=== PATIENT | male | born 1935 | race Caucasian/White ===

== ENCOUNTER 2016-06-01 09:31 | Outpatient (CLI) | payer MEDICARE, OTHER | END 2016-06-01 09:32 | disposition home or self-care (01) | DX: C61 Malignant neoplasm of prostate (principal); Z92.3 Personal history of irradiation; R35.1 Nocturia; R39.11 Hesitancy of micturition; N52.9 Male erectile dysfunction, unspecified ==

== ENCOUNTER 2016-06-01 09:31 | Outpatient (CLI) | payer MEDICARE, OTHER | END 2016-06-01 09:32 | disposition home or self-care (01) | DX: E11.51 Type 2 diabetes mellitus with diabetic peripheral angiopathy without gangrene (principal) ==

== ENCOUNTER 2016-12-11 08:00 | Outpatient (CLI) | payer MEDICARE, OTHER ==
[2016-12-11 13:52] LABS: BASOPHILS % (AUTO) 0.3 %; EOSINOPHILS # (AUTO) 0.1 10^3/uL (0.0-0.7); EOSINOPHILS % (AUTO) 1.5 %; HCT - HEMATOCRIT 39.2 % (42.0-52.0); HGB - HEMOGLOBIN 13.4 g/dL (14.0-18.0); LYMPHOCYTES # (AUTO) 1.5 10^3/uL (1.5-3.5); LYMPHOCYTES % (AUTO) 21.6 %; MEAN CORPUSCULAR HGB CONC 34.3 g/dL (32.0-36.0); MEAN CORPUSCULAR VOLUME 87.5 fL (80.0-94.0); MEAN PLATELET VOLUME 8.7 fL (7.4-11.4); MONOCYTES # (AUTO) 0.6 10^3/uL (0.0-1.0); MONOCYTES % (AUTO) 8.5 %; NEUTROPHILS # (AUTO) 4.6 10^3/uL (1.5-6.6); NEUTROPHILS % (AUTO) 68.1 %; NUCLEATED RED BLOOD CELLS AUTO 0.1 /100WBC; RED BLOOD COUNT 4.48 10^6/uL (4.70-6.10); RED CELL DISTRIBUTION WIDTH 13.2 % (12.0-15.0); UNCORRECTED WHITE BLOOD COUNT 6.8 x10^3/uL; WHITE BLOOD COUNT 6.8 x10^3/uL (4.8-10.8)
[2016-12-11 14:11] LABS: ALBUMIN/GLOBULIN RATIO 1.3 (1.0-2.2); BUN - BLOOD UREA NITROGEN 24 mg/dL (6-20); CALCIUM 9.4 mg/dL (8.5-10.3); CARBON DIOXIDE - CO2 28 mmol/L (21-32); CHLORIDE 103 mmol/L (101-111); CHOL/HDL RATIO 2.8 (<5.0); CHOLESTEROL 86 mg/dL; CREATININE 1.6 mg/dL (0.6-1.2); GFR - MDRD 42 (>89); GLUCOSE 94 mg/dL (70-100); HDL CHOLESTEROL 31 mg/dL; LDL/HDL RATIO 1.1 (<3.6); POTASSIUM 3.7 mmol/L (3.5-5.0); SODIUM 138 mmol/L (135-145); TOTAL PROTEIN 7.4 g/dL (6.7-8.2); TRIGLYCERIDES 98 mg/dL; VLDL CHOLESTEROL 20 mg/dL
[2016-12-11 14:29] LABS: HEMOGLOBIN A1C 0.56 g/dL
== END 2016-12-11 08:01 | disposition home or self-care (01) ==
LOC: LAB.WCP 08:00
PROVIDERS: ATTEND Urology
DX: I25.10 Atherosclerotic heart disease of native coronary artery without angina pectoris (principal); C61 Malignant neoplasm of prostate; E11.29 Type 2 diabetes mellitus with other diabetic kidney complication; N18.3 Chronic kidney disease, stage 3 (moderate); E03.9 Hypothyroidism, unspecified; R35.1 Nocturia; N52.8 Other male erectile dysfunction; R39.11 Hesitancy of micturition; Z92.3 Personal history of irradiation; I12.9 Hypertensive chronic kidney disease with stage 1 through stage 4 chronic kidney disease, or unspecified chronic kidney disease
CPT/HCPCS: 36415; 80053; 80061; 83036; 84153; 84443; 85025

== ENCOUNTER 2017-03-16 10:05 | Outpatient (CLI) | payer MEDICARE, OTHER ==
[2017-03-16 14:17] LABS: HEMOGLOBIN A1C 0.57 g/dL
[2017-03-16 14:22] LABS: ALBUMIN/GLOBULIN RATIO 1.3 (1.0-2.2); BILIRUBIN,TOTAL 0.8 mg/dL (0.2-1.0); CALCIUM 9.7 mg/dL (8.5-10.3); CREATININE 1.6 mg/dL (0.6-1.2); POTASSIUM 4.1 mmol/L (3.5-5.0); TOTAL PROTEIN 7.4 g/dL (6.7-8.2)
== END 2017-03-16 10:06 | disposition home or self-care (01) ==
LOC: LAB.WCP 10:05
PROVIDERS: ATTEND Family Medicine
DX: G47.62 Sleep related leg cramps (principal); E11.51 Type 2 diabetes mellitus with diabetic peripheral angiopathy without gangrene; I48.0 Paroxysmal atrial fibrillation; I10 Essential (primary) hypertension; E78.9 Disorder of lipoprotein metabolism, unspecified
CPT/HCPCS: 36415; 80053; 83036

== ENCOUNTER 2017-06-01 08:00 | Outpatient (CLI) | payer MEDICARE, OTHER ==
[2017-06-01 13:51] LABS: ALBUMIN 4.2 g/dL (3.2-5.5); ALBUMIN/GLOBULIN RATIO 1.3 (1.0-2.2); BILIRUBIN,TOTAL 0.7 mg/dL (0.2-1.0); CALCIUM 9.7 mg/dL (8.5-10.3); CREATININE 1.6 mg/dL (0.6-1.2); TOTAL PROTEIN 7.5 g/dL (6.7-8.2)
[2017-06-01 14:46] LABS: HB2 TOTAL 13.6 g/dL; HEMOGLOBIN A1C 0.59 g/dL; HEMOGLOBIN A1C % 6.1 % (4.6-6.2)
== END 2017-06-01 08:01 | disposition home or self-care (01) ==
LOC: LAB.WCP 08:00
PROVIDERS: ATTEND Family Medicine
DX: C61 Malignant neoplasm of prostate (principal); E11.51 Type 2 diabetes mellitus with diabetic peripheral angiopathy without gangrene; R15.0 Incomplete defecation
CPT/HCPCS: 36415; 80053; 83036

== ENCOUNTER 2017-12-16 18:19 | Outpatient (CLI) | payer MEDICARE, OTHER ==
--- NOTE | 2017-12-17 01:41 | Ultrasound Report ---
Reason: LEG PAIN, RIGHT Procedure Date: 12/16/2017 Accession Number: [id number] / [id number] Procedure: US - Duplex Ext Veins Right CPT Code: FULL RESULT: EXAM: RIGHT LOWER EXTREMITY VENOUS ULTRASOUND EXAM DATE: 12/16/2017 06:47 PM. CLINICAL HISTORY: Leg pain, right. COMPARISON: None. TECHNIQUE: Real-time sonographic vascular imaging was performed by the sweeper brush maker machine through the lower extremity utilizing both color-flow and Doppler spectral analysis. Multiple promotions representative static images were saved for review. FINDINGS: Common Femoral Vein (CFV): Normal. CFV-GSV Junction: Normal. Profunda Femoral Vein (PFV): Normal. Femoral Vein (FV) Prox: Normal. Femoral Vein (FV) Mid: Normal. Femoral Vein (FV) Dist: Normal. Popliteal Vein: Normal. Posterior Tibial Veins: Normal. Peroneal Veins: Normal. Contralateral Side CFV: Normal. Other: None. IMPRESSION: No evidence for deep venous thrombosis. RADIA
== END 2017-12-16 18:20 | disposition home or self-care (01) ==
LOC: DI 18:19
PROVIDERS: ATTEND Family Medicine
DX: M79.604 Pain in right leg (principal)

== ENCOUNTER 2017-12-23 10:49 | Outpatient (CLI) | payer MEDICARE, OTHER ==
[2017-12-23 18:57] LABS: HB2 TOTAL 13.4 g/dL; HEMOGLOBIN A1C 0.61 g/dL; HEMOGLOBIN A1C % 6.3 % (4.6-6.2)
[2017-12-23 19:03] LABS: ALBUMIN 4.2 g/dL (3.2-5.5); ALBUMIN/GLOBULIN RATIO 1.4 (1.0-2.2); ALKALINE PHOSPHATASE 58 IU/L (42-121); ALT ALANINE AMINOTRANSFERASE 20 IU/L (10-60); AST ASPARTATE AMINOTRANSFERASE 29 IU/L (10-42); BILIRUBIN,TOTAL 0.9 mg/dL (0.2-1.0); BUN - BLOOD UREA NITROGEN 28 mg/dL (6-20); CALCIUM 9.5 mg/dL (8.5-10.3); CARBON DIOXIDE - CO2 28 mmol/L (21-32); CHLORIDE 105 mmol/L (101-111); CHOLESTEROL 100 mg/dL; CREATININE 1.5 mg/dL (0.6-1.2); GFR - MDRD 45 (>89); GLUCOSE 96 mg/dL (70-100); HDL CHOLESTEROL 33 mg/dL; LDL CHOLESTEROL,CALCULATED 49 mg/dL; LDL/HDL RATIO 1.5 (<3.6); SODIUM 140 mmol/L (135-145); TOTAL PROTEIN 7.2 g/dL (6.7-8.2); VLDL CHOLESTEROL 18 mg/dL
== END 2017-12-23 10:50 | disposition home or self-care (01) ==
LOC: LAB.WCP 10:49
PROVIDERS: ATTEND Family Medicine
DX: E11.40 Type 2 diabetes mellitus with diabetic neuropathy, unspecified (principal); E03.9 Hypothyroidism, unspecified; E78.5 Hyperlipidemia, unspecified
CPT/HCPCS: 36415; 80053; 80061; 83036; 83721; 84443

== ENCOUNTER 2018-07-06 08:00 | Outpatient (CLI) | payer MEDICARE, OTHER ==
[2018-07-06 13:10] LABS: BASOPHILS % (AUTO) 0.8 %; EOSINOPHILS # (AUTO) 0.1 10^3/uL (0.0-0.7); EOSINOPHILS % (AUTO) 1.9 %; HGB - HEMOGLOBIN 13.1 g/dL (14.0-18.0); LYMPHOCYTES # (AUTO) 1.3 10^3/uL (1.5-3.5); LYMPHOCYTES % (AUTO) 21.3 %; MEAN CORPUSCULAR HEMOGLOBIN 30.4 pg (27.0-31.0); MEAN CORPUSCULAR HGB CONC 34.4 g/dL (32.0-36.0); MEAN CORPUSCULAR VOLUME 88.5 fL (80.0-94.0); MEAN PLATELET VOLUME 8.8 fL (7.4-11.4); MONOCYTES # (AUTO) 0.5 10^3/uL (0.0-1.0); MONOCYTES % (AUTO) 8.2 %; NEUTROPHILS # (AUTO) 4.2 10^3/uL (1.5-6.6); NEUTROPHILS % (AUTO) 67.8 %; PLT - PLATELET COUNT 171 10^3/uL (130-450); RED BLOOD COUNT 4.29 10^6/uL (4.70-6.10); RED CELL DISTRIBUTION WIDTH 13.2 % (12.0-15.0); WHITE BLOOD COUNT 6.2 x10^3/uL (4.8-10.8)
[2018-07-06 13:29] LABS: ALBUMIN 4.1 g/dL (3.2-5.5); ALBUMIN/GLOBULIN RATIO 1.2 (1.0-2.2); CALCIUM 9.2 mg/dL (8.5-10.3); CREATININE 1.7 mg/dL (0.6-1.2); TOTAL PROTEIN 7.5 g/dL (6.7-8.2)
[2018-07-06 13:56] LABS: HB2 TOTAL 14.1 g/dL; HEMOGLOBIN A1C 0.6 g/dL
== END 2018-07-06 23:59 | disposition home or self-care (01) ==
LOC: LAB.WCP 08:00
PROVIDERS: ATTEND Family Medicine
DX: C61 Malignant neoplasm of prostate (principal); E11.51 Type 2 diabetes mellitus with diabetic peripheral angiopathy without gangrene; I48.0 Paroxysmal atrial fibrillation; N18.3 Chronic kidney disease, stage 3 (moderate); I12.9 Hypertensive chronic kidney disease with stage 1 through stage 4 chronic kidney disease, or unspecified chronic kidney disease; I25.10 Atherosclerotic heart disease of native coronary artery without angina pectoris
CPT/HCPCS: 36415; 80053; 82043; 83036; 84443; 85025

== ENCOUNTER 2018-07-11 14:50 | Observation (INO) | payer MEDICARE, OTHER ==
[2018-07-11] MEDS ORDERED: NITROGLYCERIN SL 0.4 MG TABLET SL STA (15:16)
[2018-07-11] MEDS ORDERED: ASPIRIN CHEW 81 MG TABLET PO STA (15:16)
--- NOTE | 2018-07-11 15:18 | ED Physician Documentation ---
PD HPI CHEST PAIN - Stated complaint Stated Complaint: CHEST PX/ABD PX - Chief complaint Chief Complaint: Cardiac - History obtained from History obtained from: Patient, Family - History of Present Illness Timing - onset: Today (This is an 82-year-old gentleman with history of AR and 1998 with single stent in place, no heart problems since. He developed sharp left anterior chest pain while eating about an hour ago and feels nauseous with it. He denies shortness of breath or sweats. There is no radiation to the back.) Review of Systems Constitutional: denies: Fever, Chills, Sweats Cardiac: denies: Palpitations, Pedal edema, Calf pain Respiratory: denies: Dyspnea, Cough, Hemoptysis, Wheezing PD PAST MEDICAL HISTORY - Past Medical History Cardiovascular: AR, Atrial fibrillation Respiratory: None Endocrine/Autoimmune: Type 2 diabetes GI: None : None HEENT: Chronic hearing loss Psych: Depression Musculoskeletal: None Derm: None - Past Surgical History Past Surgical History: No General: Hiatal hernia repair Ortho: Knee replacement Cardiovascular: Coronary stent HEENT: Cataracts, Tonsil/Adenoidectomy - Present Medications Home Medications: Ambulatory Orders Medication Instructions Recorded Confirmed Cetirizine [ZyrTEC] 10 mg PO QPM 04/22/15 05/24/15 Fluticasone [Flonase] 1 sprays [place] BID 04/22/15 05/24/15 Ca/D3/Mag#11/Zinc/Cerner Analyst/Adrian/Bor 1 tab PO QPM /06/1805/24/15 [Caltrate 600+D Plus Tablet] Furosemide 40 mg PO DAILY 05/08/15 05/24/15 Levothyroxine [Synthroid] 50 mcg PO QDAC 05/08/15 05/24/15 Multivit-Min/Iron Fum/Folic AC 1 each PO DAILY 05/08/15 05/24/15 [Loyel-Clvcdll-Enczqosi Tablet] Polyethylene Glycol 3350 [Miralax] 17 gm PO DAILY PRN 05/08/15 05/24/15 Valsartan [Diovan] 320 mg PO DAILY 05/08/15 05/24/15 amLODIPine [Norvasc] 5 mg PO DAILY 05/08/15 05/24/15 glipiZIDE [Glucotrol] 5 mg PO QPM 05/08/15 05/24/15 metFORMIN [Glucophage] 500 mg PO BID 05/08/15 05/24/15 Rivaroxaban [Xarelto] 15 mg PO DAILY 05/09/15 05/24/15 - Allergies Allergies/Adverse Reactions: Allergies Allergy/AdvReac Type Severity Reaction Status Date / Time No Known Drug Allergies Allergy Verified 04/22/15 06:24 - Social History Does the pt smoke?: No Smoking Status: Former smoker Does the pt drink ETOH?: No Does the pt have substance abuse?: No - Family History Family history: reports: Non contributory - Immunizations Immunizations are current?: Yes PD ED PE NORMAL - Vitals Vital signs reviewed: Yes - General General: Alert and oriented X 3, No acute distress - HEENT HEENT: PERRL, EOMI - Neck Neck: Supple, no meningeal sign, No bony TTP - Cardiac Cardiac: Other (Irregularly irregular without murmur) - Respiratory Respiratory: No respiratory distress, Clear bilaterally - Abdomen Abdomen: Soft, Non tender - Back Back: No CVA TTP, No spinal TTP - Derm Derm: Normal color, Warm and dry - Extremities Extremities: No edema, No calf tenderness / cord - Neuro Neuro: Alert and oriented X 3, Normal speech Results - Vitals Vitals: Vital Signs - 24 hr 07/11/18 07/11/18 07/11/18 14:59 15:23 15:33 Temperature 36.3 C L Heart Rate 69 97 88 Respiratory 20 16 18 Rate Blood Pressure 137/61 H 124/83 H 103/57 L O2 Saturation 97 96 95 Oxygen O2 Source Room air - EKG (time done) 1505 Rate: Rate (enter#) (109) Rhythm: Atrial fibrillation (With frequent PVCs, 3 beat run of V. tach on the EKG.) [place]: Normal QRS: Low voltage Ischemia: Normal ST segments. No: ST elevation c/w ischemia Computer interpretation: Agree with computer - Labs Labs: Laboratory Tests 07/11/18 07/11/18 07/11/18 15:10 15:10 15:10 WBC 6.7 RBC 4.57 L Hgb 13.6 L Hct 40.7 L MCV 89.0 MCH 29.7 MCHC 33.4 RDW 13.0 Plt Count 182 MPV 8.0 Neut # (Auto) 5.0 Lymph # (Auto) 1.1 L Summers # (Auto) 0.4 Eos # (Auto) 0.1 Baso # (Auto) 0.0 Absolute Nucleated RBC 0.00 Nucleated RBC % 0.0 Sodium 136 Potassium 4.1 Chloride 98 L Carbon Dioxide 29 Anion Gap 9.0 BUN 26 H Creatinine 1.7 H Estimated GFR (MDRD) 39 L Glucose 178 H Calcium 9.7 Total Bilirubin 1.0 AST 30 ALT 21 Alkaline Phosphatase 62 Total Creatine Kinase 132 CK-MB (CK-2) 5.6 Troponin I < 0.04 Total Protein 7.9 Albumin 4.4 Globulin 3.5 Albumin/Globulin Ratio 1.3 Lipase 36 - Rads (name of study) 1v chest Radiology: EMP read contemporaneously (stable cardiomegaly, lg hiatal hernia) PD MEDICAL DECISION MAKING - ED course ED course: This is an 82-year-old gentleman with history of AR and A. fib who presents with acute chest pain. His EKG is not particularly ischemic but he does have frequent PVCs. He was administered nitroglycerin which did help with the pain but he had a presyncopal episode with this. He became briefly hypotensive to 70/40 and further nitroglycerin was held. He was also administered aspirin. His initial biomarkers are negative. - Consults Consults: Consulted (name) (Gena Bird, hospitalist, we spoke as pt needs formal R/O AR at 1545) Departure - Departure Disposition: ED Place in Observation Clinical Impression: Chest pain Qualifiers: Chest pain type: unspecified Qualified Code(s): R07.9 - Chest pain, unspecified Condition: Stable Record reviewed to determine appropriate education?: Yes
[2018-07-11 15:25] LABS: BASOPHILS % (AUTO) 0.3 %; EOSINOPHILS # (AUTO) 0.1 10^3/uL (0.0-0.7); EOSINOPHILS % (AUTO) 1.4 %; HGB - HEMOGLOBIN 13.6 g/dL (14.0-18.0); LYMPHOCYTES # (AUTO) 1.1 10^3/uL (1.5-3.5); LYMPHOCYTES % (AUTO) 15.9 %; MEAN CORPUSCULAR HEMOGLOBIN 29.7 pg (27.0-31.0); MEAN CORPUSCULAR HGB CONC 33.4 g/dL (32.0-36.0); MONOCYTES # (AUTO) 0.4 10^3/uL (0.0-1.0); MONOCYTES % (AUTO) 6.7 %; NEUTROPHILS % (AUTO) 75.7 %; PLT - PLATELET COUNT 182 10^3/uL (130-450); RED BLOOD COUNT 4.57 10^6/uL (4.70-6.10); WHITE BLOOD COUNT 6.7 x10^3/uL (4.8-10.8)
[2018-07-11 15:33] LABS: ALBUMIN 4.4 g/dL (3.2-5.5); ALBUMIN/GLOBULIN RATIO 1.3 (1.0-2.2); CALCIUM 9.7 mg/dL (8.5-10.3); CREATININE 1.7 mg/dL (0.6-1.2); TOTAL PROTEIN 7.9 g/dL (6.7-8.2)
[2018-07-11 15:37] LABS: TROPONIN I < 0.04 ng/mL (<0.49)
[2018-07-11 15:39] LABS: CREATINE KINASE MB 5.6 ng/mL (0.6-6.3)
[2018-07-11] MEDS ORDERED: POLYETHYLENE GLYCOL 3350 17 GM PACKET PO PRN (15:44)
[2018-07-11] MEDS ORDERED: SODIUM CHLORIDE 0.9% 500 ML IV ONE (15:45)
[2018-07-11] MEDS ORDERED: MORPHINE 2 MG/ML SYRINGE IVP STA (15:45)
[2018-07-11] MEDS ORDERED: NITROGLYCERIN 2% PASTE TOP STA (15:45)
[2018-07-11] MEDS ORDERED: TEMAZEPAM 15 MG CAPSULE PO PRN (15:49)
[2018-07-11] MEDS ORDERED: MORPHINE 2 MG/ML SYRINGE IVP PRN (15:49)
[2018-07-11] MEDS ORDERED: ACETAMINOPHEN 325 MG TABLET PO PRN (15:49)
[2018-07-11] MEDS ORDERED: SODIUM CHLORIDE FLUSH 0.9% 10 ML SYRINGE IVP PRN (15:49)
[2018-07-11] MEDS ORDERED: ONDANSETRON ODT 4 MG TABLET TL PRN (15:49)
[2018-07-11] MEDS ORDERED: MIDODRINE 2.5 MG TABLET PO PRN (15:57)
--- NOTE | 2018-07-11 16:16 | HISTORY & PHYSICAL EXAMINATION ---
Chief Complaint - Chief Complaint Chief Complaint: chest pain History of Present Illness - History of Present Illness HPI Comment/Other: Mr. Holt is an 82-year-old gentleman with a PMH significant of NC with single stent in place in 1997, HTN, several chest pain reported in the past, Atrial fibrillation with Xarelto, DM2, chronic hearing loss, who report he developed sharp left anterior chest pain. Pt report when he was eating lunch, he feels nauseous, and feel left chest and left upper abdominal pain. He report pain is sharp and consistent. The pain did not radiate to other location. In ER, pt was given Nitroglycerin, and he feel his chest pain is released. He denies shortness of breath or sweats. His initial troponin is negative. His EKG is not particularly ischemic but he does have frequent PVCs. pt was admitted for evaluation and treatment of chest pain. History - Past Medical History Cardiovascular: reports: NC, Atrial fibrillation Respiratory: reports: None Endocrine/Autoimmune: reports: Type 2 diabetes GI: reports: None : reports: None HEENT: reports: Chronic hearing loss Psych: reports: Depression Musculoskeletal: reports: None Derm: reports: None MRSA Hx?: No - Past Surgical History General: reports: Hiatal hernia repair Ortho: reports: Knee replacement Cardiovascular: reports: Coronary stent HEENT: reports: Cataracts, Tonsil/Adenoidectomy - Family & Social History Family History: Mother: , CVA/TIA, Father: , COPD/Emphysema Family History Comment/Other: pt report his father at 70 yrs from lung disease. his mother from cancer. he is with living at [facility] and had three children. Social History Notes: pt report he had remote cigarette smoker, he denies alcohol and drug problem Meds/Allgy - Home Medications Home Medications: Ambulatory Orders Medication Instructions Recorded Confirmed Cetirizine [ZyrTEC] 10 mg PO QPM 04/22/15 05/24/15 Fluticasone [Flonase] 1 sprays [place] BID 04/22/15 05/24/15 Ca/D3/Mag#11/Zinc/Washer Hand/Adrian/Bor 1 tab PO QPM 05/08/15 05/24/15 [Caltrate 600+D Plus Tablet] Furosemide 20 mg PO DAILY 05/08/15 05/24/15 Levothyroxine [Synthroid] 50 mcg PO QDAC 05/08/15 05/24/15 Multivit-Min/Iron Fum/Folic AC 1 each PO DAILY 05/08/15 05/24/15 [Hjnnh-Gdhuhek-Dsiwgeet Tablet] Polyethylene Glycol 3350 [Miralax] 8.5 - 17 gm PO DAILY PRN 05/08/15 05/24/15 Valsartan [Diovan] 320 mg PO DAILY 05/08/15 05/24/15 amLODIPine [Norvasc] 2.5 mg PO DAILY 05/08/15 05/24/15 glipiZIDE [Glucotrol] 5 mg PO QPM 05/08/15 05/24/15 metFORMIN [Glucophage] 500 mg PO BID 05/08/15 05/24/15 Rivaroxaban [Xarelto] 15 mg PO DAILY 05/09/15 05/24/15 Diclofenac Sodium [Voltaren] 2 - 4 gm TOP QID PRN 07/11/18 Ferrous Sulfate 325 mg PO DAILY 07/11/18 Mirtazapine [Remeron] 7.5 mg PO HS 07/11/18 Simvastatin 80 mg PO DAILY 07/11/18 Tamsulosin HCl [Flomax] 0.4 mg PO DAILY 07/11/18 Zolpidem [Ambien] 5 mg PO HS PRN 07/11/18 raNITIdine [Zantac] 150 mg PO DAILY 07/11/18 - Allergies Allergies/Adverse Reactions: Allergies Allergy/AdvReac Type Severity Reaction Status Date / Time No Known Drug Allergies Allergy Verified 04/22/15 06:24 Review of Systems - Constitutional Constitutional: denies: Fatigue, Fever, Chills, Malaise, Weakness, Poor appetite, Diaphoresis, Night sweats - Eyes Eyes: denies: Pain, Irritation, Amaurosis, Blurred vision, Spots in vision, Field loss, Vision loss, Dipolpia - Ears, Nose & Throat Ears, Nose & Throat: denies: Ear pain, Hearing aids, Tinnitus, Vertigo, Nasal pain, Nasal discharge, Nosebleeds, Nasal obstruction, Nasal congestion, Postnasal drainage, Dentures, Sore throat, Hoarseness, Mouth lesions, Bleeding gums, Dental decay, Dental pain - Cardiovascular Cariovascular: reports: Chest pain. denies: Irregular heart rate, Palpitations, Edema, Lightheadedness, Syncope, Exertional dyspnea, Decr. exercise tolerance - Respiratory Respiratory: denies: Cough, Sputum production, Wheezing, Snoring, Hemoptysis, Orthopnea, SOB at rest, SOB with exertion - Gastrointestinal Gastrointestinal: denies: Abdominal pain, Abdominal distention, Constipation, Diarrhea, Change in bowel habits, Rectal bleeding, Black stools, Bloody stools, Nausea, Vomiting, Bile emesis, David blood emesis, Coffee grounds emesis, Reflux/heartburn - Genitourinary Genitourinary: denies: Dysuria, Frequency, Urgency, Hematuria, Incontinence, Flank pain, Nocturia, Urethral discharge - Musculoskeletal Musculoskeletal: denies: Muscle pain, Back pain, Muscle aches, Stiffness, Banuelos ited range of motion, Muscle weakness, Gout - Integumentary Integumentary: denies: Rash, Pruritis, Lesions, Dryness, Lumps, Acne, Pigment changes, Nail changes - Neurological Neurological: denies: General weakness, Focal weakness, Headache, Dizziness, Numbness, Memory problems, Pre-existing deficit, Abnormal gait, Seizures, Incoordination, Slurred speech - Psychiatric Psychiatric: denies: Depression, Anxiety, Suicidal, Delusions, Hallucinations, Homicidal - Endocrine Endocrine: denies: Polyuria, Polydypsia, Polyphagia, Intolerance to cold - Hematologic/Lymphatic Hematologic/Lymphatic: denies: Anemia, Bruising, Petechiae, Blood clots, Lymphadenopathy, Bleeding tendencies Prior Level of Functionality: independent with Exam - Vital Signs Reviewed Vital Signs: Yes Vital Signs: Vital Signs x48h Temp Pulse Resp BP Pulse Ox 07/11/18 15:57 89 16 105/61 95 07/11/18 15:33 88 18 103/57 L 95 07/11/18 15:23 97 16 124/83 H 96 07/11/18 14:59 36.3 C L 69 20 137/61 H 97 - Physical Exam General Appearance: positive: No acute distress, Alert. negative: Lethargic Eyes Bilateral: positive: Normal inspection, PERRL, No lid inflammation, Conjunctivae nml ENT: positive: ENT inspection nml, Pharynx nml, No signs of dehydration. negative: Purulent nasal drainage, Pharyngeal erythema, Oral lesions Neck: positive: Nml inspection, Thyroid nml, No JVD, Trachea midline. negative: Thyromegaly, Lymphadenopathy (R), Lymphadenopathy (L), Stiff neck, Swelling/bruising, Tracheal deviation Respiratory: positive: Chest non-tender, No respiratory distress, Breath sounds nml. negative: Wheezes, Rales, Rhonchi Cardiovascular: positive: Regular rate & rhythm, No murmur, No gallop. negative: Irregularly irregular, Extrasystoles, Tachycardia, Bradycardia, JVD present, Systolic murmur, Diastolic murmur Peripheral Pulses: positive: 2+ Abdomen: positive: Non-tender, No organomegaly, Nml bowel sounds, No distention. negative: Tenderness, Guarding, Rebound Back: positive: Nml inspection. negative: CVA tenderness (R), CVA tenderness (L) Skin: positive: Color nml, No rash, Warm, Dry. negative: Cyanosis, Diaphoresis, Pallor Extremities: positive: Non-tender, Full ROM, Nml appearance. negative: Calf tenderness, Joint swelling, Kyung's sign/cords Neurologic/Psychiatric: positive: Oriented x3, Motor nml, Sensation nml. negative: Mood/affect nml, Weakness, Sensory loss, Facial droop, Slurred/abnml speech, Depressed mood/affect Sepsis Event Note (H) - Evaluation Current Stage of Sepsis: Ruled out Conclusion/Plan - Problem List (1) Chest pain Conclusion/Plan: pt report he had left sharp chest pain, didnot radiate to other location. but nitro release his pain per pt report. initial troponin is negative. EKG does not indicate acute ST variety serial troponin Aspirin daily EKG PRN on tele and vital monitor ECHO stress test, since pt has hx of CAD, nitro released his chest pain nitro and Morphine PRN reconcile home Xarelto, check lipid panel Qualifiers: Chest pain type: unspecified Qualified Code(s): R07.9 - Chest pain, unspecified (2) Afib Conclusion/Plan: HR is stable, reconcile home meds, Xarelto continue tele and vital monitor (3) Hx of coronary artery disease Conclusion/Plan: Initial Troponin is negative. EKG does not indicate ST variety. pt has home meds Xarelto tele and vital monitor continue chest pain workup as above (4) HTN (hypertension) Conclusion/Plan: stable, will reconcile home meds after pharmacy proved vital monitor (5) DM2 (diabetes mellitus, type 2) Conclusion/Plan: pt did not take insulin at home. hold Metformin start slide scale, ACHS hypoglycemia protocol check A1C (6) Full code status Conclusion/Plan: pt request full code - Lab Results Fish Bones: 07/11/18 15:10 07/11/18 15:10 Core Measures - Anticipated LOS I expect patient to be DC'd or transferred within 96 hours.: Yes - DVT/VTE - Prophylaxis VTE/DVT Device ordered at admit?: Yes VTE/DVT Prophylaxis med ordered at admit?: Yes
--- NOTE | 2018-07-11 16:24 | XRAY Report ---
Reason: chest pain Procedure Date: 07/11/2018 Accession Number: [id number] / [id number] Procedure: XR - Chest 1 View X-Ray CPT Code: 15427 FULL RESULT: EXAM: CHEST RADIOGRAPHY EXAM DATE: 07/11/2018 04:05 PM. CLINICAL HISTORY: Chest pain. COMPARISON: CHEST 2 VIEW PA/LAT 05/08/2015 4:03 PM. TECHNIQUE: 1 view. FINDINGS: Lungs/Pleura: Left basilar atelectasis or scarring No focal opacities evident. No pleural effusion. No pneumothorax. Mediastinum: Stable cardiomegaly. Large hiatal hernia. 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 Stable cardiomegaly. 2. Large hiatal hernia. RADIA
[2018-07-11 16:31] LABS: HB2 TOTAL 15.3 g/dL; HEMOGLOBIN A1C 0.68 g/dL; HEMOGLOBIN A1C % 6.2 % (4.6-6.2)
[2018-07-11] MEDS: INSULIN ASPART 300 UNIT/3 ML PEN SUBQ SCH ×2 (17:23→21:03)
[2018-07-11] MEDS: SODIUM CHLORIDE FLUSH 0.9% 10 ML SYRINGE IVP SCH (17:27)
[2018-07-11] MEDS: SODIUM CHLORIDE 0.9% 1,000 ML IV SCH (18:38)
[2018-07-11] MEDS ORDERED: glipiZIDE 5 MG TABLET PO SCH (21:00)
[2018-07-11] MEDS ORDERED: FAMOTIDINE 20 MG TABLET PO SCH (21:00)
[2018-07-11] MEDS: FLUTICASONE NASAL SPRAY NAS SCH (21:07)
[2018-07-12] MEDS: SODIUM CHLORIDE FLUSH 0.9% 10 ML SYRINGE IVP SCH ×2 (03:08→13:51)
[2018-07-12 05:46] LABS: BASOPHILS % (AUTO) 0.2 %; EOSINOPHILS # (AUTO) 0.1 10^3/uL (0.0-0.7); EOSINOPHILS % (AUTO) 1.4 %; LYMPHOCYTES # (AUTO) 1.1 10^3/uL (1.5-3.5); LYMPHOCYTES % (AUTO) 16.8 %; MEAN CORPUSCULAR HEMOGLOBIN 30.3 pg (27.0-31.0); MEAN CORPUSCULAR HGB CONC 34.1 g/dL (32.0-36.0); MEAN PLATELET VOLUME 8.2 fL (7.4-11.4); MONOCYTES # (AUTO) 0.6 10^3/uL (0.0-1.0); MONOCYTES % (AUTO) 9.2 %; NEUTROPHILS # (AUTO) 4.8 10^3/uL (1.5-6.6); NEUTROPHILS % (AUTO) 72.4 %; PLT - PLATELET COUNT 164 10^3/uL (130-450); RED BLOOD COUNT 3.94 10^6/uL (4.70-6.10); WHITE BLOOD COUNT 6.7 x10^3/uL (4.8-10.8)
[2018-07-12 05:59] LABS: ALBUMIN 3.6 g/dL (3.2-5.5); CALCIUM 8.9 mg/dL (8.5-10.3); CREATININE 1.3 mg/dL (0.6-1.2); PHOSPHORUS 3.7 mg/dL (2.5-4.6)
[2018-07-12 06:02] LABS: CHOL/HDL RATIO 2.5 (<5.0); CHOLESTEROL 94 mg/dL; HDL CHOLESTEROL 38 mg/dL; LDL CHOLESTEROL,CALCULATED 46 mg/dL; LDL/HDL RATIO 1.2 (<3.6); VLDL CHOLESTEROL 10 mg/dL
[2018-07-12] MEDS: SODIUM CHLORIDE 0.9% 1,000 ML IV SCH (06:31)
[2018-07-12] MEDS ORDERED: LEVOTHYROXINE 25 MCG TABLET PO SCH (07:00)
[2018-07-12] MEDS ORDERED: ASPIRIN 325 MG TABLET PO SCH (08:00)
[2018-07-12] MEDS ORDERED: PANTOPRAZOLE 40 MG TABLET PO SCH (09:00)
[2018-07-12] MEDS ORDERED: POLYETHYLENE GLYCOL 3350 17 GM PACKET PO SCH (09:00)
[2018-07-12] MEDS ORDERED: MULTIVITAMIN W/MINERALS TABLET PO SCH (09:00)
[2018-07-12] MEDS ORDERED: RIVAROXABAN 15 MG TABLET PO SCH (09:00)
[2018-07-12] MEDS ORDERED: NITROGLYCERIN 0.2 MG/HR PATCH TOP SCH (09:00)
[2018-07-12] MEDS: FLUTICASONE NASAL SPRAY NAS SCH (09:31)
[2018-07-12] MEDS: INSULIN ASPART 300 UNIT/3 ML PEN SUBQ SCH ×2 (09:31→13:43)
[2018-07-12] MEDS ORDERED: REGADENOSON 0.4 MG/5 ML SYRINGE IVP ONE ×2 (09:47→11:24)
[2018-07-12] MEDS ORDERED: AMINOPHYLLINE 250 MG/10 ML VIAL ONE (10:54)
--- NOTE | 2018-07-12 11:29 | CARDIAC PROCEDURE NOTE ---
DATE OF SERVICE: 07/12/2018 Physician: Latisha Barth MD INDICATION: Chest pain. CARDIAC RISK FACTORS: Male gender, advanced age, diabetes, hypertension, history of CAD with prior stenting 20 years ago. PROCEDURE: After signing informed consent, the patient underwent a pharmaceutical stress test using Lexiscan with nuclear myocardial perfusion imaging. RESTING HEART RATE: 85. PEAK HEART RATE: 103. RESTING BLOOD PRESSURE: 122/64. PEAK BLOOD PRESSURE: 118/55. Lexiscan was infused per protocol. The patient developed 1/10 chest discomfort, which he called "heaviness." This subsided on its own slowly, after 7 minutes. There was no shortness of breath or other side effects. EKG AT REST: Atrial fibrillation, frequent PVCs, low voltage in the limb leads. EKG AT PEAK: No new ischemic ST segment changes. SUMMARY 1. Abnormal resting EKG with underlying atrial fibrillation and frequent PVCs. 2. The patient did develop 1/10 chest pressure, this subsided on its own. 3. No ischemic ST segment changes by EKG criteria during this pharmaceutical stress test. 4. Nuclear images reported separately. TD: 07/12/2018 11:19 CECE
[2018-07-12 11:39] VITALS: BP 143/73
--- NOTE | 2018-07-12 13:10 | Nuclear Medicine Report ---
Reason: UA Procedure Date: 07/12/2018 Accession Number: [id number] / [id number] Procedure: NM - Myocardial Perfusion STR/RST CPT Code: FULL RESULT: EXAM: SINGLE-ISOTOPE PHARMACOLOGICAL STRESS TEST WITH REGADENOSON. SINGLE-ISOTOPE AND ONE-DAY REST/STRESS MYOCARDIAL PERFUSION SCANS WITH TOMOGRAPHIC IMAGING, QUANTITATIVE ANALYSIS, WALL MOTION ANALYSIS AND CALCULATION OF EJECTION FRACTION. EXAM DATE: 07/12/2018 12:27 PM. CLINICAL HISTORY: UA. History of myocardial infarction with coronary stenting in 1997. Chest pain. Atrial fibrillation. Nausea. Negative troponin. COMPARISON: None available. TECHNIQUE: After the intravenous administration of 10.5 mCi of Tc-99m sestamibi, a rest myocardial perfusion scan was done with tomography. Motion correction was applied when appropriate. After an appropriate delay, pharmacological stress was performed with the infusion of 0.4 mg regadenoson per protocol. According to protocol, 41.8 mCi of Tc-99m sestamibi was injected for stress myocardial perfusion scan. Motion correction was applied when appropriate. Gated tomographic images were obtained for wall motion analysis and computation of left ventricular ejection fraction. FINDINGS: On visual analysis, there is a fixed apical perfusion defect. No convincing significant reversible perfusion defects. On review of the unprocessed images, there is motion artifact on the stress images. Computer analysis. Summed stress score 8 Summed rest score 6 Summed difference score 2 Wall motion analysis demonstrates no focal wall motion abnormality. The left ventricular end-diastolic volume is 98 cc. The left ventricular end-systolic volume is 35 cc. The left ventricular ejection fraction is calculated to be 64%. IMPRESSION: 1. Fixed apical perfusion defect. No convincing significant reversible perfusion defects. 2. Left ventricular ejection fraction of 64%. 3. Normal segmental and global wall motion. 4. Normal left ventricular cavity size, no change with stress. 5. Based on computer analysis, mildly abnormal study with mild ischemia. The difference between rest and stress stress score calculations appears to be attributable to slight difference in orientation of the processed images. Please correlate findings with stress ECG tracings and procedure notes. RADIA
--- NOTE | 2018-07-12 14:03 | Discharge Plan ---
Discharge Plan Disposition: Home, Self Care Condition: Good Prescriptions: Nitroglycerin [Nitrostat] 0.3 mg SL Q5M PRN #1 tab.subl PRN Reason: Chest Pain Omeprazole 20 mg PO BID #60 tablet. Diet: Cardiac Activity Restrictions: Activity as Tolerated Shower Restrictions: No Driving Restrictions: No Additional Instructions or Follow Up instructions: You came to the hospital with chest pain worrisome for heart involvement. All cardiac testing was negative including; troponin blood tests, an echocardiogram with no regional wall motion abnormalities, telemetry monitoring, and a myocardial perfusion, Willow-scan nuclear scan. The follow up for this is to re-visit your regular shaker tender with a sooner appointment and to report back to the ED with chest pain. I have prescribed sub-lingual nitroglycerin tabs for times when you have chest pain as recommended by the stress testing provider, Dr. Frankel. On imaging, you were found to have a hiatal hernia, which makes you more susceptible to heart burn type symptoms. The treatment for this would be up to the discretion of your primary care provider and may entail further work up with a GI provider, or it may be best to just medically manage this with proton pump inhibitors to lessen the chance of symptoms. I requested a nutritional consult to prompt a visit from our diabetic educators. In reviewing your labs, your hemoglobin A1C was in a good range at 6%. Please continue your previous routine at home with taking the metformin and Glipizide. Please see your primary as planned, tomorrow as a follow up to this stay. Report back to the ED with any more chest pain. Follow-Up Care: [facility] [place] [facility] - Diabetes Ed No Smoking: If you smoke, Please STOP! Call for help. Follow-up with: Keshav Dias ARNP [Primary Care Provider] -
--- NOTE | 2018-07-12 14:07 | DISCHARGE SUMMARY ---
"Discharge Summary Admit Date: 07/11/18 Discharge Date: 07/12/18 Discharging Provider: MARYELLEN Anderson Primary Care Provider: Mamadou Fox Code Status: Attempt Resuscitation Condition at Discharge: Good Discharge Disposition: 01 Home, Self Care - DIAGNOSES Admission Diagnoses: Chest pain, unspecified (R07.9) Chronic atrial fibrillation (I48.2) Essential (primary) hypertension (I10) retirement (current) use of anticoagulants (Z79.01) Acute kidney failure, unspecified (N17.9) Type 2 diabetes mellitus without complications (E11.9) Hypothyroidism, unspecified (E03.9) Discharge Diagnoses with Status of Each Condition: Chest pain (R07.9) resolved, nitroglycerin tabs prescribed Large hiatal hernia (K44.9) worsening since imaging in 2015, PPI recommended x30 days, GI follow up Myocardial infarct, 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, stable 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 Recommend holding the H2 Cruz[place] if this is accurate while on PPI. - HPI History of Present Illness: Sy Holt is an 82-year-old gentleman with a past medical history of myocardial infarction, status post single stent placement in 1997, hypertension, diabetes mellitus type 2, chronic angina, BPH, chronic atrial fibrillation on Xarelto, and chronic hearing loss. He presented to the ED via private car and complained of sharp, consistent, left sided chest pain, which was aching and throbbing with radiation into his left arm. Associated symptoms were nausea after eating lunch and abdominal pain. Upon arrival to the ED the patient was given Nitroglycerin, which relieved this pain. Upon initial exam by the provider, he denied shortness of breath, sweats, chills, dizziness, loss of consciousness, recent illness, feelings of hypoglycemia, or headaches. His serial troponins were negative. His EKG was abnormal, but did not indicate acute ischemic changes, also noted were frequent PVCs. The patient was admitted in observation for a full chest pain work up including, telemetry monitoring, echocardiogram, further labs, and if appropriate will undergo a myocardial perfusion stress test in the AM. - CONSULTS | PROCEDURES Procedures: Procedure: Nuclear Medicine - Myocardial Perfusion Stress test with Willow-scan IMPRESSION: 1. Fixed apical perfusion defect. No convincing significant reversible perfusion defects. 2. Left ventricular ejection fraction of 64%. 3. Normal segmental and global wall motion. 4. Normal left ventricular cavity size, no change with stress. 5. Based on computer analysis, mildly abnormal study with mild ischemia. The difference between rest and stress stress score calculations appears to be attributable to slight difference in orientation of the processed images. - HOSPITAL COURSE Hospital Course: The patient was put through a chest pain work up with his history of a coronary stent and post PR in 1997. All testing was normal except he did complain of a 1 out of 10 pain similar to presentation during the Willow-scan. All symptoms were resolved upon discharge, nitroglycerin was sent to the pharmacy to be used for any more chest pain episodes. He was excited to see Dr. Fox tomorrow as scheduled to discuss further these results and for a possible GI work up with is now Large hiatal hernia. - ALLERGIES Allergies/Adverse Reactions: Allergies Allergy/AdvReac Type Severity Reaction Status Date / Time No Known Drug Allergies Allergy Verified 04/22/15 06:24 - MEDICATIONS Home Medications: Ambulatory Orders Medication Instructions Recorded Confirmed Cetirizine [ZyrTEC] 10 mg PO QPM 04/22/15 05/24/15 Fluticasone [Flonase] 1 sprays [place] BID 04/22/15 05/24/15 Ca/D3/Mag#11/Zinc/Senior Linux Unix Engineer/Adrian/Bor 1 tab PO QPM 05/08/15 05/24/15 [Caltrate 600+D Plus Tablet] Furosemide 20 mg PO DAILY 05/08/15 05/24/15 Levothyroxine [Synthroid] 50 mcg PO QDAC 05/08/15 05/24/15 Multivit-Min/Iron Fum/Folic AC 1 each PO DAILY 05/08/15 05/24/15 [Vpgta-Axxymjj-Mkxvkxpd Tablet] Polyethylene Glycol 3350 [Miralax] 8.5 - 17 gm PO DAILY PRN 05/08/15 05/24/15 Valsartan [Diovan] 320 mg PO DAILY 05/08/15 05/24/15 amLODIPine [Norvasc] 2.5 mg PO DAILY 05/08/15 05/24/15 glipiZIDE [Glucotrol] 5 mg PO QPM 05/08/15 05/24/15 metFORMIN [Glucophage] 500 mg PO BID 05/08/15 05/24/15 Rivaroxaban [Xarelto] 15 mg PO DAILY 05/09/15 05/24/15 Diclofenac Sodium [Voltaren] 2 - 4 gm TOP QID PRN 07/11/18 Ferrous Sulfate 325 mg PO DAILY 07/11/18 Mirtazapine [Remeron] 7.5 mg PO HS 07/11/18 Simvastatin 80 mg PO DAILY 07/11/18 Tamsulosin HCl [Flomax] 0.4 mg PO DAILY 07/11/18 Zolpidem [Ambien] 5 mg PO HS PRN 07/11/18 raNITIdine [Zantac] 150 mg PO DAILY 07/11/18 Nitroglycerin [Nitrostat] 0.3 mg SL Q5M PRN #1 tab.subl 07/12/18 Omeprazole 20 mg PO BID #60 tablet. 07/12/18 - PHYSICAL EXAM AT DISCHARGE General Appearance: positive: No acute distress, Alert Eyes Bilateral: positive: PERRL ENT: positive: ENT inspection nml, Pharynx nml, No signs of dehydration, Other ([place]) Neck: positive: Nml inspection, Thyroid nml, No JVD, Trachea midline Respiratory: positive: Chest non-tender, No respiratory distress, Breath sounds nml Cardiovascular: positive: Regular rate & rhythm, No gallop, Systolic murmur, Decreased pulse(s) Peripheral Pulses: positive: 2+ Abdomen: positive: Non-tender, Nml bowel sounds Back: positive: Nml inspection Skin: positive: Color nml, No rash, Warm, Dry Extremities: positive: Non-tender, Full ROM, Nml appearance Neurologic/Psychiatric: positive: Oriented x3, CN's nml (2-12), Motor nml, Sensation nml, Mood/affect nml Reflexes: Bicep (R): 3+, Bicep (L): 3+ - LABS Result Diagrams: 07/12/18 05:29 07/12/18 05:29 - DIAGNOSTIC IMAGING Diagnostic Imaging Results: Final report reviewed Diagnostic Imaging Results Comments: EXAM: CHEST RADIOGRAPHY EXAM DATE: 07/11/2018 04:05 PM. IMPRESSION: 1. Stable cardiomegaly. 2. Large hiatal hernia. - SEPSIS Current Stage of Sepsis: Ruled out - FOLLOW UP Follow Up: Disposition: Home, Self Care Condition: Good Prescriptions: Nitroglycerin [Nitrostat] 0.3 mg SL Q5M PRN #1 tab.subl PRN Reason: Chest Pain Omeprazole 20 mg PO BID #60 tablet.dr Additional Instructions or Follow Up instructions: You came to the hospital with chest pain worrisome for heart involvement. All cardiac testing was negative including; troponin blood tests, an echocardiogram with no regional wall motion abnormalities, telemetry monitoring, and a myocardial perfusion, Willow-scan nuclear scan. 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 I have prescribed sub-lingual nitroglycerin tabs for times when you have chest pain as recommended by the stress testing provider, Dr. Frankel. On imaging, you were found to have a hiatal hernia, which makes you more susceptible to heart burn type symptoms. The treatment for this would be up to the discretion of your primary care provider and may entail further work up with a GI provider, or it may be best to just medically manage this with proton pump inhibitors to lessen the chance of symptoms. I requested a nutritional consult to prompt a visit from our diabetic educators. In reviewing your labs, your hemoglobin A1C was in a good range at 6%. Please continue your previous routine at home with taking the metformin and Glipizide. Please see your primary as planned, tomorrow as a follow up to this stay. Report back to the ED with any more chest pain. - TIME SPENT Time Spent in Discharge (Minutes): 45"
== END 2018-07-12 14:57 | disposition home or self-care (01) ==
LOC: ED 14:50 → MS2 15:49
PROVIDERS: ADMIT Family Medicine; ATTEND Nurse Practitioner
DX: R07.89 Other chest pain (principal); K44.9 Diaphragmatic hernia without obstruction or gangrene; I25.2 Old myocardial infarction; Z95.5 Presence of coronary angioplasty implant and graft; I48.2 Chronic atrial fibrillation; Z79.01 Long term (current) use of anticoagulants; I10 Essential (primary) hypertension; N17.9 Acute kidney failure, unspecified; E11.9 Type 2 diabetes mellitus without complications; Z79.84 Long term (current) use of oral hypoglycemic drugs; I25.9 Chronic ischemic heart disease, unspecified; E03.9 Hypothyroidism, unspecified; E87.5 Hyperkalemia; G47.00 Insomnia, unspecified; H91.90 Unspecified hearing loss, unspecified ear; N40.0 Benign prostatic hyperplasia without lower urinary tract symptoms; I25.10 Atherosclerotic heart disease of native coronary artery without angina pectoris
CPT/HCPCS: 36415; 71045; 78452; 80053; 80061; 80069; 82550; 82553; 83036; 83690; 84443; 84484; 85025; 93005; 93017; 96360; 96361; 99284; A9270; A9500; G0378; J2785; 83721

== ENCOUNTER 2018-08-16 13:41 | Outpatient (CLI) | payer MEDICARE, OTHER | END 2018-08-16 13:42 | disposition home or self-care (01) | LOC: LAB.WCP 13:41 | PROVIDERS: ATTEND Urology | DX: C61 Malignant neoplasm of prostate (principal) | CPT/HCPCS: 36415; 84153 ==

== ENCOUNTER 2018-09-30 11:06 | Outpatient (CLI) | payer MEDICARE, OTHER ==
[2018-09-30 19:22] LABS: CALCIUM 9.7 mg/dL (8.5-10.3); CREATININE 1.4 mg/dL (0.6-1.2)
[2018-09-30 20:05] LABS: HB2 TOTAL 13.9 g/dL; HEMOGLOBIN A1C 0.56 g/dL; HEMOGLOBIN A1C % 5.8 % (4.6-6.2)
== END 2018-09-30 11:07 | disposition home or self-care (01) ==
LOC: LAB.WCP 11:06
PROVIDERS: ATTEND Family Medicine
DX: E11.51 Type 2 diabetes mellitus with diabetic peripheral angiopathy without gangrene (principal)
CPT/HCPCS: 36415; 80048; 83036

== ENCOUNTER 2018-12-28 08:00 | Outpatient (CLI) | payer MEDICARE, OTHER ==
[2018-12-28 12:19] LABS: CREATININE,URINE 87.9 mg/dL; MICROALBUM/CREATININE RATIO,UR 2.3 ug/mg (<30.0); MICROALBUMIN,URINE 0.2 mg/dL (0-300.0)
[2018-12-28 12:43] LABS: CALCIUM 9.8 mg/dL (8.5-10.3); CREATININE 1.7 mg/dL (0.6-1.2); HEMOGLOBIN A1C 0.53 g/dL; HEMOGLOBIN A1C % 5.9 % (4.6-6.2)
== END 2018-12-28 23:59 | disposition home or self-care (01) ==
LOC: LAB.WCP 08:00
PROVIDERS: ATTEND Family Medicine
DX: M19.071 Primary osteoarthritis, right ankle and foot (principal); E11.59 Type 2 diabetes mellitus with other circulatory complications; E11.22 Type 2 diabetes mellitus with diabetic chronic kidney disease; N18.3 Chronic kidney disease, stage 3 (moderate); C61 Malignant neoplasm of prostate
CPT/HCPCS: 36415; 80048; 82043; 82570; 83036

== ENCOUNTER 2019-01-22 21:05 | Outpatient (CLI) | payer MEDICARE, OTHER | END 2019-01-22 21:06 | disposition critical access hospital (66) | LOC: EMS 21:05 | PROVIDERS: ATTEND Surgery | DX: R07.9 Chest pain, unspecified (principal); R61 Generalized hyperhidrosis | CPT/HCPCS: A0425; A0427 ==

== ENCOUNTER 2019-01-22 21:18 | Emergency (ER) | payer MEDICARE, OTHER ==
--- NOTE | 2019-01-22 21:16 | ED Physician Documentation ---
History of Present Illness - Stated complaint Stated Complaint: CP - Additonal information Additional information: This is an 83-year-old male with a history of atrial fibrillation on Xarelto, past HI with a stent in 1997, hypertension, hyperlipidemia, who presents with chest pain and abdominal pain. Around 40 minutes prior to arrival patient began having some chest and abdominal pain which he states is over the left lower chest and feels like a constant ache that extends to and is continuous with upper left-sided abdominal pain. No radiation to his arms or jaw. No shortness of breath. No cough or hemoptysis. His pain started after he ate some food. He took nitroglycerin, a total of 4 tablets did not relieve his pain but it did cause him to feel lightheaded. When EMS arrived shortly after he had taken the nitroglycerin they found him to be hypotensive, this spontaneously has improved to the normal blood pressure in route. Patient presented with similar symptoms In July and he had a cardiac work-up including a nuclear stress test which was unremarkable, he was found to have a hiatal hernia, and he was discharged with PCP follow-up recommended follow up on his hiatal hernia. He has not yet followed up on the hernia with a physician. Review of Systems Constitutional: denies: Fever Throat: denies: Sore throat Cardiac: reports: Chest pain / pressure Respiratory: denies: Dyspnea GI: reports: Abdominal Pain, Nausea : denies: Dysuria Skin: denies: Rash Neurologic: denies: Generalized weakness PD PAST MEDICAL HISTORY - Present Medications Home Medications: Ambulatory Orders Medication Instructions Recorded Confirmed Cetirizine [ZyrTEC] 10 mg PO QPM 04/22/15 01/22/19 Fluticasone [Flonase] 1 sprays [place] BID 04/22/15 01/22/19 Ca/D3/Mag#11/Zinc/Engineer/Conductor/Adrian/Bor 1 tab PO QPM 05/08/15 01/22/19 [Caltrate 600+D Plus Tablet] Multivit-Min/Iron Fum/Folic AC 1 each PO DAILY 05/08/15 01/22/19 [Qjedl-Rsclzqb-Rmqmflgk Tablet] Polyethylene Glycol 3350 [Miralax] 8.5 - 17 gm PO DAILY PRN 05/08/15 01/22/19 Valsartan [Diovan] 320 mg PO BID 05/08/15 01/22/19 amLODIPine [Norvasc] 2.5 mg PO DAILY 05/08/15 01/22/19 glipiZIDE [Glucotrol] 5 mg PO QPM 05/08/15 01/22/19 metFORMIN [Glucophage] 500 mg PO BID 05/08/15 01/22/19 Rivaroxaban [Xarelto] 15 mg PO DAILY 05/09/15 01/22/19 Diclofenac Sodium [Voltaren] 2 - 4 gm TOP QID PRN 07/11/18 01/22/19 Ferrous Sulfate 325 mg PO DAILY 07/11/18 01/22/19 Mirtazapine [Remeron] 7.5 mg PO HS 07/11/18 01/22/19 Simvastatin 80 mg PO DAILY 07/11/18 01/22/19 Tamsulosin HCl [Flomax] 0.4 mg PO DAILY 07/11/18 01/22/19 Zolpidem [Ambien] 5 mg PO HS PRN 07/11/18 01/22/19 raNITIdine [Zantac] 150 mg PO DAILY 07/11/18 01/22/19 Nitroglycerin [Nitrostat] 0.3 mg SL Q5M PRN #1 tab.subl 07/12/18 01/22/19 Furosemide 20 mg PO DAILY 01/22/19 01/22/19 Levothyroxine Sodium [Synthroid] 50 mcg PO DAILY 01/22/19 01/22/19 Mirtazapine 7.5 mg PO QPM 01/22/19 01/22/19 Rivaroxaban [Xarelto] 15 mg PO DAILY 01/22/19 01/22/19 Acetaminophen 650 mg PO Q6HR #30 tablet 01/23/19 Omeprazole 20 mg PO DAILY #14 capsule. 01/23/19 - Allergies Allergies/Adverse Reactions: Allergies Allergy/AdvReac Type Severity Reaction Status Date / Time No Known Drug Allergies Allergy Verified 04/22/15 06:24 PD ED PE NORMAL - Vitals Vital signs reviewed: Yes - General General: Alert and oriented X 3, No acute distress - HEENT HEENT: PERRL - Neck Neck: Supple, no meningeal sign - Cardiac Cardiac: Other (irregularly irregular rhythm, normal rate) - Respiratory Respiratory: No respiratory distress, Clear bilaterally - Abdomen Abdomen: Normal bowel sounds, Other (Mild epigastric and LUQ abdominal discomfort, no guarding.) - Derm Derm: Warm and dry - Extremities Extremities: No deformity - Neuro Neuro: Alert and oriented X 3, Normal speech - Psych Psych: Normal mood, Normal affect Results - Vitals Vitals: Vital Signs - 24 hr 01/22/19 01/22/19 01/22/19 21:20 21:27 22:06 Temperature Heart Rate 68 67 68 Respiratory 17 12 17 Rate Blood Pressure 117/71 119/63 154/67 H O2 Saturation 98 94 98 01/22/19 01/22/19 01/23/19 22:42 23:31 00:40 Temperature 36.6 C Heart Rate 79 75 86 Respiratory 14 15 16 Rate Blood Pressure 148/70 H 149/77 H 149/87 H O2 Saturation 98 96 97 01/23/19 01/23/19 01/23/19 01:42 02:03 04:00 Temperature Heart Rate 80 81 71 Respiratory 17 17 17 Rate Blood Pressure 131/90 H 135/78 H 148/86 H O2 Saturation 98 92 98 01/23/19 01/23/19 01/23/19 04:47 05:04 06:03 Temperature Heart Rate 92 89 93 Respiratory 17 15 15 Rate Blood Pressure 143/84 H 144/87 H 147/85 H O2 Saturation 95 94 93 01/23/19 06:38 Temperature Heart Rate 87 Respiratory 17 Rate Blood Pressure 134/72 H O2 Saturation 93 Oxygen O2 Source Room air - EKG (time done) 00:37 Other comments: Other comments (Rate 86, rhythm atrial fibrillation, there is no ST segment elevation, there is slight ST segment depression in the anterior leads. Qtc 449. No significant change from prior EKGs from 05/08/2015) 6:51 Other comments: Other comments (Rate 93, rhythm atrial fibrillation, there is slight ST depression in the lateral precordial leads, no ST elevation seen EKG on 01/22.) - Labs Labs: Laboratory Tests 01/22/19 01/22/19 01/22/19 20:40 20:40 20:40 WBC 7.7 RBC 3.73 L Hgb 11.4 L Hct 34.6 L MCV 92.8 MCH 30.6 MCHC 32.9 RDW 12.3 Plt Count 163 MPV 10.3 Neut # (Auto) 4.0 Lymph # (Auto) 2.7 [place] # (Auto) 0.8 Eos # (Auto) 0.2 Baso # (Auto) 0.0 Absolute Nucleated RBC 0.00 Nucleated RBC % 0.0 PT 16.8 H INR 1.5 H Sodium 138 Potassium 3.3 L Chloride 102 Carbon Dioxide 26 Anion Gap 10.0 BUN 36 H Creatinine 1.6 H Estimated GFR (MDRD) 41 L Glucose 190 H Lactic Acid Calcium 9.3 Total Bilirubin 0.7 AST 27 ALT 18 Alkaline Phosphatase 48 Troponin I High Sens B-Natriuretic Peptide Total Protein 6.7 Albumin 4.1 Globulin 2.6 Albumin/Globulin Ratio 1.6 Lipase 38 Urine Color Urine Clarity Urine pH Ur Specific [place] Urine Protein Urine Glucose (UA) Urine Ketones Urine Occult Blood Urine Nitrite Urine Bilirubin Urine Urobilinogen Ur Leukocyte Esterase Ur Microscopic Review 01/22/19 01/22/19 01/23/19 20:40 20:40 00:45 WBC RBC Hgb Hct MCV MCH MCHC RDW Plt Count MPV Neut # (Auto) Lymph # (Auto) [place] # (Auto) Eos # (Auto) Baso # (Auto) Absolute Nucleated RBC Nucleated RBC % PT INR Sodium Potassium Chloride Carbon Dioxide Anion Gap BUN Creatinine Estimated GFR (MDRD) Glucose Lactic Acid Calcium Total Bilirubin AST ALT Alkaline Phosphatase Troponin I High Sens 4.9 4.3 B-Natriuretic Peptide 103 H Total Protein Albumin Globulin Albumin/Globulin Ratio Lipase Urine Color Urine Clarity Urine pH Ur Specific [place] Urine Protein Urine Glucose (UA) Urine Ketones Urine Occult Blood Urine Nitrite Urine Bilirubin Urine Urobilinogen Ur Leukocyte Esterase Ur Microscopic Review 01/23/19 01/23/19 00:45 04:48 WBC RBC Hgb Hct MCV MCH MCHC RDW Plt Count MPV Neut # (Auto) Lymph # (Auto) [place] # (Auto) Eos # (Auto) Baso # (Auto) Absolute Nucleated RBC Nucleated RBC % PT INR Sodium Potassium Chloride Carbon Dioxide Anion Gap BUN Creatinine Estimated GFR (MDRD) Glucose Lactic Acid 2.2 Calcium Total Bilirubin AST ALT Alkaline Phosphatase Troponin I High Sens B-Natriuretic Peptide Total Protein Albumin Globulin Albumin/Globulin Ratio Lipase Urine Color YELLOW Urine Clarity CLEAR Urine pH 5.5 Ur Specific [place] 1.015 Urine Protein NEGATIVE Urine Glucose (UA) NEGATIVE Urine Ketones TRACE Urine Occult Blood NEGATIVE Urine Nitrite NEGATIVE Urine Bilirubin NEGATIVE Urine Urobilinogen 0.2 (NORMAL) Ur Leukocyte Esterase NEGATIVE Ur Microscopic Review NOT INDICATED - Rads (name of study) CXR Radiology: Other (Stable cardiomegaly, mild pulmonary edema lucency under the right hemidiaphragm which may be colonic interposition versus pneumoperitoneum) Ct abd/pelvis W Radiology: Other (Large hiatal hernia with gastroesophageal reflux, mild bibasilar atelectasis versus infiltrate, stones in gallbladder without obvious cholecystitis, borderline cardiomegaly, and colonic diverticulosis.) PD MEDICAL DECISION MAKING - ED course Complexity details: considered differential (ACS, PTX, PNA, gastritis, PUD, pancreatitis, biliary colic, bowel obstruction, dysrhytmia, PE) ED course: On arrival patient has unremarkable vital signs and is well-appearing. His temporary drop in BP appears to have been directly after taking 4 tablets of nitroglycerin, and since these have worn off he feels much better. Patient was placed on the monitor, IV access secured, and he was given zofran and morphine for symptoms. 2 EKGs show mild lateral ST depressions, but no change from prior or convincing signs of acute ischemia or new dysrhythmia. 2 troponins are both normal. CXR shows mild cardiomegaly and possible slight pulmonary congestion, patient is saturating normally on room air and has no dyspnea or overt signs of volume overload. Labs are otherwise unrevealing. INR elevated consistent with his anticoagulant use. PE considered but unlikely given his anticoagulant, and his description of the pain extending to his abdomen and no pleuritic pain, no signs of DVT. ACS also unlikely given his negative serial EKGs and troponins, as well as his fairly recent stress test which showed no convincing signs of ischemia. Creatine is 1.6 but this appears to be baseline. CT abd/pelvis was obtained showing a large hiatal hernia with reflux. This fits the distribution of his pain as well as the post-prandial nature of his symptoms. He was given an additional dose of morphine, as well as reglan. Subsequently he received a GI cocktail, famotidine, and pantoprazole. On re-e valuation his pain is improved and he is resting in bed with unremarkable vital signs. He was observed in the ED for several hours and had no new symptoms. His abdomen remained benign. I discussed the results of our studies and the likely diagnosis of hiatal hernia. There are no signs of ischemia or abdominal emergency at this time, no RUQ tenderness to suggest biliary pathology, and lactic acid level is normal. I prescribed a course of omeprazole and recommended follow up with his PCP and a surgeon to discuss treatment options. I also discussed strict return precautions including worsening or non-improving pain, vomiting, shortness of breath. I also discussed all of this information with patients and daughter. His family will be able to pick him up in the insights strateg[facility], we will observe in the ED until then. Departure - Departure Disposition: 01 Home, Self Care Clinical Impression: Hiatal hernia Condition: Good Prescriptions: Acetaminophen 650 mg PO Q6HR #30 tablet Omeprazole 20 mg PO DAILY #14 capsule. Comments: You were seen today for left lower chest pain and abdominal pain. Our tests did not show signs of strain on your heart or obvious problems with your lungs at this time, But we did see a large hiatal hernia, where your stomach is partially up in your chest and causing some reflux. I think this is the cause of your discomfort. 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 Please discuss the omeprazole with your primary doctor, as it can have side effects, particularly if used for extended periods of time. If you are having persistent vomiting, inability to eat, recurring/worsening chest pain, shortness of breath, or other concerning symptoms, please return to the emergency department. Avoid eating big meals, acidic meals, or spicy foods, as this may make your symptoms worse. If you are having continued problems from this hernia, you may want to see a general surgeon, and they can discuss the risks and benefits of an operation to fix it. Discharge Date/Time: 01/23/19 09:05
[2019-01-22] MEDS ORDERED: MORPHINE 2 MG/ML CARPUJECT IVP STA ×2 (21:26→22:47)
[2019-01-22] MEDS ORDERED: ONDANSETRON 4 MG/2 ML VIAL IVP STA (21:27)
[2019-01-22 21:48] LABS: BASOPHILS % (AUTO) 0.4 %; EOSINOPHILS # (AUTO) 0.2 10^3/uL (0.0-0.7); EOSINOPHILS % (AUTO) 1.9 %; HGB - HEMOGLOBIN 11.4 g/dL (14.0-18.0); LYMPHOCYTES # (AUTO) 2.7 10^3/uL (1.5-3.5); LYMPHOCYTES % (AUTO) 35.2 %; MEAN CORPUSCULAR HEMOGLOBIN 30.6 pg (27.0-31.0); MEAN CORPUSCULAR HGB CONC 32.9 g/dL (32.0-36.0); MEAN CORPUSCULAR VOLUME 92.8 fL (80.0-94.0); MEAN PLATELET VOLUME 10.3 fL (7.4-11.4); MONOCYTES # (AUTO) 0.8 10^3/uL (0.0-1.0); MONOCYTES % (AUTO) 9.8 %; NEUTROPHILS % (AUTO) 52.4 %; PLT - PLATELET COUNT 163 10^3/uL (130-450); RED BLOOD COUNT 3.73 10^6/uL (4.70-6.10); RED CELL DISTRIBUTION WIDTH 12.3 % (12.0-15.0); WHITE BLOOD COUNT 7.7 x10^3/uL (4.8-10.8)
[2019-01-22 21:53] LABS: INR 1.5 (0.8-1.2); PT - PROTHROMBIN TIME 16.8 secs (9.9-12.6)
[2019-01-22] MEDS ORDERED: IOVERSOL 320 100 ML VIAL IVP ONE ×2 (21:53→23:18)
--- NOTE | 2019-01-22 21:58 | XRAY Report ---
Reason: Chest Pain Procedure Date: 01/22/2019 Accession Number: [id number] / [id number] Procedure: XR - Chest 1 View X-Ray CPT Code: 38230 FULL RESULT: EXAM: CHEST RADIOGRAPHY EXAM DATE: 01/22/2019 09:43 PM. CLINICAL HISTORY: Chest Pain. COMPARISON: CHEST 1 VIEW 07/11/2018 3:23 PM. TECHNIQUE: 1 view. FINDINGS: Lungs/Pleura: Mild pulmonary edema. No focal opacities evident. No pleural effusion. No pneumothorax. Mediastinum: Moderate stable cardiomegaly. A large air-fluid level/hiatal hernia seen in posterior mediastinum. Other: Curvilinear lucency seen under right hemidiaphragm, colonic interposition versus pneumoperitoneum. To be correlated clinically. IMPRESSION: Mild pulmonary edema with moderate stable cardiomegaly. Curvilinear lucency under right hemidiaphragm, colonic interposition versus pneumoperitoneum. To be correlated clinically. GEE The call report notification system was initiated by Dr. Kelley Garcia at 09:55 PM on 01/22/2019. The above call report findings were discussed with Niko Caldwell by Dr. Kelley Garcia at 09:57 PM on 01/22/2019.
[2019-01-22 22:01] LABS: ALBUMIN 4.1 g/dL (3.2-5.5); ALBUMIN/GLOBULIN RATIO 1.6 (1.0-2.2); BILIRUBIN,TOTAL 0.7 mg/dL (0.2-1.0); CALCIUM 9.3 mg/dL (8.5-10.3); CREATININE 1.6 mg/dL (0.6-1.2); TOTAL PROTEIN 6.7 g/dL (6.7-8.2)
[2019-01-22] MEDS ORDERED: SODIUM CHLORIDE 0.9% 1,000 ML IV ONE (22:48)
--- NOTE | 2019-01-22 23:36 | CT Report ---
Reason: Abd pain (RUQ and LUQ), diaphoresis, nausea Procedure Date: 01/22/2019 Accession Number: [id number] / [id number] Procedure: CT - Abdomen/Pelvis W CPT Code: FULL RESULT: EXAM: CT ABDOMEN AND PELVIS EXAM DATE: 01/22/2019 11:16 PM. CLINICAL HISTORY: Abdominal pain. Nausea and vomiting. Diaphoresis. COMPARISONS: None. TECHNIQUE: Routine helical CT imaging was performed through the abdomen and pelvis. IV contrast: OPTI 320 80ML. Enteric contrast: No. Reconstructions: Coronal and sagittal. In accordance with CT protocol optimization, one or more of the following dose reduction techniques were utilized for this exam: automated exposure control, adjustment of mA and/or KV based on patient size, or use of iterative reconstructive technique. FINDINGS: Lung Bases: Mild bibasilar atelectasis or infiltrate. Large hiatal hernia. Gastroesophageal reflux. Borderline heart size with coronary artery calcifications. Liver: No focal abnormality seen. Mild periportal edema. Gallbladder/Bile Ducts: Calcified stones in the gallbladder. No obvious cholecystitis but recommend clinical correlation. Spleen: Calcified granulomas. Pancreas: Normal. Adrenal Glands: Normal. Kidneys: Normal. No masses or hydronephrosis. Peritoneal Cavity/Bowel: No bowel obstruction seen. No free air or free fluid. Colonic diverticulosis. No diverticulitis identified. No abnormally enlarged lymph nodes are seen. Appendix is not well seen. No evidence of appendicitis. Pelvic Organs: Radiation seeds in the prostate. The visualized pelvic organs are otherwise unremarkable. Vasculature: Moderate atherosclerosis. No aortic aneurysm. Bones: Degenerative changes in the spine. Grade 1 degenerative spondylolisthesis at L4-L5 and L5-S1. Mild scoliosis. Spinal stenosis. Other: None. IMPRESSION: 1. Large hiatal hernia with gastroesophageal reflux. 2. Mild bibasilar atelectasis or infiltrate. 3. Calcified stones in the gallbladder without obvious cholecystitis. However, recommend clinical correlation. 4. Borderline cardiomegaly with coronary artery calcifications. 5. Colonic diverticulosis with no definite diverticulitis. RADIA
[2019-01-23] MEDS ORDERED: MAG HYDROX/AL HYDROX/SIMETH 30 ML UDC PO STA (00:20)
[2019-01-23] MEDS ORDERED: LIDOCAINE VISCOUS 2% 15 ML UDC MM STA (00:20)
[2019-01-23] MEDS ORDERED: FAMOTIDINE 20 MG/2 ML VIAL IVP STA (02:08)
[2019-01-23] MEDS ORDERED: METOCLOPRAMIDE 10 MG/2 ML VIAL IVP STA (02:08)
[2019-01-23] MEDS ORDERED: MORPHINE 2 MG/ML CARPUJECT IVP STA (02:10)
[2019-01-23 04:55] LABS: BILIRUBIN,URINE NEGATIVE (NEGATIVE); GLUCOSE, URINE (UA) NEGATIVE (NEGATIVE); KETONES,URINE (UA) TRACE mg/dL (NEGATIVE); LEUKOCYTE ESTERASE, URINE NEGATIVE (NEGATIVE); NITRITE,URINE NEGATIVE (NEGATIVE); OCCULT BLOOD,URINE NEGATIVE (NEGATIVE); PH,URINE 5.5 PH (5.0-7.5); PROTEIN,URINE NEGATIVE (NEGATIVE); UROBILINOGEN,URINE 0.2 (NORMAL) E.U./dL (NORMAL)
[2019-01-23] MEDS ORDERED: PANTOPRAZOLE 40 MG VIAL IVP STA (04:55)
[2019-01-23 04:56] LABS: CLARITY,URINE CLEAR (CLEAR)
[2019-01-23] MEDS ORDERED: ACETAMINOPHEN 325 MG TABLET PO STA (06:38)
[2019-01-23 06:39] VITALS: BP 134/72
[2019-01-23] MEDS ORDERED: DOCUSATE SODIUM 100 MG CAPSULE PO STA (07:33)
== END 2019-01-23 09:05 | disposition home or self-care (01) ==
LOC: EDUNIT# → ED 21:18
DX: K44.9 Diaphragmatic hernia without obstruction or gangrene (principal)
CPT/HCPCS: 36415; 71045; 74177; 80053; 81003; 83605; 83690; 83880; 84484; 85025; 85610; 93005; 96361; 96374; 96375; 96376; 99283; 99285; A9270; J2765; Q9967; 81001

== ENCOUNTER 2019-02-21 07:00 | Outpatient (CLI) | payer MEDICARE, OTHER | END 2019-02-21 23:59 | disposition home or self-care (01) | LOC: LAB.WCP 07:00 | PROVIDERS: ATTEND Urology | DX: C61 Malignant neoplasm of prostate (principal) | CPT/HCPCS: 36415; 84153 ==

== ENCOUNTER 2019-09-05 08:00 | Outpatient (CLI) | payer MEDICARE, OTHER ==
[2019-09-05 12:10] LABS: BASOPHILS % (AUTO) 0.5 %; EOSINOPHILS # (AUTO) 0.1 10^3/uL (0.0-0.7); EOSINOPHILS % (AUTO) 1.7 %; HGB - HEMOGLOBIN 12.3 g/dL (14.0-18.0); LYMPHOCYTES # (AUTO) 1.3 10^3/uL (1.5-3.5); LYMPHOCYTES % (AUTO) 22.1 %; MEAN CORPUSCULAR HEMOGLOBIN 30.7 pg (27.0-31.0); MEAN CORPUSCULAR HGB CONC 33.5 g/dL (32.0-36.0); MEAN CORPUSCULAR VOLUME 91.5 fL (80.0-94.0); MEAN PLATELET VOLUME 10.5 fL (7.4-11.4); MONOCYTES # (AUTO) 0.5 10^3/uL (0.0-1.0); MONOCYTES % (AUTO) 9.3 %; NEUTROPHILS # (AUTO) 3.8 10^3/uL (1.5-6.6); NEUTROPHILS % (AUTO) 66.1 %; PLT - PLATELET COUNT 194 10^3/uL (130-450); RED BLOOD COUNT 4.01 10^6/uL (4.70-6.10); RED CELL DISTRIBUTION WIDTH 12.4 % (12.0-15.0); WHITE BLOOD COUNT 5.8 x10^3/uL (4.8-10.8)
[2019-09-05 12:29] LABS: HB2 TOTAL 13.1 g/dL; HEMOGLOBIN A1C 0.51 g/dL; HEMOGLOBIN A1C % 5.7 % (4.6-6.2)
[2019-09-05 12:37] LABS: ALBUMIN 4.1 g/dL (3.2-5.5); ALBUMIN/GLOBULIN RATIO 1.2 (1.0-2.2); ALKALINE PHOSPHATASE 70 IU/L (42-121); ALT ALANINE AMINOTRANSFERASE 18 IU/L (10-60); AST ASPARTATE AMINOTRANSFERASE 28 IU/L (10-42); BUN - BLOOD UREA NITROGEN 23 mg/dL (6-20); CALCIUM 9.5 mg/dL (8.5-10.3); CARBON DIOXIDE - CO2 28 mmol/L (21-32); CHLORIDE 105 mmol/L (101-111); CHOL/HDL RATIO 2.4 (<5.0); CHOLESTEROL 98 mg/dL; CREATININE 1.6 mg/dL (0.6-1.2); GLUCOSE 98 mg/dL (70-100); HDL CHOLESTEROL 41 mg/dL; LDL CHOLESTEROL,CALCULATED 42 mg/dL; SODIUM 139 mmol/L (135-145); TOTAL PROTEIN 7.4 g/dL (6.7-8.2); VLDL CHOLESTEROL 15 mg/dL
[2019-09-05 12:45] LABS: CREATININE,URINE 161.1 mg/dL; MICROALBUM/CREATININE RATIO,UR 2.5 ug/mg (<30.0); MICROALBUMIN,URINE 0.4 mg/dL (0-300.0)
== END 2019-09-05 23:59 | disposition home or self-care (01) ==
LOC: LAB.WCP 08:00
PROVIDERS: ATTEND Family Medicine
DX: I25.10 Atherosclerotic heart disease of native coronary artery without angina pectoris (principal); I48.0 Paroxysmal atrial fibrillation; E11.29 Type 2 diabetes mellitus with other diabetic kidney complication; C61 Malignant neoplasm of prostate; E11.22 Type 2 diabetes mellitus with diabetic chronic kidney disease; I12.9 Hypertensive chronic kidney disease with stage 1 through stage 4 chronic kidney disease, or unspecified chronic kidney disease; N18.3 Chronic kidney disease, stage 3 (moderate)
CPT/HCPCS: 36415; 80053; 80061; 82043; 82570; 83036; 83721; 84153; 84443; 85025

== ENCOUNTER 2020-01-25 13:35 | Outpatient (CLI) | payer MEDICARE, OTHER ==
[2020-01-25] MEDS ORDERED: IOVERSOL 320 50 ML VIAL ONE (13:50)
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
== END 2020-01-25 13:36 | disposition home or self-care (01) ==
LOC: DI 13:35
PROVIDERS: ATTEND Family Medicine
DX: K44.9 Diaphragmatic hernia without obstruction or gangrene (principal); K21.9 Gastro-esophageal reflux disease without esophagitis; C61 Malignant neoplasm of prostate; R63.4 Abnormal weight loss; K80.20 Calculus of gallbladder without cholecystitis without obstruction; K57.30 Diverticulosis of large intestine without perforation or abscess without bleeding
CPT/HCPCS: 74176

== ENCOUNTER 2020-03-04 16:06 | Emergency (ER) | payer MEDICARE, OTHER ==
[2020-03-04 16:31] VITALS: BP 129/85
--- NOTE | 2020-03-04 16:44 | ED Physician Documentation ---
PD HPI BACK PAIN - Stated complaint Stated Complaint: PAIN IN BACK SIDE & CROTCH - Chief complaint Chief Complaint: Abd Pain - History obtained from History obtained from: Patient - History of Present Illness Timing - onset: Today Timing - duration: Hours (The patient states he had left flank playing that started a few hours ago and radiates towards the left inguinal area. No noted injury. The pain worsens a little bit with movement but mostly is just consistent.) Timing - details: Abrupt onset, Still present Location: Mid (left flank area), Lower, Left Quality: Pain, Aching. No: Tearing Associated symptoms: No: Fever, Weakness, Numbness Worsened by: Twisting. No: Movement, Palpation Contributing factors: Anticoagulated. No: Lifting, Twisting, Trauma Similar symptoms before: Diagnosis (similar to kidney stones remote past.) Recently seen: Not recently seen Review of Systems Constitutional: denies: Fever, Chills Nose: denies: Rhinorrhea / runny nose, Congestion Throat: denies: Sore throat Respiratory: denies: Cough GI: reports: Abdominal Pain, Diarrhea (chronic loose stools, no recent change.). denies: Nausea, Vomiting Skin: denies: Rash Musculoskeletal: reports: Back pain. denies: Neck pain Neurologic: denies: Generalized weakness, Focal weakness, Numbness, Near syncope PD PAST MEDICAL HISTORY - Past Medical History Past Medical History: Yes Cardiovascular: [place], Atrial fibrillation Respiratory: None Endocrine/Autoimmune: Type 2 diabetes GI: None : None, Kidney stones HEENT: Chronic hearing loss Psych: Depression Musculoskeletal: None Derm: None - Past Surgical History Past Surgical History: No General: Hiatal hernia repair Ortho: Knee replacement Cardiovascular: Coronary stent HEENT: Cataracts, Tonsil/Adenoidectomy - Present Medications Home Medications: Ambulatory Orders Medication Instructions Recorded Confirmed Cetirizine [ZyrTEC] 10 mg PO QPM 04/22/15 01/22/19 Fluticasone [Flonase] 1 sprays [place] BID 04/22/15 01/22/19 Doron/D3/Mag11/Zinc/Routing Equipment Tender/Adrian/Bor 1 tab PO QPM 05/08/15 01/22/19 [Caltrate 600+D Plus Tablet] Multivit-Min/Iron Fum/Folic AC 1 each PO DAILY 05/08/15 01/22/19 [Mmuzh-Holwhvd-Vtubmcjs Tablet] Valsartan [Diovan] 320 mg PO BID 05/08/15 01/22/19 amLODIPine [Norvasc] 2.5 mg PO DAILY 05/08/15 01/22/19 glipiZIDE [Glucotrol] 5 mg PO QPM 05/08/15 01/22/19 metFORMIN [Glucophage] 500 mg PO BID 05/08/15 01/22/19 polyethylene glycoL 3350 [Miralax] 8.5 - 17 gm PO DAILY PRN 05/08/15 01/22/19 Rivaroxaban [Xarelto] 15 mg PO DAILY 05/09/15 01/22/19 Diclofenac Sodium [Voltaren] 2 - 4 gm TOP QID PRN 07/11/18 01/22/19 Ferrous Sulfate 325 mg PO DAILY 07/11/18 01/22/19 Mirtazapine [Remeron] 7.5 mg PO HS 07/11/18 01/22/19 Simvastatin 80 mg PO DAILY 07/11/18 01/22/19 Tamsulosin HCl [Flomax] 0.4 mg PO DAILY 07/11/18 01/22/19 Zolpidem [Ambien] 5 mg PO HS PRN 07/11/18 01/22/19 raNITIdine [Zantac] 150 mg PO DAILY 07/11/18 01/22/19 Nitroglycerin [Nitrostat] 0.3 mg SL Q5M PRN #1 tab.subl 07/12/18 01/22/19 Furosemide 20 mg PO DAILY 01/22/19 01/22/19 Levothyroxine Sodium [Synthroid] 50 mcg PO DAILY 01/22/19 01/22/19 Mirtazapine 7.5 mg PO QPM 01/22/19 01/22/19 Rivaroxaban [Xarelto] 15 mg PO DAILY 01/22/19 01/22/19 Acetaminophen 650 mg PO Q6HR #30 tablet 01/23/19 Omeprazole 20 mg PO DAILY #14 capsule. 01/23/19 Hydrocodone/Acetaminophen [Purdin 1 each PO Q6H PRN #20 tablet 03/04/20 5-325 Tablet] Ondansetron Odt [Zofran] 4 mg TL Q6H PRN #10 tablet 03/04/20 - Allergies Allergies/Adverse Reactions: Allergies Allergy/AdvReac Type Severity Reaction Status Date / Time No Known Drug Allergies Allergy Verified 04/22/15 06:24 - Social History Does the pt smoke?: No Smoking Status: Never smoker Does the pt drink ETOH?: No Does the pt have substance abuse?: No - Immunizations Immunizations are current?: Yes PD ED PE NORMAL - Vitals Vital signs reviewed: Yes - General General: Alert and oriented X 3, No acute distress, Well developed/nourished - Respiratory Respiratory: Clear bilaterally - Abdomen Abdomen: Normal bowel sounds, Soft, Non distended, No organomegaly, Other (mildly tender LLQ/mid left without guarding nor percussion tender. Some left CVA tender. No spinal tenderness to percussion nor palpation. ) - Derm Derm: Normal color, Warm and dry, No rash - Extremities Extremities: No tenderness to palpate, Normal ROM s pain, No edema - Neuro Neuro: Alert and oriented X 3, No motor deficit, Normal speech Results - Vitals Vitals: Vital Signs - 24 hr 03/04/20 16:21 Temperature 36.5 C Heart Rate 99 Respiratory 16 Rate Blood Pressure 129/85 H O2 Saturation 97 Oxygen O2 Source Room air - Labs Labs: Laboratory Tests 03/04/20 16:59 Urine Color YELLOW Urine Clarity CLEAR Urine pH 6.0 Ur Specific [place] 1.020 Urine Protein NEGATIVE Urine Glucose (UA) NEGATIVE Urine Ketones NEGATIVE Urine Occult Blood NEGATIVE Urine Nitrite NEGATIVE Urine Bilirubin NEGATIVE Urine Urobilinogen 0.2 (NORMAL) Ur Leukocyte Esterase NEGATIVE Ur Microscopic Review NOT INDICATED Urine Culture Comments NOT INDICATED - Rads (name of study) KUB CT Radiology: Prelim report reviewed, See rad report PD MEDICAL DECISION MAKING - ED course Complexity details: reviewed results (CT appears normal. No signs stones, acute lumbar fxs, diverticulitis. Presume musculoskeletal or arthritic nerve root. ), considered differential (Symptoms sound likely consistent with kidney stone. He does have some abdominal tenderness mildly so consider diverticular as well. No history of aortic problems. CT scan performed without contrast to mainly evaluate diverticular or renal. The patient will be given pain medicine to help pain), d/w patient Departure - Departure Disposition: 01 Home, Self Care Clinical Impression: Acute flank pain Condition: Stable Record reviewed to determine appropriate education?: Yes Instructions: ED Flank Pain Uncertain Cause Follow-Up: Kizzy Lisa ARNP, [employer] [Primary Care Provider] - Prescriptions: Hydrocodone/Acetaminophen [Purdin 5-325 Tablet] 1 each PO Q6H PRN #20 tablet PRN Reason: Pain Ondansetron Odt [Zofran] 4 mg TL Q6H PRN #10 tablet PRN Reason: Nausea / Vomiting Comments: Continue usual medications. Remain adequately hydrated. Tylenol every 4-6 hours if needed for pain or hydrocodone if needed for worse pain. Follow-up with your primary care if not improved over the next few days, call for an appointment. Discharge Date/Time: 03/04/20 19:15
[2020-03-04] MEDS ORDERED: KETOROLAC 30 MG/ML VIAL IM STA (17:00)
[2020-03-04] MEDS ORDERED: oxyCODONE 5 MG TABLET PO STA (17:00)
[2020-03-04 17:16] LABS: BILIRUBIN,URINE NEGATIVE (NEGATIVE); GLUCOSE, URINE (UA) NEGATIVE (NEGATIVE); KETONES,URINE (UA) NEGATIVE (NEGATIVE); LEUKOCYTE ESTERASE, URINE NEGATIVE (NEGATIVE); NITRITE,URINE NEGATIVE (NEGATIVE); OCCULT BLOOD,URINE NEGATIVE (NEGATIVE); PROTEIN,URINE NEGATIVE (NEGATIVE); UROBILINOGEN,URINE 0.2 (NORMAL) E.U./dL (NORMAL)
[2020-03-04 17:18] LABS: CLARITY,URINE CLEAR (CLEAR)
--- NOTE | 2020-03-04 18:40 | CT Report ---
PROCEDURE: Abdomen/Pelvis WO INDICATIONS: left flank to LLQ pain onset today TECHNIQUE: Noncontrast 5 mm thick sections acquired from the diaphragms to the symphysis. 5 mm coronal and sagi ttal reformats were then performed. For radiation dose reduction, the following was used: automated exposure control, adjustment of mA and/or kV according to patient size. COMPARISON: None. FINDINGS: Image quality: Excellent. ABDOMEN: Lung bases: Lung bases are clear. Heart size is normal. Large hiatal hernia Coronary artery disease. Solid organs: Liver and spleen are normal in size. Gallbladder contains multiple subcentimeter gall stones Pancreas is normal in contours. No adrenal nodules. Kidneys are normal in size, without hyd ronephrosis or nephrolithiasis. Peritoneum and bowel: Unenhanced bowel loops demonstrate normal wall thickness and caliber. No free fluid or air. Normal appendix. Colonic diverticulosis incidentally noted without evidence of acute inflammation. Nodes and vessels: No retroperitoneal or mesenteric adenopathy by size criteria. Aorta and inferior vena cava are normal in caliber. Miscellaneous: No ventral hernias. PELVIS: Genitourinary: Bladder wall thickness is normal. Bilateral small fat-containing inguinal hernias. Bones: Spondylosis and facet arthropathy. No juan anthony fracture. IMPRESSION: Large hiatal hernia Incidental cholelithiasis. Coronary artery disease. Normal appendix Incidental colonic diverticulosis. Elsewhere, no acute abnormality Additional chronic and incidental findings as above. Reviewed by: Yasmani Prather MD on 03/04/2020 6:39 PM PST Approved by: Yasmani Prather MD on 03/04/2020 6:39 PM PST Station ID: [id number]
== END 2020-03-04 19:15 | disposition home or self-care (01) ==
LOC: ED 16:06
DX: R10.9 Unspecified abdominal pain (principal); K44.9 Diaphragmatic hernia without obstruction or gangrene; K80.20 Calculus of gallbladder without cholecystitis without obstruction; I48.91 Unspecified atrial fibrillation; Z79.01 Long term (current) use of anticoagulants; I25.10 Atherosclerotic heart disease of native coronary artery without angina pectoris; Z95.5 Presence of coronary angioplasty implant and graft; E11.9 Type 2 diabetes mellitus without complications; Z79.84 Long term (current) use of oral hypoglycemic drugs
CPT/HCPCS: 74176; 81003; 96372; 99284; A9270; 81001; 87086

== ENCOUNTER 2020-06-03 08:00 | Outpatient (CLI) | payer MEDICARE, OTHER ==
[2020-06-03 18:10] LABS: BASOPHILS % (AUTO) 0.3 %; EOSINOPHILS # (AUTO) 0.2 10^3/uL (0.0-0.7); EOSINOPHILS % (AUTO) 2.4 %; HCT - HEMATOCRIT 34.7 % (42.0-52.0); HGB - HEMOGLOBIN 11.4 g/dL (14.0-18.0); LYMPHOCYTES # (AUTO) 1.6 10^3/uL (1.5-3.5); LYMPHOCYTES % (AUTO) 23.7 %; MEAN CORPUSCULAR HEMOGLOBIN 30.9 pg (27.0-31.0); MEAN CORPUSCULAR HGB CONC 32.9 g/dL (32.0-36.0); MEAN PLATELET VOLUME 10.7 fL (7.4-11.4); MONOCYTES # (AUTO) 0.7 10^3/uL (0.0-1.0); MONOCYTES % (AUTO) 10.4 %; NEUTROPHILS # (AUTO) 4.1 10^3/uL (1.5-6.6); PLT - PLATELET COUNT 201 10^3/uL (130-450); RED BLOOD COUNT 3.69 10^6/uL (4.70-6.10); RED CELL DISTRIBUTION WIDTH 12.1 % (12.0-15.0); WHITE BLOOD COUNT 6.5 x10^3/uL (4.8-10.8)
[2020-06-03 18:23] LABS: ALBUMIN 3.8 g/dL (3.2-5.5); ALBUMIN/GLOBULIN RATIO 1.4 (1.0-2.2); BILIRUBIN,TOTAL 0.6 mg/dL (0.2-1.0); CALCIUM 9.5 mg/dL (8.5-10.3); POTASSIUM 4.6 mmol/L (3.5-5.0); TOTAL PROTEIN 6.6 g/dL (6.7-8.2)
[2020-06-03 21:05] LABS: ESTIMATED AVERAGE GLUCOSE 123 mg/dL (70-100); HEMOGLOBIN A1c% 5.9 % (4.27-6.07)
== END 2020-06-03 23:59 | disposition home or self-care (01) ==
LOC: LAB.WCP 08:00
PROVIDERS: ATTEND Nurse Practitioner
DX: E03.9 Hypothyroidism, unspecified (principal); R97.21 Rising PSA following treatment for malignant neoplasm of prostate; E11.59 Type 2 diabetes mellitus with other circulatory complications; E78.5 Hyperlipidemia, unspecified; I25.10 Atherosclerotic heart disease of native coronary artery without angina pectoris
CPT/HCPCS: 36415; 80053; 83036; 84153; 85025

== ENCOUNTER 2021-03-10 14:17 | Outpatient (CLI) | payer OTHER, MEDICARE | END 2021-03-10 14:18 | disposition critical access hospital (66) | LOC: EMS 14:17 | DX: S01.91XA Laceration without foreign body of unspecified part of head, initial encounter (principal); V53.0XXA Driver of pick-up truck or van injured in collision with car, pick-up truck or van in nontraffic accident, initial encounter; Y93.89 Activity, other specified | CPT/HCPCS: A0425; A0429 ==

== ENCOUNTER 2021-03-10 14:39 | Emergency (ER) | payer OTHER, MEDICARE ==
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
[2021-03-10 15:05] LABS: BASOPHILS % (AUTO) 0.3 %; EOSINOPHILS # (AUTO) 0.1 10^3/uL (0.0-0.7); EOSINOPHILS % (AUTO) 1.9 %; HCT - HEMATOCRIT 34.4 % (42.0-52.0); HGB - HEMOGLOBIN 11.4 g/dL (14.0-18.0); LYMPHOCYTES # (AUTO) 1.1 10^3/uL (1.5-3.5); LYMPHOCYTES % (AUTO) 16.4 %; MEAN CORPUSCULAR HEMOGLOBIN 30.3 pg (27.0-31.0); MEAN CORPUSCULAR HGB CONC 33.1 g/dL (32.0-36.0); MEAN CORPUSCULAR VOLUME 91.5 fL (80.0-94.0); MEAN PLATELET VOLUME 10.3 fL (7.4-11.4); MONOCYTES # (AUTO) 0.6 10^3/uL (0.0-1.0); MONOCYTES % (AUTO) 8.4 %; NEUTROPHILS % (AUTO) 72.4 %; PLT - PLATELET COUNT 181 10^3/uL (130-450); RED BLOOD COUNT 3.76 10^6/uL (4.70-6.10); RED CELL DISTRIBUTION WIDTH 12.1 % (12.0-15.0); WHITE BLOOD COUNT 6.9 x10^3/uL (4.8-10.8)
[2021-03-10 15:13] LABS: ALBUMIN 4.5 g/dL (3.2-5.5); ALBUMIN/GLOBULIN RATIO 1.4 (1.0-2.2); BILIRUBIN,TOTAL 0.8 mg/dL (0.2-1.0); CALCIUM 9.7 mg/dL (8.5-10.3); CREATININE 1.7 mg/dL (0.6-1.2); POTASSIUM 4.1 mmol/L (3.5-5.0); TOTAL PROTEIN 7.7 g/dL (6.7-8.2)
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
[2021-03-10 15:27] LABS: PT - PROTHROMBIN TIME 22.7 secs (9.9-12.6)
--- NOTE | 2021-03-10 15:28 | XRAY Report ---
PROCEDURE: Chest 1 View X-Ray INDICATIONS: chest pain TECHNIQUE: One view of the chest was acquired. COMPARISON: Chest x-ray 01/22/2019 FINDINGS: Surgical changes and devices: None. Lungs and pleura: No pleural effusions or pneumothorax. Lungs are clear. Mediastinum: Mediastinal contours appear normal. Heart size is markedly enlarged. Bones and chest wall: No suspicious bony lesions. Overlying soft tissues appear unremarkable. IMPRESSION: Cardiomegaly. No acute pulmonary process. Reviewed by: Mara Borges MD on 03/10/2021 3:26 PM PST Approved by: Mara Borges MD on 03/10/2021 3:26 PM PST Station ID: [id number]
[2021-03-10 16:07] VITALS: BP 149/72
== END 2021-03-10 16:31 | disposition home or self-care (01) ==
LOC: EDUNIT# → ED 14:39
DX: S09.90XA Unspecified injury of head, initial encounter (principal); S20.219A Contusion of unspecified front wall of thorax, initial encounter; S00.01XA Abrasion of scalp, initial encounter; V47.5XXA Car driver injured in collision with fixed or stationary object in traffic accident, initial encounter; I48.91 Unspecified atrial fibrillation; I25.2 Old myocardial infarction; E11.9 Type 2 diabetes mellitus without complications; H91.90 Unspecified hearing loss, unspecified ear; Z79.84 Long term (current) use of oral hypoglycemic drugs; Z79.01 Long term (current) use of anticoagulants; Z79.899 Other long term (current) drug therapy
CPT/HCPCS: 36415; 80053; 83690; 85025; 85610; 99282; 99284

== ENCOUNTER 2021-03-21 11:52 | Outpatient (CLI) | payer OTHER, MEDICARE ==
[2021-03-21 17:45] LABS: BASOPHILS % (AUTO) 0.5 %; EOSINOPHILS # (AUTO) 0.1 10^3/uL (0.0-0.7); EOSINOPHILS % (AUTO) 2.1 %; HCT - HEMATOCRIT 34.5 % (42.0-52.0); HGB - HEMOGLOBIN 11.4 g/dL (14.0-18.0); LYMPHOCYTES # (AUTO) 1.1 10^3/uL (1.5-3.5); LYMPHOCYTES % (AUTO) 18.3 %; MEAN CORPUSCULAR HEMOGLOBIN 30.2 pg (27.0-31.0); MEAN CORPUSCULAR VOLUME 91.5 fL (80.0-94.0); MONOCYTES # (AUTO) 0.6 10^3/uL (0.0-1.0); MONOCYTES % (AUTO) 10.6 %; NEUTROPHILS % (AUTO) 68.3 %; PLT - PLATELET COUNT 242 10^3/uL (130-450); RED BLOOD COUNT 3.77 10^6/uL (4.70-6.10); RED CELL DISTRIBUTION WIDTH 11.9 % (12.0-15.0); WHITE BLOOD COUNT 5.9 x10^3/uL (4.8-10.8)
[2021-03-21 18:07] LABS: ALBUMIN 4.1 g/dL (3.2-5.5); ALBUMIN/GLOBULIN RATIO 1.2 (1.0-2.2); ALKALINE PHOSPHATASE 76 IU/L (42-121); ALT ALANINE AMINOTRANSFERASE 19 IU/L (10-60); AST ASPARTATE AMINOTRANSFERASE 28 IU/L (10-42); BILIRUBIN,TOTAL 0.7 mg/dL (0.2-1.0); BUN - BLOOD UREA NITROGEN 22 mg/dL (6-20); CALCIUM 9.6 mg/dL (8.5-10.3); CARBON DIOXIDE - CO2 27 mmol/L (21-32); CHLORIDE 96 mmol/L (101-111); CHOL/HDL RATIO 2.7 (<5.0); CHOLESTEROL 117 mg/dL; CREATININE 1.4 mg/dL (0.6-1.2); GFR - MDRD 48 (>89); GLUCOSE 105 mg/dL (70-100); HDL CHOLESTEROL 43 mg/dL; LDL CHOLESTEROL,CALCULATED 57 mg/dL; LDL/HDL RATIO 1.3 (<3.6); SODIUM 133 mmol/L (135-145); TOTAL PROTEIN 7.4 g/dL (6.7-8.2); TRIGLYCERIDES 84 mg/dL; VLDL CHOLESTEROL 17 mg/dL
[2021-03-21 18:15] LABS: THYROID STIMULATING HORMONE 0.97 uIU/mL (0.34-5.60)
[2021-03-21 20:29] LABS: ESTIMATED AVERAGE GLUCOSE 114 mg/dL (70-100); HEMOGLOBIN A1c% 5.6 % (4.27-6.07)
== END 2021-03-21 23:59 | disposition home or self-care (01) ==
LOC: LAB.WCP 11:52
DX: I12.9 Hypertensive chronic kidney disease with stage 1 through stage 4 chronic kidney disease, or unspecified chronic kidney disease (principal); E11.22 Type 2 diabetes mellitus with diabetic chronic kidney disease; N18.32 Chronic kidney disease, stage 3b; C61 Malignant neoplasm of prostate; E03.9 Hypothyroidism, unspecified; I25.10 Atherosclerotic heart disease of native coronary artery without angina pectoris; E78.5 Hyperlipidemia, unspecified; N40.1 Benign prostatic hyperplasia with lower urinary tract symptoms; N13.8 Other obstructive and reflux uropathy
CPT/HCPCS: 36415; 80053; 80061; 83036; 83721; 84153; 84443; 85025

== ENCOUNTER 2022-06-07 12:25 | Emergency (ER) | payer MEDICARE, OTHER ==
[2022-06-07 13:42] LABS: BASOPHILS % (AUTO) 0.3 %; EOSINOPHILS # (AUTO) 0.1 10^3/uL (0.0-0.7); EOSINOPHILS % (AUTO) 1.1 %; HCT - HEMATOCRIT 33.3 % (42.0-52.0); HGB - HEMOGLOBIN 11.2 g/dL (14.0-18.0); LYMPHOCYTES # (AUTO) 1.2 10^3/uL (1.5-3.5); LYMPHOCYTES % (AUTO) 16.9 %; MEAN CORPUSCULAR HEMOGLOBIN 30.7 pg (27.0-31.0); MEAN CORPUSCULAR HGB CONC 33.6 g/dL (32.0-36.0); MEAN CORPUSCULAR VOLUME 91.2 fL (80.0-94.0); MEAN PLATELET VOLUME 9.3 fL (7.4-11.4); MONOCYTES # (AUTO) 0.6 10^3/uL (0.0-1.0); MONOCYTES % (AUTO) 8.7 %; NEUTROPHILS # (AUTO) 5.1 10^3/uL (1.5-6.6); NEUTROPHILS % (AUTO) 72.7 %; PLT - PLATELET COUNT 177 10^3/uL (130-450); RED BLOOD COUNT 3.65 10^6/uL (4.70-6.10); RED CELL DISTRIBUTION WIDTH 12.6 % (12.0-15.0)
[2022-06-07 13:54] LABS: ALBUMIN/GLOBULIN RATIO 1.3 (1.0-2.2); BILIRUBIN,TOTAL 0.8 mg/dL (0.2-1.0); CALCIUM 9.4 mg/dL (8.5-10.3); CREATININE 1.3 mg/dL (0.6-1.2)
[2022-06-07] MEDS ORDERED: HYDROmorphone 1 MG/ML CARPUJECT IVP STA (14:32)
--- NOTE | 2022-06-07 14:32 | ED Physician Documentation ---
PD HPI CHEST PAIN - Stated complaint Stated Complaint: DIARRHEA - Chief complaint Chief Complaint: Abd Pain - History obtained from History obtained from: Patient - Additional information Additional information: This is an 86-year-old gentleman with history of remote [place] in the 90s and A-fib on Xarelto. He has a hiatal hernia. And in contrast to the nurses notes on my initial evaluation his chief complaint is chest pain. The pain has been going on for 2 days. He states it feels like heartburn but also feels like a heart attack. Its gotten much worse since he checked in. It is a burning heartburn type left-sided chest pain and he is clutching the area of his left breast. Nurses notes that he checked in for diarrhea. He does admit to about 3 days of diarrhea, and his daughter also says he had 3 days of left-sided abdominal pain. PD PAST MEDICAL HISTORY - Past Medical History Cardiovascular: [place], Atrial fibrillation Respiratory: None Endocrine/Autoimmune: Type 2 diabetes GI: None : None, Kidney stones HEENT: Chronic hearing loss Psych: Depression Musculoskeletal: None Derm: None - Past Surgical History Past Surgical History: No General: Hiatal hernia repair Ortho: Knee replacement Cardiovascular: Coronary stent HEENT: Cataracts, Tonsil/Adenoidectomy - Present Medications Home Medications: Ambulatory Orders Medication Instructions Recorded Confirmed Cetirizine [ZyrTEC] 10 mg PO QPM 04/22/15 01/22/19 Fluticasone [Flonase] 1 sprays [place] BID 04/22/15 01/22/19 Doron/D3/Mag11/Zinc/Director Public Service/Adrian/Bor 1 tab PO QPM 05/08/15 01/22/19 [Caltrate 600+D Plus Tablet] Multivit-Min/Iron Fum/Folic AC 1 each PO DAILY 05/08/15 01/22/19 [Afqud-Inbudgz-Ixwqfeei Tablet] Valsartan [Diovan] 320 mg PO BID 05/08/15 01/22/19 amLODIPine [Norvasc] 2.5 mg PO DAILY 05/08/15 01/22/19 glipiZIDE [Glucotrol] 5 mg PO QPM 05/08/15 01/22/19 metFORMIN [Glucophage] 500 mg PO BID 05/08/15 01/22/19 polyethylene glycoL 3350 [Miralax] 8.5 - 17 gm PO DAILY PRN 05/08/15 01/22/19 Rivaroxaban [Xarelto] 15 mg PO DAILY 05/09/15 01/22/19 Diclofenac Sodium [Voltaren] 2 - 4 gm TOP QID PRN 07/11/18 01/22/19 Ferrous Sulfate 325 mg PO DAILY 07/11/18 01/22/19 Mirtazapine [Remeron] 7.5 mg PO HS 07/11/18 01/22/19 Simvastatin 80 mg PO DAILY 07/11/18 01/22/19 Tamsulosin HCl [Flomax] 0.4 mg PO DAILY 07/11/18 01/22/19 Zolpidem [Ambien] 5 mg PO HS PRN 07/11/18 01/22/19 raNITIdine [Zantac] 150 mg PO DAILY 07/11/18 01/22/19 Nitroglycerin [Nitrostat] 0.3 mg SL Q5M PRN #1 tab.subl 07/12/18 01/22/19 Furosemide 20 mg PO DAILY 01/22/19 01/22/19 Levothyroxine Sodium [Synthroid] 50 mcg PO DAILY 01/22/19 01/22/19 Mirtazapine 7.5 mg PO QPM 01/22/19 01/22/19 Rivaroxaban [Xarelto] 15 mg PO DAILY 01/22/19 01/22/19 Acetaminophen 650 mg PO Q6HR #30 tablet 01/23/19 Omeprazole 20 mg PO DAILY #14 capsule. 01/23/19 Hydrocodone/Acetaminophen [[place] 1 each PO Q6H PRN #20 tablet 03/04/20 5-325 Tablet] Ondansetron Odt [Zofran] 4 mg TL Q6H PRN #10 tablet 03/04/20 Clotrimazole 1% Cream [Lotrimin 1% 15 gm TOP BID 14 Days #15 ml 11/27/21 Cream] Docusate Sodium 100Mg Capsule 100 mg PO DAILY #30 cap 11/27/21 [Colace 100Mg Capsule] polyethylene glycoL 3350(BULK) 17 gm PO DAILY #238 gm 11/27/21 [Miralax] - Allergies Allergies/Adverse Reactions: Allergies Allergy/AdvReac Type Severity Reaction Status Date / Time No Known Drug Allergies Allergy Verified 11/27/21 05:18 - Social History Does the pt smoke?: No Smoking Status: Never smoker Does the pt drink ETOH?: No Does the pt have substance abuse?: No - Immunizations Immunizations are current?: Yes - POLST Patient has POLST: No PD ED PE NORMAL - Vitals Vital signs reviewed: Yes - General General: Alert and oriented X 3, Other (He appears uncomfortable) - HEENT HEENT: PERRL, EOMI - Neck Neck: Supple, no meningeal sign, No bony TTP - Cardiac Cardiac: Other (Irregularly irregular without murmur) - Respiratory Respiratory: No respiratory distress, Clear bilaterally - Abdomen Abdomen: Normal bowel sounds, Soft, Other (Mild left-sided abdominal tenderness without surgical signs) - Back Back: No CVA TTP, No spinal TTP - Derm Derm: Normal color, Warm and dry - Extremities Extremities: No edema, No calf tenderness / cord - Neuro Neuro: Alert and oriented X 3, Normal speech Results - Vitals Vitals: Vital Signs - 24 hr 06/07/22 06/07/22 13:09 15:47 Temperature 36.6 C Heart Rate 96 84 Respiratory 16 25 H Rate Blood Pressure 124/69 125/69 O2 Saturation 97 97 Oxygen O2 Source Room air - EKG (time done) 1432 Rate: Rate (enter#) (78) Rhythm: Atrial fibrillation [place]: Normal Intervals: Other (ivcd) QRS: Low voltage Ischemia: No: ST elevation c/w ischemia, ST depression - Labs Labs: Laboratory Tests 06/07/22 06/07/22 06/07/22 13:36 13:36 14:50 WBC 7.0 RBC 3.65 L Hgb 11.2 L Hct 33.3 L MCV 91.2 MCH 30.7 MCHC 33.6 RDW 12.6 Plt Count 177 MPV 9.3 Neut # (Auto) 5.1 Lymph # (Auto) 1.2 L [place] # (Auto) 0.6 Eos # (Auto) 0.1 Baso # (Auto) 0.0 Absolute Nucleated RBC 0.00 Nucleated RBC % 0.0 Sodium 131 L Potassium 4.0 Chloride 94 L Carbon Dioxide 29 Anion Gap 8.0 BUN 34 H Creatinine 1.3 H Estimated GFR (MDRD) 52 L Glucose 125 H Calcium 9.4 Total Bilirubin 0.8 AST 25 ALT 14 Alkaline Phosphatase 55 Troponin I High Sens 9.1 Total Protein 7.0 Albumin 4.0 Globulin 3.0 Albumin/Globulin Ratio 1.3 Lipase 40 - Rads (name of study) 1v CXR - NAD Radiology: Final report received, EMP read indepedently PD Medical Decision Making - ED course ED course: 86-year-old gentleman who initially presents with complaint of diarrhea and abdominal pain but that sort of converted to chest pain while here. As such the work-up was pivoted and EKG and troponin were without ischemic findings. He does have chronic A-fib. He has had some dark diarrhea. But his hemoglobin is at his baseline and his CBC is otherwise normal with no leukocytosis. He has depressed renal function but again not much different than prior. And a CT showed a large hiatal hernia which I presume is the source of his chest pain and diverticulosis and cholelithiasis but no other cause of current symptoms. He was feeling better after a milligram of Dilaudid and this relief was persistent throughout his ED stay. He has appointment with his primary care physician in 2 days for follow-up. Departure - Departure Disposition: Home, Self Care Clinical Impression: Large hiatal hernia, Anticoagulant long-term use, Chest pain Condition: Good Record reviewed to determine appropriate education?: Yes Instructions: ED Chest Pain NonCardiac, Hiatal Hernia Comments: Follow-up with Dr. Fox on Wednesday as scheduled. Return for new or worsening symptoms. Continue current medications but double your omeprazole as discussed. Consider surgical referral to a surgeon capable of transesophageal fundoplication.
--- NOTE | 2022-06-07 14:49 | XRAY Report ---
PROCEDURE: Chest 1 View X-Ray INDICATIONS: L chest pain TECHNIQUE: One view of the chest was acquired. COMPARISON: None. FINDINGS: Surgical changes and devices: None. Lungs and pleura: No pleural effusions or pneumothorax. Lungs are clear. Mediastinum: Mediastinal contours appear normal. Heart size is enlarged. The aorta has atheroscle rotic calcifications. Bones and chest wall: No suspicious bony lesions. Overlying soft tissues appear unremarkable. IMPRESSION: No acute abnormality of the chest. Reviewed by: Ryan Shepard on 06/07/2022 1:47 PM [facility] Approved by: Ryan Shepard on 06/07/2022 1:47 PM [facility] Station ID: [id number]
[2022-06-07] MEDS ORDERED: iohexoL-300 100 ML VIAL ONE (15:12)
[2022-06-07] MEDS ORDERED: MAG HYDROX/AL HYDROX/SIMETH 30 ML UDC PO STA (15:43)
[2022-06-07] MEDS ORDERED: LIDOCAINE VISCOUS 2% 15 ML UDC MM STA (15:43)
[2022-06-07] MEDS ORDERED: SODIUM CHLORIDE 0.9% 1,000 ML IV STA (15:51)
--- NOTE | 2022-06-07 16:43 | CT Report ---
PROCEDURE: ABDOMEN/PELVIS W INDICATIONS: IV only, L abd pain CONTRAST: 100ml omni 300 TECHNIQUE: After the administration of contrast, 5 mm thick sections acquired from the diaphragms to the symphys is. 5 mm thick coronal and sagittal reformats were acquired. For radiation dose reduction, the foll owing was used: automated exposure control, adjustment of mA and/or kV according to patient size. COMPARISON: None. FINDINGS: Image quality: Excellent. ABDOMEN: Lung bases: Lung bases are clear. Heart size is normal. The coronary arteries have atherosclerotic calcifications. Solid organs: Liver and spleen are normal in size and enhancement. Gallbladder has multiple layerin g gallstones. No wall thickening or pericholecystic fluid. Biliary system is non dilated. Pancreas enhances normally. No adrenal nodules. Kidneys demonstrate normal size and enhancement, without hyd ronephrosis. Peritoneum and bowel: Large hiatal hernia. The large bowel has diverticulosis without evidence of di verticulitis. Bowel loops demonstrate normal wall thickness and caliber. No free fluid or air. Nodes and vessels: No retroperitoneal or mesenteric adenopathy by size criteria. Aorta and inferior vena cava are normal in size. Miscellaneous: No ventral hernias. PELVIS: Genitourinary: Bladder wall thickness is normal. Prostate radioactive beads are seen. Miscellaneous: Bilateral fat-containing inguinal hernias. Bones: No suspicious bony lesions. Multilevel degenerative changes and disc disease. No vertebral b ines compression fractures. IMPRESSION: 1. No acute abdominal or pelvic abnormality. 2. Large hiatal hernia. 3. Cholelithiasis without evidence of cholecystitis. 4. Diverticulosis without evidence of diverticulitis. Reviewed by: Ryan Shepard on 06/07/2022 3:42 PM [place] Approved by: Ryan Shepard on 06/07/2022 3:[address] [facility] Station ID: [id number]
[2022-06-07] MEDS ORDERED: iohexoL-300 100 ML VIAL IVP ONE (17:20)
[2022-06-07 17:32] VITALS: BP 137/78
== END 2022-06-07 17:48 | disposition home or self-care (01) ==
LOC: ED 12:25
DX: K44.9 Diaphragmatic hernia without obstruction or gangrene (principal); R07.9 Chest pain, unspecified; I48.20 Chronic atrial fibrillation, unspecified; K57.90 Diverticulosis of intestine, part unspecified, without perforation or abscess without bleeding; K80.20 Calculus of gallbladder without cholecystitis without obstruction; Z79.01 Long term (current) use of anticoagulants
CPT/HCPCS: 36415; 71045; 74177; 80053; 83690; 84484; 85025; 93005; 96374; 99284; J1170; Q9967

== ENCOUNTER 2022-11-16 20:20 | Emergency (ER) | payer MEDICARE, OTHER ==
[2022-11-16] MEDS ORDERED: HYDROmorphone 1 MG/ML CARPUJECT IVP STA (21:03)
[2022-11-16 21:14] LABS: BASOPHILS % (AUTO) 0.3 %; EOSINOPHILS % (AUTO) 0.4 %; HCT - HEMATOCRIT 33.1 % (42.0-52.0); HGB - HEMOGLOBIN 10.9 g/dL (14.0-18.0); LYMPHOCYTES # (AUTO) 1.3 10^3/uL (1.5-3.5); LYMPHOCYTES % (AUTO) 19.3 %; MEAN CORPUSCULAR HEMOGLOBIN 31.1 pg (27.0-31.0); MEAN CORPUSCULAR HGB CONC 32.9 g/dL (32.0-36.0); MEAN CORPUSCULAR VOLUME 94.3 fL (80.0-94.0); MONOCYTES # (AUTO) 0.6 10^3/uL (0.0-1.0); MONOCYTES % (AUTO) 8.8 %; NEUTROPHILS # (AUTO) 4.9 10^3/uL (1.5-6.6); NEUTROPHILS % (AUTO) 71.1 %; PLT - PLATELET COUNT 186 10^3/uL (130-450); RED BLOOD COUNT 3.51 10^6/uL (4.70-6.10); RED CELL DISTRIBUTION WIDTH 12.9 % (12.0-15.0); WHITE BLOOD COUNT 6.9 x10^3/uL (4.8-10.8)
[2022-11-16 21:20] LABS: INR 1.1 (0.8-1.2)
[2022-11-16 21:32] LABS: ALBUMIN 3.7 g/dL (3.2-5.5); ALBUMIN/GLOBULIN RATIO 1.3 (1.0-2.2); BILIRUBIN,TOTAL 0.5 mg/dL (0.2-1.0); CALCIUM 9.3 mg/dL (8.5-10.3); CREATININE 1.4 mg/dL (0.6-1.3); POTASSIUM 3.8 mmol/L (3.5-4.5); TOTAL PROTEIN 6.5 g/dL (6.4-8.9)
--- NOTE | 2022-11-16 21:51 | ED Physician Documentation ---
History of Present Illness - Stated complaint Stated Complaint: FALL/MALE - Chief complaint Chief Complaint: General - History obtained from History obtained from: Patient, Family - History of Present Illness Timing: Today Pain level max: 5 Pain level now: 5 - Additonal information Additional information: 87-year-old male presents to the emergency department stating he fell in the bathtub today and now has pain in the right groin, radiating down to his testicles. No neck or back pain. No head injury. No loss of consciousness. No headache. This occurred about 4 hours prior to arrival. No vomiting. No abdominal pain. Review of Systems Constitutional: denies: Fever Respiratory: denies: Cough GI: denies: Nausea, Vomiting, Diarrhea Skin: denies: Rash Musculoskeletal: denies: Neck pain, Back pain Neurologic: denies: Confused, Headache, Head injury, LOC PD PAST MEDICAL HISTORY - Past Medical History Cardiovascular: [place], Atrial fibrillation Respiratory: None Endocrine/Autoimmune: Type 2 diabetes GI: None : None, Kidney stones HEENT: Chronic hearing loss Psych: Depression Musculoskeletal: None Derm: None - Past Surgical History Past Surgical History: No General: Hiatal hernia repair Ortho: Knee replacement Cardiovascular: Coronary stent HEENT: Cataracts, Tonsil/Adenoidectomy - Present Medications Home Medications: Ambulatory Orders Medication Instructions Recorded Confirmed Cetirizine [ZyrTEC] 10 mg PO QPM 04/22/15 01/22/19 Fluticasone [Flonase] 1 sprays [place] BID 04/22/15 01/22/19 Doron/D3/Mag11/Zinc/Hop Strainer/Adrian/Bor 1 tab PO QPM 05/08/15 01/22/19 [Caltrate 600+D Plus Tablet] Multivit-Min/Iron Fum/Folic AC 1 each PO DAILY 05/08/15 01/22/19 [Otrdi-Ijqhjzj-Veywmmob Tablet] Valsartan [Diovan] 320 mg PO BID 05/08/15 01/22/19 amLODIPine [Norvasc] 2.5 mg PO DAILY 05/08/15 01/22/19 glipiZIDE [Glucotrol] 5 mg PO QPM 05/08/15 01/22/19 metFORMIN [Glucophage] 500 mg PO BID 05/08/15 01/22/19 polyethylene glycoL 3350 [Miralax] 8.5 - 17 gm PO DAILY PRN 05/08/15 01/22/19 Rivaroxaban [Xarelto] 15 mg PO DAILY 05/09/15 01/22/19 Diclofenac Sodium [Voltaren] 2 - 4 gm TOP QID PRN 07/11/18 01/22/19 Ferrous Sulfate 325 mg PO DAILY 07/11/18 01/22/19 Mirtazapine [Remeron] 7.5 mg PO HS 07/11/18 01/22/19 Simvastatin 80 mg PO DAILY 07/11/18 01/22/19 Tamsulosin HCl [Flomax] 0.4 mg PO DAILY 07/11/18 01/22/19 Zolpidem [Ambien] 5 mg PO HS PRN 07/11/18 01/22/19 raNITIdine [Zantac] 150 mg PO DAILY 07/11/18 01/22/19 Nitroglycerin [Nitrostat] 0.3 mg SL Q5M PRN #1 tab.subl 07/12/18 01/22/19 Furosemide 20 mg PO DAILY 01/22/19 01/22/19 Levothyroxine Sodium [Synthroid] 50 mcg PO DAILY 01/22/19 01/22/19 Mirtazapine 7.5 mg PO QPM 01/22/19 01/22/19 Rivaroxaban [Xarelto] 15 mg PO DAILY 01/22/19 01/22/19 Acetaminophen 650 mg PO Q6HR #30 tablet 01/23/19 Omeprazole 20 mg PO DAILY #14 capsule. 01/23/19 Hydrocodone/Acetaminophen [[place] 1 each PO Q6H PRN #20 tablet 03/04/20 5-325 Tablet] Ondansetron Odt [Zofran] 4 mg TL Q6H PRN #10 tablet 03/04/20 Clotrimazole 1% Cream [Lotrimin 1% 15 gm TOP BID 14 Days #15 ml 11/27/21 Cream] Docusate Sodium 100Mg Capsule 100 mg PO DAILY #30 cap 11/27/21 [Colace 100Mg Capsule] polyethylene glycoL 3350(BULK) 17 gm PO DAILY #238 gm 11/27/21 [Miralax] - Allergies Allergies/Adverse Reactions: Allergies Allergy/AdvReac Type Severity Reaction Status Date / Time No Known Drug Allergies Allergy Verified 11/27/21 05:18 - Social History Does the pt smoke?: No Smoking Status: Never smoker Does the pt drink ETOH?: No Does the pt have substance abuse?: No - Immunizations Immunizations are current?: Yes - POLST Patient has POLST: No PD ED PE NORMAL - Vitals Vital signs reviewed: Yes - General General: Alert and oriented X 3, No acute distress - HEENT HEENT: Atraumatic, PERRL, EOMI, Moist mucous membranes, Other (No scalp hematomas. No palpable skull fractures.) - Neck Neck: Supple, no meningeal sign, No bony TTP - Cardiac Cardiac: RRR, Strong equal pulses - Respiratory Respiratory: No respiratory distress, Clear bilaterally - Abdomen Abdomen: Soft, Non tender, Non distended, Other (Right-sided firm inguinal hernia, 4 x 4 cm, tender) - Male Male : Other ( No skin changes. Normal scrotal and testicular exam. No pain, swelling, bruising.) - Back Back: No CVA TTP, No spinal TTP - Derm Derm: Warm and dry - Extremities Extremities: Normal ROM s pain - Neuro Neuro: Alert and oriented X 3, rug repairer 2-12 intact, No motor deficit, No sensory deficit, Normal speech Eye Opening: Spontaneous Motor: Obeys Commands Verbal: Oriented GCS Score: 15 - Psych Psych: Normal mood, Normal affect Results - Vitals Vitals: Vital Signs - 24 hr 11/16/22 11/16/22 11/16/22 20:32 21:30 22:00 Temperature 35.8 C L Heart Rate 84 84 59 L Respiratory 16 18 16 Rate Blood Pressure 142/47 H 127/84 H 123/67 O2 Saturation 97 98 100 Oxygen O2 Source Room air - Labs Labs: Laboratory Tests 11/16/22 11/16/22 11/16/22 21:06 21:06 21:06 WBC 6.9 RBC 3.51 L Hgb 10.9 L Hct 33.1 L MCV 94.3 H MCH 31.1 H MCHC 32.9 RDW 12.9 Plt Count 186 MPV 9.0 Neut # (Auto) 4.9 Lymph # (Auto) 1.3 L [place] # (Auto) 0.6 Eos # (Auto) 0.0 Baso # (Auto) 0.0 Absolute Nucleated RBC 0.00 Nucleated RBC % 0.0 PT 12.0 INR 1.1 APTT 31.0 Sodium 133 L Potassium 3.8 Chloride 98 L Carbon Dioxide 31 Anion Gap 4.0 L BUN 25 H Creatinine 1.4 H Estimated GFR (MDRD) 48 L Glucose 155 H Lactic Acid Calcium 9.3 Total Bilirubin 0.5 AST 30 ALT 14 Alkaline Phosphatase 64 Total Protein 6.5 Albumin 3.7 Globulin 2.8 Albumin/Globulin Ratio 1.3 Lipase 24 11/16/22 21:06 WBC RBC Hgb Hct MCV MCH MCHC RDW Plt Count MPV Neut # (Auto) Lymph # (Auto) [place] # (Auto) Eos # (Auto) Baso # (Auto) Absolute Nucleated RBC Nucleated RBC % PT INR APTT Sodium Potassium Chloride Carbon Dioxide Anion Gap BUN Creatinine Estimated GFR (MDRD) Glucose Lactic Acid 0.5 Calcium Total Bilirubin AST ALT Alkaline Phosphatase Total Protein Albumin Globulin Albumin/Globulin Ratio Lipase PD Medical Decision Making - ED course Complexity details: reviewed results, re-evaluated patient, considered differential, d/w patient ED course: Bedside ultrasound reveals a normal testicular exam. He has no testicular pain or tenderness on exam. There is good flow to both testicles. He does have an incarcerated right inguinal hernia, was given a milligram of Dilaudid and the hernia was able to be reduced. His symptoms all resolved at that point. No significant laboratory abnormalities. Normal lactate. He is on a blood thinner, but did not strike his head. No headache. Refuses CT scan. We will have him follow-up with his doctor for referral to general surgery for his hernia. He has had a right-sided hernia repair in the past he believes. He does not know where this was done. Patient counseled regarding signs and symptoms for which I believe and urgent re-evaluation would be necessary. Patient with good understanding of and agreement to plan and is comfortable going home at this time This document was made in part using voice recognition software. While efforts are made to proofread this document, sound alike and grammatical errors may occur. Departure - Departure Disposition: 01 Home, Self Care Clinical Impression: Inguinal hernia Qualifiers: Obstruction and gangrene presence: without obstruction or gangrene Laterality: unilateral Recurrence: recurrent Qualified Code(s): K40.91 - Unilateral inguinal hernia, without obstruction or gangrene, recurrent Condition: Good Instructions: ED Hernia Inguinal Follow-Up: Clint Johansen MD [Primary Care Provider] - Within 1 week Comments: Please follow-up with your doctor for further care. Your hernia was reduced tonight. If it becomes stuck again, you will need to come back for evaluation. Your doctor can refer you to a surgeon to discuss repair of the hernia. Please return for increasing pain, swelling or other new or worrisome symptoms. Forms: PCP List Discharge Date/Time: 11/16/22 22:15
[2022-11-16 22:15] VITALS: BP 123/67; O2SAT 100
== END 2022-11-16 22:15 | disposition home or self-care (01) ==
LOC: ED 20:20
DX: K40.91 Unilateral inguinal hernia, without obstruction or gangrene, recurrent (principal); I25.2 Old myocardial infarction; I48.91 Unspecified atrial fibrillation; E11.9 Type 2 diabetes mellitus without complications; Z79.899 Other long term (current) drug therapy; Z79.84 Long term (current) use of oral hypoglycemic drugs; Z79.01 Long term (current) use of anticoagulants
CPT/HCPCS: 36415; 80053; 83605; 83690; 85025; 85610; 85730; 96374; 99283; J1170

== ENCOUNTER 2022-11-29 17:03 | Emergency (ER) | payer MEDICARE, OTHER ==
[2022-11-29 17:27] VITALS: O2SAT 98
[2022-11-29] MEDS ORDERED: polyethylene glycoL 3350 17 GM PACKET PO STA (18:15)
[2022-11-29] MEDS ORDERED: HYDROcod/ACET 5/325 Prepack 4 PO STA (18:15)
--- NOTE | 2022-11-29 18:18 | ED Physician Documentation ---
PD HPI ABD PAIN - Stated complaint Stated Complaint: - Chief complaint Chief Complaint: Abd Pain - History obtained from History obtained from: Patient, Family - Additional information Additional information: 87-year-old gentleman presents accompanied by his son-in-law for evaluation of a left inguinal hernia. He was seen by my partner on the 14 of this month for a right inguinal hernia that was reduced in the department here and subsequently followed up with his primary care physician and has been referred to surgery, but the referral is in process. Starting at noon today he developed left inguinal pain. He also was constipated, last BM 2 days ago. No vomiting. PD PAST MEDICAL HISTORY - Past Medical History Past Medical History: Yes Cardiovascular: OR, Atrial fibrillation Respiratory: None Endocrine/Autoimmune: Type 2 diabetes GI: None : None, Kidney stones HEENT: Chronic hearing loss Psych: Depression Musculoskeletal: None Derm: None - Past Surgical History Past Surgical History: No General: Hiatal hernia repair Ortho: Knee replacement Cardiovascular: Coronary stent HEENT: Cataracts, Tonsil/Adenoidectomy - Present Medications Home Medications: Ambulatory Orders Medication Instructions Recorded Confirmed Cetirizine [ZyrTEC] 10 mg PO QPM 04/22/15 01/22/19 Fluticasone [Flonase] 1 sprays [place] BID 04/22/15 01/22/19 Doron/D3/Mag11/Zinc/Distributor Sales Consultant/Adrian/Bor 1 tab PO QPM 05/08/15 01/22/19 [Caltrate 600+D Plus Tablet] Multivit-Min/Iron Fum/Folic AC 1 each PO DAILY 05/08/15 01/22/19 [Vrwdh-Fxlskpe-Nzgyudqk Tablet] Valsartan [Diovan] 320 mg PO BID 05/08/15 01/22/19 amLODIPine [Norvasc] 2.5 mg PO DAILY 05/08/15 01/22/19 glipiZIDE [Glucotrol] 5 mg PO QPM 05/08/15 01/22/19 metFORMIN [Glucophage] 500 mg PO BID 05/08/15 01/22/19 polyethylene glycoL 3350 [Miralax] 8.5 - 17 gm PO DAILY PRN 05/08/15 01/22/19 Rivaroxaban [Xarelto] 15 mg PO DAILY 05/09/15 01/22/19 Diclofenac Sodium [Voltaren] 2 - 4 gm TOP QID PRN 07/11/18 01/22/19 Ferrous Sulfate 325 mg PO DAILY 07/11/18 01/22/19 Mirtazapine [Remeron] 7.5 mg PO HS 07/11/18 01/22/19 Simvastatin 80 mg PO DAILY 07/11/18 01/22/19 Tamsulosin HCl [Flomax] 0.4 mg PO DAILY 07/11/18 01/22/19 Zolpidem [Ambien] 5 mg PO HS PRN 07/11/18 01/22/19 raNITIdine [Zantac] 150 mg PO DAILY 07/11/18 01/22/19 Nitroglycerin [Nitrostat] 0.3 mg SL Q5M PRN #1 tab.subl 07/12/18 01/22/19 Furosemide 20 mg PO DAILY 01/22/19 01/22/19 Levothyroxine Sodium [Synthroid] 50 mcg PO DAILY 01/22/19 01/22/19 Mirtazapine 7.5 mg PO QPM 01/22/19 01/22/19 Rivaroxaban [Xarelto] 15 mg PO DAILY 01/22/19 01/22/19 Acetaminophen 650 mg PO Q6HR #30 tablet 01/23/19 Omeprazole 20 mg PO DAILY #14 capsule. 01/23/19 Hydrocodone/Acetaminophen [[place] 1 each PO Q6H PRN #20 tablet 03/04/20 5-325 Tablet] Ondansetron Odt [Zofran] 4 mg TL Q6H PRN #10 tablet 03/04/20 Clotrimazole 1% Cream [Lotrimin 1% 15 gm TOP BID 14 Days #15 ml 11/27/21 Cream] Docusate Sodium 100Mg Capsule 100 mg PO DAILY #30 cap 11/27/21 [Colace 100Mg Capsule] polyethylene glycoL 3350(BULK) 17 gm PO DAILY #238 gm 11/27/21 [Miralax] HYDROcod/ACETAM 5/325 [[place] 5/325] 1 - 2 tab PO Q6H PRN #15 tablet 11/29/22 polyethylene glycoL 3350(BULK) 17 gm PO DAILY PRN #1 each 11/29/22 [Miralax] - Allergies Allergies/Adverse Reactions: Allergies Allergy/AdvReac Type Severity Reaction Status Date / Time No Known Drug Allergies Allergy Verified 11/29/22 17:21 - Social History Does the pt smoke?: No Smoking Status: Never smoker Does the pt drink ETOH?: No Does the pt have substance abuse?: No - Immunizations Immunizations are current?: Yes - POLST Patient has POLST: No PD ED PE NORMAL - Vitals Vital signs reviewed: Yes - General General: Alert and oriented X 3, No acute distress - Abdomen Abdomen: Normal bowel sounds, Soft, Non tender - Male Male : Other (He seems to have bilateral inguinal hernias both of which are easily reducible and sliding, no incarceration at this time.) - Neuro Neuro: Alert and oriented X 3, Normal speech Results - Vitals Vitals: Vital Signs - 24 hr 11/29/22 11/29/22 11/29/22 17:21 17:27 18:50 Temperature 36.9 C 36.9 C 36.8 C Heart Rate 88 88 86 Respiratory 18 18 16 Rate Blood Pressure 122/76 122/76 120/74 O2 Saturation 98 98 98 Oxygen O2 Source Room air PD Medical Decision Making - ED course ED course: At this point he seems to have bilateral inguinal hernias both of which are sliding and easily reducible. No evidence of incarceration at this time. He has a pending surgical referral. But set expectations with him that given his comorbidities and anticoagulated status surgery would likely be staged and he would need to hold his blood thinners for a few days prior to surgery. Departure - Departure Disposition: 01 Home, Self Care Clinical Impression: Bilat ing hernia Qualifiers: Obstruction and gangrene presence: without obstruction or gangrene Recurrence: not specified as recurrent Qualified Code(s): K40.20 - Bilateral inguinal hernia, without obstruction or gangrene, not specified as recurrent Condition: Good Record reviewed to determine appropriate education?: Yes Instructions: ED Hernia Inguinal Prescriptions: polyethylene glycoL 3350(BULK) [Miralax] 17 gm PO DAILY PRN #1 each PRN Reason: Constipation HYDROcod/ACETAM 5/325 [[place] 5/325] 1 - 2 tab PO Q6H PRN #15 tablet PRN Reason: Pain Comments: As discussed, it seems like Sy has bilateral inguinal hernias, and both are easily reducible at this time. Call tomorrow to try to expedite the surgical referral but at this point since there is no incarceration there is no indication for urgent repair. Return if he worsens or if there is a mass that does not reduce easily. I sent a prescription electronically to the [facility] pharmacy on the [place] [place]. I am prescribing a short course of narcotic pain medication for you. These are potentially dangerous and addictive medications that should be used carefully. These medications may constipate you. Take an ffbx-oqv-civrrue stool softener (docusate) twice daily with plenty of water while taking these medications. If you go 24 hours without a bowel movement, take khbq-ekj-iqcefpj miralax, per package instructions. Do not drink or drive while taking these medications. If you received narcotic or sedating medications while in the emergency department, do not drive for 24 hours. Store this medication in a safe, secure place and out of reach of children. It is a violation of federal law to give or sell this medication to another person or to use in a manner other than prescribed. The ED will not refill narcotic prescriptions, including prescriptions lost or stolen. To dispose of unwanted medications: 1. [facility] provides a drop box for medication in pill form only (no liquids) 8:00 am to 4:30 p.m. Wednesday-Wednesday in the lobby of the [facility], [address] [place] [address]. Empty pills into ziplock bag before disposal. Call [phone] for information. 2.[employer] is a free service available to all [facility] residents. Go to [email or web address] Note that many narcotic pain relievers also contain Tylenol/acetaminophen. Please ensure that your total dose of acetaminophen from all sources does not exceed 3 g (3000 mg) per day. Discharge Date/Time: 11/29/22 18:25
[2022-11-29 18:59] VITALS: BP 120/74
== END 2022-11-29 18:25 | disposition home or self-care (01) ==
LOC: ED 17:03
DX: K40.20 Bilateral inguinal hernia, without obstruction or gangrene, not specified as recurrent (principal); I48.91 Unspecified atrial fibrillation; E11.9 Type 2 diabetes mellitus without complications; Z79.84 Long term (current) use of oral hypoglycemic drugs; Z79.01 Long term (current) use of anticoagulants
CPT/HCPCS: 99282; 99283; A9270

== ENCOUNTER 2022-12-07 19:51 | Inpatient (IN) | payer MEDICARE, OTHER ==
[2022-12-07] MEDS ORDERED: SODIUM CHLORIDE 0.9% 1,000 ML IV STA (20:18)
[2022-12-07] MEDS ORDERED: ONDANSETRON 4 MG/2 ML VIAL IVP STA (20:19)
--- NOTE | 2022-12-07 20:23 | ED Physician Documentation ---
History of Present Illness - Stated complaint Stated Complaint: ABD PX - Chief complaint Chief Complaint: Abd Pain - Additonal information Additional information: Patient is 87-year-old male presenting to the emergency department with abdomi nal pain. Has been seen here twice over the month of November for bilateral inguinal hernias. Has follow-up appoint with surgery tomorrow. This afternoon pain became increasingly worse. Denies fever, nausea vomiting, diarrhea, constipation. Review of Systems Constitutional: denies: Fever Eyes: denies: Loss of vision Ears: denies: Loss of hearing Nose: denies: Rhinorrhea / runny nose Throat: denies: Dental pain / toothache Cardiac: denies: Chest pain / pressure GI: reports: Abdominal Pain. denies: Nausea, Vomiting, Constipation PD PAST MEDICAL HISTORY - Past Medical History Cardiovascular: RI, Atrial fibrillation Respiratory: None Endocrine/Autoimmune: Type 2 diabetes GI: None : None, Kidney stones HEENT: Chronic hearing loss Psych: Depression Musculoskeletal: None Derm: None - Past Surgical History Past Surgical History: No General: Hiatal hernia repair Ortho: Knee replacement Cardiovascular: Coronary stent HEENT: Cataracts, Tonsil/Adenoidectomy - Present Medications Home Medications: Ambulatory Orders Medication Instructions Recorded Confirmed Cetirizine [ZyrTEC] 10 mg PO QPM 04/22/15 01/22/19 Fluticasone [Flonase] 1 sprays [place] BID 04/22/15 01/22/19 Doron/D3/Mag11/Zinc/Doll Maker/Adrian/Bor 1 tab PO QPM 05/08/15 01/22/19 [Caltrate 600+D Plus Tablet] Multivit-Min/Iron Fum/Folic AC 1 each PO DAILY 05/08/15 01/22/19 [Oxuvy-Hyqhhej-Imkqfqye Tablet] Valsartan [Diovan] 320 mg PO BID 05/08/15 01/22/19 amLODIPine [Norvasc] 2.5 mg PO DAILY 05/08/15 01/22/19 glipiZIDE [Glucotrol] 5 mg PO QPM 05/08/15 01/22/19 metFORMIN [Glucophage] 500 mg PO BID 05/08/15 01/22/19 polyethylene glycoL 3350 [Miralax] 8.5 - 17 gm PO DAILY PRN 05/08/15 01/22/19 Rivaroxaban [Xarelto] 15 mg PO DAILY 05/09/15 01/22/19 Diclofenac Sodium [Voltaren] 2 - 4 gm TOP QID PRN 07/11/18 01/22/19 Ferrous Sulfate 325 mg PO DAILY 07/11/18 01/22/19 Mirtazapine [Remeron] 7.5 mg PO HS 07/11/18 01/22/19 Simvastatin 80 mg PO DAILY 07/11/18 01/22/19 Tamsulosin HCl [Flomax] 0.4 mg PO DAILY 07/11/18 01/22/19 Zolpidem [Ambien] 5 mg PO HS PRN 07/11/18 01/22/19 raNITIdine [Zantac] 150 mg PO DAILY 07/11/18 01/22/19 Nitroglycerin [Nitrostat] 0.3 mg SL Q5M PRN #1 tab.subl 07/12/18 01/22/19 Furosemide 20 mg PO DAILY 01/22/19 01/22/19 Levothyroxine Sodium [Synthroid] 50 mcg PO DAILY 01/22/19 01/22/19 Mirtazapine 7.5 mg PO QPM 01/22/19 01/22/19 Rivaroxaban [Xarelto] 15 mg PO DAILY 01/22/19 01/22/19 Acetaminophen 650 mg PO Q6HR #30 tablet 01/23/19 Omeprazole 20 mg PO DAILY #14 capsule. 01/23/19 Hydrocodone/Acetaminophen [[place] 1 each PO Q6H PRN #20 tablet 03/04/20 5-325 Tablet] Ondansetron Odt [Zofran] 4 mg TL Q6H PRN #10 tablet 03/04/20 Clotrimazole 1% Cream [Lotrimin 1% 15 gm TOP BID 14 Days #15 ml 11/27/21 Cream] Docusate Sodium 100Mg Capsule 100 mg PO DAILY #30 cap 11/27/21 [Colace 100Mg Capsule] polyethylene glycoL 3350(BULK) 17 gm PO DAILY #238 gm 11/27/21 [Miralax] HYDROcod/ACETAM 5/325 [[place] 5/325] 1 - 2 tab PO Q6H PRN #15 tablet 11/29/22 polyethylene glycoL 3350(BULK) 17 gm PO DAILY PRN #1 each 11/29/22 [Miralax] - Allergies Allergies/Adverse Reactions: Allergies Allergy/AdvReac Type Severity Reaction Status Date / Time No Known Drug Allergies Allergy Verified 12/07/22 20:00 - Social History Does the pt smoke?: No Smoking Status: Never smoker Does the pt drink ETOH?: No Does the pt have substance abuse?: No - Immunizations Immunizations are current?: Yes - POLST Patient has POLST: No PD ED PE NORMAL - General General: Alert and oriented X 3, No acute distress - HEENT HEENT: Atraumatic - Neck Neck: Supple, no meningeal sign - Cardiac Cardiac: RRR - Respiratory Respiratory: No respiratory distress - Abdomen Abdomen: Other (Decreased bowel sounds, hard right-sided nonreducible inguinal mass.) - Male Male : Deferred Results - Vitals Vitals: Vital Signs - 24 hr 12/07/22 12/07/22 12/07/22 19:56 20:44 21:04 Temperature 37.1 C 37 C Heart Rate 106 H 86 84 Respiratory 15 20 17 Rate Blood Pressure 131/90 H 130/74 113/76 O2 Saturation 98 100 96 12/07/22 12/08/22 12/08/22 21:36 02:40 02:45 Temperature 36.5 C Heart Rate 75 79 75 Respiratory 20 14 10 L Rate Blood Pressure 131/74 H 123/67 122/70 O2 Saturation 100 100 100 12/08/22 12/08/22 12/08/22 02:51 03:00 03:05 Temperature 36.6 C Heart Rate 83 70 80 Respiratory 14 14 12 Rate Blood Pressure 118/73 125/77 122/63 O2 Saturation 98 100 98 12/08/22 12/08/22 12/08/22 03:11 03:15 03:25 Temperature 36.5 C Heart Rate 84 89 86 Respiratory 12 14 15 Rate Blood Pressure 129/77 129/75 123/79 O2 Saturation 95 96 96 12/08/22 03:31 Temperature Heart Rate 86 Respiratory 11 L Rate Blood Pressure 117/65 O2 Saturation 97 Oxygen O2 Source Room air - EKG (time done) 2042 EKG releavant findings:: EKG personally interpreted by author of this note. Relevant findings are: Atrial fibrillation with rate 88 bpm. Normal axis. Normal QRS, QTc interval. Infrequent premature ventricular complex. Nonspecific T wave abnormalities noted in the lateral and inferior lead III. - Labs Labs: Laboratory Tests 12/07/22 12/07/22 12/07/22 20:37 20:37 20:37 WBC 5.4 RBC 3.35 L Hgb 10.5 L Hct 32.5 L MCV 97.0 H MCH 31.3 H MCHC 32.3 RDW 12.9 Plt Count 178 MPV 9.0 Neut # (Auto) 3.9 Lymph # (Auto) 0.9 L [place] # (Auto) 0.5 Eos # (Auto) 0.0 Baso # (Auto) 0.0 Absolute Nucleated RBC 0.00 Nucleated RBC % 0.0 Sodium 134 L Potassium 3.8 Chloride 98 L Carbon Dioxide 29 Anion Gap 7.0 BUN 33 H Creatinine 1.3 H Estimated GFR (MDRD) 52 L Glucose 165 H POC Whole Bld Glucose Lactic Acid 1.2 Calcium 8.9 Total Bilirubin 0.3 AST 24 ALT 12 Alkaline Phosphatase 63 Total Protein 6.3 L Albumin 3.5 Globulin 2.8 Albumin/Globulin Ratio 1.3 Lipase 39 12/08/22 02:43 WBC RBC Hgb Hct MCV MCH MCHC RDW Plt Count MPV Neut # (Auto) Lymph # (Auto) [place] # (Auto) Eos # (Auto) Baso # (Auto) Absolute Nucleated RBC Nucleated RBC % Sodium Potassium Chloride Carbon Dioxide Anion Gap BUN Creatinine Estimated GFR (MDRD) Glucose POC Whole Bld Glucose 119 H Lactic Acid Calcium Total Bilirubin AST ALT Alkaline Phosphatase Total Protein Albumin Globulin Albumin/Globulin Ratio Lipase PD Medical Decision Making - ED course Complexity details: reviewed results, re-evaluated patient, d/w patient, d/w family, d/w car sales consultant ED course: Patient 87-year-old male presenting to the emergency department with inguinal pain. This is in the setting of known history of bilateral inguinal hernia. Physical exam demonstrates a reducible hard exquisitely tender right inguinal mass. Labs reassuring and that there is no significant leukocytosis or lactic acidosis. Consulted with surgery, Dr. Lanza, who evaluated the patient independently and made plans for OR and hospitalization. Departure - Departure Disposition: [facility] DC/Xfer Clinical Impression: Incarcerated hernia, Chronic anticoagulation Condition: Good Discharge Date/Time: 12/08/22 00:40
[2022-12-07 20:41] LABS: BASOPHILS % (AUTO) 0.4 %; EOSINOPHILS % (AUTO) 0.7 %; HCT - HEMATOCRIT 32.5 % (42.0-52.0); HGB - HEMOGLOBIN 10.5 g/dL (14.0-18.0); LYMPHOCYTES # (AUTO) 0.9 10^3/uL (1.5-3.5); LYMPHOCYTES % (AUTO) 17.1 %; MEAN CORPUSCULAR HEMOGLOBIN 31.3 pg (27.0-31.0); MEAN CORPUSCULAR HGB CONC 32.3 g/dL (32.0-36.0); MONOCYTES # (AUTO) 0.5 10^3/uL (0.0-1.0); MONOCYTES % (AUTO) 9.8 %; NEUTROPHILS # (AUTO) 3.9 10^3/uL (1.5-6.6); NEUTROPHILS % (AUTO) 71.8 %; PLT - PLATELET COUNT 178 10^3/uL (130-450); RED BLOOD COUNT 3.35 10^6/uL (4.70-6.10); RED CELL DISTRIBUTION WIDTH 12.9 % (12.0-15.0); WHITE BLOOD COUNT 5.4 x10^3/uL (4.8-10.8)
[2022-12-07] MEDS: fentaNYL 100 MCG/2 ML VIAL IVP PRN ×3 (20:41→22:32)
[2022-12-07 20:55] LABS: ALBUMIN 3.5 g/dL (3.2-5.5); ALBUMIN/GLOBULIN RATIO 1.3 (1.0-2.2); BILIRUBIN,TOTAL 0.3 mg/dL (0.2-1.0); CALCIUM 8.9 mg/dL (8.5-10.3); CREATININE 1.3 mg/dL (0.6-1.2); POTASSIUM 3.8 mmol/L (3.5-5.0); TOTAL PROTEIN 6.3 g/dL (6.7-8.2)
[2022-12-07] MEDS ORDERED: MORPHINE 2 MG/ML CARPUJECT IVP PRN ×2 (22:19→22:58)
--- NOTE | 2022-12-07 22:37 | CONSULTATION NOTE ---
Surgery Consult - Consult Date Consult Date: 12/07/22 Requesting Provider: Brandon Doran - Chief Complaint Chief Complaint: Right groin pain - Home Meds/Allergies Home Medications: Patient History Medication Instructions Recorded Confirmed Cetirizine [ZyrTEC] 10 mg PO QPM 04/22/15 01/22/19 Fluticasone [Flonase] 1 sprays [place] BID 04/22/15 01/22/19 Doron/D3/Mag11/Zinc/Pillowcase Cutter/Adrian/Bor 1 tab PO QPM 05/08/15 01/22/19 [Caltrate 600+D Plus Tablet] Multivit-Min/Iron Fum/Folic AC 1 each PO DAILY 05/08/15 01/22/19 [Ssoin-Udopoch-Hgyufmfl Tablet] Valsartan [Diovan] 320 mg PO BID 05/08/15 01/22/19 amLODIPine [Norvasc] 2.5 mg PO DAILY 05/08/15 01/22/19 glipiZIDE [Glucotrol] 5 mg PO QPM 05/08/15 01/22/19 metFORMIN [Glucophage] 500 mg PO BID 05/08/15 01/22/19 polyethylene glycoL 3350 [Miralax] 8.5 - 17 gm PO DAILY PRN 05/08/15 01/22/19 Rivaroxaban [Xarelto] 15 mg PO DAILY 05/09/15 01/22/19 Diclofenac Sodium [Voltaren] 2 - 4 gm TOP QID PRN 07/11/18 01/22/19 Ferrous Sulfate 325 mg PO DAILY 07/11/18 01/22/19 Mirtazapine [Remeron] 7.5 mg PO HS 07/11/18 01/22/19 Simvastatin 80 mg PO DAILY 07/11/18 01/22/19 Tamsulosin HCl [Flomax] 0.4 mg PO DAILY 07/11/18 01/22/19 Zolpidem [Ambien] 5 mg PO HS PRN 07/11/18 01/22/19 raNITIdine [Zantac] 150 mg PO DAILY 07/11/18 01/22/19 Furosemide 20 mg PO DAILY 01/22/19 01/22/19 Levothyroxine Sodium [Synthroid] 50 mcg PO DAILY 01/22/19 01/22/19 Mirtazapine 7.5 mg PO QPM 01/22/19 01/22/19 Rivaroxaban [Xarelto] 15 mg PO DAILY 01/22/19 01/22/19 Allergies/Adverse Reactions: Allergies Allergy/AdvReac Type Severity Reaction Status Date / Time No Known Drug Allergies Allergy Verified 12/07/22 20:00 - Vital Signs Vital Signs: Last Vital Signs Temp 97.7 F 12/07/22 21:36 Pulse 75 12/07/22 21:36 Resp 20 12/07/22 21:36 BP 131/74 H 12/07/22 21:36 Pulse Ox 100 12/07/22 21:36 O2 Flow Rate Intake & Output: Intake & Output 12/04/22 12/05/22 12/06/22 12/07/22 23:59 23:59 23:59 23:59 Intake Total 1000 Balance 1000 - Lab Results Result Diagrams: 12/07/22 20:37 12/07/22 20:37 - Consultation Note Consultation Note: General Surgery Consultation Note Assessment: 1) Incarcerated recurrent RIH. It appears to be adipose tissue within the inguinal canal. There is no evidence of a SBO or infection/ischemia associated with the incarceration 2) History of AR 3) Therapeutic anticoagulation 4) Atrial fibrillation 5) Pre-Diabetes Recommendation: 1) Admit to Medical Hospitalist Service 2) NPO 3) Withhold VTEP and Xeralto tonight 4) Schedule for repair of incarcerated recurrent RIH tomorrow morning 5) IV maintenance fluids 6) IV analgesics prn (Dilaudid or Morphine) Consent: Sy has been counseled for the procedure (open repair of incarcerated RIH, possible use of mesh), it's indications, risks, benefits and expected outcome as well as alternative therapies. We specifically discussed risks associated with anesthesia, bleeding, infection, and potential injury to surrounding structures which may require additional surgery. Sy understands, agrees, and consents to the proposed operative strategy and requests that we proceed with the procedure as outlined in our discussion. His son-in-law was present during this counselling session. <><><><><><><><><><> Reason for Consultation Incarcerated RIH Chief Complaint Right groin pain HPI Sy is an 87 year old male who has been troubled with pain in the right groin for weeks. he has noticed a lump in the area on occasion which usually reduces. He was scheduled to see a surgeon in the out-patient clinic tomorrow for this problem but developed another episode of discomfort in the right groin a couple days ago. The lump has been present for the last two days. he came to the ED tonvaibhav for evaluation and i was asked to assist in his evaluation and management. Sy denies nausea, vomiting of abdominal pain. He has no fever, chills, or sweats. He ate dinner a few hours ago. He has been passing his urine and stool without too much difficulty but admits to constipation. He will occasionally have discomfort in the left groin but doesn't remember if there has ever been a palpable lump present. Sy takes Xarelto presumably for his atrial fibrillation. Past Medical History Atrial fibrillation Pre-diabetes CAD, S/P stent placement Past Surgical History Right groin surgery - he thinks it was a hernia repair done 50 years ago Hiatal hernia repair Cataracts T&A Knee replacement Social History Non smoker; No alcohol; Lives with and daughter/son-in-law [place] Current Medications See "Medication" section Allergies See "Allergy" section ROS Pertinent positives Right groin pain - constant, dull, non-radiating, several days duration All other reviewed systems negative Physical Examination Vital Signs: See "Vital Signs" section BMI: 21 GENERAL APPEARANCE: Normal development, normal body habitus, normal grooming PSYCHIATRIC: AAO; Cooperative; Complains of right groin discomfort EYES: Pupils equal, round and reactive to light, sclera anicteric EARS, NOSE, MOUTH, THROAT: Hearing normal, Oral mucous membranes moist and without lesions; NECK: No crepitus, lymphadenopathy, or thyromegaly LUNGS: Clear to auscultation without wheezing; No use of accessory muscles to breathe CARDIOVASCULAR: Heart-irreg irreg; Palpable carotid arteries - no bruits; Femoral, Pedal pulses palpable; Peripheral edema present ABD: Soft, non-distended, active bowel sounds, non-tender GROIN: Left - normal - no clinical evidence of an inguinal hernia, left testicle normal; Right - firm, slightly tender subcutaneous mass overlying the inguinal ligament. Unable to reduce; No soft tissue erythema or edema. Right testicle normal LYMPHATIC: Neck, Axillae EXTREMITIES: No clubbing, cyanosis, infections SKIN: Anicteric; No rashes, lesions, Ulcerations Labs See "Labs" section Imaging CT Abd/Pelvis - Fat containing right inguinal hernia All images were personally reviewed by me for this encounter. Reji Wyatt MD, FACS General Surgery Service [phone]
[2022-12-07] MEDS ORDERED: SODIUM CHLORIDE FLUSH 0.9% 10 ML SYRINGE IVP PRN (22:58)
[2022-12-07] MEDS ORDERED: ONDANSETRON 4 MG/2 ML VIAL IVP PRN (22:58)
--- NOTE | 2022-12-07 23:06 | CT Report ---
PROCEDURE: ABDOMEN/PELVIS W INDICATIONS: inguinal hernia CONTRAST: 100 ML OMNI 300 TECHNIQUE: After the administration of intravenous contrast, 5 mm thick sections acquired from the diaphragms to the symphysis. 5 mm thick coronal and sagittal reformats were acquired. For radiation dose reducti on, the following was used: automated exposure control, adjustment of mA and/or kV according to mohan ent size. COMPARISON: CT abdomen pelvis 06/07/2022 FINDINGS: Image quality: Excellent. Lung bases: There is bibasilar atelectasis in the lower lobes, left greater than right. Heart:Heart size is enlarged. A large hiatal hernia is redemonstrated. ABDOMEN: Liver: No mass lesion. Gallbladder:There are a few dependent calcified gallstones in the gallbladder fundus. No gallbladder wall thickening or pericholecystic fluid. Biliary ducts: No biliary ductal dilatation. Pancreas: Unremarkable. Spleen: Normal in size. There are calcifications in the spleen consistent with sequelae of old granu lomatous disease. Adrenal Glands: No adrenal nodules. Kidneys and Ureters: No hydronephrosis. Stomach and Bowel:There are a few mildly dilated small bowel loops measuring up to 3.3 cm with assoc iated air-fluid levels with a transition point associated with a right inguinal hernia containing a s hort herniated segment of small bowel. Small bowel loops distal to the herniated segment are nondiste nded. No pericecal inflammatory changes to suggest appendicitis. There is colonic diverticulosis with out acute diverticulitis. Peritoneum: No abnormal intraperitoneal fluid. No free air. Ventral Wall: No hernia. Abdominal Nodes: No retroperitoneal or mesenteric adenopathy by size criteria. Vessels: Aorta and inferior vena cava are normal in size. PELVIS: Pelvic Organs: Unremarkable. Bladder: Unremarkable. Pelvic Nodes: No enlarged lymph nodes. Miscellaneous: There is a small right inguinal hernia containing a short herniated segment of small b owel. There is a small amount of fluid within the hernia sac as well as mild bowel wall thickening. Bones: Visualized osseous structures demonstrate no suspicious lesions. IMPRESSION: 1. Small right inguinal hernia containing a short herniated segment of small bowel. There is associat ed mild upstream small bowel dilatation compatible with obstruction. Wall thickening of the herniated bowel segment as well as small amount of fluid in the hernia suggest possible bowel strangulation. F indings discussed with Dr. Kumar on 12/07/2022 at 11:00 PM. 2. Large hiatal hernia redemonstrated. 3. Cholelithiasis without CT evidence of cholecystitis. Reviewed by: Masoud Michael MD on 12/07/2022 11:04 PM PDT Approved by: Masoud Michael MD on 12/07/2022 11:04 PM PDT Station ID: [id number]
--- NOTE | 2022-12-07 23:25 | HISTORY & PHYSICAL EXAMINATION ---
History and Physical - History and Physical Chief Complaint Pain in the right groin area. Presenting Concerns An 87-year-old male has presented to the emergency department thrice in the past three weeks due to pain in the lower right side of the abdomen, as reported by his family. He has previously been diagnosed with inguinal hernias on both sides. The severity of his pain has escalated in the past 12 hours. He hasn't experienced any fever, chills, nausea, vomiting, diarrhea, dysuria, and so on. After consulting with the general surgery team in the emergency room, it was decided that he will undergo surgery for his right-sided incarcerated inguinal hernia tomorrow. An internal medicine consultation was sought for admission. He uses a walker for mobility and doesn't require supplemental oxygen. He's cognizant, aware, and responsive, despite receiving pain management through morphine and fentanyl. He has not consumed his daily dose of Xarelto. Surgical Background - Hiatal hernia repair - Knee replacement surgery - Stent placement in coronary arteries - Procedures for cataracts and tonsils Medical History - Type 2 Diabetes Mellitus - Atrial fibrillation - Stage III Chronic kidney disease - Depression - Previously diagnosed prostate cancer Systemic Review A 12-point system check was completed, yielding no concerns apart from the current illness. Allergies: Checked and noted. Lifestyle Does not consume alcohol, use illicit drugs, or tobacco products. Family Medical History No known cancer diagnoses. Medications: Noted and reviewed. Physical Examination - Vital signs were taken and noted. - The head is unscarred and well-proportioned. - Pupils react to light. - Neck doesnt exhibit jugular venous distension. - Cardiovascular system shows a regular rate and rhythm. - Equal air entry observed in both lungs. - Swelling, pain, and a palpable mass observed in the right groin area. No similar findings in the scrotal area. - Mild, non-indented swelling seen in both lower limbs. - No significant tenderness in calf muscles. - Skin appears clear with no observed ulcers or rashes. - Patient displays full mobility in all limbs and is fully aware of his surroundings. Lab Tests: Reviewed. Diagnosis 1. Right-sided incarcerated inguinal hernia 2. Coronary artery disease status post left heart cath with PCI in the past 3. Paroxysmal atrial fibrillationpatient is on Xarelto at home 4. Diabetes mellitus type 2, [id number] 5. Hypertension 6. Previous history of prostate cancer 7. Hypothyroidism 8. Chronic kidney disease stage III 9. Dyslipidemia 10. Anemia, macrocytic Treatment Plan Admit patient on telemetry Keep him n.p.o. Gentle IV hydration Hold Xarelto Sliding-scale insulin with Accu-Cheks As needed IV morphine As needed IV Zofran General surgery is planning to proceed for right inguinal hernia surgery tomorrow As needed hydralazine for accelerated hypertension Check daily input and output SCDs for DVT prophylaxis Resuscitation Instructions Patient has chosen to be resuscitated in emergency situations. Consultation Duration: 70 minutes via telehealth services with audiovisual equipment. Consent was obtained verbally prior to the consultation. The patient was at [place], [place], while the doctor was in [place], [place]. Nurse Alvarenga assisted in the physical assessment.
[2022-12-07] MEDS ORDERED: hydrALAZINE INJ 20 MG/ML VIAL IVP PRN (23:27)
[2022-12-07] MEDS: LACTATED RINGERS 1,000 ML IV SCH (23:45)
--- NOTE | 2022-12-08 00:13 | ANESTHESIA ---
Pre-Anesthesia VS, & Labs - Diagnosis R inguinal hernia - Procedure R inguinal hernia repair Vital Signs: Temp Pulse Resp BP Pulse Ox O2 Flow Rate 36.5 C 75 20 131/74 H 100 12/07/22 21:36 12/07/22 21:36 12/07/22 21:36 12/07/22 21:36 12/07/22 21:36 Height: 6 ft 2 in Weight (kg): 77.111 kg Body Mass Index: 21.8 BMI Classification: Normal - NPO Other (pt reports eating dinner before coming in to the ER, does not remember exact time but approximates 5 hrs ago) - Lab Results Current Lab Results: Laboratory Tests 12/07/22 20:37: Lactic Acid 1.2 12/07/22 20:37: Sodium 134 L, Potassium 3.8, Chloride 98 L, Carbon Dioxide 29, Anion Gap 7.0, BUN 33 H, Creatinine 1.3 H, Estimated GFR (MDRD) 52 L, Glucose 165 H, Calcium 8.9, Total Bilirubin 0.3, AST 24, ALT 12, Alkaline Phosphatase 63, Total Protein 6.3 L, Albumin 3.5, Globulin 2.8, Albumin/Globulin Ratio 1.3, Lipase 39 12/07/22 20:37: WBC 5.4, RBC 3.35 L, Hgb 10.5 L, Hct 32.5 L, MCV 97.0 H, MCH 31.3 H, MCHC 32.3, RDW 12.9, Plt Count 178, MPV 9.0, Neut # (Auto) 3.9, Lymph # (Auto) 0.9 L, [place] # (Auto) 0.5, Eos # (Auto) 0.0, Baso # (Auto) 0.0, Absolute Nucleated RBC 0.00, Nucleated RBC % 0.0 Fish Bones: 12/07/22 20:37 12/07/22 20:37 Home Medications and Allergies Cetirizine [ZyrTEC] 10 mg PO QPM 04/22/15 Fluticasone [Flonase] 1 sprays [place] BID 04/22/15 Doron/D3/Mag11/Zinc/Cnc Milling Machinist/Adrian/Bor [Caltrate 600+D Plus Tablet] 1 tab PO QPM 05/08/15 Multivit-Min/Iron Fum/Folic AC [Udxym-Jylnoeq-Cdlinkvg Tablet] 1 each PO DAILY 05/08/15 Valsartan [Diovan] 320 mg PO BID 05/08/15 amLODIPine [Norvasc] 2.5 mg PO DAILY 05/08/15 glipiZIDE [Glucotrol] 5 mg PO QPM 05/08/15 metFORMIN [Glucophage] 500 mg PO BID 05/08/15 polyethylene glycoL 3350 [Miralax] 8.5 - 17 gm PO DAILY PRN 05/08/15 Rivaroxaban [Xarelto] 15 mg PO DAILY 05/09/15 Diclofenac Sodium [Voltaren] 2 - 4 gm TOP QID PRN 07/11/18 Ferrous Sulfate 325 mg PO DAILY 07/11/18 Mirtazapine [Remeron] 7.5 mg PO HS 07/11/18 Simvastatin 80 mg PO DAILY 07/11/18 Tamsulosin HCl [Flomax] 0.4 mg PO DAILY 07/11/18 Zolpidem [Ambien] 5 mg PO HS PRN 07/11/18 raNITIdine [Zantac] 150 mg PO DAILY 07/11/18 Furosemide 20 mg PO DAILY 01/22/19 Levothyroxine Sodium [Synthroid] 50 mcg PO DAILY 01/22/19 Mirtazapine 7.5 mg PO QPM 01/22/19 Rivaroxaban [Xarelto] 15 mg PO DAILY 01/22/19 Allergies/Adverse Reactions: Allergies Allergy/AdvReac Type Severity Reaction Status Date / Time No Known Drug Allergies Allergy Verified 12/07/22 20:00 Anes History & Medical History - Anesthetic History Anesthesia Complications: reports: No previous complications Family history of Anesthesia Complications: Denies Family history of Malignant Hyperthermia: Denies - Medical History Cardiovascular: reports: Coronary artery disease, [place], Atrial fibrillation, Other (PCI with stents placed) Pulmonary: reports: None Gastrointestinal: reports: None Urinary: reports: None, Kidney stones, Other (Hx of prostate CA) Neuro: reports: None Musculoskeletal: reports: Other (uses walker) Endocrine/Autoimmune: reports: Type 2 diabetes Blood Disorders: reports: None Skin: reports: None Smoking Status: Never smoker Psychosocial: reports: No issues indicated History of Cancer?: Yes (Prostate) - Surgical History General: reports: Hiatal hernia repair Eyes Ears Nose Throat (EENT): reports: Cataracts, Tonsil/Adenoidectomy Cardiothoracic: reports: Coronary stent Orthopedic: reports: Knee replacement Exam General: Alert, Oriented x3, Cooperative Dental: WNL Mouth Openin Fingerbreadth Neck Mobility: Normal Mallampati classification: I Thyromental Distance: 4-6 cm Respiratory: Lungs clear Cardiovascular: Other (A Fib, CVR) Plan Anesthesia Type: General Consent for Procedure(s) Verified and Reviewed: Yes Code Status: Attempt Resuscitation ASA classification: 3-Severe systemic disease Is this case an emergency?: Yes
[2022-12-08] MEDS ORDERED: METOCLOPRAMIDE 10 MG/2 ML VIAL IVP PRN (00:15)
[2022-12-08] MEDS ORDERED: ONDANSETRON 4 MG/2 ML VIAL IVP PRN (00:15)
[2022-12-08] MEDS ORDERED: ePHEDrine 50 MG/ML VIAL IVP PRN (00:15)
[2022-12-08] MEDS ORDERED: MORPHINE 2 MG/ML CARPUJECT IVP PRN (00:15)
[2022-12-08] MEDS ORDERED: fentaNYL 100 MCG/2 ML VIAL IVP PRN (00:15)
[2022-12-08] MEDS ORDERED: NALOXONE 0.4 MG/ML VIAL IVP PRN (00:15)
[2022-12-08] MEDS ORDERED: ATROPINE ABBOJECT 1 MG/10 ML SYRINGE IVP PRN (00:15)
[2022-12-08] MEDS ORDERED: PROPOFOL 200 MG/20 ML VIAL IVP ONE (00:25)
[2022-12-08] MEDS ORDERED: SUCCINYLCHOLINE 200 MG/10 ML VIAL ONE (00:26)
[2022-12-08] MEDS ORDERED: LIDOCAINE-PF 2% 10 ML AMP SUBQ ONE (00:26)
[2022-12-08] MEDS ORDERED: ROCURONIUM 50 MG/5 ML VIAL ONE (00:26)
[2022-12-08] MEDS ORDERED: BUPIVACAINE 0.5%-EPI 1:200000 PF 30 ML VIAL ONE (00:32)
[2022-12-08] MEDS ORDERED: LIDOCAINE 1%-EPI 1:100000 20 ML MDV ONE (00:32)
[2022-12-08] MEDS ORDERED: LIDOCAINE-MPF 1% 30 ML VIAL ONE (00:33)
[2022-12-08] MEDS ORDERED: ceFAZolin 1 GM VIAL ONE ×2 (00:47→02:08)
[2022-12-08] MEDS ORDERED: LACTATED RINGERS 1,000 ML IV SCH (01:00)
[2022-12-08] MEDS ORDERED: ePHEDrine 50 MG/ML VIAL IVP ONE (01:04)
[2022-12-08] MEDS ORDERED: LIDOCAINE 1% 50 ML MDV IM ONE (01:10)
[2022-12-08] MEDS ORDERED: BUPIVACAINE 0.5%-EPI 1:200000 PF 30 ML VIAL SUBQ ONE (01:12)
[2022-12-08] MEDS ORDERED: iohexoL-300 100 ML VIAL IVP ONE (01:58)
[2022-12-08] MEDS ORDERED: ceFAZolin 1 GM VIAL IR ONE (02:02)
[2022-12-08] MEDS ORDERED: SUGAMMADEX 200 MG/2 ML VIAL IVP ONE (02:28)
[2022-12-08] MEDS ORDERED: LACTATED RINGERS 1,000 ML IV ONE ×2 (02:35→03:13)
--- NOTE | 2022-12-08 02:46 | OPERATIVE REPORT ---
Operative Report - Other Other Information/Narrative: PROCEDURE DATE: 12/08/2022 PREOPERATIVE DIAGNOSIS: Incarcerated Recurrent Right Inguinal Hernia POSTOPERATIVE DIAGNOSIS: Strangulated Right Direct Inguinal hernia; Lipoma of the cord PROCEDURE: Right Inguinal Herniorrhaphy - Prolene Light Mesh, Small Bowel E nterectomy with Primary Anastomosis; Excision of lipoma of the cord SURGEON: Reji Wyatt MD, FACS [employer] SURGEON: None. ANESTHESIA: GETA; Local (Lidocaine/Bupivacaine) ESTIMATED BLOOD LOSS: 30 ml SPECIMEN: Strangulated small bowel segment; Direct inguinal hernia sac; Lipoma of the cord DRAINS: None FINDINGS: A 3 cm section of small bowel was gangrenous and located within the direct inguinal hernia sac that was protruding from a small defect in the floor of the groin adjacent to the pubic tubercle. There was significant scar tissue in the inguinal canal that made dissection of the cord structures tedious. A narrow lipoma of the cord was identified. There was no evidence of an indirect hernia sac DESCRIPTION OF PROCEDURE: After consent for the procedure was obtained, the patient was brought to the operating room where a surgical time-out was initiated indicating the patient and the procedure to be performed. In the supine position GETA was administered. The lower abdomen and groin were shaved, prepped with chloroprep, and draped in a sterile fashion. One percent Lidocaine with epinephrine in a 50:50 mix with 0.25% Marcaine was used for local anesthesia throughout the procedure. A right groin curvilinear incision was made over the internal abdominal ring and carried through the subcutaneous tissue until the aponeurosis of the external oblique was identified. The aponeurosis was opened in the line of it's fibers down to and through the external abdominal ring. The ilioinguinal nerve was identified and protected after careful dissection away from scar tissue.. The spermatic cord was mobilized from the pubic tubercle and placed on tension with a Cochran drain. Excess cremasteric muscle fibers were excised. The spermatic cord structures were protected throughout the procedure. A direct inguinal hernia defect was present adjacent to the pubic tubercle. Protruding through this was a direct hernia sac that was bluntly dissected from the upper thigh subcutaneous tissue and was then brought into the wound. The sac was opened and bloody fluid was encountered. A 3 cm segment of small bowel was gangrenous but not perforated. I opened the direct hernia defect to a degree to permit evisceration of the small bowel through the defect. A limited small bowel enterectomy was then performed. The healthy small bowel proximal and distal to the ischemic segment was isolated. A FIDELIA stapling device was used to transect the small bowel proximally and distally in areas of normal, pliable intestine. The mesentery to the diseased bowel segment was transected using a LigaSure device. The specimen was removed from the field. A cfxf-cs-nstr entero-enterostomy was then performed using a FIDELIA stapling device closing the conjoined ostomy with an additional fire of the FIDELIA device. At the end of the anastomosis, the anastomosis was under no tension, had an excellent blood supply and lumen and was without evidence of a leak. The bowel clamps were removed. The mesenteric rent was approximated with a running 3-0 Chromic suture. The bowel was returned into the abdominal cavity through the direct hernia defect. The excess hernia sac was amputated above a 3-0 Chromic purse string suture and the remainder inserted into the abdominal cavity. A sheet of Prolene Light mesh was then tailored to the proper size and secured inferiorly to the pubic tubercle, medially to the transversalis fascia and internal oblique muscle and fascia, and laterally to the shelving edge of Poupart's ligament and ileopubic tract using separate running 0 Prolene sutures for the medial and lateral edge of the mesh. The mesh was then split and secured around the spermatic cord in such a way as to allow egress of the cord structures without compression using interrupted 0 Prolene suture. The mesh was irrigated with warm sterile saline containing 1 gm of Ancef/500 cc. The irrigant was aspirated. On the anterolateral aspect of the cord was a lipoma which was cleanly dissected from the cord structures and amputated above a 3-0 Chromic purse string suture. The spermatic cord and ilioinguinal nerve were replaced into their normal anatomic positions. The aponeurosis of the external oblique was approximated with a running 2-0 Vicryl suture, the subcutaneous tissue with a running 4-0 Vicryl suture, and the skin with a running 4-0 Vicryl subcuticular suture with Dermabond to reinforce the epidermis. Dressings were placed. The patient tolerated the procedure well and was brought to recovery with stable vital signs.
[2022-12-08] MEDS ORDERED: SODIUM CHLORIDE FLUSH 0.9% 10 ML SYRINGE IVP PRN (02:47)
[2022-12-08] MEDS ORDERED: IBUPROFEN 600 MG TABLET PO PRN (02:47)
[2022-12-08] MEDS: HYDROmorphone 0.5 MG/0.5 ML SYRINGE IVP PRN ×2 (03:15→03:41)
--- NOTE | 2022-12-08 03:17 | ANESTHESIA POST OP EVALUATION ---
Anesthesia Post Eval - Post Anesthesia Eval Vitals: Last Vital Signs Temp 36.6 C 12/08/22 02:51 Pulse 84 12/08/22 03:11 Resp 12 12/08/22 03:11 BP 129/77 12/08/22 03:11 Pulse Ox 95 12/08/22 03:11 O2 Flow Rate CV Function Including HR & BP: Stable Pain Control: Satisfactory Nausea & Vomiting: Negative Mental Status: Baseline Respiratory Status: Airway Patent Hydration Status: Satisfactory Anesthesia Complications: None
[2022-12-08] MEDS ORDERED: ACETAMINOPHEN 1,000 MG/100 ML 1,000 MG/100 ML BAG IV ONE ×2 (03:20→03:27)
[2022-12-08] MEDS ORDERED: HYDROmorphone 0.5 MG/0.5 ML SYRINGE ONE ×2 (03:21→03:48)
[2022-12-08] MEDS: LACTATED RINGERS 1,000 ML IV SCH ×2 (04:24→21:02)
[2022-12-08 05:27] LABS: BASOPHILS % (AUTO) 0.1 %; EOSINOPHILS % (AUTO) 0.6 %; HGB - HEMOGLOBIN 10.9 g/dL (14.0-18.0); LYMPHOCYTES # (AUTO) 0.9 10^3/uL (1.5-3.5); MEAN CORPUSCULAR HEMOGLOBIN 31.1 pg (27.0-31.0); MEAN CORPUSCULAR HGB CONC 32.1 g/dL (32.0-36.0); MEAN CORPUSCULAR VOLUME 97.1 fL (80.0-94.0); MONOCYTES # (AUTO) 0.3 10^3/uL (0.0-1.0); NEUTROPHILS # (AUTO) 5.8 10^3/uL (1.5-6.6); PLT - PLATELET COUNT 177 10^3/uL (130-450); RED CELL DISTRIBUTION WIDTH 12.8 % (12.0-15.0); WHITE BLOOD COUNT 7.1 x10^3/uL (4.8-10.8)
[2022-12-08 05:42] LABS: CALCIUM 8.9 mg/dL (8.5-10.3); CREATININE 1.1 mg/dL (0.6-1.3); POTASSIUM 3.2 mmol/L (3.5-4.5)
[2022-12-08] MEDS: INSULIN REGULAR HUMAN 300 UNIT/3 ML VIAL SUBQ SCH ×2 (07:41→07:43)
[2022-12-08] MEDS: SODIUM CHLORIDE FLUSH 0.9% 10 ML SYRINGE IVP SCH ×5 (07:44→16:45)
--- NOTE | 2022-12-08 08:34 | PROVIDER PROGRESS NOTE ---
Subjective - General Admit Date: 12/08/22 - Other Other Information/Narrative: General Surgery Progress Note Hospital Day # 2 - Strangulated RIH DOS - RIHR - mesh; Small bowel excision ASSESSMENT: 1) Strangulated RIH - no immediate post-op problems 2) Atrial fibrillatioin - off Xarelto at this time. Would wait until tomorrow to start PLAN: 1) Clear liquids today 2) Increase activity - PT would be helpful 3) Once he demonstrates bowel activity we can advance diet 4) Start anticoagulation tomorrow <><><><><> PERTINENT INTERVAL ISSUES: None S: Easily awakens. No complaintg of abdominal or groin discomfort OBJECTIVE: VS: 97.3; 86; 116/69; 16;96%RA EXAMINATION: MENTAL STATUS: AAO; Comfortable EYES: Pupils equal, round and reactive to light, sclera anicteric, EARS, NOSE, MOUTH, THROAT: Normal hearing, Oral mucous membranes moist and without lesions; NECK: No crepitus, lymphadenopathy, or thyromegaly LUNGS: Clear to auscultation without wheezing; No use of accessory muscles to breathe CARDIOVASCULAR: Heart-NSR without murmurs; ABD: Soft, non-tender; + BS GROIN: Right incision dressing clean and dry; Minimal swelling SKIN: Anicteric; No rashes, lesions, ulcerations LABS: WBC 7.1; H&H 34/10.9; Plt 177k Na 134; K 3.2; BUN 22; Cr 1.1; Glu 119 ANTIMICROBIALS: Prophylactic completed PAIN CONTROL: Dilaudid IV prn, Oxycodone PO prn, Acetaminophen; Ibuprofen VTEP: Chemical: None Mechanical: SCD Fortino Wyatt MD General Surgery Service Objective - Patient Data Vital Signs: Vital Signs x48h Temp Pulse Pulse Resp BP BP Pulse Ox 12/08/22 07:27 97.3 F L 86 16 116/64 96 12/08/22 05:41 97.0 F L 91 16 100/52 L 95 12/08/22 05:00 97.2 F L 77 12 102/65 95 12/08/22 04:30 97.2 F L 90 105/65 96 12/08/22 04:15 97.2 F L 92 109/72 92 12/08/22 03:50 97.3 F L 90 12 120/73 94 12/08/22 03:46 84 12 118/71 96 12/08/22 03:40 88 12 125/74 94 12/08/22 03:31 86 11 L 117/65 97 12/08/22 03:25 86 15 123/79 96 12/08/22 03:15 97.7 F 89 14 129/75 96 12/08/22 03:11 84 12 129/77 95 12/08/22 03:05 80 12 122/63 98 12/08/22 03:00 70 14 125/77 100 12/08/22 02:51 97.9 F 83 14 118/73 98 12/08/22 02:45 75 10 L 122/70 100 12/08/22 02:40 79 14 123/67 100 12/08/22 02:35 98.4 F 100 Weight: Weight 12/06/22 12/07/22 12/08/22 23:59 23:59 23:59 Weight (kg) 77.111 kg 85.5 kg Intake & Output: Intake and Output Totals x24h 12/06/22 12/07/22 12/08/22 23:59 23:59 23:59 Intake Total 1000 465 Balance 1000 465 - Lab Results Lab Results: 12/08/22 05:20 12/08/22 05:20 Other Lab Results: Lab Results x24hrs 12/08/22 12/08/22 12/08/22 Range/Units 07:30 05:20 05:20 WBC 7.1 (4.8-10.8) x10^3/uL RBC 3.50 L (4.70-6.10) 10^6/uL Hgb 10.9 L (14.0-18.0) g/dL Hct 34.0 L (42.0-52.0) % MCV 97.1 H (80.0-94.0) fL MCH 31.1 H (27.0-31.0) pg MCHC 32.1 (32.0-36.0) g/dL RDW 12.8 (12.0-15.0) % Plt Count 177 (130-450) 10^3/uL MPV 9.0 (7.4-11.4) fL Neut # (Auto) 5.8 (1.5-6.6) 10^3/uL Lymph # (Auto) 0.9 L (1.5-3.5) 10^3/uL [place] # (Auto) 0.3 (0.0-1.0) 10^3/uL Eos # (Auto) 0.0 (0.0-0.7) 10^3/uL Baso # (Auto) 0.0 (0.0-0.1) 10^3/uL Absolute Nucleated RBC 0.00 x10^3/uL Nucleated RBC % 0.0 /100WBC Sodium 134 L (135-145) mmol/L Potassium 3.2 L (3.5-5.0) mmol/L Chloride 99 L (101-111) mmol/L Carbon Dioxide 31 (21-32) mmol/L Anion Gap 4.0 L (6-13) BUN 22 H (6-20) mg/dL Creatinine 1.1 (0.6-1.2) mg/dL Estimated GFR (MDRD) 63 L (>89) Glucose 119 H (70-100) mg/dL POC Whole Bld Glucose 154 H (70 - 100) mg/dL Lactic Acid (0.5-2.2) mmol/L Calcium 8.9 (8.5-10.3) mg/dL Total Bilirubin (0.2-1.0) mg/dL AST (10-42) IU/L ALT (10-60) IU/L Alkaline Phosphatase (42-121) IU/L Total Protein (6.7-8.2) g/dL Albumin (3.2-5.5) g/dL Globulin (2.1-4.2) g/dL Albumin/Globulin Ratio (1.0-2.2) Lipase (22-51) U/L 12/08/22 12/07/22 12/07/22 Range/Units 02:43 20:37 20:37 WBC (4.8-10.8) x10^3/uL RBC (4.70-6.10) 10^6/uL Hgb (14.0-18.0) g/dL Hct (42.0-52.0) % MCV (80.0-94.0) fL MCH (27.0-31.0) pg MCHC (32.0-36.0) g/dL RDW (12.0-15.0) % Plt Count (130-450) 10^3/uL MPV (7.4-11.4) fL Neut # (Auto) (1.5-6.6) 10^3/uL Lymph # (Auto) (1.5-3.5) 10^3/uL [place] # (Auto) (0.0-1.0) 10^3/uL Eos # (Auto) (0.0-0.7) 10^3/uL Baso # (Auto) (0.0-0.1) 10^3/uL Absolute Nucleated RBC x10^3/uL Nucleated RBC % /100WBC Sodium 134 L (135-145) mmol/L Potassium 3.8 (3.5-5.0) mmol/L Chloride 98 L (101-111) mmol/L Carbon Dioxide 29 (21-32) mmol/L Anion Gap 7.0 (6-13) BUN 33 H (6-20) mg/dL Creatinine 1.3 H (0.6-1.2) mg/dL Estimated GFR (MDRD) 52 L (>89) Glucose 165 H (70-100) mg/dL POC Whole Bld Glucose 119 H (70 - 100) mg/dL Lactic Acid 1.2 (0.5-2.2) mmol/L Calcium 8.9 (8.5-10.3) mg/dL Total Bilirubin 0.3 (0.2-1.0) mg/dL AST 24 (10-42) IU/L ALT 12 (10-60) IU/L Alkaline Phosphatase 63 (42-121) IU/L Total Protein 6.3 L (6.7-8.2) g/dL Albumin 3.5 (3.2-5.5) g/dL Globulin 2.8 (2.1-4.2) g/dL Albumin/Globulin Ratio 1.3 (1.0-2.2) Lipase 39 (22-51) U/L 12/07/22 Range/Units 20:37 WBC 5.4 (4.8-10.8) x10^3/uL RBC 3.35 L (4.70-6.10) 10^6/uL Hgb 10.5 L (14.0-18.0) g/dL Hct 32.5 L (42.0-52.0) % MCV 97.0 H (80.0-94.0) fL MCH 31.3 H (27.0-31.0) pg MCHC 32.3 (32.0-36.0) g/dL RDW 12.9 (12.0-15.0) % Plt Count 178 (130-450) 10^3/uL MPV 9.0 (7.4-11.4) fL Neut # (Auto) 3.9 (1.5-6.6) 10^3/uL Lymph # (Auto) 0.9 L (1.5-3.5) 10^3/uL [place] # (Auto) 0.5 (0.0-1.0) 10^3/uL Eos # (Auto) 0.0 (0.0-0.7) 10^3/uL Baso # (Auto) 0.0 (0.0-0.1) 10^3/uL Absolute Nucleated RBC 0.00 x10^3/uL Nucleated RBC % 0.0 /100WBC Sodium (135-145) mmol/L Potassium (3.5-5.0) mmol/L Chloride (101-111) mmol/L Carbon Dioxide (21-32) mmol/L Anion Gap (6-13) BUN (6-20) mg/dL Creatinine (0.6-1.2) mg/dL Estimated GFR (MDRD) (>89) Glucose (70-100) mg/dL POC Whole Bld Glucose (70 - 100) mg/dL Lactic Acid (0.5-2.2) mmol/L Calcium (8.5-10.3) mg/dL Total Bilirubin (0.2-1.0) mg/dL AST (10-42) IU/L ALT (10-60) IU/L Alkaline Phosphatase (42-121) IU/L Total Protein (6.7-8.2) g/dL Albumin (3.2-5.5) g/dL Globulin (2.1-4.2) g/dL Albumin/Globulin Ratio (1.0-2.2) Lipase (22-51) U/L - Current Medications Current Medications: Current Medications Generic Name Dose Route Start Last Admin Trade Name Freq PRN Reason Stop Dose Admin Lactated Ringer's 1,000 mls @ 100 mls/hr 12/07/22 23:00 12/08/22 04:24 Lr IV 100 mls/hr .Q10H MAURICIO Administration Insulin Human Regular 1 - 5 unit 12/08/22 00:00 12/08/22 07:43 Insulin Regular Human 300 Unit/3 Ml Vial SUBQ Not Given Q6HR REPLACED BY [facility] Protocol Sodium Chloride 10 ml 12/08/22 01:00 12/08/22 07:44 Sodium Chloride Flush 0.9% 10 Ml Syringe IVP Not Given 0100,0900,1700 REPLACED BY [facility]
[2022-12-08] MEDS: amLODIPine 5 MG TABLET PO SCH (08:46)
[2022-12-08] MEDS: LEVOTHYROXINE 25 MCG TABLET PO SCH (08:46)
[2022-12-08] MEDS: oxyCODONE 5 MG TABLET PO PRN (08:54)
--- NOTE | 2022-12-08 09:01 | PROVIDER PROGRESS NOTE ---
Assessment/Plan - Problem List (1) Incarcerated hernia Assessment/Plan: Patient presented last night and was taken directly to the OR yesterday. He had a partial colectomy. Dr. Wyatt the gen surgeon spoke to me about him today. Plan: The gen surgeon wants him on a clear liquid diet. The order will be changed from solid food. Continue with gentle IV hydration Continue with pain meds as needed 2. Diabetes mellitus type 2 Pt is [id number] His A1c result was checked and is pending Plan: As we advance his diet, I will put him on a carb controlled diet Continue with fingerstick chcks and sliding scale insulin for now 3. Paroxysmal atrial fibrillation His admission EKG showed NSR. He is in A-fib on telemetry Patient is on Xarelto at home. Plan: Xarelto is on hold perioperatively. Await the okay to resume it from general surgery. Await his medication list to be reconciled, will resume meds for rate control 4. Hypertension Plan: Await his medication list to be reconciled, will resume meds for BP control 5. Coronary artery disease He is status post left heart cath with PCI in the past Plan: Await his medication list to be reconciled, will resume cardiac meds 6. Anemia, macrocytic Plan: Follow Hgb daily We will check his B12, folate levels and replace if low 7. Hypothyroidism Plan: Will check his TSH to assure adequate thyroid replacement dose 8. Chronic kidney disease stage III Plan: Avoid nephrotoxins Follow BUN/creatinine daily 9. History of prostate cancer As per Hx Plan: We will resume any prostate meds, once his medication list is reconciled by giuliana prado 10. Dyslipidemia Plan: His statin could be resumed - Current Meds Current Meds: Current Medications Generic Name Dose Route Start Last Admin Trade Name Freq PRN Reason Stop Dose Admin Amlodipine Besylate 2.5 mg 12/08/22 09:00 12/08/22 08:46 Amlodipine 5 Mg Tablet PO 2.5 mg DAILY MAURICIO Administration Lactated Ringer's 1,000 mls @ 100 mls/hr 12/07/22 23:00 12/08/22 04:24 Lr IV 100 mls/hr .Q10H MAURICIO Administration Levothyroxine Sodium 50 mcg 12/08/22 07:00 12/08/22 08:46 Levothyroxine 25 Mcg Tablet PO 50 mcg QDAC MAURICIO Administration Sodium Chloride 10 ml 12/08/22 01:00 12/08/22 08:47 Sodium Chloride Flush 0.9% 10 Ml Syringe IVP Not Given 0100,0900,1700 MAURICIO Sodium Chloride 10 ml 12/08/22 09:00 12/08/22 08:47 Sodium Chloride Flush 0.9% 10 Ml Syringe IVP Not Given 0100,0900,1700 MAURICIO - Lab Result Fish Bone Diagrams: 12/09/22 05:08 12/09/22 05:08 - Additional Planning My Orders: My Active Orders 12/08/22 Breakfast Clear Liquid Diet [DIET] Subjective - Subjective Patient Reports: Resting Comfortably, No Complaints (He describes mild abn "pressure feeling, not pain") Objective Vital Signs: Vital Signs - 24 hr 12/07/22 12/07/22 12/07/22 19:56 20:44 21:04 Temperature 37.1 C 37 C Heart Rate 106 H 86 84 Heart Rate [ Brachial] Respiratory 15 20 17 Rate Blood Pressure 131/90 H 130/74 113/76 Blood Pressure [Right Brachial artery] O2 Saturation 98 100 96 12/07/22 12/08/22 12/08/22 21:36 02:35 02:40 Temperature 36.5 C 36.9 C Heart Rate 75 79 Heart Rate [ Brachial] Respiratory 20 14 Rate Blood Pressure 131/74 H 123/67 Blood Pressure [Right Brachial artery] O2 Saturation 100 100 100 12/08/22 12/08/22 12/08/22 02:45 02:51 03:00 Temperature 36.6 C Heart Rate 75 83 70 Heart Rate [ Brachial] Respiratory 10 L 14 14 Rate Blood Pressure 122/70 118/73 125/77 Blood Pressure [Right Brachial artery] O2 Saturation 100 98 100 12/08/22 12/08/22 12/08/22 03:05 03:11 03:15 Temperature 36.5 C Heart Rate 80 84 89 Heart Rate [ Brachial] Respiratory 12 12 14 Rate Blood Pressure 122/63 129/77 129/75 Blood Pressure [Right Brachial artery] O2 Saturation 98 95 96 12/08/22 12/08/22 12/08/22 03:25 03:31 03:40 Temperature Heart Rate 86 86 88 Heart Rate [ Brachial] Respiratory 15 11 L 12 Rate Blood Pressure 123/79 117/65 125/74 Blood Pressure [Right Brachial artery] O2 Saturation 96 97 94 12/08/22 12/08/22 12/08/22 03:46 03:50 04:15 Temperature 36.3 C L 36.2 C L Heart Rate 84 90 Heart Rate [ 92 Brachial] Respiratory 12 12 Rate Blood Pressure 118/71 120/73 Blood Pressure 109/72 [Right Brachial artery] O2 Saturation 96 94 92 12/08/22 12/08/22 12/08/22 04:30 05:00 05:41 Temperature 36.2 C L 36.2 C L 36.1 C L Heart Rate Heart Rate [ 90 77 91 Brachial] Respiratory 12 16 Rate Blood Pressure Blood Pressure 105/65 102/65 100/52 L [Right Brachial artery] O2 Saturation 96 95 95 12/08/22 07:27 Temperature 36.3 C L Heart Rate Heart Rate [ 86 Brachial] Respiratory 16 Rate Blood Pressure Blood Pressure 116/64 [Right Brachial artery] O2 Saturation 96 Oxygen O2 Source Room air I&O (Last 24 Hrs): Intake and Output Totals x24h 12/06/22 12/07/22 12/08/22 23:59 23:59 23:59 Intake Total 1000 465 Balance 1000 465 General: Alert, Other (Elderly male, ELIM IRA, slow to respond but appropriate) HEENT: Mucous membr. moist/pink Neck: Supple, No JVD Neuro: Alert, Non Focal Cardiovascular: No murmurs Respiratory: No respiratory distress Abdomen: No tenderness Extremities: No clubbing, No edema - Results Results: Laboratory Results WBC 7.1 x10^3/uL (4.8-10.8) 12/08/22 05:20 RBC 3.50 10^6/uL (4.70-6.10) L 12/08/22 05:20 Hgb 10.9 g/dL (14.0-18.0) L 12/08/22 05:20 Hct 34.0 % (42.0-52.0) L 12/08/22 05:20 MCV 97.1 fL (80.0-94.0) H 12/08/22 05:20 MCH 31.1 pg (27.0-31.0) H 12/08/22 05:20 MCHC 32.1 g/dL (32.0-36.0) 12/08/22 05:20 RDW 12.8 % (12.0-15.0) 12/08/22 05:20 Plt Count 177 10^3/uL (130-450) 12/08/22 05:20 MPV 9.0 fL (7.4-11.4) 12/08/22 05:20 Neut # (Auto) 5.8 10^3/uL (1.5-6.6) 12/08/22 05:20 Lymph # (Auto) 0.9 10^3/uL (1.5-3.5) L 12/08/22 05:20 [place] # (Auto) 0.3 10^3/uL (0.0-1.0) 12/08/22 05:20 Eos # (Auto) 0.0 10^3/uL (0.0-0.7) 12/08/22 05:20 Baso # (Auto) 0.0 10^3/uL (0.0-0.1) 12/08/22 05:20 Absolute Nucleated RBC 0.00 x10^3/uL 12/08/22 05:20 Nucleated RBC % 0.0 /100WBC 12/08/22 05:20 Sodium 134 mmol/L (135-145) L 12/08/22 05:20 Potassium 3.2 mmol/L (3.5-4.5) L 12/08/22 05:20 Chloride 99 mmol/L (101-111) L 12/08/22 05:20 Carbon Dioxide 31 mmol/L (21-32) 12/08/22 05:20 Anion Gap 4.0 (6-13) L 12/08/22 05:20 BUN 22 mg/dL (6-20) H 12/08/22 05:20 Creatinine 1.1 mg/dL (0.6-1.3) 12/08/22 05:20 Estimated GFR (MDRD) 63 (>89) L 12/08/22 05:20 Glucose 119 mg/dL (74-104) H 12/08/22 05:20 POC Whole Bld Glucose 154 mg/dL (70 - 100) H 12/08/22 07:30 Lactic Acid 1.2 mmol/L (0.5-2.2) 12/07/22 20:37 Calcium 8.9 mg/dL (8.5-10.3) 12/08/22 05:20 Total Bilirubin 0.3 mg/dL (0.2-1.0) 12/07/22 20:37 AST 24 IU/L (10-42) 12/07/22 20:37 ALT 12 IU/L (10-60) 12/07/22 20:37 Alkaline Phosphatase 63 IU/L (42-121) 12/07/22 20:37 Total Protein 6.3 g/dL (6.7-8.2) L 12/07/22 20:37 Albumin 3.5 g/dL (3.2-5.5) 12/07/22 20:37 Globulin 2.8 g/dL (2.1-4.2) 12/07/22 20:37 Albumin/Globulin Ratio 1.3 (1.0-2.2) 12/07/22 20:37 Lipase 39 U/L (22-51) 12/07/22 20:37 - Procedures Procedures: Procedures EXCISION OF DESCENDING COLON, ENDO, DIAGN (05/24/15) EXCISION OF DUODENUM, ENDO, DIAGN (05/24/15) EXCISION OF LOWER ESOPHAGUS, ENDO, DIAGN (05/24/15) EXCISION OF STOMACH, ENDO, DIAGN (05/24/15)
[2022-12-08 11:31] LABS: ESTIMATED AVERAGE GLUCOSE 123 mg/dL (70-100); HEMOGLOBIN A1c% 5.9 % (4.27-6.07)
[2022-12-08] MEDS: INSULIN LISPRO 300 UNIT/3 ML PEN SUBQ SCH ×3 (11:58→21:59)
[2022-12-09] MEDS: ACETAMINOPHEN 325 MG TABLET PO PRN ×3 (00:09→20:47)
[2022-12-09] MEDS: oxyCODONE 5 MG TABLET PO PRN (00:09)
[2022-12-09] MEDS: SODIUM CHLORIDE FLUSH 0.9% 10 ML SYRINGE IVP SCH ×5 (00:10→20:53)
[2022-12-09] MEDS: LACTATED RINGERS 1,000 ML IV SCH (05:11)
[2022-12-09 05:20] LABS: BASOPHILS % (AUTO) 0.1 %; EOSINOPHILS % (AUTO) 0.1 %; HCT - HEMATOCRIT 28.4 % (42.0-52.0); HGB - HEMOGLOBIN 9.2 g/dL (14.0-18.0); LYMPHOCYTES # (AUTO) 1.3 10^3/uL (1.5-3.5); LYMPHOCYTES % (AUTO) 13.5 %; MEAN CORPUSCULAR HEMOGLOBIN 30.9 pg (27.0-31.0); MEAN CORPUSCULAR HGB CONC 32.4 g/dL (32.0-36.0); MEAN CORPUSCULAR VOLUME 95.3 fL (80.0-94.0); MEAN PLATELET VOLUME 9.5 fL (7.4-11.4); MONOCYTES # (AUTO) 0.8 10^3/uL (0.0-1.0); MONOCYTES % (AUTO) 8.3 %; NEUTROPHILS # (AUTO) 7.3 10^3/uL (1.5-6.6); NEUTROPHILS % (AUTO) 77.8 %; PLT - PLATELET COUNT 147 10^3/uL (130-450); RED BLOOD COUNT 2.98 10^6/uL (4.70-6.10); RED CELL DISTRIBUTION WIDTH 12.8 % (12.0-15.0); WHITE BLOOD COUNT 9.4 x10^3/uL (4.8-10.8)
[2022-12-09] MEDS: LEVOTHYROXINE 25 MCG TABLET PO SCH (05:34)
[2022-12-09 05:38] LABS: CALCIUM 8.6 mg/dL (8.5-10.3); CREATININE 0.9 mg/dL (0.6-1.3); MAGNESIUM 1.5 mg/dL (1.7-2.3); POTASSIUM 3.6 mmol/L (3.5-4.5)
[2022-12-09] MEDS: INSULIN LISPRO 300 UNIT/3 ML PEN SUBQ SCH ×4 (07:27→20:52)
--- NOTE | 2022-12-09 07:48 | PROVIDER PROGRESS NOTE ---
Progress Note General Surgery Progress Note Hospital Day # 3 - Strangulated Rec RIH POD # 2, Rec RIHR - Mesh; Small bowel excision ASSESSMENT: 1) RIHR - no post-op wound issues 2) Small bowel excision - no evidence of intra-operative bleeding or anastomotic leak 3) Atrial fibrillation - stable 4) CAD - stable PLAN: 1) IV to SL 2) Advance diet as tolerated 3) Restart Xarelto 4) Ambulate TID <><><><><> PERTINENT INTERVAL ISSUES: None S: Comfortable; Tolerating liquids; No BM yet OBJECTIVE: I/O: - BM NET SINCE ADMISSION: + 3,000 VS: 98.2; 76; 111/64; 16; 93RA EXAMINATION: MENTAL STATUS: AAO; Comfortable EYES: Pupils equal, round and reactive to light, sclera anicteric, EARS, NOSE, MOUTH, THROAT: Normal hearing, Oral mucous membranes moist and without lesions; NECK: No crepitus, lymphadenopathy, or thyromegaly LUNGS: Clear to auscultation without wheezing; No use of accessory muscles to breathe CARDIOVASCULAR: Heart-Irreg Irreg without murmurs; ABD: Soft, non-tender, R groin dressing dry with slight ecchymosis about bandage; No scrotal swelling ; + BS EXTREMITIES: No clubbing, cyanosis, infections; Bilateral edema SKIN: Anicteric; No rashes, lesions, ulcerations LABS: Na 131; K 3.6; BUN 20; Cr 0.9; Glu 114 ANTIMICROBIALS: Prophylactic completed PAIN CONTROL: Dilaudid IV prn, Oxycodone PO prn, Ibuprofen, Acetaminophen VTEP: Chemical: None Mechanical: AUGIE Wyatt MD General Surgery Service
[2022-12-09] MEDS: amLODIPine 5 MG TABLET PO SCH (08:43)
[2022-12-09] MEDS: APIXABAN 5 MG TABLET PO SCH ×2 (08:44→20:47)
[2022-12-09] MEDS ORDERED: MAGNESIUM SULFATE 2 GRAM 2 GM/50 ML BAG IV ONE (11:01)
--- NOTE | 2022-12-09 11:07 | PROVIDER PROGRESS NOTE ---
Assessment/Plan - Problem List (1) Incarcerated hernia Assessment/Plan: Patient was taken directly to the OR. He had a partial small bowel resection to deal with the incarcerated hernia. Dr. Wyatt the gen surgeon spoke to me about him today. Plan: The gen surgeon has OKd advancing diet>> will order pured diet for lunch and a soft diet for dinner Taper to off his IV hydration Continue with pain meds as needed 2. Fall at home He reported to his nurse today that he is fallen 8 times recently. There is a brush burn on one of his knees. Plan: We will order orthostatic vital sign checks Will order PT and OT evaluation 3. Diabetes mellitus type 2 Pt is [id number]. He was on Metformin at home. His A1c result was checked and is 5.9, indicating excessively tight glucose control Plan: As we advance his diet we will put him on a carb controlled diet Continue with fingerstick chcks and sliding scale insulin for now, and hypoglycemia protocol 4. Paroxysmal atrial fibrillation Patient is on Xarelto at home. His admission EKG showed NSR. On telemetry he has been in A-fib here. Xarelto has been on hold perioperatively. I spoke to Dr Wyatt Gen Surgeon, and got the okay to resume DOAC today Plan: We do not have Xarelto on formulary, will start him on Eliquis 5 mg twice daily which we have on formulary Heart rate is controlled on current meds 5. Hypomagnesemia Plan: Will replace Mg. Follow Mg daily. 6. Hypertension He is only on amlodipine at home Plan: I will order orthostatic vital sign checks 7. Coronary artery disease He is status post left heart cath with PCI in the past Plan: Resuming usual cardiac meds, he is not on ASA 8. Anemia, macrocytic We will check his B12, folate levels and replace if low Plan: Follow Hgb daily 9. Hypothyroidism Plan: Will check his TSH to assure adequate thyroid replacement dose 10. Chronic kidney disease stage III Plan: Avoid nephrotoxins Follow BUN/creatinine daily 11. History of prostate cancer As per Hx Plan: We will resume any prostate meds, once his medication list is reconciled by pharmacy 12. Dyslipidemia Plan: His statin could be resumed since he is tolerating solid food - Current Meds Current Meds: Current Medications Generic Name Dose Route Start Last Admin Trade Name Freq PRN Reason Stop Dose Admin Acetaminophen 650 mg 12/08/22 02:47 12/09/22 05:34 Acetaminophen 325 Mg Tablet PO 650 mg Q4HR PRN Administration Moderate Pain (Level 4-6) Amlodipine Besylate 2.5 mg 12/08/22 09:00 12/09/22 08:43 Amlodipine 5 Mg Tablet PO 2.5 mg DAILY MAURICIO Administration Apixaban 5 mg 12/09/22 09:00 12/09/22 08:44 Apixaban 5 Mg Tablet PO 5 mg BID MAURICIO Administration Ibuprofen 600 mg 12/08/22 02:47 12/09/22 05:35 Ibuprofen 600 Mg Tablet PO 600 mg Q6HR PRN Administration Moderate Pain (Level 4-6) Insulin Human Lispro 1 - 5 unit 12/08/22 12:00 12/09/22 07:27 Insulin Lispro 300 Unit/3 Ml Pen SUBQ Not Given 0800,1200,1700,2100 [facility] Protocol Levothyroxine Sodium 50 mcg 12/08/22 07:00 12/09/22 05:34 Levothyroxine 25 Mcg Tablet PO 50 mcg QDAC MAURICIO Administration Oxycodone HCl 5 mg 12/08/22 02:47 12/09/22 00:09 Oxycodone 5 Mg Tablet PO 5 mg Q4HR PRN Administration Moderate Pain (Level 4-6) Sodium Chloride 10 ml 12/08/22 09:00 12/09/22 08:44 Sodium Chloride Flush 0.9% 10 Ml Syringe IVP 10 ml 0100,0900,1700 [facility] Administration - Lab Result Fish Bone Diagrams: 12/09/22 05:08 12/09/22 05:08 - Additional Planning My Orders: My Active Orders 12/08/22 10:42 Miscellaenous Nursing Order [RC] QSHIFT 12/09/22 09:00 Apixaban [Eliquis] 5 mg PO BID 12/09/22 11:01 MAGNESIUM SULFATE 2 GRAMS IV X1 Magnesium Sulfate 2 Gram [Magnesium Sulfate] 2 gm in 50 ml IV ONCE 12/09/22 Lunch DIET [Dysphagia - Puree] [DIET] 12/09/22 12:00 Magnesium Oxide [Mag Ox] 400 mg PO QDLUNCH 12/09/22 Dinner DIET [Soft (Low Fiber) Diet] [DIET] Subjective - Subjective Patient Reports: Feeling Better (No complaints, sitting up in a chair, eating his meal, wants to know when he will go home.) Objective Vital Signs: Vital Signs - 24 hr 12/08/22 12/08/22 12/08/22 11:25 16:00 18:00 Temperature 36.7 C 36.4 C L 37.1 C Heart Rate [ 90 91 91 Brachial] Respiratory 16 21 20 Rate Blood Pressure 123/66 117/64 106/54 L [Right Brachial artery] O2 Saturation 95 97 94 12/09/22 12/09/22 12/09/22 00:00 04:28 07:15 Temperature 36.6 C 36.8 C 36.9 C Heart Rate [ 91 76 85 Brachial] Respiratory 20 16 18 Rate Blood Pressure 114/62 111/64 110/65 [Right Brachial artery] O2 Saturation 94 93 93 Oxygen O2 Source Room air I&O (Last 24 Hrs): Intake and Output Totals x24h 12/07/22 12/08/22 12/09/22 23:59 23:59 23:59 Intake Total 1000 3005 390 Balance 1000 3005 390 General: Alert, Oriented x3 HEENT: Mucous membr. moist/pink Neck: Supple Neuro: Alert, Non Focal, Other (Slow speech but appropriate) Cardiovascular: No murmurs Respiratory: No respiratory distress Abdomen: Soft, No tenderness Extremities: No clubbing, No edema, No tenderness/swelling - Results Results: Laboratory Results WBC 9.4 x10^3/uL (4.8-10.8) 12/09/22 05:08 RBC 2.98 10^6/uL (4.70-6.10) L 12/09/22 05:08 Hgb 9.2 g/dL (14.0-18.0) L 12/09/22 05:08 Hct 28.4 % (42.0-52.0) L 12/09/22 05:08 MCV 95.3 fL (80.0-94.0) H 12/09/22 05:08 MCH 30.9 pg (27.0-31.0) 12/09/22 05:08 MCHC 32.4 g/dL (32.0-36.0) 12/09/22 05:08 RDW 12.8 % (12.0-15.0) 12/09/22 05:08 Plt Count 147 10^3/uL (130-450) 12/09/22 05:08 MPV 9.5 fL (7.4-11.4) 12/09/22 05:08 Neut # (Auto) 7.3 10^3/uL (1.5-6.6) H 12/09/22 05:08 Lymph # (Auto) 1.3 10^3/uL (1.5-3.5) L 12/09/22 05:08 [place] # (Auto) 0.8 10^3/uL (0.0-1.0) 12/09/22 05:08 Eos # (Auto) 0.0 10^3/uL (0.0-0.7) 12/09/22 05:08 Baso # (Auto) 0.0 10^3/uL (0.0-0.1) 12/09/22 05:08 Absolute Nucleated RBC 0.00 x10^3/uL 12/09/22 05:08 Nucleated RBC % 0.0 /100WBC 12/09/22 05:08 Sodium 131 mmol/L (135-145) L 12/09/22 05:08 Potassium 3.6 mmol/L (3.5-4.5) 12/09/22 05:08 Chloride 98 mmol/L (101-111) L 12/09/22 05:08 Carbon Dioxide 29 mmol/L (21-32) 12/09/22 05:08 Anion Gap 4.0 (6-13) L 12/09/22 05:08 BUN 20 mg/dL (6-20) 12/09/22 05:08 Creatinine 0.9 mg/dL (0.6-1.3) 12/09/22 05:08 Estimated GFR (MDRD) 80 (>89) L 12/09/22 05:08 Glucose 103 mg/dL (74-104) 12/09/22 05:08 POC Whole Bld Glucose 114 mg/dL (70 - 100) H 12/09/22 07:16 Estimat Average Glucose 123 mg/dL (70-100) H 12/07/22 23:50 Hemoglobin A1c % 5.9 % (4.27-6.07) 12/07/22 23:50 Lactic Acid 1.2 mmol/L (0.5-2.2) 12/07/22 20:37 Calcium 8.6 mg/dL (8.5-10.3) 12/09/22 05:08 Magnesium 1.5 mg/dL (1.7-2.3) L 12/09/22 05:08 Total Bilirubin 0.3 mg/dL (0.2-1.0) 12/07/22 20:37 AST 24 IU/L (10-42) 12/07/22 20:37 ALT 12 IU/L (10-60) 12/07/22 20:37 Alkaline Phosphatase 63 IU/L (42-121) 12/07/22 20:37 Total Protein 6.3 g/dL (6.7-8.2) L 12/07/22 20:37 Albumin 3.5 g/dL (3.2-5.5) 12/07/22 20:37 Globulin 2.8 g/dL (2.1-4.2) 12/07/22 20:37 Albumin/Globulin Ratio 1.3 (1.0-2.2) 12/07/22 20:37 Lipase 39 U/L (22-51) 12/07/22 20:37 - Procedures Procedures: Procedures EXCISION OF DESCENDING COLON, ENDO, DIAGN (05/24/15) EXCISION OF DUODENUM, ENDO, DIAGN (05/24/15) EXCISION OF LOWER ESOPHAGUS, ENDO, DIAGN (05/24/15) EXCISION OF STOMACH, ENDO, DIAGN (05/24/15)
[2022-12-09] MEDS: MAGNESIUM OXIDE 400 MG TABLET PO SCH (12:05)
--- NOTE | 2022-12-09 16:04 | PHARMACY PROGRESS NOTE ---
- Best Possible Medication History Admit Date and Time: 12/08/22 0336 Processed by: Pharmacy Medication History completed: Yes Patient Interview: Completed Secondary Source(s): Other family member (SPOKE WITH PACO, DAUGHTER. 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 REMEMBERS DAD'S MEDS VERY WELL.) As the person ultimately responsible for medication therapy, providers are able to order a medication from an existing home medication list in [facility] via the "Reconcile Routine" prior to Confirmation of that medication by legal support analyst. Such practice is discouraged except when the physician, in their clinical judgm ent, deems that a medical need exists for a medication without regard to previous use.
[2022-12-10] MEDS: ACETAMINOPHEN 325 MG TABLET PO PRN (00:58)
[2022-12-10] MEDS: SODIUM CHLORIDE FLUSH 0.9% 10 ML SYRINGE IVP SCH ×3 (00:58→20:41)
[2022-12-10] MEDS: oxyCODONE 5 MG TABLET PO PRN ×2 (04:02→11:51)
[2022-12-10] MEDS: LEVOTHYROXINE 25 MCG TABLET PO SCH (06:28)
--- NOTE | 2022-12-10 07:35 | PROVIDER PROGRESS NOTE ---
Progress Note General Surgery Progress Note S: Tolerating a diet; Ambulatory with assistance; Had a small BM recorded in the nursing note narrative. Minimal incisional discomfort. Worried about "swollen testicles" O: VSS, afeb; Abdomen is soft and non distended. No tenderness; R groin wound is clean and dry and without evidence of subcutaneous hematoma - dressing changed by me; There is minimal tenderness; Scrotal skin is ecchymotic. The testicles are normal and without swelling or tenderness. A: Progressing well on POD # 3 from his Strangulated recurrent right inguinal hernia repair. The scrotal ecchymosis is to be expected given his post-op ambulation and his anticoagulation. R: Sy may be discharged to home in the care of his family. Follow up in the surgery clinic is recommended in 7-10 days. Home health referral has been initiated. Fortino Wyatt MD [phone]
[2022-12-10] MEDS ORDERED: SODIUM CHLORIDE 0.9% 500 ML IV ONE (08:45)
[2022-12-10] MEDS: INSULIN LISPRO 300 UNIT/3 ML PEN SUBQ SCH ×4 (08:49→20:41)
[2022-12-10] MEDS ORDERED: ONDANSETRON 4 MG/2 ML VIAL IVP PRN ×2 (09:03→12:35)
--- NOTE | 2022-12-10 09:17 | PROVIDER PROGRESS NOTE ---
Assessment/Plan - Problem List (1) Incarcerated hernia Assessment/Plan: Patient was taken directly to the OR. He had a partial small bowel resection to deal with the incarcerated hernia. Yest his diet was advanced to soft and Eliquis was OKd to be started. This morning he has diarrhea, brown with maroon. His abdomen is more tense, per his RN. He is also having nausea and vomiting and we found him to be orthostatic with a systolic BP of [address] Wyatt the gen surgeon spoke to me about him today. Plan: He is not yet ready for discharge. We will stop the Eliquis, the patient may have oozing at the internal surgical site since there was bowel resected. I spoke to his RN ad no morning Eliquis was given. Check hemoglobin stat, transfuse if hemoglobin under 8, given the hypotension 2. N/V/D As above. I suspect he has a postop ileus. He may also have vasovagal sx. Plan: As in #1 Symptomatic treatment 3. Fall at home He reported to his nurse yesterday that he is fallen 8 times recently. There is a brush burn on one of his knees. Plan: We will give 500 cc saline bolus. The patient may also need a blood transfusion too. Cont orthostatic vital sign checks PT and OT evaluations were ordered, but postpone working with him today until he is not severely orthostatic 4. Orthostatic hypotension He was very orthostatic this morning with supine blood pressure 126 systolic, sitting 104, standing 85 syst. This morning the patient had brown diarrhea with maroon also. He may be oozing around the surgical site internally and losing blood. The HRs documented (86 supine, 94 sitting>> 48 standing) did not show a compensatory tachycardia, poss because in Afib and with a low BP, all the beats are not palpated by the automatic BP cuff. Plan: Give saline bolus 500 cc Resume telemetry Check Hgb and transfuse if necessary Bedside commode No walking with PT today 5. Diabetes mellitus type 2 Pt is [id number]. He was on Metformin at home. His A1c result was checked and is 5.9, indicating excessively tight glucose control Plan: As we advanced his diet I put him on a carb controlled diet Continue with fingerstick chcks and sliding scale insulin for now, and hypoglycemia protocol 6. Paroxysmal atrial fibrillation Patient is on Xarelto at home. His admission EKG showed NSR. On telemetry he has been in A-fib here. Xarelto has been on hold perioperatively. I spoke to Dr Yoselin Osborne Surgeon, and got the okay to resume DOAC today. We do not have Xarelto on formulary, he was started on Eliquis 5 mg twice daily which we have on formulary. Heart rate is controlled Plan: Today we will stop the Eliquis because of the maroon stools and tense abd, concern for internal bleeding Resume telemetry 7. Hypomagnesemia Plan: Will replace Mg. Follow Mg daily. 8. Hx Hypertension He is only on amlodipine at home Plan: I will order orthostatic vital sign checks 9. Coronary artery disease He is status post left heart cath with PCI in the past Plan: Resuming usual cardiac meds, he is not on ASA 10. Anemia, macrocytic We will check his B12, folate levels and replace if low Follow Hgb daily or BID Transfusion being considered 11. Hypothyroidism Plan: Will check his TSH to assure adequate thyroid replacement dose 12. Chronic kidney disease stage III Plan: Avoid nephrotoxins Follow BUN/creatinine daily 13. History of prostate cancer As per Hx Cont any prostate meds, once his medication list is reconciled by pharmacy 14. Dyslipidemia Plan: His statin could be held while he is vomiting - Current Meds Current Meds: Current Medications Generic Name Dose Route Start Last Admin Trade Name Freq PRN Reason Stop Dose Admin Acetaminophen 650 mg 12/08/22 02:47 12/10/22 00:58 Acetaminophen 325 Mg Tablet PO 650 mg Q4HR PRN Administration Moderate Pain (Level 4-6) Insulin Human Lispro 1 - 5 unit 12/08/22 12:00 12/10/22 08:49 Insulin Lispro 300 Unit/3 Ml Pen SUBQ Not Given 0800,1200,1700,2100 [facility] Protocol Levothyroxine Sodium 50 mcg 12/08/22 07:00 12/10/22 06:28 Levothyroxine 25 Mcg Tablet PO 50 mcg QDAC MAURICIO Administration Magnesium Oxide 400 mg 12/09/22 12:00 12/09/22 12:05 Magnesium Oxide 400 Mg Tablet PO 400 mg QDLUNCH MAURICIO Administration Oxycodone HCl 5 mg 12/08/22 02:47 12/10/22 04:02 Oxycodone 5 Mg Tablet PO 5 mg Q4HR PRN Administration Moderate Pain (Level 4-6) Sodium Chloride 10 ml 12/08/22 09:00 12/10/22 00:58 Sodium Chloride Flush 0.9% 10 Ml Syringe IVP 10 ml 0100,0900,1700 MAURICIO Administration - Lab Result Fish Bone Diagrams: 12/10/22 09:49 12/10/22 15:45 - Additional Planning My Orders: My Active Orders 12/09/22 10:30 Evaluate and Treat OT [OT] Routine Evaluate and Treat PT [PT] Routine 12/09/22 12:00 Magnesium Oxide [Mag Ox] 400 mg PO QDLUNCH 12/09/22 15:24 Orthostatic [Vital Signs - Orthostatic] [RC] QSHIFT 12/09/22 Dinner DIET [Soft (Low Fiber) Diet] [DIET] 12/10/22 08:40 HGB - HEMOGLOBIN [HEME] Urgent 12/10/22 08:44 Telemetry- [RC] Q4HR 12/10/22 08:45 Echo Transthoracic Complete [ECHO] Routine Sodium Chloride 0.9% [Normal Saline 0.9%] 500 ml IV ONCE Subjective - Subjective Nursing Reports: Diarrhea, Nausea, Vomitting Objective Vital Signs: Vital Signs - 24 hr 12/09/22 12/09/22 12/09/22 10:35 11:51 15:41 Temperature 36.6 C 36.7 C Heart Rate [ 84 Activity] Heart Rate [ 87 89 Brachial] Heart Rate [ 82 Sitting] Respiratory 18 20 Rate Blood Pressure 131/69 H [Activity] Blood Pressure 131/69 H 116/68 [Right Brachial artery] Blood Pressure 123/73 [Sitting] O2 Saturation 97 97 12/09/22 12/10/22 12/10/22 20:39 00:52 05:00 Temperature 36.6 C 36.4 C L 36.7 C Heart Rate [ Activity] Heart Rate [ 91 75 83 Brachial] Heart Rate [ Sitting] Respiratory 20 18 15 Rate Blood Pressure [Activity] Blood Pressure 133/82 H 122/79 137/74 H [Right Brachial artery] Blood Pressure [Sitting] O2 Saturation 98 94 94 12/10/22 07:22 Temperature 37.1 C Heart Rate [ Activity] Heart Rate [ 86 Brachial] Heart Rate [ Sitting] Respiratory 18 Rate Blood Pressure [Activity] Blood Pressure 126/74 [Right Brachial artery] Blood Pressure [Sitting] O2 Saturation 94 Oxygen O2 Source Room air I&O (Last 24 Hrs): Intake and Output Totals x24h 12/08/22 12/09/22 12/10/22 23:59 23:59 23:59 Intake Total 3005 1640 Balance 3005 1640 General: Mild distress (from nausea. Later in day he was asleep) HEENT: Mucous membr. moist/pink Neck: Supple Neuro: Alert, Non Focal Cardiovascular: No murmurs Respiratory: No respiratory distress Abdomen: Other (Tense, no gurading, diminished bowel sounds) Genitourinary: Other (Swollen scrotum w/ bruising noted) Extremities: No clubbing - Results Results: Laboratory Results WBC 9.4 x10^3/uL (4.8-10.8) 12/09/22 05:08 RBC 2.98 10^6/uL (4.70-6.10) L 12/09/22 05:08 Hgb 9.2 g/dL (14.0-18.0) L 12/09/22 05:08 Hct 28.4 % (42.0-52.0) L 12/09/22 05:08 MCV 95.3 fL (80.0-94.0) H 12/09/22 05:08 MCH 30.9 pg (27.0-31.0) 12/09/22 05:08 MCHC 32.4 g/dL (32.0-36.0) 12/09/22 05:08 RDW 12.8 % (12.0-15.0) 12/09/22 05:08 Plt Count 147 10^3/uL (130-450) 12/09/22 05:08 MPV 9.5 fL (7.4-11.4) 12/09/22 05:08 Neut # (Auto) 7.3 10^3/uL (1.5-6.6) H 12/09/22 05:08 Lymph # (Auto) 1.3 10^3/uL (1.5-3.5) L 12/09/22 05:08 [place] # (Auto) 0.8 10^3/uL (0.0-1.0) 12/09/22 05:08 Eos # (Auto) 0.0 10^3/uL (0.0-0.7) 12/09/22 05:08 Baso # (Auto) 0.0 10^3/uL (0.0-0.1) 12/09/22 05:08 Absolute Nucleated RBC 0.00 x10^3/uL 12/09/22 05:08 Nucleated RBC % 0.0 /100WBC 12/09/22 05:08 Sodium 131 mmol/L (135-145) L 12/09/22 05:08 Potassium 3.6 mmol/L (3.5-4.5) 12/09/22 05:08 Chloride 98 mmol/L (101-111) L 12/09/22 05:08 Carbon Dioxide 29 mmol/L (21-32) 12/09/22 05:08 Anion Gap 4.0 (6-13) L 12/09/22 05:08 BUN 20 mg/dL (6-20) 12/09/22 05:08 Creatinine 0.9 mg/dL (0.6-1.3) 12/09/22 05:08 Estimated GFR (MDRD) 80 (>89) L 12/09/22 05:08 Glucose 103 mg/dL (74-104) 12/09/22 05:08 POC Whole Bld Glucose 106 mg/dL (70 - 100) H 12/10/22 07:25 Estimat Average Glucose 123 mg/dL (70-100) H 12/07/22 23:50 Hemoglobin A1c % 5.9 % (4.27-6.07) 12/07/22 23:50 Lactic Acid 1.2 mmol/L (0.5-2.2) 12/07/22 20:37 Calcium 8.6 mg/dL (8.5-10.3) 12/09/22 05:08 Magnesium 1.5 mg/dL (1.7-2.3) L 12/09/22 05:08 Total Bilirubin 0.3 mg/dL (0.2-1.0) 12/07/22 20:37 AST 24 IU/L (10-42) 12/07/22 20:37 ALT 12 IU/L (10-60) 12/07/22 20:37 Alkaline Phosphatase 63 IU/L (42-121) 12/07/22 20:37 Total Protein 6.3 g/dL (6.7-8.2) L 12/07/22 20:37 Albumin 3.5 g/dL (3.2-5.5) 12/07/22 20:37 Globulin 2.8 g/dL (2.1-4.2) 12/07/22 20:37 Albumin/Globulin Ratio 1.3 (1.0-2.2) 12/07/22 20:37 Lipase 39 U/L (22-51) 12/07/22 20:37 - Procedures Procedures: Procedures EXCISION OF DESCENDING COLON, ENDO, DIAGN (05/24/15) EXCISION OF DUODENUM, ENDO, DIAGN (05/24/15) EXCISION OF LOWER ESOPHAGUS, ENDO, DIAGN (05/24/15) EXCISION OF STOMACH, ENDO, DIAGN (05/24/15)
--- NOTE | 2022-12-10 09:50 | PROVIDER PROGRESS NOTE ---
Progress Note General Surgery Progress Note Sy demonstrated evidence of orthostatic hypotension this morning after my customs and immigration officer rounds. The symptoms (lightheadedness, nausea, vomiting) were compounded by what was likely a vasovagal reaction during defecation where he evacuated a small amount of liquid black stool followed by brown fecal material. He is now resting comfortably in bed, is alert and normotensive when supine. Sy has been given a 500 ml bolus of saline while we await his H&H. He likely developed bleeding into the gut from the anastomosis related to his anticoagulation which was re-started yesterday. It is most likely transitory as the stool is now brown but he will be anemic and I expect him to require a unit or two of blood to restore homeostasis. I contacted his son-in-law, Johnny ([phone]) who appreciated the update and understands the need to delay discharge until Sy is more stable. The oral anticoagulant has been stopped (he did not receive this morning's dose) and should be on hold for several days. H&H results are pending at the time of this note. Fortino Wyatt MD General Surgery Service
[2022-12-10] MEDS ORDERED: PROCHLORPERAZINE 10 MG/2 ML VIAL IVP PRN (12:35)
[2022-12-10] MEDS: MAGNESIUM OXIDE 400 MG TABLET PO SCH (14:29)
[2022-12-10 16:08] LABS: CALCIUM 9.1 mg/dL (8.5-10.3); CREATININE 0.9 mg/dL (0.6-1.3); MAGNESIUM 1.8 mg/dL (1.7-2.3); POTASSIUM 3.7 mmol/L (3.5-4.5)
[2022-12-11] MEDS: ACETAMINOPHEN 325 MG TABLET PO PRN ×3 (00:41→22:25)
[2022-12-11] MEDS: oxyCODONE 5 MG TABLET PO PRN ×2 (02:40→20:40)
[2022-12-11] MEDS: SODIUM CHLORIDE FLUSH 0.9% 10 ML SYRINGE IVP SCH ×4 (02:40→23:42)
[2022-12-11 05:46] LABS: CALCIUM 8.6 mg/dL (8.5-10.3); CREATININE 0.9 mg/dL (0.6-1.3); MAGNESIUM 1.8 mg/dL (1.7-2.3); POTASSIUM 3.5 mmol/L (3.5-4.5)
[2022-12-11] MEDS: LEVOTHYROXINE 25 MCG TABLET PO SCH (06:34)
--- NOTE | 2022-12-11 08:14 | PROVIDER PROGRESS NOTE ---
Subjective - General Admit Date: 12/08/22 Procedure Date: 12/08/22 Post Op Days: 3 Procedure Performed: Recurrent, strangulated RIHR - Mesh with small bowel enterectomy - Review of Systems Wound/Incisions: positive: Other (No complaints of pain or drainage) General: positive: No symptoms HEENT: positive: No symptoms Pulmonary: positive: No symptoms Cardiovascular: positive: No symptoms Gastrointestinal: positive: No symptoms, Other (Passing brown, soft stool) Genitourinary: positive: Other (Discoloration and swelling of scrotum) Musculoskeletal: positive: No symptoms Skin: positive: No symptoms Objective - Patient Data Vital Signs: Vital Signs x48h Temp Pulse Resp BP BP Pulse Ox 12/11/22 05:00 97.3 F L 91 16 116/73 96 12/11/22 01:16 98.1 F 98 20 121/78 95 Intake & Output: Intake and Output Totals x24h 12/09/22 12/10/22 12/11/22 23:59 23:59 23:59 Intake Total 1640 1401 250 Output Total 300 Balance 1640 1101 250 - Lab Results Lab Results: 12/10/22 09:49 12/11/22 05:14 Other Lab Results: Lab Results x24hrs 12/11/22 12/11/22 12/10/22 Range/Units 08:06 05:14 20:37 Hgb (14.0-18.0) g/dL Sodium 131 L (135-145) mmol/L Potassium 3.5 (3.5-4.5) mmol/L Chloride 98 L (101-111) mmol/L Carbon Dioxide 28 (21-32) mmol/L Anion Gap 5.0 L (6-13) BUN 23 H (6-20) mg/dL Creatinine 0.9 (0.6-1.3) mg/dL Estimated GFR (MDRD) 80 L (>89) Glucose 101 (74-104) mg/dL POC Whole Bld Glucose 87 179 H (70 - 100) mg/dL Calcium 8.6 (8.5-10.3) mg/dL Magnesium 1.8 (1.7-2.3) mg/dL 12/10/22 12/10/22 12/10/22 Range/Units 16:45 15:45 11:01 Hgb (14.0-18.0) g/dL Sodium 130 L (135-145) mmol/L Potassium 3.7 (3.5-4.5) mmol/L Chloride 94 L (101-111) mmol/L Carbon Dioxide 29 (21-32) mmol/L Anion Gap 7.0 (6-13) BUN 26 H (6-20) mg/dL Creatinine 0.9 (0.6-1.3) mg/dL Estimated GFR (MDRD) 80 L (>89) Glucose 158 H (74-104) mg/dL POC Whole Bld Glucose 143 H 121 H (70 - 100) mg/dL Calcium 9.1 (8.5-10.3) mg/dL Magnesium 1.8 (1.7-2.3) mg/dL 12/10/22 Range/Units 09:49 Hgb 10.9 L (14.0-18.0) g/dL Sodium (135-145) mmol/L Potassium (3.5-4.5) mmol/L Chloride (101-111) mmol/L Carbon Dioxide (21-32) mmol/L Anion Gap (6-13) BUN (6-20) mg/dL Creatinine (0.6-1.3) mg/dL Estimated GFR (MDRD) (>89) Glucose (74-104) mg/dL POC Whole Bld Glucose (70 - 100) mg/dL Calcium (8.5-10.3) mg/dL Magnesium (1.7-2.3) mg/dL - Current Medications Current Medications: Current Medications Generic Name Dose Route Start Last Admin Trade Name Freq PRN Reason Stop Dose Admin Acetaminophen 650 mg 12/08/22 02:47 12/11/22 00:41 Acetaminophen 325 Mg Tablet PO 650 mg Q4HR PRN Administration Moderate Pain (Level 4-6) Insulin Human Lispro 1 - 5 unit 12/08/22 12:00 12/10/22 20:41 Insulin Lispro 300 Unit/3 Ml Pen SUBQ 1 unit 0800,1200,1700,2100 MAURICIO Administration Protocol Levothyroxine Sodium 50 mcg 12/08/22 07:00 12/11/22 06:34 Levothyroxine 25 Mcg Tablet PO 50 mcg QDAC MAURICIO Administration Oxycodone HCl 5 mg 12/08/22 02:47 12/11/22 02:40 Oxycodone 5 Mg Tablet PO 5 mg Q4HR PRN Administration Moderate Pain (Level 4-6) Prochlorperazine Edisylate 10 mg 12/10/22 12:35 12/10/22 12:50 Prochlorperazine 10 Mg/2 Ml Vial IVP 10 mg Q6HR PRN Administration Nausea / Vomiting Sodium Chloride 10 ml 12/08/22 09:00 12/11/22 02:40 Sodium Chloride Flush 0.9% 10 Ml Syringe IVP 10 ml 0100,0900,1700 MAURICIO Administration - Physical Exam Wound/Incisions: positive: Dressing dry and intact General Appearance: positive: No acute distress, Alert Eyes Bilateral: positive: Normal inspection ENT: positive: ENT inspection nml Neck: positive: Nml inspection Abdomen: positive: Non-tender, Nml bowel sounds, No distention ABX Reporting Has patient been on IV antibiotics over the past 48 hours?: No Impression/Plan - Problem List Problem List: Assessment: 1) S/P RIH for strangulated small bowel - progressing well. He has mild scrotal edema and ecchymosis but this is resolving daily. There are no right groin wound issues 2) Orthostatic hypotension - occurred yesterday after straining at stool. Hgb was 10 and he has no evidence of ongoing GI blood loss. It may have been a vaso-vagal reaction. He has been normotensive yesterday afternoon and last night. Orthostatic pressures have yet to be checked today 3) Anticoagulation for atrial fibrillation - probably safe to restart today as there is no clinical or lab evidence of GI blood loss or wound bleeding 4) Discharge planning - Home with HH referral planned Recommendation: 1) Advance diet as tolerated 2) Monitor sitting and standing blood pressure 3) Start anticoagulation 4) If he remains stable without orthostasis, consider discharge to home later today or tomorrow. 5) FU in General Surgery Clinic in 7-10 days. He may remove the right groin band aid and shower over the wound once he is at home (there are no sutures to remove). Tylenol should be all he requires for pain control. Fortino Wyatt MD [phone]
[2022-12-11 08:34] LABS: BASOPHILS % (AUTO) 0.1 %; EOSINOPHILS # (AUTO) 0.1 10^3/uL (0.0-0.7); EOSINOPHILS % (AUTO) 1.3 %; HCT - HEMATOCRIT 34.5 % (42.0-52.0); HGB - HEMOGLOBIN 11.3 g/dL (14.0-18.0); LYMPHOCYTES # (AUTO) 0.9 10^3/uL (1.5-3.5); MEAN CORPUSCULAR HEMOGLOBIN 31.4 pg (27.0-31.0); MEAN CORPUSCULAR HGB CONC 32.8 g/dL (32.0-36.0); MEAN CORPUSCULAR VOLUME 95.8 fL (80.0-94.0); MEAN PLATELET VOLUME 9.3 fL (7.4-11.4); MONOCYTES # (AUTO) 0.7 10^3/uL (0.0-1.0); MONOCYTES % (AUTO) 9.6 %; NEUTROPHILS # (AUTO) 5.4 10^3/uL (1.5-6.6); NEUTROPHILS % (AUTO) 76.9 %; PLT - PLATELET COUNT 199 10^3/uL (130-450); RED CELL DISTRIBUTION WIDTH 12.6 % (12.0-15.0); WHITE BLOOD COUNT 7.1 x10^3/uL (4.8-10.8)
[2022-12-11] MEDS: INSULIN LISPRO 300 UNIT/3 ML PEN SUBQ SCH ×4 (09:05→20:40)
[2022-12-11] MEDS: APIXABAN 5 MG TABLET PO SCH ×2 (10:49→20:40)
--- NOTE | 2022-12-11 14:59 | PROVIDER PROGRESS NOTE ---
Assessment/Plan - Problem List (1) Incarcerated hernia Assessment/Plan: Patient was taken directly to the OR. He had a partial small bowel resection to deal with the incarcerated hernia. The small bowel was sewn back together. His diet post-op was quickly advanced and Eliquis was OKd to be started on POD Day 1, then yesterday he had a set back. Yesterday morning he had diarrhea, brown with maroon. His abdomen was more tense. He also had nausea and vomiting til late afternoon and we found him to be orthostatic with a systolic BP of [address] Wyatt the gen surgeon spoke to me about him today. Plan: Since no N/V today, we will advance diet today. If tolerated, I anticipate he will be discharged tomorrow. I will order Home Health RN to check the wound We will resume the Eliquis, since Hgb stable 2. N/V/D RESOLVED I suspect he had a postop ileus. He may also have had vasovagal sx. Plan: As in #1 Will advance diet 3. Fall at home He reported to his nurse that he is fallen 8 times recently. There is a brush burn on one of his knees. Plan: Cont orthostatic vital sign checks PT and OT evaluations done, but was on hold yesterday when he had N/V all day and was orthostatic 4. Orthostatic hypotension He was very orthostatic yesterday morning with supine blood pressure 126 systolic, sitting 104, standing 85 syst. Yesterday the patient had brown diarrhea with maroon also. He could have been oozing around the surgical site internally and losing blood. The HRs documented (86 supine, 94 sitting>> 48 standing) did not show a compensatory tachycardia, poss because in Afib and with a low BP, all the beats were not palpated by the automatic BP cuff. He got a saline bolus 500 cc We resumed telemetry Plan: Resume PT If not orthostatic today, anticipate discharge tomorrow I will order Home Health PT and OT 5. Diabetes mellitus type 2 Pt is [id number]. He was NOT on Metformin at home. His A1c result was checked and is 5.9, indicating excessively tight glucose control Plan: As we advanced his diet I will NOT put him on a carb controlled diet Continue with fingerstick chcks and sliding scale insulin for now, and hypoglycemia protocol 6. Paroxysmal atrial fibrillation Patient is on Xarelto at home. His admission EKG showed NSR. On telemetry he has been in A-fib here. Xarelto was on hold then okay'd to resume DOAC on POD #1, then on hold yesterday which was POD #2. Heart rate is controlled Plan: Today we will resume the Eliquis Cont telemetry 7. Hypomagnesemia Plan: Will replace Mg. Follow Mg daily. 8. Hx Hypertension He was only on amlodipine and Lasix at home. Amlodipine on hold as of yesterday. Plan: I will order orthostatic vital sign checks 9. Coronary artery disease He is status post left heart cath with PCI in the past Plan: Resuming usual cardiac meds, he is not on ASA 10. Iron deficiency Anemia We checked his B12, folate levels and they were normal. His Iron panel was checked today and came back very low. Plan: Will order iv Iron Dextran x1 today, then start po Iron Follow Hgb daily 11. Hypothyroidism Plan: Will check his TSH to assure adequate thyroid replacement dose 12. Chronic kidney disease stage III Plan: Avoid nephrotoxins Follow BUN/creatinine daily 13. History of prostate cancer As per Hx Cont any prostate meds, once his medication list is reconciled by pharmacy 14. Dyslipidemia Plan: His statin could be held while he is vomiting - Current Meds Current Meds: Current Medications Generic Name Dose Route Start Last Admin Trade Name Freq PRN Reason Stop Dose Admin Acetaminophen 650 mg 12/08/22 02:47 12/11/22 11:30 Acetaminophen 325 Mg Tablet PO 650 mg Q4HR PRN Administration Moderate Pain (Level 4-6) Apixaban 5 mg 12/11/22 11:00 12/11/22 10:49 Apixaban 5 Mg Tablet PO 5 mg BID MAURICIO Administration Insulin Human Lispro 1 - 5 unit 12/08/22 12:00 12/11/22 12:49 Insulin Lispro 300 Unit/3 Ml Pen SUBQ Not Given 0800,1200,1700,2100 [facility] Protocol Levothyroxine Sodium 50 mcg 12/08/22 07:00 12/11/22 06:34 Levothyroxine 25 Mcg Tablet PO 50 mcg QDAC MAURICIO Administration Oxycodone HCl 5 mg 12/08/22 02:47 12/11/22 02:40 Oxycodone 5 Mg Tablet PO 5 mg Q4HR PRN Administration Moderate Pain (Level 4-6) Prochlorperazine Edisylate 10 mg 12/10/22 12:35 12/10/22 12:50 Prochlorperazine 10 Mg/2 Ml Vial IVP 10 mg Q6HR PRN Administration Nausea / Vomiting Sodium Chloride 10 ml 12/08/22 09:00 12/11/22 09:08 Sodium Chloride Flush 0.9% 10 Ml Syringe IVP 10 ml 0100,0900,1700 [facility] Administration - Lab Result Fish Bone Diagrams: 12/11/22 08:23 12/11/22 05:14 - Additional Planning My Orders: My Active Orders 12/11/22 Home Health Referral [CONS] Routine 12/11/22 11:00 Apixaban [Eliquis] 5 mg PO BID 12/11/22 Lunch DIET [Dysphagia - Puree] [DIET] 12/11/22 Dinner DIET [Soft Mechanical Diet] [DIET] Subjective - Subjective Patient Reports: Feeling Better (No more N/V, tolerated advancing diet from clears) Objective Vital Signs: Vital Signs - 24 hr 12/10/22 12/10/22 12/11/22 15:59 20:12 01:16 Temperature 36.6 C 36.5 C 36.7 C Heart Rate [ 102 H 106 H 98 Brachial] Respiratory 16 20 20 Rate Blood Pressure 134/79 H 121/78 [Left Brachial artery] Blood Pressure 140/82 H [Right Brachial artery] O2 Saturation 96 96 95 12/11/22 12/11/22 12/11/22 05:00 09:00 11:42 Temperature 36.3 C L 36.5 C 36.4 C L Heart Rate [ 91 93 97 Brachial] Respiratory 16 18 16 Rate Blood Pressure 116/64 130/66 [Left Brachial artery] Blood Pressure 116/73 [Right Brachial artery] O2 Saturation 96 95 98 Oxygen O2 Source Room air I&O (Last 24 Hrs): Intake and Output Totals x24h 12/09/22 12/10/22 12/11/22 23:59 23:59 23:59 Intake Total 1640 1401 1150 Output Total 300 Balance 1640 1101 1150 General: Alert, Oriented x3 HEENT: Mucous membr. moist/pink Neck: Supple, No JVD Neuro: Alert, Non Focal Abdomen: Normal bowel sounds, Soft, No tenderness Extremities: No clubbing, No edema, No tenderness/swelling - Results Results: Laboratory Results WBC 7.1 x10^3/uL (4.8-10.8) 12/11/22 08: RBC 3.60 10^6/uL (4.70-6.10) L 12/11/22 08:23 Hgb 11.3 g/dL (14.0-18.0) L 12/11/22 08: Hct 34.5 % (42.0-52.0) L 12/11/22 08: MCV 95.8 fL (80.0-94.0) H 12/11/22 08: MCH 31.4 pg (27.0-31.0) H 12/11/22 08: MCHC 32.8 g/dL (32.0-36.0) 12/11/22 08: RDW 12.6 % (12.0-15.0) 12/11/22 08: Plt Count 199 10^3/uL (130-450) 12/11/22 08: MPV 9.3 fL (7.4-11.4) 12/11/22 08: Neut # (Auto) 5.4 10^3/uL (1.5-6.6) 12/11/22 08: Lymph # (Auto) 0.9 10^3/uL (1.5-3.5) L 12/11/22 08:23 [place] # (Auto) 0.7 10^3/uL (0.0-1.0) 12/11/22 08: Eos # (Auto) 0.1 10^3/uL (0.0-0.7) 12/11/22 08: Baso # (Auto) 0.0 10^3/uL (0.0-0.1) 12/11/22 08: Absolute Nucleated RBC 0.00 x10^3/uL 12/11/22 08: Nucleated RBC % 0.0 /100WBC 12/11/22 08:23 Sodium 131 mmol/L (135-145) L 12/11/22 05:14 Potassium 3.5 mmol/L (3.5-4.5) 12/11/22 05:14 Chloride 98 mmol/L (101-111) L 12/11/22 05:14 Carbon Dioxide 28 mmol/L (21-32) 12/11/22 05:14 Anion Gap 5.0 (6-13) L 12/11/22 05:14 BUN 23 mg/dL (6-20) H 12/11/22 05:14 Creatinine 0.9 mg/dL (0.6-1.3) 12/11/22 05:14 Estimated GFR (MDRD) 80 (>89) L 12/11/22 05:14 Glucose 101 mg/dL (74-104) 12/11/22 05:14 POC Whole Bld Glucose 130 mg/dL (70 - 100) H 12/11/22 11:50 Estimat Average Glucose 123 mg/dL (70-100) H 12/07/22 23:50 Hemoglobin A1c % 5.9 % (4.27-6.07) 12/07/22 23:50 Lactic Acid 1.2 mmol/L (0.5-2.2) 12/07/22 20:37 Calcium 8.6 mg/dL (8.5-10.3) 12/11/22 05:14 Magnesium 1.8 mg/dL (1.7-2.3) 12/11/22 05:14 Iron 27 ug/dL (50-212) L 12/11/22 08:08 TIBC 216 ug/dL (250-450) L 12/11/22 08:08 % Saturation 13 % (20-50) L 12/11/22 08:08 Transferrin 154 mg/dL (203-362) L 12/11/22 08:08 Total Bilirubin 0.3 mg/dL (0.2-1.0) 12/07/22 20:37 AST 24 IU/L (10-42) 12/07/22 20:37 ALT 12 IU/L (10-60) 12/07/22 20:37 Alkaline Phosphatase 63 IU/L (42-121) 12/07/22 20:37 Total Protein 6.3 g/dL (6.7-8.2) L 12/07/22 20:37 Albumin 3.5 g/dL (3.2-5.5) 12/07/22 20:37 Globulin 2.8 g/dL (2.1-4.2) 12/07/22 20:37 Albumin/Globulin Ratio 1.3 (1.0-2.2) 12/07/22 20:37 Lipase 39 U/L (22-51) 12/07/22 20:37 Vitamin B12 421 pg/mL (180-914) 12/11/22 08:08 Folate 21.9 ng/mL (5.90 - >24.8) 12/11/22 08:08 - Procedures Procedures: Procedures EXCISION OF DESCENDING COLON, ENDO, DIAGN (05/24/15) EXCISION OF DUODENUM, ENDO, DIAGN (05/24/15) EXCISION OF LOWER ESOPHAGUS, ENDO, DIAGN (05/24/15) EXCISION OF STOMACH, ENDO, DIAGN (05/24/15)
[2022-12-11] MEDS ORDERED: IRON DEXTRAN 1,000 MG in SODIUM CHLORIDE 0.9% 250 ML IV ONE (15:00)
--- NOTE | 2022-12-11 18:47 | Discharge Plan ---
Discharge Plan Problem Reviewed?: Yes Disposition: 06 Home Health Service Condition: Stable Prescriptions: oxyCODONE [Roxicodone] 5 mg PO Q8HR PRN #5 tab PRN Reason: Moderate Pain (Level 4-6) Diet: Soft Activity Restrictions: Activity as Tolerated Shower Restrictions: No Driving Restrictions: Yes Assistance Devices: Walker Weight Bearing: Full Weight Instruction Topics: Limited Bowel Resection Surg Health Concerns: You were hospitalized because you had a hernia that had strangulated. You needed emergency surgery which was a success. After surgery you had nausea and vomiting, dehydration and low blood pressure. You now need help when standing and doing self-care. A Home Health agency referral has been ordered, for you to get in-home nurses to check the wound, in-home Physical Therapy and Occupational Therapy for strengthening, and a bath aide. It is advised that you eat an easily digestible diet and then advance your diet as tolerated. Also stay well-hydrated. You may resume all your usual pre-hospital medications, EXCEPT STOP TAKING THE FUROSEMIDE (LASIX), because it dehydrates you excessively. You have been prescribed several oxycodone tablets to take for severe pain. The new prescription was electronically sent to the [facility] pharmacy in [place], because the [facility] pharmacy is closed on weekends. Plan of Treatment: As above. Please see your primary care provider in the next 1 to 2 weeks for hospital fo llow-up visit. Also please make an appointment at the [facility] to be seen, in the next 5 to 10 days, call [phone] for an appointment there. Care Goals: Improvement in symptoms and stabilization are the goals. Assessment: The patient understands and is agreeable with the plan. Additional Instructions or Follow Up instructions: If you have new or worsening symptoms, call your primary care provider for advice or come to the ER. Follow-Up Care: Home Health - RN, Home Health - PT, Home Health - OT No Smoking: If you smoke, Please STOP! Call for help. Follow-up with: Clint Johansen MD [Primary Care Provider] -
[2022-12-12 05:09] LABS: BASOPHILS % (AUTO) 0.2 %; EOSINOPHILS # (AUTO) 0.1 10^3/uL (0.0-0.7); EOSINOPHILS % (AUTO) 2.2 %; HCT - HEMATOCRIT 28.4 % (42.0-52.0); HGB - HEMOGLOBIN 9.4 g/dL (14.0-18.0); LYMPHOCYTES # (AUTO) 1.1 10^3/uL (1.5-3.5); LYMPHOCYTES % (AUTO) 23.3 %; MEAN CORPUSCULAR HEMOGLOBIN 31.2 pg (27.0-31.0); MEAN CORPUSCULAR HGB CONC 33.1 g/dL (32.0-36.0); MEAN CORPUSCULAR VOLUME 94.4 fL (80.0-94.0); MEAN PLATELET VOLUME 9.1 fL (7.4-11.4); MONOCYTES # (AUTO) 0.5 10^3/uL (0.0-1.0); MONOCYTES % (AUTO) 11.3 %; NEUTROPHILS # (AUTO) 2.8 10^3/uL (1.5-6.6); NEUTROPHILS % (AUTO) 62.8 %; PLT - PLATELET COUNT 173 10^3/uL (130-450); RED BLOOD COUNT 3.01 10^6/uL (4.70-6.10); RED CELL DISTRIBUTION WIDTH 12.5 % (12.0-15.0); WHITE BLOOD COUNT 4.5 x10^3/uL (4.8-10.8)
[2022-12-12] MEDS: LEVOTHYROXINE 25 MCG TABLET PO SCH (05:09)
[2022-12-12 05:26] LABS: CALCIUM 8.7 mg/dL (8.5-10.3); CREATININE 0.9 mg/dL (0.6-1.3); POTASSIUM 3.8 mmol/L (3.5-4.5)
[2022-12-12 05:39] LABS: THYROID STIMULATING HORMONE 1.72 uIU/mL (0.34-5.60)
[2022-12-12] MEDS: oxyCODONE 5 MG TABLET PO PRN (05:48)
[2022-12-12 07:24] VITALS: BP 125/64; O2SAT 93
--- NOTE | 2022-12-12 07:42 | DISCHARGE SUMMARY ---
Discharge Summary Admit Date: 12/07/22 Discharge Date: 12/12/22 Discharging Provider: Dr Latisha Barth Primary Care Provider: Dr Clitn Johansen Condition at Discharge: Stable Discharge Disposition: [facility] History of Present Illness: An 87-year-old male has presented to the emergency department thrice in the past three weeks due to pain in the lower right side of the abdomen, as reported by his family. He has previously been diagnosed with inguinal hernias on both sides. The severity of his pain has escalated in the past 12 hours. He hasn't experienced any fever, chills, nausea, vomiting, diarrhea, dysuria. After consulting with the general surgery team in the emergency room, it was decided that he will undergo surgery for a right-sided incarcerated inguinal hernia. An internal medicine consultation was sought for admission. He uses a walker for mobility and doesn't require supplemental oxygen. He's cognizant, aware, and responsive, despite receiving pain management through morphine and fentanyl. He has not consumed his daily dose of Xarelto. - HOSPITAL COURSE Hospital Course: (1) Incarcerated hernia Patient was taken directly to the OR. He had a partial small bowel resection to deal with the incarcerated hernia. The small bowel was sewn back together. His diet post-op was quickly advanced and Eliquis was OKd to be started on POD Day 1. Then he had a set back, with diarrhea, BM was brown with maroon, his abdomen was more tense. He also had nausea and vomiting and we found him to be orthostatic with a systolic BP of 85 standing. After management (described below), he was able to be discharged home. He was advised to eat an easily digestable diet. He needs F/U at the General Surgery clinic. 2. N/V/D This developed on POD #2 and I suspect he had a postop ileus. His diet was de- escalated, discharge was postponed, he then improved, and diet was advanced and tolerated. 3. Fall at home He reported to his nurse that he is fallen 8 times recently. There was a brush burn on one of his knees. He was found to be very orthostatic . PT and OT evaluations advised more rehab and Home Health PT and OT, and a nurse to check the wound, were ordered for after discharge. 4. Orthostatic hypotension After surgery, he was very orthostatic with supine blood pressure 126 systolic, standing 85 syst. Discharge was postponed. He got a saline bolus and slowly improved, activity was resumed the following day. 5. Diabetes mellitus type 2 This was per Hx. Pt was not on Metformin at home. His A1c was checked and was 5.9, indicating excessively tight glucose control. As we advanced his diet, he was not put on a carb controlled diet 6. Paroxysmal atrial fibrillation Patient was on Xarelto at home. His admission EKG showed NSR. On telemetry he was in A-fib here. Xarelto was initially on hold then okay'd to resume on POD #1, then on hold on POD #2 (as above). It was resumed for discharge. 7. Hypomagnesemia Possibly from Lasix use at home. Mg was replaced and improved 8. Hx Hypertension He was on Amlodipine and Lasix at home. Lasix was on hold while he was dehydrated initially, amlodipine was put on hold when he was orthostatic. At discharge, Amlodipine cccccould be continued, but he was told to STOP taking the Lasix. 9. Coronary artery disease He was kept on his usual cardiac meds. He is not on ASA 10. Iron deficiency Anemia Hgb was 10.3. We checked his B12 & folate levels and they were normal. His Iron panel came back very low. He received iv Iron Dextran x1, then was started on oral Iron 11. Hypothyroidism TSH was 1.72; he was on adequate thyroid replacement dose which we continued here. 12. Chronic kidney disease stage III BUN/creatinine were 33/1.3 a6 admission, which improved with iv fluids and stopping his home Lasix dose. These were 19/0.9 at discharge 13. History of prostate cancer As per Hx 14. Dyslipidemia As per Hx - ALLERGIES Allergies/Adverse Reactions: Allergies Allergy/AdvReac Type Severity Reaction Status Date / Time No Known Drug Allergies Allergy Verified 12/07/22 20:00 - MEDICATIONS Home Medications: Ambulatory Orders Medication Instructions Recorded Confirmed Multivit-Min/Iron Fum/Folic AC 1 each PO DAILY 05/08/15 12/09/22 [Wbhwy-Fwleayp-Gcalfcxb Tablet] polyethylene glycoL 3350 [Miralax] 8.5 - 17 gm PO DAILY 05/08/15 12/09/22 Tamsulosin HCl [Flomax] 0.4 mg PO HS 07/11/18 12/09/22 Nitroglycerin [Nitrostat] 0.3 mg SL Q5M PRN #1 tab.subl 07/12/18 12/09/22 Levothyroxine Sodium [Synthroid] 50 mcg PO DAILY 01/22/19 12/09/22 Rivaroxaban [Xarelto] 15 mg PO DAILY 01/22/19 12/09/22 Hydrocodone/Acetaminophen [[place] 1 each PO Q6H PRN #20 tablet 03/04/20 12/09/22 5-325 Tablet] Cimetidine 400 mg PO HS 12/08/22 12/09/22 Eszopiclone [Lunesta] 2 mg PO HS 12/08/22 12/09/22 Finasteride [Proscar] 5 mg PO HS 12/08/22 12/09/22 Fluorouracil [Efudex] 1 applic TP DAILY 12/08/22 12/09/22 Mirtazapine 22.5 mg PO HS 12/08/22 12/09/22 Omeprazole Magnesium 40 mg PO BID 12/08/22 12/09/22 Valsartan 160 mg PO DAILY 12/08/22 12/09/22 Acetaminophen [Tylenol] 650 mg PO Q6H PRN 12/09/22 12/09/22 Bismuth Subsalicylate 262 mg PO DAILY PRN 12/09/22 12/09/22 [Pepto-Bismol] Calcium Carbonate [Calcium] 600 mg PO DAILY 12/09/22 12/09/22 Cholecalciferol (Vitamin D3) 2,000 unit PO DAILY 12/09/22 12/09/22 [Vitamin D3] Doxylam/PE/Dm/Acetaminophen/GG 1 each PO DAILY PRN 12/09/22 12/09/22 [Ela-[place]ate Plus Cold Day-Nt] Ferrous Sulfate [Feosol] 325 mg PO DAILY 12/09/22 12/09/22 Simvastatin [Zocor] 80 mg PO HS 12/09/22 12/09/22 Wheat Dextrin [Benefiber] 1 each PO DAILY 12/09/22 12/09/22 HYDROcod/ACETAM 5/325 [[place] 5/325] 1 tab PO Q6H PRN #5 tablet 12/12/22 - PHYSICAL EXAM AT DISCHARGE General Appearance: positive: No acute distress, Alert, Other (Tall ederly male, slow to move and to answer) Eyes Bilateral: positive: Normal inspection, EOMI ENT: positive: No signs of dehydration Neck: positive: Nml inspection, No JVD Respiratory: positive: No respiratory distress, Breath sounds nml Cardiovascular: positive: No murmur Abdomen: positive: Non-tender, Nml bowel sounds, No distention Skin: positive: Warm, Dry Extremities: positive: Non-tender, No pedal edema Neurologic/Psychiatric: positive: Oriented x3, Motor nml, Other (verbal responses are slow but intact) - LABS Result Diagrams: 12/12/22 05:04 12/12/22 05:04 - DIAGNOSTIC IMAGING Diagnostic Imaging Results: Final report reviewed - FOLLOW UP Follow Up: See PCP after discharge. Make appointment to be seen in the general surgery clinic after discharge. - TIME SPENT Time Spent in Discharge (Minutes): 45
[2022-12-12] MEDS: APIXABAN 5 MG TABLET PO SCH (08:09)
[2022-12-12] MEDS: SODIUM CHLORIDE FLUSH 0.9% 10 ML SYRINGE IVP SCH (08:10)
[2022-12-12] MEDS: INSULIN LISPRO 300 UNIT/3 ML PEN SUBQ SCH (08:10)
[2022-12-12] MEDS ORDERED: FERROUS SULFATE 325 MG TABLET PO SCH (12:00)
== END 2022-12-12 09:45 | disposition home health service (06) | DRG 394 ==
LOC: ED 19:51 → MS2 22:58 → UNDOADMIN 22:58 → SDS 23:30 → MS2 12-08 03:36
PROVIDERS: ADMIT Internal Medicine; ATTEND Internal Medicine
PROC: 0DB80ZZ Excision of Small Intestine, Open Approach (ICD-10-PCS; 2022-12-08)
PROC: 0VBF0ZZ Excision of Right Spermatic Cord, Open Approach (ICD-10-PCS; 2022-12-08)
PROC: 0YU50JZ Supplement Right Inguinal Region with Synthetic Substitute, Open Approach (ICD-10-PCS; principal; 2022-12-08 00:30)
DX: K40.30 Unilateral inguinal hernia, with obstruction, without gangrene, not specified as recurrent (principal); K56.7 Ileus, unspecified; K91.89 Other postprocedural complications and disorders of digestive system; I95.1 Orthostatic hypotension; E11.22 Type 2 diabetes mellitus with diabetic chronic kidney disease; I48.0 Paroxysmal atrial fibrillation; E83.42 Hypomagnesemia; T50.1X5A Adverse effect of loop [high-ceiling] diuretics, initial encounter; D53.9 Nutritional anemia, unspecified; K44.9 Diaphragmatic hernia without obstruction or gangrene; Y92.009 Unspecified place in unspecified non-institutional (private) residence as the place of occurrence of the external cause; Z79.84 Long term (current) use of oral hypoglycemic drugs; I25.10 Atherosclerotic heart disease of native coronary artery without angina pectoris; Z79.899 Other long term (current) drug therapy; D50.9 Iron deficiency anemia, unspecified; E03.9 Hypothyroidism, unspecified; N18.30 Chronic kidney disease, stage 3 unspecified; E78.5 Hyperlipidemia, unspecified; F32.A Depression, unspecified; I12.9 Hypertensive chronic kidney disease with stage 1 through stage 4 chronic kidney disease, or unspecified chronic kidney disease; Z79.01 Long term (current) use of anticoagulants; Z79.890 Hormone replacement therapy; Z85.46 Personal history of malignant neoplasm of prostate; Z91.81 History of falling; Z95.5 Presence of coronary angioplasty implant and graft
CPT/HCPCS: 36415; 44120; 49507; 55520; 74177; 80048; 80053; 82607; 82746; 83036; 83540; 83605; 83690; 83735; 84443; 84466; 85018; 85025; 93005; 93306; 96374; 96375; 96376; 97116; 97161; 97165; 99285; A9270; C1781; J0131; J0330; J1170; J1750; J7120; Q9967

== ENCOUNTER 2023-01-03 21:32 | Inpatient (IN) | payer MEDICARE, OTHER ==
[2023-01-03 22:10] LABS: GLUCOSE, URINE (UA) NEGATIVE (NEGATIVE); KETONES,URINE (UA) TRACE mg/dL (NEGATIVE); LEUKOCYTE ESTERASE, URINE NEGATIVE (NEGATIVE); NITRITE,URINE NEGATIVE (NEGATIVE); OCCULT BLOOD,URINE NEGATIVE (NEGATIVE); PROTEIN,URINE TRACE mg/dL (NEGATIVE); UROBILINOGEN,URINE 1 (NORMAL) E.U./dL (NORMAL)
[2023-01-03 22:12] LABS: CLARITY,URINE CLEAR (CLEAR)
[2023-01-03 22:13] LABS: BILIRUBIN,URINE NEGATIVE (NEGATIVE); ICTOTEST,URINE NEGATIVE
[2023-01-03 22:59] LABS: BASOPHILS % (AUTO) 0.3 %; EOSINOPHILS % (AUTO) 0.2 %; HGB - HEMOGLOBIN 10.2 g/dL (14.0-18.0); LYMPHOCYTES % (AUTO) 7.8 %; MEAN CORPUSCULAR HEMOGLOBIN 30.9 pg (27.0-31.0); MEAN CORPUSCULAR HGB CONC 31.9 g/dL (32.0-36.0); MEAN PLATELET VOLUME 8.7 fL (7.4-11.4); MONOCYTES # (AUTO) 0.9 10^3/uL (0.0-1.0); NEUTROPHILS # (AUTO) 11.2 10^3/uL (1.5-6.6); NEUTROPHILS % (AUTO) 84.4 %; PLT - PLATELET COUNT 230 10^3/uL (130-450); RED CELL DISTRIBUTION WIDTH 13.2 % (12.0-15.0); WHITE BLOOD COUNT 13.3 x10^3/uL (4.8-10.8)
--- NOTE | 2023-01-03 23:04 | ED Physician Documentation ---
History of Present Illness - Stated complaint Stated Complaint: PX - Chief complaint Chief Complaint: General - History obtained from History obtained from: Patient, Family - Additonal information Additional information: Patient is an 87-year-old male with a history of recent hernia repair, atrial fibrillation, anticoagulated Presenting for evaluation of abdominal pain for the past 2 days with nausea and vomiting developing today. He also reports having difficulties with urination today.Denies hematuria or dysuria. Has had a nonproductive cough. No fevers.Believes his last dose of the blood thinner was on Wednesday night. Review of Systems Constitutional: denies: Fever Cardiac: reports: Chest pain / pressure Respiratory: reports: Cough GI: reports: Abdominal Pain, Vomiting : reports: Unable to Void PD PAST MEDICAL HISTORY - Past Medical History Cardiovascular: [place], Atrial fibrillation Respiratory: None Neuro: None Endocrine/Autoimmune: Type 2 diabetes GI: None : None, Kidney stones HEENT: Chronic hearing loss Psych: Depression Musculoskeletal: Osteoarthritis Derm: None - Past Surgical History Past Surgical History: No General: Bowel surgery, Hiatal hernia repair Ortho: Knee replacement Cardiovascular: Coronary stent HEENT: Cataracts, Tonsil/Adenoidectomy - Present Medications Home Medications: Ambulatory Orders Medication Instructions Recorded Confirmed Multivit-Min/Iron Fum/Folic AC 1 each PO DAILY 05/08/15 12/09/22 [Ydtnk-Reizmty-Fxwinkue Tablet] polyethylene glycoL 3350 [Miralax] 8.5 - 17 gm PO DAILY 05/08/15 12/09/22 Tamsulosin HCl [Flomax] 0.4 mg PO HS 07/11/18 12/09/22 Nitroglycerin [Nitrostat] 0.3 mg SL Q5M PRN #1 tab.subl 07/12/18 12/09/22 Levothyroxine Sodium [Synthroid] 50 mcg PO DAILY 01/22/19 12/09/22 Rivaroxaban [Xarelto] 15 mg PO DAILY 01/22/19 12/09/22 Hydrocodone/Acetaminophen [[place] 1 each PO Q6H PRN #20 tablet 03/04/20 12/09/22 5-325 Tablet] Cimetidine 400 mg PO HS 12/08/22 12/09/22 Eszopiclone [Lunesta] 2 mg PO HS 12/08/22 12/09/22 Finasteride [Proscar] 5 mg PO HS 12/08/22 12/09/22 Fluorouracil [Efudex] 1 applic TP DAILY 12/08/22 12/09/22 Mirtazapine 22.5 mg PO HS 12/08/22 12/09/22 Omeprazole Magnesium 40 mg PO BID 12/08/22 12/09/22 Valsartan 160 mg PO DAILY 12/08/22 12/09/22 Acetaminophen [Tylenol] 650 mg PO Q6H PRN 12/09/22 12/09/22 Bismuth Subsalicylate 262 mg PO DAILY PRN 12/09/22 12/09/22 [Pepto-Bismol] Calcium Carbonate [Calcium] 600 mg PO DAILY 12/09/22 12/09/22 Cholecalciferol (Vitamin D3) 2,000 unit PO DAILY 12/09/22 12/09/22 [Vitamin D3] Doxylam/PE/Dm/Acetaminophen/GG 1 each PO DAILY PRN 12/09/22 12/09/22 [[place] Plus Cold Day-Nt] Ferrous Sulfate [Feosol] 325 mg PO DAILY 12/09/22 12/09/22 Simvastatin [Zocor] 80 mg PO HS 12/09/22 12/09/22 Wheat Dextrin [Benefiber] 1 each PO DAILY 12/09/22 12/09/22 - Allergies Allergies/Adverse Reactions: Allergies Allergy/AdvReac Type Severity Reaction Status Date / Time No Known Drug Allergies Allergy Verified 01/03/23 21:42 - Social History Does the pt smoke?: No Smoking Status: Never smoker Does the pt drink ETOH?: No Does the pt have substance abuse?: No - Immunizations Immunizations are current?: Yes - POLST Patient has POLST: No PD ED PE NORMAL - General General: Alert and oriented X 3, No acute distress, Well developed/nourished, Other (Hard of hearing) - HEENT HEENT: Atraumatic - Neck Neck: Supple, no meningeal sign - Cardiac Cardiac: RRR, Strong equal pulses - Respiratory Respiratory: No respiratory distress, Clear bilaterally - Abdomen Abdomen: Soft, Non distended, Other (Mild generalized abdominal tenderness to palpation, hypoactive bowel sounds) - Male 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), Other (No testicular swelling or tenderness, Erythema to left groin) - Derm Derm: Warm and dry - Extremities Extremities: No calf tenderness / cord Results - Vitals Vitals: Vital Signs - 24 hr 01/03/23 01/03/23 01/04/23 21:34 23:08 01:15 Temperature 36.5 C 36.6 C Heart Rate 96 85 94 Respiratory 18 19 16 Rate Blood Pressure 121/56 L 141/84 H 131/85 H O2 Saturation 98 96 100 01/04/23 01/04/23 01/04/23 02:35 03:41 04:01 Temperature Heart Rate 81 83 89 Respiratory 16 18 19 Rate Blood Pressure 136/80 H 162/101 H 143/86 H O2 Saturation 98 99 94 01/04/23 01/04/23 05:02 05:53 Temperature 36.5 C Heart Rate 88 82 Respiratory 18 18 Rate Blood Pressure 131/80 H 133/85 H O2 Saturation 95 96 Oxygen O2 Source Room air - EKG (time done) 2241 EKG releavant findings:: EKG personally interpreted by author of this note. Relevant findings are: Rate 90, atrial fibrillation, no STEMI - Labs Labs: Laboratory Tests 01/03/23 01/03/23 01/03/23 22:03 22:54 22:54 WBC 13.3 H RBC 3.30 L Hgb 10.2 L Hct 32.0 L MCV 97.0 H MCH 30.9 MCHC 31.9 L RDW 13.2 Plt Count 230 MPV 8.7 Neut # (Auto) 11.2 H Lymph # (Auto) 1.0 L Eagle # (Auto) 0.9 Eos # (Auto) 0.0 Baso # (Auto) 0.0 Absolute Nucleated RBC 0.00 Nucleated RBC % 0.0 Sodium 128 L Potassium 4.2 Chloride 94 L Carbon Dioxide 29 Anion Gap 5.0 L BUN 26 H Creatinine 1.3 Estimated GFR (MDRD) 52 L Glucose 132 H Lactic Acid Calcium 9.3 Total Bilirubin 0.5 AST 18 ALT 8 L Alkaline Phosphatase 59 Troponin I High Sens Total Protein 6.3 L Albumin 3.6 Globulin 2.7 Albumin/Globulin Ratio 1.3 Lipase 16 Urine Color DARK YELLOW Urine Clarity CLEAR Urine pH 6.0 Ur Specific [place] 1.020 Urine Protein TRACE Urine Glucose (UA) NEGATIVE Urine Ketones TRACE Urine Occult Blood NEGATIVE Urine Nitrite NEGATIVE Urine Bilirubin NEGATIVE Urine Urobilinogen 1 (NORMAL) Ur Leukocyte Esterase NEGATIVE Ur Microscopic Review NOT INDICATED Urine Culture Comments NOT INDICATED 01/03/23 01/04/23 22:54 03:19 WBC RBC Hgb Hct MCV MCH MCHC RDW Plt Count MPV Neut # (Auto) Lymph # (Auto) Eagle # (Auto) Eos # (Auto) Baso # (Auto) Absolute Nucleated RBC Nucleated RBC % Sodium Potassium Chloride Carbon Dioxide Anion Gap BUN Creatinine Estimated GFR (MDRD) Glucose Lactic Acid 0.5 Calcium Total Bilirubin AST ALT Alkaline Phosphatase Troponin I High Sens 6.6 Total Protein Albumin Globulin Albumin/Globulin Ratio Lipase Urine Color Urine Clarity Urine pH Ur Specific [place] Urine Protein Urine Glucose (UA) Urine Ketones Urine Occult Blood Urine Nitrite Urine Bilirubin Urine Urobilinogen Ur Leukocyte Esterase Ur Microscopic Review Urine Culture Comments PD Medical Decision Making - ED course Complexity details: reviewed results, re-evaluated patient, d/w patient, d/w family ED course: Patient is an 87-year-old male with history of recent hernia repair presenting for evaluation of difficulty with urination and abdominal pain. Bladder scan was obtained by triage nurse which demonstrated 473 mL of urine so a Choe catheter order was placed. Patient had approximately 1 to 200 mL of urine output but reports his symptoms did not improve with catheter placement. He continues to have abdominal discomfort and reported having an episode or 2 of nausea and vomiting today of clear liquids. His last bowel movement was 2 days ago.Urine is negative for infection. Patient reports having abdominal pain and at times chest pain. An EKG shows atrial fibrillation which is rate controlled and nonischemic. CBC, chemistries, lactic were obtained and reviewed. Mild leukocytosis. New hyponatremia of 128.CT scan of the abdomen pelvis was obtained. There is a consolidation in the left lower lobe which may secondary to worsening atelectasis versus pneumonia. He does report having a cough recently and does have a slightly elevated white count. So I have started the patient on antibiotics for pneumonia coverage. There are also other findings concerning for an ileus versus partial small bowel obstruction. No bowel perforation. Patient has a large hiatal hernia with new herniation of the distal transverse colon. There is also comments of new small amount of intra- abdominal ascites which is nonspecific but can be seen in the setting of bowel ischemia. Lactic is negative. There is no current on-call general surgeon at time of CT report but Dr. Wyatt will start call this morning and he is also the surgeon who operated recently on the patient. D/W Dr. Wyatt at [phone] - He recommends a nasogastric tube. He is coming in to see the patient and requests hospitalist for admission. [id number] - D/W Dr. Bowers. She will admit the patient for further management. Departure - Departure Disposition: 66 [facility] DC/Xfer Clinical Impression: Small bowel obstruction, Hiatal hernia, Hyponatremia Condition: Good Forms: PCP List
[2023-01-03 23:14] LABS: ALBUMIN 3.6 g/dL (3.2-5.5); ALBUMIN/GLOBULIN RATIO 1.3 (1.0-2.2); BILIRUBIN,TOTAL 0.5 mg/dL (0.2-1.0); CALCIUM 9.3 mg/dL (8.5-10.3); CREATININE 1.3 mg/dL (0.6-1.3); POTASSIUM 4.2 mmol/L (3.5-4.5); TOTAL PROTEIN 6.3 g/dL (6.4-8.9)
[2023-01-03] MEDS ORDERED: SODIUM CHLORIDE 0.9% 500 ML IV STA (23:20)
--- NOTE | 2023-01-04 00:20 | XRAY Report ---
PROCEDURE: Chest 1 View X-Ray INDICATIONS: CP TECHNIQUE: One view of the chest was acquired. COMPARISON: 06/07/2022 FINDINGS: Surgical changes and devices: None. Lungs and pleura: Low lung volumes. Mild to moderate diffuse lung disease. Suspected retrocardiac co nsolidation. Mediastinum: Borderline large heart. Bones and chest wall: Prominent loops of bowel seen in the upper abdomen. IMPRESSION: Low lung volumes limit evaluation. Suspected mild to moderate diffuse lung disease retrocardiac opaci ty. These may be infectious/inflammatory. Consider future imaging surveillance to assess for resoluti on. Partially seen prominent gas-filled loops of bowel in the upper abdomen. Reviewed by: Ciro Raymond MD on 01/04/2023 12:19 AM PDT Approved by: Ciro Raymond MD on 01/04/2023 12:19 AM PDT Station ID: [id number]
[2023-01-04] MEDS ORDERED: iohexoL-300 100 ML VIAL IVP ONE (02:21)
[2023-01-04] MEDS ORDERED: MORPHINE 2 MG/ML CARPUJECT IVP STA (02:57)
[2023-01-04] MEDS ORDERED: ONDANSETRON 4 MG/2 ML VIAL IVP STA (03:12)
[2023-01-04] MEDS ORDERED: cefTRIAXone 1 GM in SODIUM CHLORIDE 0.9% MINIBAG 100 ML IV STA (03:13)
[2023-01-04] MEDS ORDERED: AZITHROMYCIN INJ 500 MG in SODIUM CHLORIDE 0.9% 250 ML IV STA (03:13)
[2023-01-04] MEDS ORDERED: cefTRIAXone 1 GM VIAL ONE (03:53)
--- NOTE | 2023-01-04 06:29 | CONSULTATION NOTE ---
Surgery Consult - Consult Date Consult Date: 01/22/23 Requesting Provider: Emmanuel Rizzo - Chief Complaint Chief Complaint: Abdominal pain - Home Meds/Allergies Home Medications: Patient History Medication Instructions Recorded Confirmed Multivit-Min/Iron Fum/Folic AC 1 each PO DAILY 05/08/15 12/09/22 [Swkpn-Qebdnvt-Xklcymap Tablet] polyethylene glycoL 3350 [Miralax] 8.5 - 17 gm PO DAILY 05/08/15 12/09/22 Tamsulosin HCl [Flomax] 0.4 mg PO HS 07/11/18 12/09/22 Levothyroxine Sodium [Synthroid] 50 mcg PO DAILY 01/22/19 12/09/22 Rivaroxaban [Xarelto] 15 mg PO DAILY 01/22/19 12/09/22 Cimetidine 400 mg PO HS 12/08/22 12/09/22 Eszopiclone [Lunesta] 2 mg PO HS 12/08/22 12/09/22 Finasteride [Proscar] 5 mg PO HS 12/08/22 12/09/22 Fluorouracil [Efudex] 1 applic TP DAILY 12/08/22 12/09/22 Mirtazapine 22.5 mg PO HS 12/08/22 12/09/22 Omeprazole Magnesium 40 mg PO BID 12/08/22 12/09/22 Valsartan 160 mg PO DAILY 12/08/22 12/09/22 Acetaminophen [Tylenol] 650 mg PO Q6H PRN 12/09/22 12/09/22 Bismuth Subsalicylate 262 mg PO DAILY PRN 12/09/22 12/09/22 [Pepto-Bismol] Calcium Carbonate [Calcium] 600 mg PO DAILY 12/09/22 12/09/22 Cholecalciferol (Vitamin D3) 2,000 unit PO DAILY 12/09/22 12/09/22 [Vitamin D3] Doxylam/PE/Dm/Acetaminophen/GG 1 each PO DAILY PRN 12/09/22 12/09/22 [Ela-[place] Plus Cold Day-Nt] Ferrous Sulfate [Feosol] 325 mg PO DAILY 12/09/22 12/09/22 Simvastatin [Zocor] 80 mg PO HS 12/09/22 12/09/22 Wheat Dextrin [Benefiber] 1 each PO DAILY 12/09/22 12/09/22 Allergies/Adverse Reactions: Allergies Allergy/AdvReac Type Severity Reaction Status Date / Time No Known Drug Allergies Allergy Verified 01/03/23 21:42 - Vital Signs Vital Signs: Last Vital Signs Temp 97.7 F 01/04/23 05:53 Pulse 82 01/04/23 05:53 Resp 18 01/04/23 05:53 BP 133/85 H 01/04/23 05:53 Pulse Ox 96 01/04/23 05:53 O2 Flow Rate Intake & Output: Intake & Output 01/01/23 01/02/23 01/03/23 01/04/23 23:59 23:59 23:59 23:59 Intake Total 860 Balance 860 - Lab Results Result Diagrams: 01/03/23 22:54 01/03/23 22:54 - Consultation Note Consultation Note: General Surgery Consultation Note Assessment: 1) SBO vs Ileus - The patient has no clinical or image evidence of bowel ischemia. He is not nauseated and is not vomiting. There is no abdominal tenderness. 2) History of [place] 3) Atrial fibrillation 4) Pre-Diabetes 5) Hyponatremia Recommendation: 1) NPO except for sips, chips, and meds. I don't think he needs an NGT at this time because he is not vomiting and I really don't see distension of the stomach on his CT scan. 2) IV fluids to replace third space fluids and to correct his hyponatremia 3) Will consider a SBFT study later today if his symptoms do not resolve with conservative management 4) Surgery will follow <><><><><><><><><><> Reason for Consultation Dilated small bowel on CT Chief Complaint Anorexia, abdominal discomfort HPI 87 male with 2 days of nausea, emesis, anorexia associated with lower abdominal discomfort. Passing flatus. Denies fevers, chills, sweats. Mild productive cough. CT shows dilated small bowel without transition point. Has history of surgical repair of a strangulated RIH with resection and primary anastomosis of a short segment of the small bowel via a right groin incision. Past Medical History Atrial fibrillation Pre-diabetes CAD, S/P stent placement Past Surgical History Dec 2022 - Strangulated Recurrent RIHR - resection small bowel; mesh hernia repair Right groin surgery - he thinks it was a hernia repair done 50 years ago Hiatal hernia repair Cataracts T&A Knee replacement Social History Non smoker; No alcohol; [place] Current Medications See "Medication" section Allergies See "Allergy" section ROS Pertinent positives Nausea, emesis, lower abdominal pain; Productive cough All other reviewed systems negative Physical Examination Vital Signs: See "Vital Signs" section BMI: 21 GENERAL APPEARANCE: Normal development, normal body habitus, normal grooming PSYCHIATRIC: AAO; Cooperative; In no distress; EYES: Pupils equal, round and reactive to light, sclera anicteric EARS, NOSE, MOUTH, THROAT: Hearing normal, Oral mucous membranes moist and without lesions; NECK: No crepitus, lymphadenopathy, or thyromegaly LUNGS: Clear to auscultation without wheezing; No use of accessory muscles to breathe CARDIOVASCULAR: Heart-irreg irreg; Palpable carotid arteries - no bruits; Femoral, Pedal pulses palpable; Peripheral edema present ABD: Soft, non-distended, active bowel sounds, non-tender GROIN: Healed RIH incision LYMPHATIC: Neck, Axillae WNL EXTREMITIES: No clubbing, cyanosis, infections SKIN: Anicteric; No rashes, lesions, Ulcerations Labs See "Labs" section Imaging CT Abd/Pelvis - Dilated, fluid filled small bowel without clear transition point; Air in colon and rectum; Hiatal hernia containing colon and stomach similar to images obtained 1 month ago. All images were personally reviewed by me for this encounter. Reji Wyatt MD, [facility] General Surgery Service [phone]
[2023-01-04] MEDS ORDERED: SODIUM CHLORIDE FLUSH 0.9% 10 ML SYRINGE IVP PRN (07:41)
[2023-01-04] MEDS ORDERED: PROCHLORPERAZINE 10 MG/2 ML VIAL IVP PRN (07:41)
[2023-01-04] MEDS ORDERED: ONDANSETRON 4 MG/2 ML VIAL IVP PRN (07:41)
--- NOTE | 2023-01-04 07:46 | HISTORY & PHYSICAL EXAMINATION ---
Chief Complaint - Chief Complaint Chief Complaint: abdominal pain for two days History of Present Illness - Admitted From Admitted From:: ED - History Obtained From Records Reviewed: yes History obtained from: ED sign out, Surgeon and patient - History of Present Illness HPI Comment/Other: A 87yo M with multiple medical conditions, significantly with Hx of TX, Afib on Xarelto, DM2, CKD III, hx of prostate cancer, frequent falls and recent incarce rated hernia s/p partial small bowel resection on 12/07/2022, discharged to home with home health on 12/12/2022 in stable condition. Presented to the ED for abdominal pain over the past two days, also with cough. Patient reports he has nausea and vomiting for one day, difficult with urination, nonproductive cough. Patient denies fever or chills, states he has not past gas, does not recall when was his last bowel movement. 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 No dysuria. Denies sick contact. In the ED, his vitals was in normal limits except elevated Bp. Lab shows WBC 13. Hb 10.2, Sodium 128, lactic acid normal. EKG no sign of ischemia, CT abdomen and pelvis shows consolidation in the left lower lobe. Which may secondary to worsening atelectasis versus pneumonia. Also concerning for ileus versus partial small bowel obstruction. No bowel perforation. Patient has a large hiatal hernia, intra-abdominal ascites noted. Per surgical Dr. Wyatt, patient is likely having Joshua, no indication for NG placement, continue conservative management. a small bowel follow through is recommended. Patient was given Azithromycin and Ceftriaxone in the ED. History - Past Medical History Cardiovascular: reports: TX, Atrial fibrillation Respiratory: reports: None Neuro: reports: None Endocrine/Autoimmune: reports: Type 2 diabetes GI: reports: None : reports: None, Kidney stones HEENT: reports: Chronic hearing loss Psych: reports: Depression Musculoskeletal: reports: Osteoarthritis Derm: reports: None MRSA Hx?: No - Past Surgical History General: reports: Bowel surgery, Hiatal hernia repair Ortho: reports: Knee replacement Cardiovascular: reports: Coronary stent HEENT: reports: Cataracts, Tonsil/Adenoidectomy - Family & Social History Family History: Mother: , CVA/TIA, Father: , COPD/Emphysema Family History Comment/Other: pt report his father at 70 yrs from lung dis ease. his mother from cancer. he is with living at [facility] and had three children. Social History Notes: pt report he had remote cigarette smoker, he denies alcoh ol and drug problem - POLST Patient has POLST: No Meds/Allgy - Home Medications Home Medications: Ambulatory Orders Medication Instructions Recorded Confirmed Multivit-Min/Iron Fum/Folic AC 1 tab PO DAILY 05/08/15 01/04/23 [Ivfpz-Biuvgyc-Nvcbamlb Tablet] polyethylene glycoL 3350 [Miralax] 8.5 - 17 gm PO DAILY PRN 05/08/15 01/04/23 Tamsulosin HCl [Flomax] 0.4 mg PO HS 07/11/18 01/04/23 Levothyroxine Sodium [Synthroid] 50 mcg PO QDAC 01/22/19 01/04/23 Cimetidine 400 mg PO HS 12/08/22 01/04/23 Eszopiclone [Lunesta] 2 mg PO HS 12/08/22 01/04/23 Mirtazapine 22.5 mg PO HS 12/08/22 01/04/23 Omeprazole Magnesium 40 mg PO BID 12/08/22 01/04/23 Valsartan 160 mg PO QPM 12/08/22 01/04/23 Calcium Carbonate [Calcium] 600 mg PO DAILY 12/09/22 01/04/23 Cholecalciferol (Vitamin D3) 2,000 unit PO DAILY 12/09/22 01/04/23 [Vitamin D3] Simvastatin [Zocor] 80 mg PO HS 12/09/22 01/04/23 Rivaroxaban [Xarelto] 20 mg PO DAILY 01/04/23 01/04/23 - Allergies Allergies/Adverse Reactions: Allergies Allergy/AdvReac Type Severity Reaction Status Date / Time No Known Drug Allergies Allergy Verified 01/03/23 21:42 Review of Systems - Constitutional Constitutional: reports: Fatigue, Poor appetite. denies: Fever - Eyes Eyes: denies: Blurred vision - Ears, Nose & Throat Ears, Nose & Throat: denies: Nasal discharge, Nasal congestion, Sore throat - Cardiovascular Cariovascular: denies: Palpitations, Lightheadedness - Respiratory Respiratory: reports: Cough. denies: Sputum production, Wheezing - Gastrointestinal Gastrointestinal: reports: Abdominal pain, Nausea, Vomiting. denies: Abdominal distention, Diarrhea, Black stools, Bloody stools - Genitourinary Genitourinary: reports: Other (difficult urination). denies: Dysuria - Neurological Neurological: reports: General weakness. denies: Focal weakness - Hematologic/Lymphatic Hematologic/Lymphatic: reports: Anemia Prior Level of Functionality: use walker Needs assist for dressing, showing Exam - Vital Signs Vital Signs: Vital Signs x48h Temp Pulse Resp BP Pulse Ox 01/04/23 05:53 36.5 C 82 18 133/85 H 96 01/04/23 05:02 88 18 131/80 H 95 01/04/23 04:01 89 19 143/86 H 94 01/04/23 03:41 83 18 162/101 H 99 01/04/23 02:35 81 16 136/80 H 98 01/04/23 01:15 36.6 C 94 16 131/85 H 100 - Physical Exam General Appearance: positive: No acute distress, Alert Eyes Bilateral: positive: PERRL, EOMI ENT: positive: ENT inspection nml Neck: positive: No JVD Respiratory: positive: Chest non-tender, Wheezes, Rales, Other (frequent cough) Cardiovascular: positive: Irregularly irregular Abdomen: positive: Tenderness, Other (bowel sounds present, hypoactivve). negative: Guarding, Rebound Neurologic/Psychiatric: positive: Oriented x3, Weakness Sepsis Event Note (H) - Evaluation Current Stage of Sepsis: Ruled out Conclusion/Plan - Problem List (1) Small bowel obstruction Conclusion/Plan: SBO vs ileus in the setting of recent small bowel resection <30days likely it is ileus, patient has bowel sound, abdomen is soft, mild tender -NPO -Small bowel follow through -follow up with surgical team (2) Pneumonia Conclusion/Plan: frequent cough, mild leukocytosis, in elderly, CT evidence of left lung pneumonia -received azithromycin and ceftriaxone in the ED, continue -give cough syrup for symptom relieve -Oxygen prn (3) Hyponatremia Conclusion/Plan: Na 128, may related to poor oral intake, vs SIADH from lung pathology vs possible leginella infection -give iv fluid while NPO -Monitoring BMP -empirically using Azithromycin (4) DM2 (diabetes mellitus, type 2) Conclusion/Plan: BS is elevated, but in 140s. -Carb consistent diet once cleared for diet -ISS - Lab Results Fish Bones: 01/03/23 22:54 01/03/23 22:54
--- NOTE | 2023-01-04 08:21 | CT Report ---
PROCEDURE: ABDOMEN/PELVIS W INDICATIONS: lower abd pain CONTRAST: 100 ML OMNI 300 TECHNIQUE: After the administration of intravenous contrast, 5 mm thick sections acquired from the diaphragms to the symphysis. 5 mm thick coronal and sagittal reformats were acquired. For radiation dose reducti on, the following was used: automated exposure control, adjustment of mA and/or kV according to mohan ent size. COMPARISON: CT 12/07/2022 FINDINGS: Image quality: Excellent. Lung bases and heart: Left basilar consolidation and bibasilar atelectasis. Large hiatal hernia conta ining the stomach and a segment of large bowel. Trace bibasilar effusions. Liver: No solid mass. Gallbladder and biliary tree: Cholelithiasis without wall thickening. No biliary dilation. Spleen: No splenomegaly. Pancreas: No pancreatic ductal dilation. Adrenals: No adrenal nodule. Kidneys and ureters: No hydronephrosis. No renal cystic lesion which requires follow up. No solid mas s. Punctate, bilateral nonobstructing nephrolithiasis. Bowel and peritoneum: Distended small and large bowel, large greater than small bowel. No discernible transition point. Prior partial colectomy. Moderate rectal stool load without evidence of stercoral proctitis. Small volume ascites Lymph nodes: . Vessels: No infrarenal aortic aneurysm. PELVIS Reproductive organs: Prostate brachytherapy clips. Bladder: Decompressed around a Choe catheter. Pelvic lymph nodes: No pelvic adenopathy by size criteria. Bones: No aggressive osseous abnormality. Other: No significant ventral or inguinal hernia. IMPRESSION: Distended loops of small and large bowel, suggestive of adynamic ileus. Small volume ascites, new from prior. This may be due to third spacing of fluids, less likely bowel i schemia. Left lower lobe consolidation, concerning for atelectasis or infection. Other chronic findings as above. Agree with preliminary report. Reviewed by: Ollie Ramirez on 01/04/2023 8:20 AM PDT Approved by: Ollie Ramirez on 01/04/2023 8:20 AM PDT Station ID: [id number]
[2023-01-04] MEDS: SODIUM CHLORIDE FLUSH 0.9% 10 ML SYRINGE IVP SCH ×3 (10:30→23:53)
[2023-01-04] MEDS ORDERED: guaiFENesin/DEXTROMETHORPHAN 10 ML UDC PO PRN (12:52)
[2023-01-04] MEDS ORDERED: DIATR MEGLU/DIATRIZOATE SODIUM 120 ML BOTTLE ONE (13:05)
--- NOTE | 2023-01-04 15:02 | PHARMACY PROGRESS NOTE ---
- Best Possible Medication History Admit Date and Time: 01/04/23 0741 Processed by: Pharmacy Medication History completed: Yes Patient Interview: Pt unable to participate Secondary Source(s): Other family member (Daughter), Insurance records, Previous admit records As the person ultimately responsible for medication therapy, providers are able to order a medication from an existing home medication list in [facility] via the "Reconcile Routine" prior to Confirmation of that medication by patient support assistant. Such practice is discouraged except when the physician, in their clinical judgment, deems that a medical need exists for a medication without regard to previous use.
[2023-01-04] MEDS ORDERED: DIATR MEGLU/DIATRIZOATE SODIUM 120 ML BOTTLE PO ONE (15:07)
--- NOTE | 2023-01-04 16:01 | XRAY Report ---
PROCEDURE: SBFT Challenge Panel INDICATIONS: SBO vs Ileus COMPARISON: CT abdomen pelvis 01/04/2023 CONTRAST: 120 cc Technique: Oral contrast was administered and spot films were taken at 15 minutes and 2 hours. FINDINGS: Small bowel: Large hiatal hernia. The 15 minute paco, contrast is seen filling the stomach, duodenum and jejunum. At the 2 hour apco, contrast is seen filling the entirety of the small bowel and into th e colon. Dilated loops of small bowel are redemonstrated. No strictures, intraluminal masses, or extr insic mass effects are noted. Multiple surgical clips projecting over the lower pelvis. IMPRESSION: 1.By 2 hours, contrast is seen filling the entirety of the small bowel and extending into the colon. Dilated loops of small bowel are redemonstrated. Findings are favored to represent ileus. 2.Large hiatal hernia is redemonstrated. Reviewed by: Dallas White MD on 01/04/2023 3:59 PM PDT Approved by: Dallas White MD on 01/04/2023 3:59 PM PDT Station ID: [id number]
--- NOTE | 2023-01-04 17:11 | PROVIDER PROGRESS NOTE ---
Subjective - Prog Note Date Prog Note Date: 01/04/23 Prog Note Time: 17:10 - Subjective Pt reports feeling: Improved Subjective: Patient abdominal pain has improved, has lot of Flowtuss, small soft bowel movement with a lot of liquid stool. And small bowel follow-through completed, no sign of small bowel obstruction. Per surgical team patient can have advanced in diet as tolerated. Surgical surgical team sign of from the case. Continue treat patient pneumonia. Objective - Vital Signs/Intake & Output Vital Signs: Vital Signs x48h Temp Pulse Resp BP Pulse Ox 01/04/23 10:08 36.5 C 85 19 130/78 94 Intake & Output: Intake & Output 01/01/23 01/02/23 01/03/23 01/04/23 23:59 23:59 23:59 23:59 Intake Total 860 Balance 860 - Lab Results Fish Bones: 01/03/23 22:54 01/03/23 22:54 Other Labs: Lab Results x24hrs 01/04/23 01/03/23 01/03/23 Range/Units 03:19 22:54 22:54 WBC (4.8-10.8) x10^3/uL RBC (4.70-6.10) 10^6/uL Hgb (14.0-18.0) g/dL Hct (42.0-52.0) % MCV (80.0-94.0) fL MCH (27.0-31.0) pg MCHC (32.0-36.0) g/dL RDW (12.0-15.0) % Plt Count (130-450) 10^3/uL MPV (7.4-11.4) fL Neut # (Auto) (1.5-6.6) 10^3/uL Lymph # (Auto) (1.5-3.5) 10^3/uL [place] # (Auto) (0.0-1.0) 10^3/uL Eos # (Auto) (0.0-0.7) 10^3/uL Baso # (Auto) (0.0-0.1) 10^3/uL Absolute Nucleated RBC x10^3/uL Nucleated RBC % /100WBC Sodium (135-145) mmol/L Potassium (3.5-4.5) mmol/L Chloride (101-111) mmol/L Carbon Dioxide (21-32) mmol/L Anion Gap (6-13) BUN (6-20) mg/dL Creatinine (0.6-1.3) mg/dL Estimated GFR (MDRD) (>89) Glucose (74-104) mg/dL Lactic Acid 0.5 (0.5-2.2) mmol/L Calcium (8.5-10.3) mg/dL Total Bilirubin (0.2-1.0) mg/dL AST (10-42) IU/L ALT (10-60) IU/L Alkaline Phosphatase (42-121) IU/L Troponin I High Sens 6.6 (2.3-19.7) ng/L B-Natriuretic Peptide 158 H (5-100) pg/mL Total Protein (6.4-8.9) g/dL Albumin (3.2-5.5) g/dL Globulin (2.1-4.2) g/dL Albumin/Globulin Ratio (1.0-2.2) Lipase (11-82) U/L Urine Color Urine Clarity (CLEAR) Urine pH (5.0-7.5) PH Ur Specific [place] (1.002-1.030) Urine Protein (NEGATIVE) mg/dL Urine Glucose (UA) (NEGATIVE) mg/dL Urine Ketones (NEGATIVE) mg/dL Urine Occult Blood (NEGATIVE) Urine Nitrite (NEGATIVE) Urine Bilirubin (NEGATIVE) Urine Urobilinogen (NORMAL) E.U./dL Ur Leukocyte Esterase (NEGATIVE) Ur Microscopic Review Urine Culture Comments 01/03/23 01/03/23 01/03/23 Range/Units 22:54 22:54 22:03 WBC 13.3 H (4.8-10.8) x10^3/uL RBC 3.30 L (4.70-6.10) 10^6/uL Hgb 10.2 L (14.0-18.0) g/dL Hct 32.0 L (42.0-52.0) % MCV 97.0 H (80.0-94.0) fL MCH 30.9 (27.0-31.0) pg MCHC 31.9 L (32.0-36.0) g/dL RDW 13.2 (12.0-15.0) % Plt Count 230 (130-450) 10^3/uL MPV 8.7 (7.4-11.4) fL Neut # (Auto) 11.2 H (1.5-6.6) 10^3/uL Lymph # (Auto) 1.0 L (1.5-3.5) 10^3/uL [place] # (Auto) 0.9 (0.0-1.0) 10^3/uL Eos # (Auto) 0.0 (0.0-0.7) 10^3/uL Baso # (Auto) 0.0 (0.0-0.1) 10^3/uL Absolute Nucleated RBC 0.00 x10^3/uL Nucleated RBC % 0.0 /100WBC Sodium 128 L (135-145) mmol/L Potassium 4.2 (3.5-4.5) mmol/L Chloride 94 L (101-111) mmol/L Carbon Dioxide 29 (21-32) mmol/L Anion Gap 5.0 L (6-13) BUN 26 H (6-20) mg/dL Creatinine 1.3 (0.6-1.3) mg/dL Estimated GFR (MDRD) 52 L (>89) Glucose 132 H (74-104) mg/dL Lactic Acid (0.5-2.2) mmol/L Calcium 9.3 (8.5-10.3) mg/dL Total Bilirubin 0.5 (0.2-1.0) mg/dL AST 18 (10-42) IU/L ALT 8 L (10-60) IU/L Alkaline Phosphatase 59 (42-121) IU/L Troponin I High Sens (2.3-19.7) ng/L B-Natriuretic Peptide (5-100) pg/mL Total Protein 6.3 L (6.4-8.9) g/dL Albumin 3.6 (3.2-5.5) g/dL Globulin 2.7 (2.1-4.2) g/dL Albumin/Globulin Ratio 1.3 (1.0-2.2) Lipase 16 (11-82) U/L Urine Color DARK YELLOW Urine Clarity CLEAR (CLEAR) Urine pH 6.0 (5.0-7.5) PH Ur Specific [place] 1.020 (1.002-1.030) Urine Protein TRACE (NEGATIVE) mg/dL Urine Glucose (UA) NEGATIVE (NEGATIVE) mg/dL Urine Ketones TRACE (NEGATIVE) mg/dL Urine Occult Blood NEGATIVE (NEGATIVE) Urine Nitrite NEGATIVE (NEGATIVE) Urine Bilirubin NEGATIVE (NEGATIVE) Urine Urobilinogen 1 (NORMAL) (NORMAL) E.U./dL Ur Leukocyte Esterase NEGATIVE (NEGATIVE) Ur Microscopic Review NOT INDICATED Urine Culture Comments NOT INDICATED Sepsis Event Note (H) - Evaluation Current Stage of Sepsis: Ruled out
--- NOTE | 2023-01-04 17:15 | PROVIDER PROGRESS NOTE ---
Subjective - General Admit Date: 01/04/23 Procedure Date: 12/08/22 Post Op Days: 27 - Other Other Information/Narrative: General Surgery Afternoon Progress Note Sy tolerated the SBFT and it shows that there is no obstruction. He is passing gas and loose stool from the rectum. His abdomen is soft and non-tender and he is hungry. Assessment: Ileus, likely related to his pneumonitis Plan: May start and advance diet as tolerated. Reji Wyatt MD, [facility] Service Objective - Patient Data Vital Signs: Vital Signs x48h Temp Pulse Resp BP Pulse Ox 01/04/23 10:08 97.7 F 85 19 130/78 94 Weight: Weight 01/02/23 01/03/23 01/04/23 23:59 23:59 23:59 Weight (kg) 80.739 kg 80 kg Intake & Output: Intake and Output Totals x24h 01/02/23 01/03/23 01/04/23 23:59 23:59 23:59 Intake Total 860 Balance 860 - Lab Results Lab Results: 01/03/23 22:54 01/03/23 22:54 Other Lab Results: Lab Results x24hrs 01/04/23 01/03/23 01/03/23 Range/Units 03:19 22:54 22:54 WBC (4.8-10.8) x10^3/uL RBC (4.70-6.10) 10^6/uL Hgb (14.0-18.0) g/dL Hct (42.0-52.0) % MCV (80.0-94.0) fL MCH (27.0-31.0) pg MCHC (32.0-36.0) g/dL RDW (12.0-15.0) % Plt Count (130-450) 10^3/uL MPV (7.4-11.4) fL Neut # (Auto) (1.5-6.6) 10^3/uL Lymph # (Auto) (1.5-3.5) 10^3/uL [place] # (Auto) (0.0-1.0) 10^3/uL Eos # (Auto) (0.0-0.7) 10^3/uL Baso # (Auto) (0.0-0.1) 10^3/uL Absolute Nucleated RBC x10^3/uL Nucleated RBC % /100WBC Sodium (135-145) mmol/L Potassium (3.5-4.5) mmol/L Chloride (101-111) mmol/L Carbon Dioxide (21-32) mmol/L Anion Gap (6-13) BUN (6-20) mg/dL Creatinine (0.6-1.3) mg/dL Estimated GFR (MDRD) (>89) Glucose (74-104) mg/dL Lactic Acid 0.5 (0.5-2.2) mmol/L Calcium (8.5-10.3) mg/dL Total Bilirubin (0.2-1.0) mg/dL AST (10-42) IU/L ALT (10-60) IU/L Alkaline Phosphatase (42-121) IU/L Troponin I High Sens 6.6 (2.3-19.7) ng/L B-Natriuretic Peptide 158 H (5-100) pg/mL Total Protein (6.4-8.9) g/dL Albumin (3.2-5.5) g/dL Globulin (2.1-4.2) g/dL Albumin/Globulin Ratio (1.0-2.2) Lipase (11-82) U/L Urine Color Urine Clarity (CLEAR) Urine pH (5.0-7.5) PH Ur Specific [place] (1.002-1.030) Urine Protein (NEGATIVE) mg/dL Urine Glucose (UA) (NEGATIVE) mg/dL Urine Ketones (NEGATIVE) mg/dL Urine Occult Blood (NEGATIVE) Urine Nitrite (NEGATIVE) Urine Bilirubin (NEGATIVE) Urine Urobilinogen (NORMAL) E.U./dL Ur Leukocyte Esterase (NEGATIVE) Ur Microscopic Review Urine Culture Comments 01/03/23 01/03/23 01/03/23 Range/Units 22:54 22:54 22:03 WBC 13.3 H (4.8-10.8) x10^3/uL RBC 3.30 L (4.70-6.10) 10^6/uL Hgb 10.2 L (14.0-18.0) g/dL Hct 32.0 L (42.0-52.0) % MCV 97.0 H (80.0-94.0) fL MCH 30.9 (27.0-31.0) pg MCHC 31.9 L (32.0-36.0) g/dL RDW 13.2 (12.0-15.0) % Plt Count 230 (130-450) 10^3/uL MPV 8.7 (7.4-11.4) fL Neut # (Auto) 11.2 H (1.5-6.6) 10^3/uL Lymph # (Auto) 1.0 L (1.5-3.5) 10^3/uL [place] # (Auto) 0.9 (0.0-1.0) 10^3/uL Eos # (Auto) 0.0 (0.0-0.7) 10^3/uL Baso # (Auto) 0.0 (0.0-0.1) 10^3/uL Absolute Nucleated RBC 0.00 x10^3/uL Nucleated RBC % 0.0 /100WBC Sodium 128 L (135-145) mmol/L Potassium 4.2 (3.5-4.5) mmol/L Chloride 94 L (101-111) mmol/L Carbon Dioxide 29 (21-32) mmol/L Anion Gap 5.0 L (6-13) BUN 26 H (6-20) mg/dL Creatinine 1.3 (0.6-1.3) mg/dL Estimated GFR (MDRD) 52 L (>89) Glucose 132 H (74-104) mg/dL Lactic Acid (0.5-2.2) mmol/L Calcium 9.3 (8.5-10.3) mg/dL Total Bilirubin 0.5 (0.2-1.0) mg/dL AST 18 (10-42) IU/L ALT 8 L (10-60) IU/L Alkaline Phosphatase 59 (42-121) IU/L Troponin I High Sens (2.3-19.7) ng/L B-Natriuretic Peptide (5-100) pg/mL Total Protein 6.3 L (6.4-8.9) g/dL Albumin 3.6 (3.2-5.5) g/dL Globulin 2.7 (2.1-4.2) g/dL Albumin/Globulin Ratio 1.3 (1.0-2.2) Lipase 16 (11-82) U/L Urine Color DARK YELLOW Urine Clarity CLEAR (CLEAR) Urine pH 6.0 (5.0-7.5) PH Ur Specific [place] 1.020 (1.002-1.030) Urine Protein TRACE (NEGATIVE) mg/dL Urine Glucose (UA) NEGATIVE (NEGATIVE) mg/dL Urine Ketones TRACE (NEGATIVE) mg/dL Urine Occult Blood NEGATIVE (NEGATIVE) Urine Nitrite NEGATIVE (NEGATIVE) Urine Bilirubin NEGATIVE (NEGATIVE) Urine Urobilinogen 1 (NORMAL) (NORMAL) E.U./dL Ur Leukocyte Esterase NEGATIVE (NEGATIVE) Ur Microscopic Review NOT INDICATED Urine Culture Comments NOT INDICATED - Current Medications Current Medications: Current Medications Generic Name Dose Route Start Last Admin Trade Name Freq PRN Reason Stop Dose Admin Sodium Chloride 10 ml 01/04/23 09:00 01/04/23 10:30 Sodium Chloride Flush 0.9% 10 Ml Syringe IVP 10 ml 0100,0900,1700 MAURICIO Administration
[2023-01-04] MEDS: ACETAMINOPHEN 325 MG TABLET PO PRN (18:09)
[2023-01-05 05:44] LABS: BASOPHILS % (AUTO) 0.2 %; EOSINOPHILS # (AUTO) 0.1 10^3/uL (0.0-0.7); EOSINOPHILS % (AUTO) 0.7 %; HCT - HEMATOCRIT 33.1 % (42.0-52.0); HGB - HEMOGLOBIN 10.5 g/dL (14.0-18.0); LYMPHOCYTES # (AUTO) 1.5 10^3/uL (1.5-3.5); LYMPHOCYTES % (AUTO) 16.7 %; MEAN CORPUSCULAR HEMOGLOBIN 31.1 pg (27.0-31.0); MEAN CORPUSCULAR HGB CONC 31.7 g/dL (32.0-36.0); MEAN CORPUSCULAR VOLUME 97.9 fL (80.0-94.0); MEAN PLATELET VOLUME 9.3 fL (7.4-11.4); MONOCYTES # (AUTO) 0.9 10^3/uL (0.0-1.0); MONOCYTES % (AUTO) 9.5 %; NEUTROPHILS # (AUTO) 6.6 10^3/uL (1.5-6.6); NEUTROPHILS % (AUTO) 72.7 %; PLT - PLATELET COUNT 230 10^3/uL (130-450); RED BLOOD COUNT 3.38 10^6/uL (4.70-6.10); RED CELL DISTRIBUTION WIDTH 13.3 % (12.0-15.0)
[2023-01-05 06:00] LABS: POTASSIUM 3.7 mmol/L (3.5-4.5)
[2023-01-05] MEDS: cefTRIAXone 1 GM in SODIUM CHLORIDE 0.9% MINIBAG 100 ML IV SCH (08:31)
[2023-01-05] MEDS: AZITHROMYCIN INJ 500 MG in SODIUM CHLORIDE 0.9% 250 ML IV SCH (09:03)
[2023-01-05] MEDS: SODIUM CHLORIDE FLUSH 0.9% 10 ML SYRINGE IVP SCH ×3 (15:42→23:59)
--- NOTE | 2023-01-05 18:27 | PROVIDER PROGRESS NOTE ---
Assessment/Plan - Problem List (1) Ileus Assessment/Plan: SBO vs ileus, in the setting of recent small bowel resection <30days Likely this is ileus, patient has bowel sound, abdomen is soft, mild tender Small bowel follow through shows contrast media Plan: Advance diet (2) Pneumonia Conclusion/Plan: frequent cough, mild leukocytosis, in elderly, CT evidence of left lung pneumonia Bld cx are neg after 1 day Plan: He received azithromycin and ceftriaxone in the ED, which I am continuing Cont cough syrup for symptom relieve Suppl Oxygen prn (3) Hyponatremia Conclusion/Plan: Na 128>> 131 today (all labs were reviewed), could be related to poor oral intake, vs SIADH from lung pathology vs possible legionella infection He got iv NS while was NPO Plan: Advance diet and follow BMP daily (4) DM2 (diabetes mellitus, type 2) Conclusion/Plan: BS is elevated, but in 140s. Plan: Carb contr diet resuming, now that he is cleared for diet Fingerstick checcks, Insulin SS coverage (5) Generalized weakness Conclusion/Plan: The patient was just discharged after incarcerated hernia bowel surgery 3 weeks ago. Plan was for home health PT and OT. Plan: Will get PT and OT eval here Resume home health PT and OT at time of discharge - Current Meds Current Meds: Current Medications Generic Name Dose Route Start Last Admin Trade Name Freq PRN Reason Stop Dose Admin Acetaminophen 650 mg 01/04/23 07:41 01/04/23 18:09 Acetaminophen 325 Mg Tablet PO 650 mg Q4HR PRN Administration Pain 1 to 4, or Fever Ceftriaxone Sodium 1 gm/ 100 mls @ 200 mls/hr 01/05/23 09:00 01/05/23 09:03 Sodium Chloride IV Infused DAILY MAURICIO Infusion Azithromycin 500 mg/ Sodium 250 mls @ 250 mls/hr 01/05/23 09:00 01/05/23 15:42 Chloride IV 01/07/23 08:59 Infused DAILY MAURICIO Infusion Sodium Chloride 10 ml 01/04/23 09:00 01/05/23 17:16 Sodium Chloride Flush 0.9% 10 Ml Syringe IVP 10 ml 0100,0900,1700 MAURICIO Administration - Lab Result Fish Bone Diagrams: 01/05/23 05:26 01/05/23 05:26 - Additional Planning My Orders: My Active Orders 01/05/23 Home Health Referral [CONS] Routine Evaluate and Treat OT [OT] Routine Evaluate and Treat PT [PT] Routine 01/05/23 Lunch DIET [Soft (Low Fiber) Diet] [DIET] Subjective - Subjective Patient Reports: Feeling Better, No Complaints Nursing Reports: Other (Very forgetful. Also is NINILCHIK) Objective Vital Signs: Vital Signs - 24 hr 01/04/23 01/04/23 01/05/23 22:30 23:48 07:25 Temperature 36.5 C 36.5 C Heart Rate [ Activity] Heart Rate [ 83 93 Brachial] Heart Rate [ 82 Monitoring electrodes] Heart Rate [ Sitting] Respiratory 18 18 Rate Blood Pressure [Activity] Blood Pressure 108/54 L 113/70 138/82 H [Right Brachial artery] Blood Pressure [Sitting] O2 Saturation 94 95 01/05/23 01/05/23 10:35 15:43 Temperature 36.6 C Heart Rate [ 90 Activity] Heart Rate [ 85 Brachial] Heart Rate [ Monitoring electrodes] Heart Rate [ 92 Sitting] Respiratory 18 Rate Blood Pressure 104/60 [Activity] Blood Pressure 138/76 H [Right Brachial artery] Blood Pressure 110/56 L [Sitting] O2 Saturation 99 Oxygen O2 Source Room air I&O (Last 24 Hrs): Intake and Output Totals x24h 01/03/23 01/04/23 01/05/23 23:59 23:59 23:59 Intake Total 1460 1550 Output Total 250 650 Balance 1210 900 General: Alert, No acute distress HEENT: Atraumatic, Other (Eyelids swollen bilat) Neck: Supple, No JVD Neuro: Alert, Other (Poor memory. Cannot follow directions to learn how to log roll. NINILCHIK) Cardiovascular: No murmurs Respiratory: No respiratory distress Abdomen: Soft, No tenderness Extremities: No clubbing, No edema, No tenderness/swelling - Results Results: Laboratory Results WBC 9.0 x10^3/uL (4.8-10.8) 01/05/23 05:26 RBC 3.38 10^6/uL (4.70-6.10) L 01/05/23 05:26 Hgb 10.5 g/dL (14.0-18.0) L 01/05/23 05:26 Hct 33.1 % (42.0-52.0) L 01/05/23 05:26 MCV 97.9 fL (80.0-94.0) H 01/05/23 05:26 MCH 31.1 pg (27.0-31.0) H 01/05/23 05:26 MCHC 31.7 g/dL (32.0-36.0) L 01/05/23 05:26 RDW 13.3 % (12.0-15.0) 01/05/23 05:26 Plt Count 230 10^3/uL (130-450) 01/05/23 05:26 MPV 9.3 fL (7.4-11.4) 01/05/23 05:26 Neut # (Auto) 6.6 10^3/uL (1.5-6.6) 01/05/23 05:26 Lymph # (Auto) 1.5 10^3/uL (1.5-3.5) 01/05/23 05:26 [place] # (Auto) 0.9 10^3/uL (0.0-1.0) 01/05/23 05:26 Eos # (Auto) 0.1 10^3/uL (0.0-0.7) 01/05/23 05:26 Baso # (Auto) 0.0 10^3/uL (0.0-0.1) 01/05/23 05:26 Absolute Nucleated RBC 0.00 x10^3/uL 01/05/23 05:26 Nucleated RBC % 0.0 /100WBC 01/05/23 05:26 Sodium 131 mmol/L (135-145) L 01/05/23 05:26 Potassium 3.7 mmol/L (3.5-4.5) 01/05/23 05:26 Chloride 97 mmol/L (101-111) L 01/05/23 05:26 Carbon Dioxide 30 mmol/L (21-32) 01/05/23 05:26 Anion Gap 4.0 (6-13) L 01/05/23 05:26 BUN 21 mg/dL (6-20) H 01/05/23 05:26 Creatinine 1.0 mg/dL (0.6-1.3) 01/05/23 05:26 Estimated GFR (MDRD) 71 (>89) L 01/05/23 05:26 Glucose 93 mg/dL (74-104) 01/05/23 05:26 Lactic Acid 0.5 mmol/L (0.5-2.2) 01/04/23 03:19 Calcium 9.0 mg/dL (8.5-10.3) 01/05/23 05:26 Total Bilirubin 0.5 mg/dL (0.2-1.0) 01/03/23 22:54 AST 18 IU/L (10-42) 01/03/23 22:54 ALT 8 IU/L (10-60) L 01/03/23 22:54 Alkaline Phosphatase 59 IU/L (42-121) 01/03/23 22:54 Troponin I High Sens 6.6 ng/L (2.3-19.7) 01/03/23 22:54 B-Natriuretic Peptide 120 pg/mL (5-100) H 01/05/23 08:59 Total Protein 6.3 g/dL (6.4-8.9) L 01/03/23 22:54 Albumin 3.6 g/dL (3.2-5.5) 01/03/23 22:54 Globulin 2.7 g/dL (2.1-4.2) 01/03/23 22:54 Albumin/Globulin Ratio 1.3 (1.0-2.2) 01/03/23 22:54 Lipase 16 U/L (11-82) 01/03/23 22:54 Urine Color DARK YELLOW 01/03/23 22:03 Urine Clarity CLEAR (CLEAR) 01/03/23 22:03 Urine pH 6.0 PH (5.0-7.5) 01/03/23 22:03 Ur Specific Lucas 1.020 (1.002-1.030) 01/03/23 22:03 Urine Protein TRACE mg/dL (NEGATIVE) 01/03/23 22:03 Urine Glucose (UA) NEGATIVE mg/dL (NEGATIVE) 01/03/23 22:03 Urine Ketones TRACE mg/dL (NEGATIVE) 01/03/23 22:03 Urine Occult Blood NEGATIVE (NEGATIVE) 01/03/23 22:03 Urine Nitrite NEGATIVE (NEGATIVE) 01/03/23 22:03 Urine Bilirubin NEGATIVE (NEGATIVE) 01/03/23 22:03 Urine Urobilinogen 1 (NORMAL) E.U./dL (NORMAL) 01/03/23 22:03 Ur Leukocyte Esterase NEGATIVE (NEGATIVE) 01/03/23 22:03 Ur Microscopic Review NOT INDICATED 01/03/23 22:03 Urine Culture Comments NOT INDICATED 01/03/23 22:03 - Procedures Procedures: Procedures EXCISION OF DESCENDING COLON, ENDO, DIAGN (05/24/15) EXCISION OF DUODENUM, ENDO, DIAGN (05/24/15) EXCISION OF LOWER ESOPHAGUS, ENDO, DIAGN (05/24/15) EXCISION OF RIGHT SPERMATIC CORD, OPEN APPROACH (12/08/22) EXCISION OF SMALL INTESTINE, OPEN APPROACH (12/08/22) EXCISION OF STOMACH, ENDO, DIAGN (05/24/15) SUPPLEMENT R INGUINAL REGION WITH SYNTH SUB, OPEN APPROACH (12/08/22) Sepsis Event Note (H) - Evaluation Current Stage of Sepsis: Ruled out
[2023-01-06 06:48] LABS: BASOPHILS % (AUTO) 0.2 %; EOSINOPHILS # (AUTO) 0.1 10^3/uL (0.0-0.7); HCT - HEMATOCRIT 29.3 % (42.0-52.0); HGB - HEMOGLOBIN 9.5 g/dL (14.0-18.0); LYMPHOCYTES # (AUTO) 1.5 10^3/uL (1.5-3.5); LYMPHOCYTES % (AUTO) 25.6 %; MEAN CORPUSCULAR HEMOGLOBIN 30.8 pg (27.0-31.0); MEAN CORPUSCULAR HGB CONC 32.4 g/dL (32.0-36.0); MEAN CORPUSCULAR VOLUME 95.1 fL (80.0-94.0); MEAN PLATELET VOLUME 9.3 fL (7.4-11.4); MONOCYTES # (AUTO) 0.6 10^3/uL (0.0-1.0); MONOCYTES % (AUTO) 10.5 %; NEUTROPHILS # (AUTO) 3.7 10^3/uL (1.5-6.6); NEUTROPHILS % (AUTO) 62.4 %; PLT - PLATELET COUNT 214 10^3/uL (130-450); RED BLOOD COUNT 3.08 10^6/uL (4.70-6.10); RED CELL DISTRIBUTION WIDTH 13.2 % (12.0-15.0); WHITE BLOOD COUNT 5.9 x10^3/uL (4.8-10.8)
[2023-01-06 07:04] LABS: CALCIUM 8.6 mg/dL (8.5-10.3); CREATININE 0.8 mg/dL (0.6-1.3); POTASSIUM 3.7 mmol/L (3.5-4.5)
[2023-01-06] MEDS: cefTRIAXone 1 GM in SODIUM CHLORIDE 0.9% MINIBAG 100 ML IV SCH (08:39)
[2023-01-06] MEDS: SODIUM CHLORIDE FLUSH 0.9% 10 ML SYRINGE IVP SCH ×2 (08:41→21:18)
--- NOTE | 2023-01-06 09:04 | PROVIDER PROGRESS NOTE ---
<YuvalChris - Last Filed: 01/06/23 12:28> Subjective - Prog Note Date Prog Note Date: 01/06/23 Prog Note Time: 08:59 - Subjective Pt reports feeling: No change Subjective: 87 Y.O M is feeling no change today and has a new onset cough with sputum production that is clear. Pt states that he has some SOB this morning along with new onset of 5/10 chest pain with breathing. Says he has some 3/10 groin pain where he had his hernia surgery x3 weeks ago. Pt appears to have some memory problems, when asked about the surgery he had he says he remembers, but a few moments later he will bring it back up as if it hadn't been talked about during the interaction. His nurses have also noticed some memory issues related wtih the patient. He is A&Ox3 and is aware to his surrounds. Current Medications - Current Medications Current Medications: Active Medications Acetaminophen (Acetaminophen 325 Mg Tablet) 650 mg PO Q4HR PRN PRN Reason: Pain 1 to 4, or Fever Last Admin: 01/04/23 18:09 Dose: 650 mg Guaifenesin (Guaifenesin/Dextromethorphan 10 Ml Udc) 10 ml PO Q6HR PRN PRN Reason: Cough Guaifenesin (Guaifenesin 600 Mg Tablet) 600 mg PO BID [facility] Ceftriaxone Sodium 1 gm/ (Sodium Chloride) 100 mls @ 200 mls/hr IV DAILY MAURICIO Last Admin: 01/06/23 08:39 Dose: 200 mls/hr Azithromycin 500 mg/ Sodium (Chloride) 250 mls @ 250 mls/hr IV DAILY MAURICIO Stop: 01/07/23 08:59 Last Infusion: 01/05/23 15:42 Dose: Infused Ondansetron HCl (Ondansetron 4 Mg/2 Ml Vial) 4 mg IVP Q6HR PRN PRN Reason: Nausea / Vomiting Prochlorperazine Edisylate (Prochlorperazine 10 Mg/2 Ml Vial) 10 mg IVP Q6HR PRN PRN Reason: Nausea / Vomiting Sodium Chloride (Sodium Chloride Flush 0.9% 10 Ml Syringe) 10 ml IVP PRN PRN PRN Reason: NEEDED PER PROVIDER ORDERS Sodium Chloride (Sodium Chloride Flush 0.9% 10 Ml Syringe) 10 ml IVP 0100,0900,1700 MAURICIO Last Admin: 01/06/23 08:41 Dose: 10 ml Multivit-Min/Iron Fum/Folic AC [Ixfmz-Wjjeogo-Xzmuxbfh Tablet] 1 tab PO DAILY 05/08/15 polyethylene glycoL 3350 [Miralax] 8.5 - 17 gm PO DAILY PRN 05/08/15 Tamsulosin HCl [Flomax] 0.4 mg PO HS 07/11/18 Levothyroxine Sodium [Synthroid] 50 mcg PO QDAC 01/22/19 Cimetidine 400 mg PO HS 12/08/22 Eszopiclone [Lunesta] 2 mg PO HS 12/08/22 Mirtazapine 22.5 mg PO HS 12/08/22 Omeprazole Magnesium 40 mg PO BID 12/08/22 Valsartan 160 mg PO QPM 12/08/22 Calcium Carbonate [Calcium] 600 mg PO DAILY 12/09/22 Cholecalciferol (Vitamin D3) [Vitamin D3] 2,000 unit PO DAILY 12/09/22 Simvastatin [Zocor] 80 mg PO HS 12/09/22 Rivaroxaban [Xarelto] 20 mg PO DAILY 01/04/23 Objective - Vital Signs/Intake & Output Reviewed Vital Signs: Yes Vital Signs: Vital Signs x48h Temp Pulse Resp BP Pulse Ox 01/06/23 07:55 37.0 C 79 18 134/76 H 95 Intake & Output: Intake & Output 01/03/23 01/04/23 01/05/23 01/06/23 23:59 23:59 23:59 23:59 Intake Total 1460 1651 440 Output Total 250 725 850 Balance 1210 926 -410 - Objective General Appearance: positive: Alert Eyes Bilateral: positive: Normal inspection ENT: positive: ENT inspection nml Neck: positive: Nml inspection, No JVD Respiratory: positive: Chest non-tender, Rales (Travis in bilateral lungs in lower [place]), Rhonchi ([place]ravis in bilateral lungs in [place]) Cardiovascular: positive: Regular rate & rhythm, No murmur Abdomen: positive: Tenderness (TTP in all 4 quadrants of his abdomen), Abnml bowel sounds (Hyper active bowl sounds) Skin: positive: Color nml, Warm, Dry. negative: Cyanosis Neurologic/Psychiatric: positive: Oriented x3, Other (Pt seems to have some memory issues. When asked about something he later brings it back up in conversation as if it hadn't been talked about before.). negative: Slurred/abnml speech - Lab Results Fish Bones: 01/06/23 06:13 01/06/23 06:13 Other Labs: Lab Results x24hrs 01/06/23 01/06/23 01/06/23 Range/Units 06:13 06:13 06:13 WBC 5.9 (4.8-10.8) x10^3/uL RBC 3.08 L (4.70-6.10) 10^6/uL Hgb 9.5 L (14.0-18.0) g/dL Hct 29.3 L (42.0-52.0) % MCV 95.1 H (80.0-94.0) fL MCH 30.8 (27.0-31.0) pg MCHC 32.4 (32.0-36.0) g/dL RDW 13.2 (12.0-15.0) % Plt Count 214 (130-450) 10^3/uL MPV 9.3 (7.4-11.4) fL Neut # (Auto) 3.7 (1.5-6.6) 10^3/uL Lymph # (Auto) 1.5 (1.5-3.5) 10^3/uL [place] # (Auto) 0.6 (0.0-1.0) 10^3/uL Eos # (Auto) 0.1 (0.0-0.7) 10^3/uL Baso # (Auto) 0.0 (0.0-0.1) 10^3/uL Absolute Nucleated RBC 0.00 x10^3/uL Nucleated RBC % 0.0 /100WBC Sodium 129 L (135-145) mmol/L Potassium 3.7 (3.5-4.5) mmol/L Chloride 97 L (101-111) mmol/L Carbon Dioxide 28 (21-32) mmol/L Anion Gap 4.0 L (6-13) BUN 17 (6-20) mg/dL Creatinine 0.8 (0.6-1.3) mg/dL Estimated GFR (MDRD) 91 (>89) Glucose 96 (74-104) mg/dL Calcium 8.6 (8.5-10.3) mg/dL B-Natriuretic Peptide 183 H (5-100) pg/mL 01/05/23 Range/Units 08:59 WBC (4.8-10.8) x10^3/uL RBC (4.70-6.10) 10^6/uL Hgb (14.0-18.0) g/dL Hct (42.0-52.0) % MCV (80.0-94.0) fL MCH (27.0-31.0) pg MCHC (32.0-36.0) g/dL RDW (12.0-15.0) % Plt Count (130-450) 10^3/uL MPV (7.4-11.4) fL Neut # (Auto) (1.5-6.6) 10^3/uL Lymph # (Auto) (1.5-3.5) 10^3/uL [place] # (Auto) (0.0-1.0) 10^3/uL Eos # (Auto) (0.0-0.7) 10^3/uL Baso # (Auto) (0.0-0.1) 10^3/uL Absolute Nucleated RBC x10^3/uL Nucleated RBC % /100WBC Sodium (135-145) mmol/L Potassium (3.5-4.5) mmol/L Chloride (101-111) mmol/L Carbon Dioxide (21-32) mmol/L Anion Gap (6-13) BUN (6-20) mg/dL Creatinine (0.6-1.3) mg/dL Estimated GFR (MDRD) (>89) Glucose (74-104) mg/dL Calcium (8.5-10.3) mg/dL B-Natriuretic Peptide 120 H (5-100) pg/mL ABX Reporting Has patient been on IV antibiotics over the past 48 hours?: Yes Sepsis Event Note (H) - Evaluation Current Stage of Sepsis: Ruled out Assessment/Plan - Problem List (1) Pneumonia Impression: Conclusion/Plan: frequent productive cough with SOB and chest pain with breathing New chest X-ray was ordered and the results came back with blunting of the left costophrenic angle that may be related to consolidation, effusion or atelectasis. As such will continue with the current treatment plan that he was placed on for pneumonia. Bld cx are neg after 2 days Plan: Start Mucienx PO 600mg for cough and mucus production Continue azithromycin and ceftriaxone Continue Robitussin DM 10 ml PO Q6HR Suppl Oxygen prn Qualifiers: Laterality: left Lung location: lower lobe of lung (2) Hyponatremia Impression: Conclusion/Plan: Na came down from 131 to 129 today 01/06(all labs were reviewed), could be related to poor oral intake, vs SIADH from lung pathology vs possible legionella infection He is now on a soft (low fiber) diet currently which he is tolerating well. Plan: Continue with current diet and follow BMP daily Check Urine sodium (3) Poor memory Impression: Pt was last seen here x3 weeks ago for hiatal hernia repair, and at that time there seemed to be no issues with his memory. However, during his current time here there seems to be a decrease in his baseline of memory noticed by his nurse and me. Pt seems to not remember previous instances of conversations and brings past topics up again as if they hadn't been talked about previously. He sometimes gets off track with the topic. He is alert and aware of what is going on around him, is A&Ox3, and has no other focal nuero deficits. This could be due to the current pneumonia infection that he has. Plan: Continue to monitor patient as he under goes treatment for pneumonia and see if there is improvement with his memory. (4) Paroxysmal A-fib Impression: Pt is on Xarelto for his paroxysmal A-fib. It was stopped when he was admitted however he has been cleared to start it back up again. His rate is controlled and has been since being admitted to the unit. Plan: Restart Xarelto 20 mg PO daily for paroxysmal A-fib (5) DM2 (diabetes mellitus, type 2) Impression: Glucose this morning on 01/06 is 96. Plan: Start soft (low fiber) diet Fingerstick checks, Insulin SS coverage (6) Hard of hearing Impression: Pt requires increased volumes of dialogue to hear what is being said. He says he has hearing aids at home but does not use them. Plan: Educate him on using his hearing aids (7) Generalized weakness Impression: The patient was just discharged after incarcerated hernia bowel surgery 3 weeks ago. Plan was for home health PT and OT. Plan: Will get PT and OT eval here Resume home health PT and OT at time of discharge (8) Ileus Impression: RESOLVED SBO vs ileus, in the setting of recent small bowel resection <30days Likely this is ileus, patient has hyperactive bowel sounds (post meal), abdomen is soft, mild tenderness in all quadrants of the abdomen. Pt is currently tolerating his soft diet well with no complaints of nausea/vomiting/abdominal pain, he has been having soft stool bowl movements Small bowel follow through shows contrast media Plan: Continue with his soft (low fiber) diet. Start Metamucil to help firm up stool <Latisha Barth - Last Filed: 01/07/23 16:15> Objective - Vital Signs/Intake & Output Intake & Output: Intake & Output 01/04/23 01/05/23 01/06/23 01/07/23 23:59 23:59 23:59 23:59 Intake Total 1460 1651 1520 1200.000 Output Total 222 237 1685 1225 Balance 1210 926 -180 -25.000 - Lab Results Fish Bones: 01/07/23 06:20 01/07/23 06:20 Other Labs: Lab Results x24hrs 01/07/23 01/07/23 01/07/23 Range/Units 06:20 06:20 06:20 WBC 4.8 (4.8-10.8) x10^3/uL RBC 3.03 L (4.70-6.10) 10^6/uL Hgb 9.3 L (14.0-18.0) g/dL Hct 28.9 L (42.0-52.0) % MCV 95.4 H (80.0-94.0) fL MCH 30.7 (27.0-31.0) pg MCHC 32.2 (32.0-36.0) g/dL RDW 12.9 (12.0-15.0) % Plt Count 205 (130-450) 10^3/uL MPV 9.3 (7.4-11.4) fL Neut # (Auto) 2.8 (1.5-6.6) 10^3/uL Lymph # (Auto) 1.3 L (1.5-3.5) 10^3/uL [place] # (Auto) 0.5 (0.0-1.0) 10^3/uL Eos # (Auto) 0.1 (0.0-0.7) 10^3/uL Baso # (Auto) 0.0 (0.0-0.1) 10^3/uL Absolute Nucleated RBC 0.00 x10^3/uL Nucleated RBC % 0.0 /100WBC Sodium 131 L (135-145) mmol/L Potassium 3.4 L (3.5-4.5) mmol/L Chloride 98 L (101-111) mmol/L Carbon Dioxide 31 (21-32) mmol/L Anion Gap 2.0 L (6-13) BUN 15 (6-20) mg/dL Creatinine 0.8 (0.6-1.3) mg/dL Estimated GFR (MDRD) 91 (>89) Glucose 90 (74-104) mg/dL Calcium 8.7 (8.5-10.3) mg/dL B-Natriuretic Peptide 175 H (5-100) pg/mL
[2023-01-06] MEDS: guaiFENesin 600 MG TABLET PO SCH ×2 (09:08→21:19)
[2023-01-06] MEDS: AZITHROMYCIN INJ 500 MG in SODIUM CHLORIDE 0.9% 250 ML IV SCH (09:17)
--- NOTE | 2023-01-06 09:27 | XRAY Report ---
PROCEDURE: Chest 1 View X-Ray INDICATIONS: Worsening cough,PNA seen on previous CT abd TECHNIQUE: One view of the chest was acquired. COMPARISON: Chest x-ray 01/03/2023. FINDINGS: Surgical changes and devices: None. Lungs and pleura: Retrocardiac opacity is again noted. Blunting of left costophrenic angle. Mediastinum: Mediastinal contours appear normal. Heart size is normal. Bones and chest wall: No suspicious bony lesions. Overlying soft tissues appear unremarkable. IMPRESSION: Redemonstration of retrocardiac opacity. Blunting of the left costophrenic angle, may be related to c onsolidation, effusion or atelectasis. Reviewed by: Dallas White MD on 01/06/2023 9:26 AM PDT Approved by: Dallas White MD on 01/06/2023 9:26 AM PDT Station ID: [id number]
[2023-01-06] MEDS: PSYLLIUM PACKET PO SCH (10:50)
[2023-01-06] MEDS: LACTOBACILLUS RHAMNOSUS GG CAPSULE PO SCH (14:22)
[2023-01-06] MEDS ORDERED: MIRTAZAPINE 15 MG TABLET PO SCH (21:00)
[2023-01-06] MEDS ORDERED: TAMSULOSIN 0.4 MG CAPSULE PO SCH (21:00)
[2023-01-06] MEDS ORDERED: ATORVASTATIN 40 MG TABLET PO SCH (21:00)
[2023-01-06] MEDS: ACETAMINOPHEN 325 MG TABLET PO PRN (21:18)
[2023-01-06] MEDS: PANTOPRAZOLE 40 MG TABLET PO SCH (21:18)
[2023-01-06] MEDS: APIXABAN 5 MG TABLET PO SCH (21:19)
[2023-01-07] MEDS: SODIUM CHLORIDE FLUSH 0.9% 10 ML SYRINGE IVP SCH ×2 (01:04→08:53)
[2023-01-07] MEDS: ACETAMINOPHEN 325 MG TABLET PO PRN (01:26)
[2023-01-07 06:45] LABS: BASOPHILS % (AUTO) 0.4 %; EOSINOPHILS # (AUTO) 0.1 10^3/uL (0.0-0.7); EOSINOPHILS % (AUTO) 2.1 %; HCT - HEMATOCRIT 28.9 % (42.0-52.0); HGB - HEMOGLOBIN 9.3 g/dL (14.0-18.0); LYMPHOCYTES # (AUTO) 1.3 10^3/uL (1.5-3.5); MEAN CORPUSCULAR HEMOGLOBIN 30.7 pg (27.0-31.0); MEAN CORPUSCULAR HGB CONC 32.2 g/dL (32.0-36.0); MEAN CORPUSCULAR VOLUME 95.4 fL (80.0-94.0); MEAN PLATELET VOLUME 9.3 fL (7.4-11.4); MONOCYTES # (AUTO) 0.5 10^3/uL (0.0-1.0); MONOCYTES % (AUTO) 11.3 %; NEUTROPHILS # (AUTO) 2.8 10^3/uL (1.5-6.6); PLT - PLATELET COUNT 205 10^3/uL (130-450); RED BLOOD COUNT 3.03 10^6/uL (4.70-6.10); RED CELL DISTRIBUTION WIDTH 12.9 % (12.0-15.0); WHITE BLOOD COUNT 4.8 x10^3/uL (4.8-10.8)
[2023-01-07 06:59] LABS: CALCIUM 8.7 mg/dL (8.5-10.3); CREATININE 0.8 mg/dL (0.6-1.3); POTASSIUM 3.4 mmol/L (3.5-4.5)
[2023-01-07] MEDS ORDERED: LEVOTHYROXINE 25 MCG TABLET PO SCH (07:00)
[2023-01-07 07:44] VITALS: BP 115/73; O2SAT 96
[2023-01-07] MEDS: guaiFENesin 600 MG TABLET PO SCH (08:52)
[2023-01-07] MEDS: PSYLLIUM PACKET PO SCH (08:53)
[2023-01-07] MEDS: PANTOPRAZOLE 40 MG TABLET PO SCH (08:53)
[2023-01-07] MEDS: cefTRIAXone 1 GM in SODIUM CHLORIDE 0.9% MINIBAG 100 ML IV SCH (08:53)
[2023-01-07] MEDS: APIXABAN 5 MG TABLET PO SCH (08:53)
[2023-01-07] MEDS: LACTOBACILLUS RHAMNOSUS GG CAPSULE PO SCH (08:53)
[2023-01-07] MEDS ORDERED: CHOLECALCIFEROL 25 MCG TABLET PO SCH (09:00)
--- NOTE | 2023-01-07 10:42 | DISCHARGE SUMMARY ---
"Discharge Summary Admit Date: 01/03/23 Discharge Date: 01/07/23 Discharging Provider: Dr. Latisha Barth Primary Care Provider: Dr. Clint Peñaloza Code Status: Attempt Resuscitation Condition at Discharge: Stable Discharge Disposition: Home Health Service - DIAGNOSES Discharge Diagnoses with Status of Each Condition: (1) Pneumonia Stable, sent home with antibiotics (2) Hyponatremia Stable, patients last sodium on 01/07 was 131 (4) Paroxysmal A-fib Stable, Pt was rate controlled and placed back on his Xarelto (5) DM2 (diabetes mellitus, type 2) Stable, recent glucose on 01/07 was 90 (6) Hard of hearing Fair, Pt has hearing aids but doesn't use them (7) Generalized weakness Improving, Pt has some generalized weakness but has steadly improved since being started on a soft food diet on 01/05 (8) Ileus Resolved, Pt is able to tolerate soft food and denies any N/V abdominal pain and has bowel movements. - HPI History of Present Illness: A 87yo M with multiple medical conditions, significantly with Hx of SC, Afib on Xarelto, DM2, CKD III, hx of prostate cancer, frequent falls and recent incarcerated hernia s/p partial small bowel resection on 12/07/2022, discharged to home with home health on 12/12/2022 in stable condition. Presented to the ED for abdominal pain and with cough. Patient reports he had nausea and vomiting, difficult with urination, nonproductive cough. Patient denies fever or chills, states he hadn't pass gas, and could not recall when his last bowel movement was. Nausea is not sever, vomiting only once. No dysuria. Denies sick contact. In the ED, his vitals were in normal limits except elevated Bp. Lab showed WBC 13. Hb 10.2, Sodium 128, lactic acid normal. EKG showed no sign of ischemia, CT abdomen and pelvis showed consolidation in the left lower lobe. Which may be secondary to worsening atelectasis versus pneumonia. Also concerning for ileus versus partial small bowel obstruction. No bowel perforation. Patient has a large hiatal hernia, intra-abdominal ascites noted. Per surgical Dr. Wyatt, patient is likely having Joshua, no indication for NG placement, continue conservative management. Patient was given Azithromycin and Ceftriaxone in the ED. - CONSULTS | PROCEDURES Consultations: General Surgery upon admission to the ED - HOSPITAL COURSE Hospital Course: (1) Ileus General surgery was consulted on the patient in consideration of SBO vs ileus. In the setting of recent small bowel resection <30days it is likely he had ileus, upon admission to the ED on 01/03 he had N/V/abdominal pain and inability to hold down any solid foods. He was placed on bowel rest, and was advanced to just fluids, then soft foods and eventually had a bowel movement with no N/V or abdominal pain. (2) Hyponatremia Due to poor oral intake, Pt had a sodium of 128 on admission to the ED on 01/03 and since then it has hovered between 128-131 since being admitted. On 01/07 his sodium is 131. He had NS via IV and his diet was advanced to soft (low fiber) food to help increase and stabilize his sodium. (3) Pneumonia On 01/06 patient developed a frequent productive cough with SOB and pleuritic chest pain, his inital WBC was 13 on admission to the ED on 01/03 and it has since come down to 4.8 on 01/07. He has not needed supplemental oxygen since being here. Both his abominal/pelvis CT and Chest X-ray came back showing left lower lobe consolidation, blood cultures came back negative after 2 days. Pt was started on mucinex, robitussin DM, azithromycin and ceftriaxone for management of his pneumonia. He completed the course of azithromycin on 01/07 and his ceftriaxone is being switched too Cefdinir which is to be continued for the next 4 days. (4) Generalized weakness The patient was just discharged after incarcerated hernia bowel surgery 3 weeks ago, he was originally sent home with home care that included PT/OT, the plan is to continue home health PT and OT this time around as well. (5) Poor memory Pt was last seen here x3 weeks ago for hiatal hernia repair, and at that time there seemed to be no issues with his memory. However, during his current time here there seemed to be a decrease in his baseline of memory noticed by his nurse and me. Pt seems to not remember previous instances of conversations and brings past topics up again as if they hadn't been talked about previously. He sometimes gets off track with the topic. He is alert and aware of what is going on around him, is A&Ox3, and has no other focal nuero deficits. This could be due to the current pneumonia infection that he has. (6) Paroxysmal A-fib Pt is on Xeralto for his paroxysmal A-fib. It was stopped when he was admitted however he has been cleared to start it back up again at 20 mg PO daily. His rate has been controlled and has not required any medications for it. (7) DM2 (diabetes mellitus, type 2) Glucose has been well controlled since being here, it was 132 on 01/03 and has since been in the 90s with it being 90 on 01/07. Pt should continue with his diet along with fingerstick checks and at home medications. (8) Hard of hearing Pt requires increased volumes of dialogue to hear what is being said. He says he has hearing aids at home but does not use them. Talked with him about using his hearing aids to help with his hearing. (9) Urine retention Pt had difficulty with urination upon presentation to the ED on 01/03, a bladder scan was done and a mckinnon catheter was placed to help relieve the patients discomfort. A UA was obtained by the ED with no concerning results. Pt had increased urine retention this morning 01/07, that was relieved via strait c atheter, after which he was able to get up and relieve himself without any difficulty. - ALLERGIES Allergies/Adverse Reactions: Allergies Allergy/AdvReac Type Severity Reaction Status Date / Time No Known Drug Allergies Allergy Verified 01/03/23 21:42 - MEDICATIONS Home Medications: Ambulatory Orders Medication Instructions Recorded Confirmed Multivit-Min/Iron Fum/Folic AC 1 tab PO DAILY 05/08/15 01/04/23 [Kjebp-Ssiofsv-Yiugtunb Tablet] polyethylene glycoL 3350 [Miralax] 8.5 - 17 gm PO DAILY PRN 05/08/15 01/04/23 Tamsulosin HCl [Flomax] 0.4 mg PO HS 07/11/18 01/04/23 Levothyroxine Sodium [Synthroid] 50 mcg PO QDAC 01/22/19 01/04/23 Cimetidine 400 mg PO HS 12/08/22 01/04/23 Eszopiclone [Lunesta] 2 mg PO HS 12/08/22 01/04/23 Mirtazapine 22.5 mg PO HS 12/08/22 01/04/23 Omeprazole Magnesium 40 mg PO BID 12/08/22 01/04/23 Valsartan 160 mg PO QPM 12/08/22 01/04/23 Calcium Carbonate [Calcium] 600 mg PO DAILY 12/09/22 01/04/23 Cholecalciferol (Vitamin D3) 2,000 unit PO DAILY 12/09/22 01/04/23 [Vitamin D3] Simvastatin [Zocor] 80 mg PO HS 12/09/22 01/04/23 Rivaroxaban [Xarelto] 20 mg PO DAILY 01/04/23 01/04/23 Cefdinir 300 mg PO BID 2 Days #4 cap 01/07/23 Lactobacillus Acidophilus 1 each PO DAILY #2 cap 01/07/23 [Acidophilus Lactobacilli] guaiFENesin [Mucinex] 600 mg PO BID 2 Days #4 tablet 01/07/23 - PHYSICAL EXAM AT DISCHARGE General Appearance: positive: No acute distress, Alert Eyes Bilateral: positive: Normal inspection Neck: positive: Nml inspection Respiratory: positive: Chest non-tender, No respiratory distress, Rales (Left lower lobe ), Rhonchi (left lower lobe ) Cardiovascular: positive: Regular rate & rhythm Skin: positive: Color nml, No rash, Warm, Dry Neurologic/Psychiatric: positive: Oriented x3 - LABS Result Diagrams: 01/07/23 06:20 01/07/23 06:20 - SEPSIS Current Stage of Sepsis: Ruled out - FOLLOW UP Follow Up: See PCP after discharge. - TIME SPENT Time Spent in Discharge (Minutes): 45"
[2023-01-07] MEDS ORDERED: CALCIUM CARBONATE CHEW 500 MG TABLET PO SCH (12:00)
[2023-01-07] MEDS ORDERED: MULTIVITAMIN W/MINERALS TABLET PO SCH (12:00)
--- NOTE | 2023-01-07 12:01 | Discharge Plan ---
Discharge Plan Problem Reviewed?: Yes Disposition: 06 Home Health Service Condition: Stable Prescriptions: Lactobacillus Acidophilus [Acidophilus Lactobacilli] 1 each PO DAILY #2 cap Cefdinir 300 mg PO BID 2 Days #4 cap guaiFENesin [Mucinex] 600 mg PO BID 2 Days #4 tablet Diet: Diabetic (Easily digestable (low fiber) diet) Activity Restrictions: Activity as Tolerated Shower Restrictions: No Driving Restrictions: Yes Assistance Devices: Walker Weight Bearing: Full Weight Instruction Topics: Ileus, Pneumonia Tx Health Concerns: You were hospitalized to treat an ileus (slow passage of bowel contents) which may have been caused by your recent bowel surgery, or caused by a pneumonia that we found. You received 3 days of antibiotics for the pneumonia. You are being discharged home to take 2 more days of antibiotics and a probiotic to treat the pneumonia. Also several days of Mucinex to help with the phlegm are prescribed. All prescriptions were electronically sent to your [facility] in [place]. You may resume all your other usual pre-Hospital medications. The home health agency has been reordered to start working with you at home for strengthening, with in-home Physical Therapy and Occupational Therapy. Please see your primary care provider in the next 1 to 2 weeks for hospital follow-up visit. Plan of Treatment: As above. Care Goals: Improvement in symptoms and stabilization are the goals. Assessment: These instructions are provided for the family and as a reminder for the patient. Additional Instructions or Follow Up instructions: If you have new or worsening symptoms, call your primary care provider for advice, or come to the ER. Follow-Up Care: Home Health - PT, Home Health - OT No Smoking: If you smoke, Please STOP! Call for help. Follow-up with: Clint Johansen MD [Primary Care Provider] -
== END 2023-01-07 15:58 | disposition home health service (06) | DRG 388 ==
LOC: ED 21:32 → MS2 01-04 07:41
PROVIDERS: ADMIT Internal Medicine; ATTEND Internal Medicine
DX: K56.609 Unspecified intestinal obstruction, unspecified as to partial versus complete obstruction (principal); K44.9 Diaphragmatic hernia without obstruction or gangrene; K56.7 Ileus, unspecified; R39.198 Other difficulties with micturition; R07.9 Chest pain, unspecified; E11.9 Type 2 diabetes mellitus without complications; I48.91 Unspecified atrial fibrillation; D72.829 Elevated white blood cell count, unspecified; J18.9 Pneumonia, unspecified organism; E87.1 Hypo-osmolality and hyponatremia; I48.0 Paroxysmal atrial fibrillation; H91.90 Unspecified hearing loss, unspecified ear; R53.1 Weakness; I25.2 Old myocardial infarction; E11.22 Type 2 diabetes mellitus with diabetic chronic kidney disease; N18.30 Chronic kidney disease, stage 3 unspecified; R33.9 Retention of urine, unspecified; R41.3 Other amnesia; Z79.01 Long term (current) use of anticoagulants; Z87.891 Personal history of nicotine dependence
CPT/HCPCS: 36415; 51702; 51798; 71045; 74177; 74250; 80048; 80053; 81003; 83605; 83690; 83880; 84484; 85025; 87040; 93005; 96361; 96365; 96367; 96375; 97162; 97166; 97530; 99285; A9270; Q9963; Q9967; 81001; 87086

== ENCOUNTER 2023-01-12 15:14 | Outpatient (CLI) | payer MEDICARE, OTHER ==
[2023-01-12 15:27] LABS: BASOPHILS % (AUTO) 0.4 %; EOSINOPHILS # (AUTO) 0.1 10^3/uL (0.0-0.7); EOSINOPHILS % (AUTO) 0.9 %; HCT - HEMATOCRIT 34.1 % (42.0-52.0); LYMPHOCYTES # (AUTO) 1.7 10^3/uL (1.5-3.5); LYMPHOCYTES % (AUTO) 23.9 %; MEAN CORPUSCULAR HEMOGLOBIN 30.5 pg (27.0-31.0); MEAN CORPUSCULAR HGB CONC 32.3 g/dL (32.0-36.0); MEAN CORPUSCULAR VOLUME 94.5 fL (80.0-94.0); MEAN PLATELET VOLUME 8.6 fL (7.4-11.4); MONOCYTES # (AUTO) 0.6 10^3/uL (0.0-1.0); MONOCYTES % (AUTO) 9.3 %; NEUTROPHILS # (AUTO) 4.5 10^3/uL (1.5-6.6); NEUTROPHILS % (AUTO) 65.1 %; PLT - PLATELET COUNT 245 10^3/uL (130-450); RED BLOOD COUNT 3.61 10^6/uL (4.70-6.10); WHITE BLOOD COUNT 6.9 x10^3/uL (4.8-10.8)
[2023-01-12 16:12] LABS: ALBUMIN/GLOBULIN RATIO 1.5 (1.0-2.2); BILIRUBIN,TOTAL 0.3 mg/dL (0.2-1.0); CALCIUM 9.5 mg/dL (8.5-10.3); POTASSIUM 4.4 mmol/L (3.5-4.5); TOTAL PROTEIN 6.6 g/dL (6.4-8.9)
--- NOTE | 2023-01-12 20:05 | XRAY Report ---
PROCEDURE: Chest 2 View X-Ray INDICATIONS: PNEUMONIA TECHNIQUE: 2 views of the chest were obtained. COMPARISON: None. FINDINGS: Surgical changes and devices: None. Lungs and pleura: There is hyperinflation and chronic interstitial changes without focal infiltrate, pneumothorax or pleural effusion. Patient's mandible obscures the lung apices. Mediastinum: Mediastinal contours appear normal. Heart size is enlarged. Atherosclerotic vascular c alcification noted in the aortic arch. Large retrocardiac hiatal hernia Bones and chest wall: No suspicious bony lesions. Overlying soft tissues appear unremarkable. IMPRESSION: Hyperinflation chronic interstitial changes. Large retrocardiac hiatal hernia associated with atelectasis and/or infiltrate, stable Reviewed by: Rai Sood MD on 01/12/2023 7:04 PM [facility] Approved by: Rai Sood MD on 01/12/2023 7:04 PM [facility] Station ID: [id number]
--- NOTE | 2023-01-13 12:36 | XRAY Report ---
PROCEDURE: Abdomen 2 View X-Ray INDICATIONS: CONSTIPATION TECHNIQUE: 2 views of the abdomen were acquired. COMPARISON: CT abdomen pelvis 01/04/2023 FINDINGS: Large amount stool present in the colon. Gaseous distention of small bowel and colon is present. No d efinite evidence of pneumoperitoneum however upright images are limited by difficulty with patient po sitioning. Prostate brachytherapy seeds present. IMPRESSION: Large amount of stool present in the colon. Gaseous distention of small bowel and colon is present, n onspecific, could be seen in the setting of an ileus, clinical correlation is recommended. Mechanical obstruction not excludable. Reviewed by: Christ Machado MD on 01/13/2023 12:35 PM PDT Approved by: Christ Machado MD on 01/13/2023 12:35 PM PDT Station ID: [id number]
== END 2023-01-12 15:15 | disposition home or self-care (01) ==
LOC: DI 15:14
PROVIDERS: ATTEND Physician Assistant Medical
DX: K59.00 Constipation, unspecified (principal); J18.9 Pneumonia, unspecified organism; E87.1 Hypo-osmolality and hyponatremia; K44.9 Diaphragmatic hernia without obstruction or gangrene
CPT/HCPCS: 36415; 80053; 85025

== ENCOUNTER 2023-03-04 09:25 | Outpatient (CLI) | payer MEDICARE, OTHER | END 2023-03-04 23:59 | disposition critical access hospital (66) | LOC: EMS 09:25 | DX: R53.1 Weakness (principal); R41.0 Disorientation, unspecified; K59.00 Constipation, unspecified | CPT/HCPCS: A0425; A0429 ==

== ENCOUNTER 2023-03-04 09:44 | Emergency (ER) | payer MEDICARE, OTHER ==
[2023-03-04] MEDS ORDERED: ACETAMINOPHEN 500 MG TABLET PO STA (09:49)
--- NOTE | 2023-03-04 09:50 | ED Physician Documentation ---
PD HPI HEAD INJURY - Stated complaint Stated Complaint: NOT FEELING WELL - History obtained from History obtained from: Patient - Additional information Additional information: 87-year-old gentleman presents by ambulance for nonspecific complaints. States he fell yesterday and hit his head. He is noted to have A-fib and is on Xarelto. Has a mild headache. States he just feels generally lousy. His chief complaint to his daughter that necessitated the ambulance being summoned this morning was "I feel like I am going to ." No nausea. He has been moving his bowels well. He was admitted here with an ileus early last month. Discharge summary reviewed. Prior to that about a month prior he had a inguinal hernia repair. The ileus resolved with conservative/nonoperative management. PD PAST MEDICAL HISTORY - Past Medical History Cardiovascular: [place], Atrial fibrillation Respiratory: None Neuro: None Endocrine/Autoimmune: Type 2 diabetes GI: None : None, Kidney stones HEENT: Chronic hearing loss Psych: Depression Musculoskeletal: Osteoarthritis Derm: None - Past Surgical History Past Surgical History: No General: Bowel surgery, Hiatal hernia repair Ortho: Knee replacement Cardiovascular: Coronary stent HEENT: Cataracts, Tonsil/Adenoidectomy - Present Medications Home Medications: Ambulatory Orders Medication Instructions Recorded Confirmed Multivit-Min/Iron Fum/Folic AC 1 tab PO DAILY 05/08/15 03/04/23 [Qanoj-Dcyifha-Xkznplta Tablet] polyethylene glycoL 3350 [Miralax] 8.5 - 17 gm PO DAILY PRN 05/08/15 03/04/23 Tamsulosin HCl [Flomax] 0.4 mg PO HS 07/11/18 03/04/23 Levothyroxine Sodium [Synthroid] 50 mcg PO QDAC 01/22/19 03/04/23 Cimetidine 400 mg PO HS 12/08/22 03/04/23 Eszopiclone [Lunesta] 2 mg PO HS 12/08/22 03/04/23 Mirtazapine 22.5 mg PO HS 12/08/22 03/04/23 Omeprazole Magnesium 40 mg PO BID 12/08/22 03/04/23 Valsartan 160 mg PO QPM 12/08/22 03/04/23 Calcium Carbonate [Calcium] 600 mg PO DAILY 12/09/22 03/04/23 Cholecalciferol (Vitamin D3) 2,000 unit PO DAILY 12/09/22 03/04/23 [Vitamin D3] Simvastatin [Zocor] 80 mg PO HS 12/09/22 03/04/23 Rivaroxaban [Xarelto] 20 mg PO DAILY 01/04/23 03/04/23 Cefdinir 300 mg PO BID 2 Days #4 cap 01/07/23 03/04/23 Lactobacillus Acidophilus 1 each PO DAILY #2 cap 01/07/23 03/04/23 [Acidophilus Lactobacilli] guaiFENesin [Mucinex] 600 mg PO BID 2 Days #4 tablet 01/07/23 03/04/23 Amitriptyline [Elavil] 10 mg PO HS #60 tablet 03/04/23 - Allergies Allergies/Adverse Reactions: Allergies Allergy/AdvReac Type Severity Reaction Status Date / Time No Known Drug Allergies Allergy Verified 03/04/23 09:50 - Social History Does the pt smoke?: No Smoking Status: Former smoker Does the pt drink ETOH?: No Does the pt have substance abuse?: No - Immunizations Immunizations are current?: Yes - POLST Patient has POLST: No PD ED PE NORMAL - Vitals Vital signs reviewed: Yes - General General: Alert and oriented X 3, No acute distress - HEENT HEENT: PERRL, EOMI, Other (Band-Aid on anterior scalp with abrasion underlying it.) - Neck Neck: Supple, no meningeal sign, No bony TTP - Cardiac Cardiac: No murmur, Other (Irregularly irregular) - Respiratory Respiratory: No respiratory distress, Clear bilaterally - Abdomen Abdomen: Normal bowel sounds, Soft, Non tender - Neuro Neuro: Alert and oriented X 3 Eye Opening: Spontaneous Motor: Obeys Commands Verbal: Oriented GCS Score: 15 Results - Vitals Vitals: Vital Signs - 24 hr 03/04/23 03/04/23 03/04/23 09:46 10:31 11:32 Temperature 36.9 C Heart Rate 90 69 51 L Respiratory 20 20 14 Rate Blood Pressure 132/77 H 140/84 H 125/75 O2 Saturation 95 97 98 03/04/23 12:12 Temperature Heart Rate 69 Respiratory 20 Rate Blood Pressure 133/74 H O2 Saturation 97 Oxygen O2 Source Room air - EKG (time done) 1007 EKG releavant findings:: EKG personally interpreted by author of this note. Relevant findings are: Rate: Rate (enter#) (75) Rhythm: Atrial fibrillation (With single PVC) [place]: Normal QRS: Low voltage Ischemia: Normal ST segments - Labs Labs: Laboratory Tests 03/04/23 03/04/23 03/04/23 09:56 09:56 09:56 WBC 5.7 RBC 3.91 L Hgb 11.8 L Hct 36.0 L MCV 92.1 MCH 30.2 MCHC 32.8 RDW 12.8 Plt Count 192 MPV 9.1 Neut # (Auto) 4.0 Lymph # (Auto) 1.0 L [place] # (Auto) 0.6 Eos # (Auto) 0.1 Baso # (Auto) 0.0 Absolute Nucleated RBC 0.00 Nucleated RBC % 0.0 PT 13.9 H INR 1.3 H Sodium 128 L Potassium 3.7 Chloride 95 L Carbon Dioxide 30 Anion Gap 3.0 L BUN 24 H Creatinine 1.0 Estimated GFR (MDRD) 71 L Glucose 109 H Calcium 9.5 Total Bilirubin 0.5 AST 18 ALT 8 L Alkaline Phosphatase 54 Total Protein 6.0 L Albumin 3.7 Globulin 2.3 Albumin/Globulin Ratio 1.6 - Rads (name of study) CT of the head and C-spine show chronic changes without findings from acute trauma. Relevant Findings:: Final report received, EMP independent interpretation of test PD Medical Decision Making - ED course ED course: 87-year-old gentleman brought in and called a modified trauma after triage as he has a head injury and is on a DOAC. EKG with chronic A-fib, no ischemia. No chest pain or trouble breathing. Labs reviewed, has chronic anemia, today's values are actually are better than usual. Slight decrease in sodium level but hyponatremia is chronic for him. Other indices are normal/unremarkable. I had an extensive talk with daughter by phone who feels he is profoundly depressed despite remeron at 22.5mg/day. He has fecal incontinence and won't go outside much anymore. She wonders if he has IBS, as he has diarrhea->constipation->diarrhea. They've been using loperamide. Departure - Departure Disposition: 01 Home, Self Care Clinical Impression: Anticoagulant long-term use, Hyponatremia Head injury Qualifiers: Encounter type: initial encounter Qualified Code(s): S09.90XA - Unspecified injury of head, initial encounter Condition: Stable Record reviewed to determine appropriate education?: Yes Instructions: ED Head Injury Closed Prescriptions: Amitriptyline [Elavil] 10 mg PO HS #60 tablet Comments: No new or worrisome findings today, no evidence of serious head injury on head and neck CT. Call your doctor to arrange a follow-up appointment, make the next available appointment. In the interim, return anytime if worse or if new symptoms develop. I am prescribing amitryptiline which may help with IBS symptoms. I also worry that you may have depression and recommend you find and engage with a counsellor. One option would be: [facility] services in [place] [address] [phone] Also, I emailed Dr Johansen about a possible palliative care referral. It is important in later life to maintain some level of physical activity and recommend you try to take a walk at least every other day if not every day. Forms: PCP List Discharge Date/Time: 03/04/23 13:43
[2023-03-04 10:07] LABS: BASOPHILS % (AUTO) 0.2 %; EOSINOPHILS # (AUTO) 0.1 10^3/uL (0.0-0.7); EOSINOPHILS % (AUTO) 0.9 %; HGB - HEMOGLOBIN 11.8 g/dL (14.0-18.0); LYMPHOCYTES % (AUTO) 17.3 %; MEAN CORPUSCULAR HEMOGLOBIN 30.2 pg (27.0-31.0); MEAN CORPUSCULAR HGB CONC 32.8 g/dL (32.0-36.0); MEAN CORPUSCULAR VOLUME 92.1 fL (80.0-94.0); MEAN PLATELET VOLUME 9.1 fL (7.4-11.4); MONOCYTES # (AUTO) 0.6 10^3/uL (0.0-1.0); MONOCYTES % (AUTO) 9.9 %; NEUTROPHILS % (AUTO) 71.5 %; PLT - PLATELET COUNT 192 10^3/uL (130-450); RED BLOOD COUNT 3.91 10^6/uL (4.70-6.10); RED CELL DISTRIBUTION WIDTH 12.8 % (12.0-15.0); WHITE BLOOD COUNT 5.7 x10^3/uL (4.8-10.8)
[2023-03-04 10:13] LABS: INR 1.3 (0.8-1.2); PT - PROTHROMBIN TIME 13.9 secs (9.9-12.6)
[2023-03-04 10:19] LABS: ALBUMIN 3.7 g/dL (3.2-5.5); ALBUMIN/GLOBULIN RATIO 1.6 (1.0-2.2); BILIRUBIN,TOTAL 0.5 mg/dL (0.2-1.0); CALCIUM 9.5 mg/dL (8.5-10.3); POTASSIUM 3.7 mmol/L (3.5-4.5)
--- NOTE | 2023-03-04 11:38 | CT Report ---
PROCEDURE: HEAD WO INDICATIONS: head inj TECHNIQUE: Noncontrast 4.5 mm thick angled axial sections acquired from the foramen magnum to the vertex. For r adiation dose reduction, the following was used: automated exposure control, adjustment of mA and/or kV according to patient size. COMPARISON: None. FINDINGS: Image quality: Excellent. CSF spaces: Basal cisterns are patent. No extra-axial fluid collections. Ventricles are normal in size and shape. Brain: No midline shift. No intracranial masses or hemorrhage. Ramsey-white matter interface is norm al. Subcortical and periventricular hypodensities are consistent with microvascular ischemic disease and age-related cerebral volume loss. Skull and face: Calvarium and visualized facial bones are intact, without suspicious lesions. Sinuses: Visualized sinuses and mastoids are clear. IMPRESSION: 1. No acute intracranial abnormality. 2. Microvascular ischemic disease and age-related cerebral volume loss. Reviewed by: Ryan Shepard on 03/04/2023 10:37 AM [facility] Approved by: Ryan Shepard on 03/04/2023 10:37 AM [facility] Station ID: [id number]
--- NOTE | 2023-03-04 11:41 | CT Report ---
PROCEDURE: CERVICAL SPINE WO INDICATIONS: head inj TECHNIQUE: Noncontrast 3 mm thick sections acquired from the skull base to the T4 level. Sagittal and coronal r eformats were then constructed. For radiation dose reduction, the following was used: automated exp osure control, adjustment of mA and/or kV according to patient size. COMPARISON: None. FINDINGS: Image quality: Excellent. Bones: No fractures or dislocations. Visualized superior ribs are intact. Degenerative changes of C6-7 and C5-6 with disc space narrowing and anterior osteophytes at these levels. C5-6 appears to hav e bony fusion. Anterior osteophytes are also seen at multiple additional levels. Facet arthrosis at C 4-5 with grade 1 anterolisthesis. Soft tissues: Prevertebral soft tissues are normal in thickness. No paravertebral hematomas. No ap ical pneumothoraces. IMPRESSION: 1. No acute traumatic abnormality of the cervical spine. 2. Multilevel degenerative changes. Reviewed by: Ryan Shepard on 03/04/2023 10:39 AM [facility] Approved by: Ryan Shepard on 03/04/2023 10:39 AM [facility] Station ID: [id number]
[2023-03-04 12:14] VITALS: BP 133/74; O2SAT 97
[2023-03-04] MEDS ORDERED: MORPHINE 2 MG/ML CARPUJECT IVP STA (12:45)
[2023-03-04] MEDS ORDERED: METOCLOPRAMIDE 10 MG/2 ML VIAL IVP STA (12:45)
== END 2023-03-04 13:43 | disposition home or self-care (01) ==
LOC: EDUNIT# → ED 09:44
DX: S09.90XA Unspecified injury of head, initial encounter (principal); W19.XXXA Unspecified fall, initial encounter; E87.1 Hypo-osmolality and hyponatremia; I48.91 Unspecified atrial fibrillation; Z79.01 Long term (current) use of anticoagulants; E11.9 Type 2 diabetes mellitus without complications; Z87.891 Personal history of nicotine dependence
CPT/HCPCS: 36415; 70450; 72125; 80053; 85025; 85610; 93005; 99284; A9270

== ENCOUNTER 2023-04-08 14:18 | Outpatient (CLI) | payer MEDICARE, OTHER ==
--- NOTE | 2023-04-08 19:27 | CT Report ---
PROCEDURE: Head WO INDICATIONS: COGNITIVE CHANGES TECHNIQUE: Noncontrast 4.5 mm thick angled axial sections acquired from the foramen magnum to the vertex. For r adiation dose reduction, the following was used: automated exposure control, adjustment of mA and/or kV according to patient size. COMPARISON: 03/04/23. FINDINGS: Image quality: Excellent. CSF spaces: Basal cisterns are patent. No extra-axial fluid collections. Ventricles are normal in size and shape. Brain: No midline shift. No intracranial masses or hemorrhage. Ramsey-white matter interface is norm al. Age-related volume loss and small vessel ischemic change. Skull and face: Calvarium and visualized facial bones are intact, without suspicious lesions. Sinuses: Visualized sinuses and mastoids are clear. IMPRESSION: No acute intracranial pathology. Stable findings. Age-related volume loss and small vessel ischemic c hange. Reviewed by: Gamaliel Kapoor MD on 04/08/2023 7:25 PM PST Approved by: Gamaliel Kapoor MD on 04/08/2023 7:25 PM PST Station ID: [id number]
== END 2023-04-08 14:19 | disposition home or self-care (01) ==
LOC: DI 14:18
PROVIDERS: ATTEND Internal Medicine
DX: R41.89 Other symptoms and signs involving cognitive functions and awareness (principal)

== ENCOUNTER 2023-04-30 12:09 | Outpatient (CLI) | payer MEDICARE, OTHER | END 2023-04-30 23:59 | disposition critical access hospital (66) | LOC: EMS 12:09 | DX: R41.82 Altered mental status, unspecified (principal); R51.9 Headache, unspecified; H53.9 Unspecified visual disturbance; R53.1 Weakness; I95.9 Hypotension, unspecified; R29.6 Repeated falls; S00.03XA Contusion of scalp, initial encounter; W18.30XA Fall on same level, unspecified, initial encounter; Y92.009 Unspecified place in unspecified non-institutional (private) residence as the place of occurrence of the external cause; Z79.01 Long term (current) use of anticoagulants | CPT/HCPCS: A0425; A0427 ==

== ENCOUNTER 2023-04-30 12:40 | Inpatient (IN) | payer MEDICARE, OTHER ==
--- NOTE | 2023-04-30 12:52 | ED Physician Documentation ---
History of Present Illness - Stated complaint Stated Complaint: GLF - History obtained from History obtained from: Patient, EMS - Additonal information Additional information: Patient is an 87-year-old male with a history of A-fib on Xarelto presenting for evaluation of generalized weakness and multiple falls over the past few days. Patient lives with family and had another fall today where he did sustain an abrasion to the back of his head. Patient states that he feels very weak. EMS states that he just was not able to even stand with them. Their initial blood pressures were in the 60s which have improved to the 80s with IV fluids. Patient does report having congestion recently. Denies headache, chest pain, shortness of air. Review of Systems Constitutional: denies: Fever Nose: reports: Congestion Cardiac: denies: Chest pain / pressure Respiratory: denies: Dyspnea GI: denies: Abdominal Pain Neurologic: reports: Generalized weakness PD PAST MEDICAL HISTORY - Past Medical History Cardiovascular: [place], Atrial fibrillation Respiratory: None Neuro: None Endocrine/Autoimmune: Type 2 diabetes GI: None : None, Kidney stones HEENT: Chronic hearing loss Psych: Depression Musculoskeletal: Osteoarthritis Derm: None - Past Surgical History Past Surgical History: No General: Bowel surgery, Hiatal hernia repair Ortho: Knee replacement Cardiovascular: Coronary stent HEENT: Cataracts, Tonsil/Adenoidectomy - Present Medications Home Medications: Ambulatory Orders Medication Instructions Recorded Confirmed Multivit-Min/Iron Fum/Folic AC 1 tab PO DAILY 05/08/15 03/04/23 [Psuqb-Afvckty-Apzqnpwr Tablet] polyethylene glycoL 3350 [Miralax] 8.5 - 17 gm PO DAILY PRN 05/08/15 03/04/23 Tamsulosin HCl [Flomax] 0.4 mg PO HS 07/11/18 03/04/23 Levothyroxine Sodium [Synthroid] 50 mcg PO QDAC 01/22/19 03/04/23 Cimetidine 400 mg PO HS 12/08/22 03/04/23 Eszopiclone [Lunesta] 2 mg PO HS 12/08/22 03/04/23 Mirtazapine 22.5 mg PO HS 12/08/22 03/04/23 Omeprazole Magnesium 40 mg PO BID 12/08/22 03/04/23 Valsartan 160 mg PO QPM 12/08/22 03/04/23 Calcium Carbonate [Calcium] 600 mg PO DAILY 12/09/22 03/04/23 Cholecalciferol (Vitamin D3) 2,000 unit PO DAILY 12/09/22 03/04/23 [Vitamin D3] Simvastatin [Zocor] 80 mg PO HS 12/09/22 03/04/23 Rivaroxaban [Xarelto] 20 mg PO DAILY 01/04/23 03/04/23 Cefdinir 300 mg PO BID 2 Days #4 cap 01/07/23 03/04/23 Lactobacillus Acidophilus 1 each PO DAILY #2 cap 01/07/23 03/04/23 [Acidophilus Lactobacilli] guaiFENesin [Mucinex] 600 mg PO BID 2 Days #4 tablet 01/07/23 03/04/23 Amitriptyline [Elavil] 10 mg PO HS #60 tablet 03/04/23 - Allergies Allergies/Adverse Reactions: Allergies Allergy/AdvReac Type Severity Reaction Status Date / Time No Known Drug Allergies Allergy Verified 04/30/23 12:54 - Social History Does the pt smoke?: No Smoking Status: Former smoker Does the pt drink ETOH?: No Does the pt have substance abuse?: No - Immunizations Immunizations are current?: Yes - POLST Patient has POLST: No PD ED PE NORMAL - General General: Alert and oriented X 3, No acute distress, Well developed/nourished - HEENT HEENT: PERRL, EOMI, Moist mucous membranes, Pharynx benign, Other (Abrasion to posterior scalp) - Neck Neck: Supple, no meningeal sign, No bony TTP - Cardiac Cardiac: Strong equal pulses, Other (Irregularly irregular, normal rate) - Respiratory Respiratory: No respiratory distress, Clear bilaterally - Abdomen Abdomen: Normal bowel sounds, Soft, Non tender, Non distended - Derm Derm: Warm and dry - Extremities Extremities: Other (Bruising to right forearm/elbow, good range of motion) - Neuro Neuro: Alert and oriented X 3, No motor deficit, Normal speech Results - Vitals Vitals: Vital Signs - 24 hr 04/30/23 04/30/23 04/30/23 12:47 13:10 14:00 Temperature 36.0 C L Heart Rate 60 71 70 Respiratory 18 17 15 Rate Blood Pressure 80/44 L 93/45 L 124/66 O2 Saturation 97 97 95 04/30/23 04/30/2324 14:30 15:00 15:30 Temperature Heart Rate 69 61 58 L Respiratory 15 16 14 Rate Blood Pressure 123/73 122/83 H 130/71 O2 Saturation 94 98 95 04/30/23 04/30/23 16:00 16:30 Temperature Heart Rate 61 67 Respiratory 12 14 Rate Blood Pressure 118/78 126/84 H O2 Saturation 96 97 Oxygen O2 Source Room air - EKG (time done) 1251 EKG releavant findings:: EKG personally interpreted by author of this note. Relevant findings are: Rate 72, atrial fibrillation, PVCs - Labs Labs: Laboratory Tests 04/30/23 04/30/23 04/30/23 12:53 12:53 12:53 WBC 6.0 RBC 3.51 L Hgb 10.7 L Hct 31.3 L MCV 89.2 MCH 30.5 MCHC 34.2 RDW 12.7 Plt Count 184 MPV 9.4 Neut # (Auto) 4.7 Lymph # (Auto) 0.6 L Mcmullen # (Auto) 0.6 Eos # (Auto) 0.0 Baso # (Auto) 0.0 Absolute Nucleated RBC 0.00 Nucleated RBC % 0.0 PT 15.8 H INR 1.5 H Sodium 124 L Potassium 3.5 Chloride 92 L Carbon Dioxide 26 Anion Gap 6.0 BUN 19 Creatinine 1.0 Estimated GFR (MDRD) 71 L Glucose 168 H POC Whole Bld Glucose Lactic Acid Calcium 8.5 Magnesium Total Bilirubin 0.8 AST 26 ALT 13 Alkaline Phosphatase 48 Troponin I High Sens Total Protein 5.6 L Albumin 3.3 Globulin 2.3 Albumin/Globulin Ratio 1.4 Lipase 18 Urine Color Urine Clarity Urine pH Ur Specific [place] Urine Protein Urine Glucose (UA) Urine Ketones Urine Occult Blood Urine Nitrite Urine Bilirubin Urine Urobilinogen Ur Leukocyte Esterase Ur Microscopic Review Urine Culture Comments Nasal Adenovirus (PCR) Nasal B. parapertussis DNA (PCR) Nasal Coronavir 229E PCR Nasal Coronavir HKU1 PCR Nasal Coronavir NL63 PCR Nasal Coronavir OC43 PCR Nasal Enterovir/Rhinovir PCR Nasal Influenza B PCR Nasal Influenza A PCR Nasal Parainfluen 1 PCR Nasal Parainfluen 2 PCR Nasal Parainfluen 3 PCR Nasal Parainfluen 4 PCR Nasal RSV (PCR) Nasal B.pertussis DNA PCR Nasal C.pneumoniae (PCR) [place] Human Metapneumo PCR Nasal M.pneumoniae (PCR) Nasal SARS-CoV-2 (PCR) 04/30/23 04/30/23 04/30/23 12:53 12:53 12:53 WBC RBC Hgb Hct MCV MCH MCHC RDW Plt Count MPV Neut # (Auto) Lymph # (Auto) Mcmullen # (Auto) Eos # (Auto) Baso # (Auto) Absolute Nucleated RBC Nucleated RBC % PT INR Sodium Potassium Chloride Carbon Dioxide Anion Gap BUN Creatinine Estimated GFR (MDRD) Glucose POC Whole Bld Glucose Lactic Acid 1.1 Calcium Magnesium 1.3 L Total Bilirubin AST ALT Alkaline Phosphatase Troponin I High Sens 10.2 Total Protein Albumin Globulin Albumin/Globulin Ratio Lipase Urine Color Urine Clarity Urine pH Ur Specific [place] Urine Protein Urine Glucose (UA) Urine Ketones Urine Occult Blood Urine Nitrite Urine Bilirubin Urine Urobilinogen Ur Leukocyte Esterase Ur Microscopic Review Urine Culture Comments Nasal Adenovirus (PCR) Nasal B. parapertussis DNA (PCR) Nasal Coronavir 229E PCR Nasal Coronavir HKU1 PCR Nasal Coronavir NL63 PCR Nasal Coronavir OC43 PCR Nasal Enterovir/Rhinovir PCR Nasal Influenza B PCR Nasal Influenza A PCR Nasal Parainfluen 1 PCR Nasal Parainfluen 2 PCR Nasal Parainfluen 3 PCR Nasal Parainfluen 4 PCR Nasal RSV (PCR) Nasal B.pertussis DNA PCR Nasal C.pneumoniae (PCR) [place] Human Metapneumo PCR Nasal M.pneumoniae (PCR) Nasal SARS-CoV-2 (PCR) 04/30/23 04/30/23 04/30/23 13:06 13:15 15:44 WBC RBC Hgb Hct MCV MCH MCHC RDW Plt Count MPV Neut # (Auto) Lymph # (Auto) Mcmullen # (Auto) Eos # (Auto) Baso # (Auto) Absolute Nucleated RBC Nucleated RBC % PT INR Sodium Potassium Chloride Carbon Dioxide Anion Gap BUN Creatinine Estimated GFR (MDRD) Glucose POC Whole Bld Glucose 153 H Lactic Acid Calcium Magnesium Total Bilirubin AST ALT Alkaline Phosphatase Troponin I High Sens Total Protein Albumin Globulin Albumin/Globulin Ratio Lipase Urine Color YELLOW Urine Clarity CLEAR Urine pH 6.0 Ur Specific [place] 1.015 Urine Protein NEGATIVE Urine Glucose (UA) NEGATIVE Urine Ketones NEGATIVE Urine Occult Blood NEGATIVE Urine Nitrite NEGATIVE Urine Bilirubin NEGATIVE Urine Urobilinogen 1 (NORMAL) Ur Leukocyte Esterase NEGATIVE Ur Microscopic Review NOT INDICATED Urine Culture Comments NOT INDICATED Nasal Adenovirus (PCR) NOT DETECTED Nasal B. parapertussis DNA (PCR) NOT DETECTED Nasal Coronavir 229E PCR NOT DETECTED Nasal Coronavir HKU1 PCR NOT DETECTED Nasal Coronavir NL63 PCR NOT DETECTED Nasal Coronavir OC43 PCR NOT DETECTED Nasal Enterovir/Rhinovir PCR DETECTED A Nasal Influenza B PCR NOT DETECTED Nasal Influenza A PCR NOT DETECTED Nasal Parainfluen 1 PCR NOT DETECTED Nasal Parainfluen 2 PCR NOT DETECTED Nasal Parainfluen 3 PCR NOT DETECTED Nasal Parainfluen 4 PCR NOT DETECTED Nasal RSV (PCR) NOT DETECTED Nasal B.pertussis DNA PCR NOT DETECTED Nasal C.pneumoniae (PCR) NOT DETECTED [place] Human Metapneumo PCR NOT DETECTED Nasal M.pneumoniae (PCR) NOT DETECTED Nasal SARS-CoV-2 (PCR) NOT DETECTED PD Medical Decision Making - ED course Complexity details: reviewed results, re-evaluated patient, d/w patient ED course: Patient is an 87-year-old male presenting for evaluation of generalized weakness and multiple falls recently.He did sustain a head injury with an abrasion to his head and is on Xarelto. He was noted to be hypotensive for EMS. This did start to improve with IV fluids. Here his neuroexam appears to be normal with no focal deficits. He was given a tetanus booster given the abrasion to his head. A CT head and cervical spine were obtained. Labs including CBC, chemistries, blood cultures, lactic, urinalysis, respiratory swab and chest x- ray were also obtained and reviewed. Labs are significant for hyponatremia with a sodium of 124. Prior labs from last February show sodium of 128 but previous to that he was primarily in the 130 range. I do suspect that his weakness could be related to the hyponatremia. His magnesium is also low at 1.3. Patient was given IV fluids along with IV magnesium. His respiratory swab is positive for rhinovirus. His chest x-ray which I reviewed is negative for consolidation. His urine is negative for infection. Given his initial hypotension, weakness and hyponatremia I do think patient requires further treatment in the hospital. His blood pressure has improved with fluids. Presented the case to Dr. Barth will admit for further management. Departure - Departure Disposition: 66 [facility] DC/Xfer Clinical Impression: Hyponatremia, Hypotension, Weakness, Rhinovirus, Hypomagnesemia Condition: Good Forms: PCP List
[2023-04-30 13:01] LABS: BASOPHILS % (AUTO) 0.3 %; EOSINOPHILS % (AUTO) 0.7 %; HCT - HEMATOCRIT 31.3 % (42.0-52.0); HGB - HEMOGLOBIN 10.7 g/dL (14.0-18.0); LYMPHOCYTES # (AUTO) 0.6 10^3/uL (1.5-3.5); LYMPHOCYTES % (AUTO) 10.7 %; MEAN CORPUSCULAR HEMOGLOBIN 30.5 pg (27.0-31.0); MEAN CORPUSCULAR HGB CONC 34.2 g/dL (32.0-36.0); MEAN CORPUSCULAR VOLUME 89.2 fL (80.0-94.0); MEAN PLATELET VOLUME 9.4 fL (7.4-11.4); MONOCYTES # (AUTO) 0.6 10^3/uL (0.0-1.0); MONOCYTES % (AUTO) 10.2 %; NEUTROPHILS # (AUTO) 4.7 10^3/uL (1.5-6.6); NEUTROPHILS % (AUTO) 77.9 %; PLT - PLATELET COUNT 184 10^3/uL (130-450); RED BLOOD COUNT 3.51 10^6/uL (4.70-6.10); RED CELL DISTRIBUTION WIDTH 12.7 % (12.0-15.0)
[2023-04-30] MEDS: SODIUM CHLORIDE 0.9% 1,000 ML IV STA ×2 (13:10→15:38)
[2023-04-30 13:12] LABS: INR 1.5 (0.8-1.2); PT - PROTHROMBIN TIME 15.8 secs (9.9-12.6)
[2023-04-30 13:13] LABS: ALBUMIN 3.3 g/dL (3.2-5.5); ALBUMIN/GLOBULIN RATIO 1.4 (1.0-2.2); BILIRUBIN,TOTAL 0.8 mg/dL (0.2-1.0); CALCIUM 8.5 mg/dL (8.5-10.3); POTASSIUM 3.5 mmol/L (3.5-4.5); TOTAL PROTEIN 5.6 g/dL (6.4-8.9)
[2023-04-30 14:17] LABS: B. PARAPERTUSSIS- RESP PCR PAN NOT DETECTED; B. PERTUSSIS- RESP PCR PANEL NOT DETECTED; C. PNEUMONIAE- RESP PCR PANEL NOT DETECTED; CORONAVIRUS 229E-RESP PCR NOT DETECTED; CORONAVIRUS HKU1-RESP PCR NOT DETECTED; CORONAVIRUS NL63-RESP PCR NOT DETECTED; CORONAVIRUS OC43-RESP PCR NOT DETECTED; HUMAN METAPNEUMOVIRUS NOT DETECTED; INFLUENZA A- RESP PCR PANEL NOT DETECTED; INFLUENZA B - RESP PCR PANEL NOT DETECTED; M. PNEUMONIAE- RESP PCR PANEL NOT DETECTED; PARAINFLUENZA VIRUS 1 NOT DETECTED; PARAINFLUENZA VIRUS 2 NOT DETECTED; PARAINFLUENZA VIRUS 3 NOT DETECTED; PARAINFLUENZA VIRUS 4 NOT DETECTED; RHINOVIRUS/ENTEROVIRUS DETECTED; RSV- RESP PCR PANEL NOT DETECTED; SARS-CoV-2 -RESP PCR PANEL NOT DETECTED
--- NOTE | 2023-04-30 14:24 | CT Report ---
PROCEDURE: Head WO INDICATIONS: syncope/head injury on Xarelto TECHNIQUE: Noncontrast 4.5 mm thick angled axial sections acquired from the foramen magnum to the vertex. For r adiation dose reduction, the following was used: automated exposure control, adjustment of mA and/or kV according to patient size. COMPARISON: Head CT 04/08/2023. FINDINGS: Image quality: Excellent. CSF spaces: Basal cisterns are patent. No extra-axial fluid collections. Ventricles are normal in size and shape. Brain: No midline shift. No intracranial masses or hemorrhage. No area of hypodensity in a vascula r distribution to suggest acute infarction. There is periventricular hypodensity consistent with piano player nydia microvascular ischemic disease. Age-related parenchymal loss. Skull and face: Calvarium and visualized facial bones are intact, without suspicious lesions. Sinuses: Visualized sinuses and mastoids are clear. IMPRESSION: No acute intracranial pathology. No interval change appreciated. Chronic microvascular ischemic disease. Age-related parenchymal loss. Reviewed by: Abdias Martínez MD on 04/30/2023 2:23 PM PST Approved by: Abdias Martínez MD on 04/30/2023 2:23 PM PST Station ID: [id number]
--- NOTE | 2023-04-30 14:29 | CT Report ---
PROCEDURE: Cervical Spine WO INDICATIONS: head injury/syncope TECHNIQUE: Noncontrast 3 mm thick sections acquired from the skull base to the T4 level. Sagittal and coronal r eformats were then constructed. For radiation dose reduction, the following was used: automated exp osure control, adjustment of mA and/or kV according to patient size. COMPARISON: CT cervical spine 03/04/2023. FINDINGS: Image quality: Excellent. Bones: No fractures or dislocations. Severe degenerative change most pronounced at C5-C7. Visualized superior ribs are intact. Soft tissues: Prevertebral soft tissues are normal in thickness. No paravertebral hematomas. No ap ical pneumothoraces. Distal left V4 arterial vascular calcifications. IMPRESSION: No acute osseous abnormality. Severe degenerative changes in the cervical spine. Reviewed by: Abdias Martínez MD on 04/30/2023 2:27 PM PST Approved by: Abdias Martínez MD on 04/30/2023 2:27 PM PST Station ID: [id number]
--- NOTE | 2023-04-30 14:36 | XRAY Report ---
PROCEDURE: Chest 1V INDICATIONS: syncope TECHNIQUE: One view of the chest was acquired. COMPARISON: 01/12/2023. FINDINGS: Surgical changes and devices: None. Lungs and pleura: Mild interstitial pulmonary edema. Left basilar atelectasis and probable pleural f luid. Mediastinum: Mediastinal contours appear normal. Cardiomegaly. Bones and chest wall: No suspicious bony lesions. Overlying soft tissues appear unremarkable. IMPRESSION: Congestive heart failure exacerbation. Reviewed by: Gamaliel Kapoor MD on 04/30/2023 2:35 PM PST Approved by: Gamaliel Kapoor MD on 04/30/2023 2:35 PM PST Station ID: [id number]
[2023-04-30] MEDS: MAGNESIUM SULFATE 2 GRAM 2 GM/50 ML BAG IV ONE (14:37)
[2023-04-30] MEDS: TETANUS/DIPHTHERIA/PERTUSSIS 0.5 ML SYRINGE IM ONE (14:37)
--- NOTE | 2023-04-30 15:16 | XRAY Report ---
PROCEDURE: Elbow 3+V RT INDICATIONS: bruising TECHNIQUE: 3 views of the elbow were acquired. COMPARISON: None. FINDINGS: Bones: No fractures or dislocations. No suspicious bony lesions. Soft tissues: No effusion. No suspicious soft tissue calcifications or masses. IMPRESSION: No acute bony abnormality. Reviewed by: Clark Page MD on 04/30/2023 3:14 PM PST Approved by: Clark Page MD on 04/30/2023 3:14 PM PST Station ID: [id number]
[2023-04-30 15:53] LABS: BILIRUBIN,URINE NEGATIVE (NEGATIVE); GLUCOSE, URINE (UA) NEGATIVE (NEGATIVE); KETONES,URINE (UA) NEGATIVE (NEGATIVE); LEUKOCYTE ESTERASE, URINE NEGATIVE (NEGATIVE); NITRITE,URINE NEGATIVE (NEGATIVE); OCCULT BLOOD,URINE NEGATIVE (NEGATIVE); PROTEIN,URINE NEGATIVE (NEGATIVE); UROBILINOGEN,URINE 1 (NORMAL) E.U./dL (NORMAL)
[2023-04-30 15:55] LABS: CLARITY,URINE CLEAR (CLEAR)
[2023-04-30] MEDS ORDERED: SODIUM CHLORIDE FLUSH 0.9% 10 ML SYRINGE IVP PRN (16:59)
[2023-04-30] MEDS ORDERED: ONDANSETRON 4 MG/2 ML VIAL IVP PRN (16:59)
[2023-04-30] MEDS: SODIUM CHLORIDE 0.9% 1,000 ML IV SCH ×2 (17:43→18:37)
[2023-04-30] MEDS: SODIUM CHLORIDE FLUSH 0.9% 10 ML SYRINGE IVP SCH (17:43)
--- NOTE | 2023-04-30 17:55 | HISTORY & PHYSICAL EXAMINATION ---
Chief Complaint - Chief Complaint Chief Complaint: Fall at home, EMS found BP 60 and pt too weak to stand History of Present Illness - Admitted From Admitted From:: ED - History Obtained From Records Reviewed: Yes History obtained from: ED provider and chart review - History of Present Illness HPI Comment/Other: This is an 87-year-old male who lives at home with family. He has a history of borderline DM, Afib, CAD, chronic anemia, Hypothyroidism, CKD and prostate cancer. He was admitted here to treat an incarcerated hernia in er 2022 that required surgery. Following that he had an admission in Jan 2023 for small bowel obstruction or ileus which was felt to be a postop complication and he had a pneumonia. The patient also has a history of hyponatremia and frequent falls and has had orthostatic hypotension documented. With history of A-fib and takes Xarelto. He was seen in the ER this month for recurrent falls. He was dehydrated, stabilized and advised to have closer management by his PCP. Today he presented after ambulance was called to the house. He described feeling weak for the past several days and having 4-5 falls in the last 2 days. Today he fell and did bump his head during the fall. He complained of chest congestion. EMS found him to have a blood pressure of 60 systolic. He could not stand up independently. He was given IV fluids en route and presented to the ER with a systolic BP of 80. Exam showed no neurodeficit. Labs showed a sodium of 124, normal troponin and CT head and other imaging showed no evidence of trauma or bleeding. He continued to get fluids in the ER and blood pressure improved to 120 systolic. His respiratory PCR showed he has positive for Rhinovirus. Chest x-ray was read as having CHF, however this was after the fluid administration by EMS and in the ER. The ED provider spoke to me about this patient. He will be placed in Observation for management of his hyponatremia, frequent falls with documented hypotension and known history of orthostasis, and for treating probable dehydration from having a Rhinovirus infection. History - Past Medical History Cardiovascular: reports: [place], Atrial fibrillation Respiratory: reports: None Neuro: reports: None Endocrine/Autoimmune: reports: Type 2 diabetes GI: reports: None : reports: None, Kidney stones HEENT: reports: Chronic hearing loss Psych: reports: Depression Musculoskeletal: reports: Osteoarthritis Derm: reports: None MRSA Hx?: No - Past Surgical History General: reports: Bowel surgery, Hiatal hernia repair Ortho: reports: Knee replacement Cardiovascular: reports: Coronary stent HEENT: reports: Cataracts, Tonsil/Adenoidectomy - Family & Social History Family History: Mother: , CVA/TIA, Father: , COPD/Emphysema Family History Comment/Other: pt report his father at 70 yrs from lung disease. his mother from cancer. he is with living at [facility] and had three children. Social History Notes: pt report he had remote cigarette smoker, he denies alcohol and drug problem - POLST Patient has POLST: No Meds/Allgy - Home Medications Home Medications: Ambulatory Orders Medication Instructions Recorded Confirmed Multivit-Min/Iron Fum/Folic AC 1 tab PO DAILY 05/08/15 03/04/23 [[id number]-Vrgfxtv-Wzvxnqny Tablet] polyethylene glycoL 3350 [Miralax] 8.5 - 17 gm PO DAILY PRN 05/08/15 03/04/23 Tamsulosin HCl [Flomax] 0.4 mg PO HS 07/11/18 03/04/23 Levothyroxine Sodium [Synthroid] 50 mcg PO QDAC 01/22/19 03/04/23 Cimetidine 400 mg PO HS 12/08/22 03/04/23 Eszopiclone [Lunesta] 2 mg PO HS 12/08/22 03/04/23 Mirtazapine 22.5 mg PO HS 12/08/22 03/04/23 Omeprazole Magnesium 40 mg PO BID 12/08/22 03/04/23 Valsartan 160 mg PO QPM 12/08/22 03/04/23 Calcium Carbonate [Calcium] 600 mg PO DAILY 12/09/22 03/04/23 Cholecalciferol (Vitamin D3) 2,000 unit PO DAILY 12/09/22 03/04/23 [Vitamin D3] Simvastatin [Zocor] 80 mg PO HS 12/09/22 03/04/23 Rivaroxaban [Xarelto] 20 mg PO DAILY 01/04/23 03/04/23 Cefdinir 300 mg PO BID 2 Days #4 cap 01/07/23 03/04/23 Lactobacillus Acidophilus 1 each PO DAILY #2 cap 01/07/23 03/04/23 [Acidophilus Lactobacilli] guaiFENesin [Mucinex] 600 mg PO BID 2 Days #4 tablet 01/07/23 03/04/23 Amitriptyline [Elavil] 10 mg PO HS #60 tablet 03/04/23 - Allergies Allergies/Adverse Reactions: Allergies Allergy/AdvReac Type Severity Reaction Status Date / Time No Known Drug Allergies Allergy Verified 04/30/23 12:54 Exam - Vital Signs Reviewed Vital Signs: Yes Vital Signs: Vital Signs x48h Temp Pulse Pulse Resp BP BP Pulse Ox 04/30/23 17:47 36.6 C 78 20 141/75 H 96 04/30/23 17:00 68 15 117/87 H 98 04/30/23 16:30 67 14 126/84 H 97 04/30/23 16:00 61 12 118/78 96 04/30/23 15:30 58 L 14 130/71 95 04/30/23 15:00 61 16 122/83 H 98 04/30/23 14:30 69 15 123/73 94 04/30/23 14:00 70 15 124/66 95 04/30/23 13:10 71 17 93/45 L 97 04/30/23 12:47 36.0 C L 60 18 80/44 L 97 - Physical Exam General Appearance: positive: No acute distress, Lethargic (Awakens to name, speaks briefly then falls back asleep) Eyes Bilateral: positive: No lid inflammation ENT: positive: ENT inspection nml, No signs of dehydration Neck: positive: Nml inspection Respiratory: positive: No respiratory distress, Breath sounds nml Cardiovascular: positive: Irregularly irregular, Bradycardia (HR about 40) Abdomen: positive: Non-tender Skin: positive: Warm, Dry Extremities: positive: Non-tender, No pedal edema Neurologic/Psychiatric: positive: Other (Lethargic, generalized weakness, responds to voice then falls asleep quickly. Is [place]) Conclusion/Plan - Problem List (1) Hyponatremia Conclusion/Plan: Patient has hypovolemic hyponatremia. There is a history of him having poor or al intake but possibly he has free water excess Plan: Continue with gentle IV hydration using NS Will order a free water restriction per day Check his serum sodium every 8-12 Hr with the plan to correct the sodium 6 to 8 mEq in the next 24 hours Obtain a urine sodium to evaluate for SIADH This patient may be a candidate to have 1 salt tablet daily prescribed, which would help both hypotension and hyponatremia (2) Hypotension Conclusion/Plan: This is likely from poor oral intake and dehydration from an infection (rhinovirus). Plan: Continue with gentle IV NS Check orthostatic vital signs (3) Rhinovirus Conclusion/Plan: I suspect this caused volume depletion to the point of being hypotensive. Probably added to generalized weakness as well Plan: Infectious isolation will be ordered Symptomatic support (4) Frequent falls Conclusion/Plan: In the fall 2022, he says that he fell about 8 times in those mos. With this presentation he describes falling 4-5 times in the past few days, and the fall today included bumping his head Plan: The patient has now exceeded the number of falls that are safe to continue using his anticoagulant therefore Xarelto will be stopped permanently Check orthostatic vital signs Place holding parameters on meds that can drop his blood pressure Await the reconciled med list to resume meds, since I recall he was on Midodrine PT OT evaluations (5) Anticoagulant long-term use Conclusion/Plan: The patient has now exceeded the number of falls that are safe to continue using his anticoagulant therefore Xarelto will be stopped permanently (6) Paroxysmal A-fib Conclusion/Plan: The patient is on no heart rate-slowing medications. This is a sign of him having underlying conduction system disease specifically sick sinus syndrome He takes Xarelto at home Plan: I will stop the Xarelto now permanently because of his frequent falls and high risk of severe bleeding, especially intracwerebral hemorrhage Placed on telemetry, observe for any tachy or bradycardia events (7) Hypothyroidism Conclusion/Plan: Plan: Check his TSH Continue his thyroid medication - Lab Results Fish Bones: 05/01/23 05:10 05/01/23 05:10 - Diagnostic Imaging Results Diagnostic Imaging Results: positive: Final report reviewed
[2023-04-30] MEDS: TAMSULOSIN 0.4 MG CAPSULE PO SCH (20:44)
[2023-05-01 05:21] LABS: BASOPHILS % (AUTO) 0.2 %; EOSINOPHILS # (AUTO) 0.1 10^3/uL (0.0-0.7); HCT - HEMATOCRIT 30.7 % (42.0-52.0); HGB - HEMOGLOBIN 10.5 g/dL (14.0-18.0); LYMPHOCYTES # (AUTO) 1.1 10^3/uL (1.5-3.5); LYMPHOCYTES % (AUTO) 17.6 %; MEAN CORPUSCULAR HEMOGLOBIN 30.7 pg (27.0-31.0); MEAN CORPUSCULAR HGB CONC 34.2 g/dL (32.0-36.0); MEAN CORPUSCULAR VOLUME 89.8 fL (80.0-94.0); MEAN PLATELET VOLUME 9.3 fL (7.4-11.4); MONOCYTES # (AUTO) 0.7 10^3/uL (0.0-1.0); MONOCYTES % (AUTO) 11.1 %; NEUTROPHILS # (AUTO) 4.5 10^3/uL (1.5-6.6); NEUTROPHILS % (AUTO) 68.8 %; PLT - PLATELET COUNT 169 10^3/uL (130-450); RED BLOOD COUNT 3.42 10^6/uL (4.70-6.10); RED CELL DISTRIBUTION WIDTH 12.8 % (12.0-15.0); WHITE BLOOD COUNT 6.5 x10^3/uL (4.8-10.8)
[2023-05-01 05:43] LABS: CALCIUM 8.5 mg/dL (8.5-10.3); CREATININE 0.9 mg/dL (0.6-1.3); MAGNESIUM 1.7 mg/dL (1.7-2.3); POTASSIUM 3.6 mmol/L (3.5-4.5)
[2023-05-01] MEDS: LEVOTHYROXINE 25 MCG TABLET PO SCH (06:11)
--- NOTE | 2023-05-01 11:44 | PROVIDER PROGRESS NOTE ---
Assessment/Plan - Problem List (1) Orthostatic hypotension Assessment/Plan: When ambulance was called to his house, BP was 60 yesterday. In the ER, his BP improved to 80 then 120 after IV fluids Today orthostatic vital signs were checked: BP supine 110/51, BP sitting 101/46, BP standing 80/40. He asked to sit down when PT was checking his standing BP. Plan: He is not yet ready for discharge today since he is orthostatic and symptomatic with it Admit the patient to Inpatient status from observation Continue with IV fluids Monitor orthostatic vital signs Follow electrolytes daily (2) Hyponatremia Assessment/Plan: Patient has hypovolemic hyponatremia. There is a history of him having poor oral intake but possibly he has free water excess Plan: Continue with gentle IV hydration using NS Will order a free water restriction per day Check his serum sodium every 8-12 Hr with the plan to correct the sodium 6 to 8 mEq in the next 24 hours Obtain a urine sodium to evaluate for SIADH This patient may be a candidate to have 1 salt tablet daily prescribed, which would help both hypotension and hyponatremia (3) Rhinovirus Conclusion/Plan: I suspect this caused volume depletion to the point of being hypotensive. Probably added to generalized weakness as well Plan: Infectious isolation will be ordered Symptomatic support (4) Frequent falls Conclusion/Plan: In the fall 2022, he says that he fell about 8 times in those mos. With this presentation he describes falling 4-5 times in the past few days, and the fall today included bumping his head Plan: The patient has now exceeded the number of falls that are safe to continue using his anticoagulant therefore Xarelto will be stopped permanently Check orthostatic vital signs Place holding parameters on meds that can drop his blood pressure Await the reconciled med list to resume meds, since I recall he was on Midodrine PT OT evaluations I spoke to pt about needing assistance at home every time he stands/walks and he said his son-in-law does that but son-in-law "is getting tired of helping". The refore in home help or a NH were suggested and he said he would not go to a NH. I also then asked him about CPR and vent wishes and CODE BLUE status and he said he wants everything done. I will request a Palliative Care consult to help him and family make realistic choices and decisions. (5) Anticoagulant long-term use Conclusion/Plan: The patient has now exceeded the number of falls that are safe to continue using his anticoagulant therefore Xarelto will be stopped permanently (6) Paroxysmal A-fib Conclusion/Plan: The patient is on no heart rate-slowing medications. This is a sign of him having underlying conduction system disease specifically sick sinus syndrome. In fact he is in slow Afb, rates as low as 36, recovers to rate in 50's He took Xarelto at home Plan: I will stop the Xarelto now permanently because of his frequent falls and high risk of severe bleeding, especially intracerebral hemorrhage. I explained that to the pt today Cont to monitor on telemetry. He would be a candidate for a permanent pacemaker implant with such Slow [employer]. I will need input with the help of a Palliative Care consult (today is Sat and we have that service M-F) (7) Hypothyroidism Conclusion/Plan: Plan: Check his TSH Continue his thyroid medication - Current Meds Current Meds: Current Medications Generic Name Dose Route Start Last Admin Trade Name Scottq PRN Reason Stop Dose Admin Sodium Chloride 1,000 mls @ 40 mls/hr 04/30/23 18:01 04/30/23 18:37 Normal Saline 0.9% IV 40 mls/hr .Q25H MAURICIO Administration Levothyroxine Sodium 50 mcg 05/01/23 07:00 05/01/23 06:11 Levothyroxine 25 Mcg Tablet PO 50 mcg QDAC MAURICIO Administration Sodium Chloride 10 ml 04/30/23 17:00 05/01/23 09:49 Sodium Chloride Flush 0.9% 10 Ml Syringe IVP Not Given 0100,0900,1700 MAURICIO Tamsulosin HCl 0.4 mg 04/30/23 21:00 04/30/23 20:44 Tamsulosin 0.4 Mg Capsule PO 0.4 mg HS MUARICIO Administration - Lab Result Fish Bone Diagrams: 05/01/23 05:10 05/02/23 05:04 - Additional Planning My Orders: My Active Orders 04/30/23 Dinner Soft Mechanical Diet [DIET] 04/30/23 16:59 Activity Orders [RC] Q2HR Free Water Restriction [RC] IOSHIFT IO [RC] IOSHIFT Incentive Spirometry - RT [RC] TID Initiate Bowel Care Protocol [RC] .protocol Initiate Line Care Protocol [RC] QSHIFT Initiate Personal Care Protoco [RC] .protocol Oxygen Therapy [RC] .PRN Telemetry (24 Hour) [RC] Q4HR Vital Signs [RC] 0800,1600,0000 Acetaminophen [Tylenol] 650 mg PO Q4HR PRN Ondansetron Inj [Zofran Inj] 4 mg IVP Q6HR PRN Sodium Chloride Flush 0.9% [Normal Saline Flush 0.9%] 10 ml IVP PRN PRN Code Status [OTHERS] Routine Condition of Patient [OTHERS] Routine DVT Prophylaxis [OTHERS] Routine 04/30/23 17:00 Sodium Chloride Flush 0.9% [Normal Saline Flush 0.9%] 10 ml IVP 0100,0900,1700 04/30/23 17:01 Daily Weight [RC] 0600 IV Insert [RC] .ONCE 04/30/23 17:02 SCDs [RC] QSHIFT Evaluate and Treat OT [OT] Routine Evaluate and Treat PT [PT] Routine 04/30/23 17:04 Orthostatic [Vital Signs - Orthostatic] [RC] QSHIFT 04/30/23 18:01 Sodium Chloride 0.9% [Normal Saline 0.9%] 1,000 ml IV 40 mls/hr 04/30/23 21:00 Tamsulosin [Flomax] 0.4 mg PO HS 05/01/23 07:00 Levothyroxine [Synthroid] 50 mcg PO QDAC 05/01/23 11:39 Admit [Admit \\ Transfer \\ Status] [RC] .ONCE 05/02/23 05:00 BMP - BASIC METABOLIC PANEL [CHEM] DAILYLAB MAGNESIUM [CHEM] DAILYLAB Additional Planning Notes: Attestation: The patient is expected to be hospitalized for greater than 2 midnights and is expected to be discharged or transferred to another facility within 96 hours: Yes. Subjective - Subjective Patient Reports: Fatigue, Other (Aches all over when standing or walking) Objective Vital Signs: Vital Signs - 24 hr 04/30/23 04/30/23 04/30/23 12:47 13:10 14:00 Temperature 36.0 C L Heart Rate 60 71 70 Heart Rate [ Brachial] Heart Rate [ Monitoring electrodes] Respiratory 18 17 15 Rate Blood Pressure 80/44 L 93/45 L 124/66 Blood Pressure [Right Brachial artery] O2 Saturation 97 97 95 04/30/23 04/30/23 04/30/23 14:30 15:00 15:30 Temperature Heart Rate 69 61 58 L Heart Rate [ Brachial] Heart Rate [ Monitoring electrodes] Respiratory 15 16 14 Rate Blood Pressure 123/73 122/83 H 130/71 Blood Pressure [Right Brachial artery] O2 Saturation 94 98 95 04/30/23 04/30/23 04/30/23 16:00 16:30 17:00 Temperature Heart Rate 61 67 68 Heart Rate [ Brachial] Heart Rate [ Monitoring electrodes] Respiratory 12 14 15 Rate Blood Pressure 118/78 126/84 H 117/87 H Blood Pressure [Right Brachial artery] O2 Saturation 96 97 98 04/30/23 04/30/23 05/01/23 17:47 20:00 00:28 Temperature 36.6 C 36.6 C 36.7 C Heart Rate Heart Rate [ 64 Brachial] Heart Rate [ 78 64 Monitoring electrodes] Respiratory 20 20 18 Rate Blood Pressure Blood Pressure 141/75 H 122/57 L 105/65 [Right Brachial artery] O2 Saturation 96 96 96 05/01/23 05/01/23 03:36 08:01 Temperature 36.9 C 37 C Heart Rate Heart Rate [ 57 L 78 Brachial] Heart Rate [ Monitoring electrodes] Respiratory 16 16 Rate Blood Pressure Blood Pressure 128/71 92/44 L [Right Brachial artery] O2 Saturation 95 94 Oxygen O2 Source Room air I&O (Last 24 Hrs): Intake and Output Totals x24h 04/29/23 04/30/23 05/01/23 23:59 23:59 23:59 Intake Total 1815 400 Output Total 300 1000 Balance 1515 -600 General: Alert, No acute distress, Other (Tall, thin, frail elderly male) HEENT: EOMI, Mucous membr. moist/pink Neck: Supple, No JVD Neuro: Alert, Non Focal, Other (Answers are slow but appropriate. Memory poor) Cardiovascular: No murmurs, Other (Irreg, irreg, bradycardic.) Respiratory: No respiratory distress, Breath sounds nml Abdomen: Normal bowel sounds, Soft Extremities: No clubbing, No edema - Results Results: Laboratory Results WBC 6.5 x10^3/uL (4.8-10.8) 05/01/23 05:10 RBC 3.42 10^6/uL (4.70-6.10) L 05/01/23 05:10 Hgb 10.5 g/dL (14.0-18.0) L 05/01/23 05:10 Hct 30.7 % (42.0-52.0) L 05/01/23 05:10 MCV 89.8 fL (80.0-94.0) 05/01/23 05:10 MCH 30.7 pg (27.0-31.0) 05/01/23 05:10 MCHC 34.2 g/dL (32.0-36.0) 05/01/23 05:10 RDW 12.8 % (12.0-15.0) 05/01/23 05:10 Plt Count 169 10^3/uL (130-450) 05/01/23 05:10 MPV 9.3 fL (7.4-11.4) 05/01/23 05:10 Neut # (Auto) 4.5 10^3/uL (1.5-6.6) 05/01/23 05:10 Lymph # (Auto) 1.1 10^3/uL (1.5-3.5) L 05/01/23 05:10 [place] # (Auto) 0.7 10^3/uL (0.0-1.0) 05/01/23 05:10 Eos # (Auto) 0.1 10^3/uL (0.0-0.7) 05/01/23 05:10 Baso # (Auto) 0.0 10^3/uL (0.0-0.1) 05/01/23 05:10 Absolute Nucleated RBC 0.00 x10^3/uL 05/01/23 05:10 Nucleated RBC % 0.0 /100WBC 05/01/23 05:10 PT 15.8 secs (9.9-12.6) H 04/30/23 12:53 INR 1.5 (0.8-1.2) H 04/30/23 12:53 Sodium 125 mmol/L (135-145) L 05/01/23 05:10 Potassium 3.6 mmol/L (3.5-4.5) 05/01/23 05:10 Chloride 96 mmol/L (101-111) L 05/01/23 05:10 Carbon Dioxide 25 mmol/L (21-32) 05/01/23 05:10 Anion Gap 4.0 (6-13) L 05/01/23 05:10 BUN 15 mg/dL (6-20) 05/01/23 05:10 Creatinine 0.9 mg/dL (0.6-1.3) 05/01/23 05:10 Estimated GFR (MDRD) 80 (>89) L 05/01/23 05:10 Glucose 98 mg/dL (74-104) 05/01/23 05:10 POC Whole Bld Glucose 153 mg/dL (70 - 100) H 04/30/23 13:06 Lactic Acid 1.1 mmol/L (0.5-2.2) 04/30/23 12:53 Calcium 8.5 mg/dL (8.5-10.3) 05/01/23 05:10 Magnesium 1.7 mg/dL (1.7-2.3) 05/01/23 05:10 Total Bilirubin 0.8 mg/dL (0.2-1.0) 04/30/23 12:53 AST 26 IU/L (10-42) 04/30/23 12:53 ALT 13 IU/L (10-60) 04/30/23 12:53 Alkaline Phosphatase 48 IU/L (42-121) 04/30/23 12:53 Troponin I High Sens 10.2 ng/L (2.3-19.7) 04/30/23 12:53 Total Protein 5.6 g/dL (6.4-8.9) L 04/30/23 12:53 Albumin 3.3 g/dL (3.2-5.5) 04/30/23 12:53 Globulin 2.3 g/dL (2.1-4.2) 04/30/23 12:53 Albumin/Globulin Ratio 1.4 (1.0-2.2) 04/30/23 12:53 Lipase 18 U/L (11-82) 04/30/23 12:53 Urine Color YELLOW 04/30/23 15:44 Urine Clarity CLEAR (CLEAR) 04/30/23 15:44 Urine pH 6.0 PH (5.0-7.5) 04/30/23 15:44 Ur Specific [place] 1.015 (1.002-1.030) 04/30/23 15:44 Urine Protein NEGATIVE mg/dL (NEGATIVE) 04/30/23 15:44 Urine Glucose (UA) NEGATIVE mg/dL (NEGATIVE) 04/30/23 15:44 Urine Ketones NEGATIVE mg/dL (NEGATIVE) 04/30/23 15:44 Urine Occult Blood NEGATIVE (NEGATIVE) 04/30/23 15:44 Urine Nitrite NEGATIVE (NEGATIVE) 04/30/23 15:44 Urine Bilirubin NEGATIVE (NEGATIVE) 04/30/23 15:44 Urine Urobilinogen 1 (NORMAL) E.U./dL (NORMAL) 04/30/23 15:44 Ur Leukocyte Esterase NEGATIVE (NEGATIVE) 04/30/23 15:44 Ur Microscopic Review NOT INDICATED 04/30/23 15:44 Urine Culture Comments NOT INDICATED 04/30/23 15:44 Urine Sodium 67.3 mmol/L 04/30/23 15:44 Nasal Adenovirus (PCR) NOT DETECTED 04/30/23 13:15 Nasal B. parapertussis DNA (PCR) NOT DETECTED 04/30/23 13:15 Nasal Coronavir 229E PCR NOT DETECTED 04/30/23 13:15 Nasal Coronavir HKU1 PCR NOT DETECTED 04/30/23 13:15 Nasal Coronavir NL63 PCR NOT DETECTED 04/30/23 13:15 Nasal Coronavir OC43 PCR NOT DETECTED 04/30/23 13:15 Nasal Enterovir/Rhinovir PCR DETECTED A 04/30/23 13:15 Nasal Influenza B PCR NOT DETECTED 04/30/23 13:15 Nasal Influenza A PCR NOT DETECTED 04/30/23 13:15 Nasal Parainfluen 1 PCR NOT DETECTED 04/30/23 13:15 Nasal Parainfluen 2 PCR NOT DETECTED 04/30/23 13:15 Nasal Parainfluen 3 PCR NOT DETECTED 04/30/23 13:15 Nasal Parainfluen 4 PCR NOT DETECTED 04/30/23 13:15 Nasal RSV (PCR) NOT DETECTED 04/30/23 13:15 Nasal B.pertussis DNA PCR NOT DETECTED 04/30/23 13:15 Nasal C.pneumoniae (PCR) NOT DETECTED 04/30/23 13:15 [place] Human Metapneumo PCR NOT DETECTED 04/30/23 13:15 Nasal M.pneumoniae (PCR) NOT DETECTED 04/30/23 13:15 Nasal SARS-CoV-2 (PCR) NOT DETECTED 04/30/23 13:15 - Procedures Procedures: Procedures EXCISION OF DESCENDING COLON, ENDO, DIAGN (05/24/15) EXCISION OF DUODENUM, ENDO, DIAGN (05/24/15) EXCISION OF LOWER ESOPHAGUS, ENDO, DIAGN (05/24/15) EXCISION OF RIGHT SPERMATIC CORD, OPEN APPROACH (12/08/22) EXCISION OF SMALL INTESTINE, OPEN APPROACH (12/08/22) EXCISION OF STOMACH, ENDO, DIAGN (05/24/15) SUPPLEMENT R INGUINAL REGION WITH SYNTH SUB, OPEN APPROACH (12/08/22)
[2023-05-01] MEDS: ACETAMINOPHEN 325 MG TABLET PO PRN (20:19)
[2023-05-01] MEDS: DOCUSATE SODIUM 250 MG CAPSULE PO SCH (21:11)
[2023-05-02 05:41] LABS: CALCIUM 8.6 mg/dL (8.5-10.3); CREATININE 0.8 mg/dL (0.6-1.3); MAGNESIUM 1.6 mg/dL (1.7-2.3); POTASSIUM 3.6 mmol/L (3.5-4.5)
--- NOTE | 2023-05-02 07:20 | PHARMACY PROGRESS NOTE ---
- Best Possible Medication History Admit Date and Time: 05/01/23 1140 Processed by: Pharmacy Medication History completed: Yes Patient Interview: Completed Secondary Source(s): Pharmacy records, Insurance records As the person ultimately responsible for medication therapy, providers are able to order a medication from an existing home medication list in [facility] via the "Reconcile Routine" prior to Confirmation of that medication by claims support specialist. Such practice is discouraged except when the physician, in their clinical judgment, deems that a medical need exists for a medication without regard to previous use.
[2023-05-02] MEDS ORDERED: polyethylene glycoL 3350 17 GM PACKET PO PRN (09:03)
--- NOTE | 2023-05-02 09:16 | PROVIDER PROGRESS NOTE ---
Assessment/Plan - Problem List (1) Hyponatremia Assessment/Plan: Patient has hypovolemic hyponatremia. There is a history of him having poor oral intake but possibly he has free water excess Na was 124 at adm and is 125 today, on NS at 40 cc/hr to prevent edema and HTN. His urine sodium was 67, excessive for needing to retain sodium. 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 Plan: I will check an a.m. Cortisol level, for possible Trevon's disease Continue with gentle IV hydration using NS, increase to 50 cc/hr Cont the free water restriction per day Check his serum sodium every 12-24 Hr with the plan to correct the sodium 6 to 8 mEq per 24 hours Will start him on 1 salt tablet daily, which will help both the orthostatic hypotension and his hyponatremia (2) Orthostatic hypotension Assessment/Plan: When ambulance was called to his house, BP was 60. In the ER, his BP improved to 80 then 120 after IV fluids Yesterday orthostatic vital signs were checked: BP supine 110/51, BP sitting 101/46, BP standing 80/40 and he was symptomatic Plan: Hold his home meds of Valsartan and Minipress Continue with IV fluids Monitor orthostatic vital signs At home the patient was on Lunesta at hs, Elavil at hs, Escitalopram daily, and Remeron at hs, which were probably excessive and very likely adding to weakness/somnolence and to orthostasis. I will restart his Elavil and Remeron at hs and Escitalopram daily, but not use Lunesta. I will start him on 1 salt tablet daily, which will help both this orthostatic hypotension and his hyponatremia (3) Rhinovirus Conclusion/Plan: I suspect this caused volume depletion to the point of being hypotensive. Probably added to generalized weakness as well Plan: Infectious isolation will be ordered Symptomatic support (4) Frequent falls Conclusion/Plan: In the fall 2022, he says that he fell about 8 times in those mos. With this presentation he describes falling 4-5 times in the past few days, and the fall today included bumping his head Plan: The patient has now exceeded the number of falls that are safe to continue using his anticoagulant therefore Xarelto will be stopped permanently Check orthostatic vital signs Place holding parameters on meds that can drop his blood pressure I am holding his Valsartan and Minipress, and Lunesta PT OT evaluations I spoke to pt about needing assistance at home every time he stands/walks and he said his son-in-law does that but son-in-law "is getting tired of helping". Therefore in home help or a NH were suggested and he said he would not go to a NH. I also then asked him about CPR and vent wishes and CODE BLUE status and he said he wants everything done. I will request a Palliative Care consult to help him and family make realistic choices and decisions. (5) Anticoagulant long-term use Conclusion/Plan: The patient has now exceeded the number of falls that are safe to continue using his anticoagulant therefore Xarelto will be stopped permanently (6) Paroxysmal A-fib Conclusion/Plan: The patient is on no heart rate-slowing medications. This is a sign of him having underlying conduction system disease specifically sick sinus syndrome. In fact he is in slow Afb, rates as low as 36, recovers to rate in 50's He took Xarelto at home Plan: I will stop the Xarelto now permanently because of his frequent falls and high risk of severe bleeding, especially intracerebral hemorrhage. I explained that to the pt today Cont to monitor on telemetry. He would be a candidate for a permanent pacemaker implant with such Slow [employer]. I will need input regarding decisions with the help of a Palliative Care consult (today is Melissa and we have that service M-F) (7) Hypothyroidism Conclusion/Plan: Plan: Check his TSH Continue his thyroid medication (8) Anemia Conclusion/Plan: His hemoglobin is running 10.5. Probably this is hemodilutional because used 2.5 L positive in fluid balance since admission Plan: I will check his Iron stores, B12 and folate levels and replace if low - Current Meds Current Meds: Current Medications Generic Name Dose Route Start Last Admin Trade Name Freq PRN Reason Stop Dose Admin Acetaminophen 650 mg 04/30/23 16:59 05/02/23 00:24 Acetaminophen 325 Mg Tablet PO 650 mg Q4HR PRN Administration Pain 1 to 4, or Fever Docusate Sodium 250 - 500 mg 05/01/23 21:00 05/02/23 07:58 Docusate Sodium 250 Mg Capsule PO 250 mg DAILY MAURICIO Administration Levothyroxine Sodium 50 mcg 05/01/23 07:00 05/02/23 06:18 Levothyroxine 25 Mcg Tablet PO 50 mcg QDAC MAURICIO Administration Sodium Chloride 10 ml 04/30/23 17:00 05/02/23 00:24 Sodium Chloride Flush 0.9% 10 Ml Syringe IVP 10 ml 0100,0900,1700 MAURICIO Administration Tamsulosin HCl 0.4 mg 04/30/23 21:00 05/01/23 21:12 Tamsulosin 0.4 Mg Capsule PO 0.4 mg HS MAURICIO Administration - Lab Result Fish Bone Diagrams: 05/01/23 05:10 05/02/23 05:04 - Additional Planning My Orders: My Active Orders 05/01/23 21:00 Docusate Sodium 250Mg Capsule [Colace 250Mg Capsule] 250 - 500 mg PO DAILY 05/02/23 08:28 Telemetry- [RC] Q4HR 05/02/23 09:00 Senna [Senokot] 8.6 - 17.2 mg PO DAILY polyethylene glycoL 3350 [Miralax] 17 gm PO DAILY 05/02/23 09:03 Sodium Chloride 0.9% [Normal Saline 0.9%] 1,000 ml IV 50 mls/hr guaiFENesin [Mucinex] 600 mg PO BID PRN polyethylene glycoL 3350 [Miralax] 8.5 gm PO DAILY PRN 05/02/23 09:15 Cholecalciferol (Vitamin D3) [Vitamin D3] 2,000 unit PO DAILY 05/02/23 12:00 Magnesium Oxide [Mag Ox] 400 mg PO DAILYWM 05/02/23 21:00 Amitriptyline [Elavil] 5 mg PO HS Mirtazapine [Remeron] 22.5 mg PO HS Omeprazole Magnesium [Omeprazole Magnesium] 40 mg PO BID 05/03/23 09:00 Calcium Carbonate [Calcium] 600 mg PO DAILY Escitalopram Oxalate [Escitalopram Oxalate] 5 mg PO DAILY Multivit-Min/Iron Fum/Folic AC [Ickwk-Ewcqyog-Aidsigxh Tablet] 1 tab PO DAILY Subjective - Subjective Patient Reports: Resting Comfortably Nursing Reports: Confused, Other (Cannot remember what was told him recently) Objective Vital Signs: Vital Signs - 24 hr 05/01/23 05/01/23 05/01/23 12:25 13:08 15:35 Temperature 36.6 C 36.6 C Heart Rate [ 56 L 76 Brachial] Respiratory 18 16 Rate Blood Pressure 108/54 L [Activity] Blood Pressure 94/53 L 138/60 H [Right Brachial artery] Blood Pressure 86/53 L [Sitting] Blood Pressure 82/60 L [Standing] O2 Saturation 96 97 05/01/23 05/01/23 05/02/23 20:06 23:40 04:13 Temperature 36.7 C 36.9 C 36.6 C Heart Rate [ 80 81 71 Brachial] Respiratory 20 18 18 Rate Blood Pressure [Activity] Blood Pressure 138/74 H 143/86 H 139/89 H [Right Brachial artery] Blood Pressure [Sitting] Blood Pressure [Standing] O2 Saturation 97 94 95 05/02/23 07:34 Temperature 36.7 C Heart Rate [ 78 Brachial] Respiratory 20 Rate Blood Pressure [Activity] Blood Pressure 138/82 H [Right Brachial artery] Blood Pressure [Sitting] Blood Pressure [Standing] O2 Saturation 97 Oxygen O2 Source Room air I&O (Last 24 Hrs): Intake and Output Totals x24h 04/30/23 05/01/23 05/02/23 23:59 23:59 23:59 Intake Total 1815 2049.327 Output Total 300 1575 375 Balance 1515 474.327 -375 General: Alert, No acute distress, Other (Elderly, tall, this, NIKOLSKI) HEENT: EOMI, Mucous membr. moist/pink Neck: Supple, No JVD Neuro: Alert, Other (Poor memory. NIKOLSKI.) Cardiovascular: No murmurs Respiratory: No respiratory distress, Breath sounds nml Abdomen: Soft, No tenderness Extremities: No clubbing, Other (1+ ankle edema) - Results Results: Laboratory Results WBC 6.5 x10^3/uL (4.8-10.8) 05/01/23 05:10 RBC 3.42 10^6/uL (4.70-6.10) L 05/01/23 05:10 Hgb 10.5 g/dL (14.0-18.0) L 05/01/23 05:10 Hct 30.7 % (42.0-52.0) L 05/01/23 05:10 MCV 89.8 fL (80.0-94.0) 05/01/23 05:10 MCH 30.7 pg (27.0-31.0) 05/01/23 05:10 MCHC 34.2 g/dL (32.0-36.0) 05/01/23 05:10 RDW 12.8 % (12.0-15.0) 05/01/23 05:10 Plt Count 169 10^3/uL (130-450) 05/01/23 05:10 MPV 9.3 fL (7.4-11.4) 05/01/23 05:10 Neut # (Auto) 4.5 10^3/uL (1.5-6.6) 05/01/23 05:10 Lymph # (Auto) 1.1 10^3/uL (1.5-3.5) L 05/01/23 05:10 [place] # (Auto) 0.7 10^3/uL (0.0-1.0) 05/01/23 05:10 Eos # (Auto) 0.1 10^3/uL (0.0-0.7) 05/01/23 05:10 Baso # (Auto) 0.0 10^3/uL (0.0-0.1) 05/01/23 05:10 Absolute Nucleated RBC 0.00 x10^3/uL 05/01/23 05:10 Nucleated RBC % 0.0 /100WBC 05/01/23 05:10 PT 15.8 secs (9.9-12.6) H 04/30/23 12:53 INR 1.5 (0.8-1.2) H 04/30/23 12:53 Sodium 125 mmol/L (135-145) L 05/02/23 05:04 Potassium 3.6 mmol/L (3.5-4.5) 05/02/23 05:04 Chloride 95 mmol/L (101-111) L 05/02/23 05:04 Carbon Dioxide 25 mmol/L (21-32) 05/02/23 05:04 Anion Gap 5.0 (6-13) L 05/02/23 05:04 BUN 16 mg/dL (6-20) 05/02/23 05:04 Creatinine 0.8 mg/dL (0.6-1.3) 05/02/23 05:04 Estimated GFR (MDRD) 91 (>89) 05/02/23 05:04 Glucose 104 mg/dL (74-104) 05/02/23 05:04 POC Whole Bld Glucose 153 mg/dL (70 - 100) H 04/30/23 13:06 Lactic Acid 1.1 mmol/L (0.5-2.2) 04/30/23 12:53 Calcium 8.6 mg/dL (8.5-10.3) 05/02/23 05:04 Magnesium 1.6 mg/dL (1.7-2.3) L 05/02/23 05:04 Total Bilirubin 0.8 mg/dL (0.2-1.0) 04/30/23 12:53 AST 26 IU/L (10-42) 04/30/23 12:53 ALT 13 IU/L (10-60) 04/30/23 12:53 Alkaline Phosphatase 48 IU/L (42-121) 04/30/23 12:53 Troponin I High Sens 10.2 ng/L (2.3-19.7) 04/30/23 12:53 Total Protein 5.6 g/dL (6.4-8.9) L 04/30/23 12:53 Albumin 3.3 g/dL (3.2-5.5) 04/30/23 12:53 Globulin 2.3 g/dL (2.1-4.2) 04/30/23 12:53 Albumin/Globulin Ratio 1.4 (1.0-2.2) 04/30/23 12:53 Lipase 18 U/L (11-82) 04/30/23 12:53 Urine Color YELLOW 04/30/23 15:44 Urine Clarity CLEAR (CLEAR) 04/30/23 15:44 Urine pH 6.0 PH (5.0-7.5) 04/30/23 15:44 Ur Specific [place] 1.015 (1.002-1.030) 04/30/23 15:44 Urine Protein NEGATIVE mg/dL (NEGATIVE) 04/30/23 15:44 Urine Glucose (UA) NEGATIVE mg/dL (NEGATIVE) 04/30/23 15:44 Urine Ketones NEGATIVE mg/dL (NEGATIVE) 04/30/23 15:44 Urine Occult Blood NEGATIVE (NEGATIVE) 04/30/23 15:44 Urine Nitrite NEGATIVE (NEGATIVE) 04/30/23 15:44 Urine Bilirubin NEGATIVE (NEGATIVE) 01/26/24 15:44 Urine Urobilinogen 1 (NORMAL) E.U./dL (NORMAL) 04/30/23 15:44 Ur Leukocyte Esterase NEGATIVE (NEGATIVE) 04/30/23 15:44 Ur Microscopic Review NOT INDICATED 04/30/23 15:44 Urine Culture Comments NOT INDICATED 04/30/23 15:44 Urine Sodium 67.3 mmol/L 04/30/23 15:44 Nasal Adenovirus (PCR) NOT DETECTED 04/30/23 13:15 Nasal B. parapertussis DNA (PCR) NOT DETECTED 04/30/23 13:15 Nasal Coronavir 229E PCR NOT DETECTED 04/30/23 13:15 Nasal Coronavir HKU1 PCR NOT DETECTED 04/30/23 13:15 Nasal Coronavir NL63 PCR NOT DETECTED 04/30/23 13:15 Nasal Coronavir OC43 PCR NOT DETECTED 04/30/23 13:15 Nasal Enterovir/Rhinovir PCR DETECTED A 04/30/23 13:15 Nasal Influenza B PCR NOT DETECTED 04/30/23 13:15 Nasal Influenza A PCR NOT DETECTED 04/30/23 13:15 Nasal Parainfluen 1 PCR NOT DETECTED 04/30/23 13:15 Nasal Parainfluen 2 PCR NOT DETECTED 04/30/23 13:15 Nasal Parainfluen 3 PCR NOT DETECTED 04/30/23 13:15 Nasal Parainfluen 4 PCR NOT DETECTED 04/30/23 13:15 Nasal RSV (PCR) NOT DETECTED 04/30/23 13:15 Nasal B.pertussis DNA PCR NOT DETECTED 04/30/23 13:15 Nasal C.pneumoniae (PCR) NOT DETECTED 04/30/23 13:15 [place] Human Metapneumo PCR NOT DETECTED 04/30/23 13:15 Nasal M.pneumoniae (PCR) NOT DETECTED 04/30/23 13:15 Nasal SARS-CoV-2 (PCR) NOT DETECTED 04/30/23 13:15 - Procedures Procedures: Procedures EXCISION OF DESCENDING COLON, ENDO, DIAGN (05/24/15) EXCISION OF DUODENUM, ENDO, DIAGN (05/24/15) EXCISION OF LOWER ESOPHAGUS, ENDO, DIAGN (05/24/15) EXCISION OF RIGHT SPERMATIC CORD, OPEN APPROACH (12/08/22) EXCISION OF SMALL INTESTINE, OPEN APPROACH (12/08/22) EXCISION OF STOMACH, ENDO, DIAGN (05/24/15) SUPPLEMENT R INGUINAL REGION WITH SYNTH SUB, OPEN APPROACH (12/08/22)
[2023-05-02] MEDS: polyethylene glycoL 3350 17 GM PACKET PO SCH (09:20)
[2023-05-02] MEDS: ESCITALOPRAM 10 MG TABLET PO SCH (09:21)
[2023-05-02] MEDS: SODIUM CHLORIDE 0.9% 1,000 ML IV SCH (09:21)
[2023-05-02] MEDS: SENNA 8.6 MG TABLET PO SCH (09:21)
[2023-05-02] MEDS: MAGNESIUM OXIDE 400 MG TABLET PO SCH (12:16)
[2023-05-02] MEDS: SODIUM CHLORIDE 1 GM TABLET PO SCH (17:05)
[2023-05-02] MEDS: GLYCERIN ADULT SUPP PR ONE (18:08)
[2023-05-02] MEDS: AMITRIPTYLINE 10 MG TABLET PO SCH (20:59)
[2023-05-02] MEDS: PANTOPRAZOLE 40 MG TABLET PO SCH (20:59)
[2023-05-02] MEDS: MIRTAZAPINE 15 MG TABLET PO SCH (21:00)
[2023-05-03 06:19] LABS: CALCIUM 8.9 mg/dL (8.5-10.3); CREATININE 0.8 mg/dL (0.6-1.3); MAGNESIUM 1.5 mg/dL (1.7-2.3); PHOSPHORUS 2.7 mg/dL (2.5-5.0); POTASSIUM 3.4 mmol/L (3.5-4.5)
[2023-05-03 06:22] LABS: THYROID STIMULATING HORMONE 1.19 uIU/mL (0.34-5.60)
[2023-05-03] MEDS: CALCIUM CARBONATE CHEW 500 MG TABLET PO SCH (08:22)
[2023-05-03] MEDS: MULTIVITAMIN TABLET PO SCH (08:23)
[2023-05-03] MEDS: CHOLECALCIFEROL 25 MCG TABLET PO SCH (08:23)
[2023-05-03] MEDS: FERROUS GLUCONATE 324 MG TABLET PO SCH (11:29)
--- NOTE | 2023-05-03 13:14 | PROVIDER PROGRESS NOTE ---
Assessment/Plan - Problem List (1) Hyponatremia Assessment/Plan: Patient had hypovolemic hyponatremia. There is a history of him having poor oral intake but possibly with free water excess Na was 124 at adm>>125 after getting NS>> 129 today (all labs were reviewed). His a.m. Cortisol level came back WNL, ruling out [place]'s disease His urine sodium was 67, which is high for a pt who needs to retain sodium. Therefore, he has SIADH or Reset osmostat syndrome. Plan: I will stop his iv saline today (it was infusing at 50 cc/hr only) Cont the free water restriction per day. Drinking electrolyte drinks like Gatorade is preferred. Cont the new order for 1 salt tablet daily Follow BMP daily (2) Orthostatic hypotension Assessment/Plan: When ambulance was called to his house, BP was 60. In the ER, his BP improved to 80 then 120 after IV fluids At home the patient was on Lunesta at hs, Elavil at hs, Escitalopram daily, and Remeron at hs, which were probably excessive and very likely adding to weakness/somnolence and to his orthostasis. I restarted his Elavil and Remeron at hs and Escitalopram daily, but not the Lunesta. His a.m. serum Cortisol level and his TSH came back in a good range. Orthostatic vital signs still are abnormal (VS all checked). Plan: Hold his home meds of Valsartan and Minipress Cont new salt tablet daily Cont to monitor orthostatic vital signs (3) Rhinovirus Conclusion/Plan: I suspect this caused volume depletion to the point of being hypotensive. Probably added to generalized weakness as well Plan: Infectious isolation ordered Symptomatic support (4) Frequent falls Conclusion/Plan: In the fall 2022, he says that he fell about 8 times in those mos. With this presentation he describes falling 4-5 times in the past few days, and the fall today included bumping his head Plan: The patient has now exceeded the number of falls that are safe to continue using his anticoagulant therefore Xarelto will be stopped permanently Check orthostatic vital signs Place holding parameters on meds that can drop his blood pressure I am holding his Valsartan and Minipress, and Lunesta PT OT evaluations I spoke to pt about needing assistance at home every time he stands/walks and he said his son-in-law does that but son-in-law "is getting tired of helping". Therefore in home help or a NH were suggested and he said he would not go to a NH. I also then asked him about CPR and vent wishes and CODE BLUE status and he said he wants everything done. I will request a Palliative Care consult to help him and family make realistic choices and decisions. (5) Anticoagulant long-term use Conclusion/Plan: The patient has now exceeded the number of falls that are safe to continue using his anticoagulant therefore Xarelto will be stopped permanently (6) Paroxysmal A-fib Conclusion/Plan: The patient is on no heart rate-slowing medications. This is a sign of him having underlying conduction system disease specifically sick sinus syndrome. In fact he is in slow Afb, rates as low as 36, recovers to rate in 50's He took Xarelto at home I stopped the Xarelto now permanently because of his frequent falls and high risk of severe bleeding, especially intracerebral hemorrhage. I explained that to the pt Plan: Cont to monitor on telemetry. He would be a candidate for a permanent pacemaker implant with such Slow [employer]. I will need input regarding decisions with the help of a Palliative Care c onsultant, who will see him today. (7) Hypothyroidism Conclusion/Plan: His TSH came back in a good range Plan: Continue his thyroid medication (8) Iron deficiency anemia Conclusion/Plan: His hemoglobin is running 10.5. Probably somewhat hemodilutional because he is 3 L positive in fluid balance since admission, needing iv saline His Iron stores came back very low, his B12 and folate levels were adequate Plan: Start oral Iron suppl Check stool guaic (9) Hypomagnesemia Conclusion/Plan: Probably from poor oral intake Plan: Replace with po Mg Follow Mg daily - Current Meds Current Meds: Current Medications Generic Name Dose Route Start Last Admin Trade Name Freq PRN Reason Stop Dose Admin Acetaminophen 650 mg 04/30/23 16:59 05/02/23 12:19 Acetaminophen 325 Mg Tablet PO 650 mg Q4HR PRN Administration Pain 1 to 4, or Fever Amitriptyline HCl 5 mg 05/02/23 21:00 05/02/23 20:59 Amitriptyline 10 Mg Tablet PO 5 mg HS MAURICIO Administration Calcium Carbonate/Glycine 500 mg 05/03/23 09:00 05/03/23 08:22 Calcium Carbonate Chew 500 Mg Tablet PO 500 mg DAILY MAURICIO Administration Cholecalciferol 50 mcg 05/03/23 09:00 05/03/23 08:23 Cholecalciferol 25 Mcg Tablet PO 50 mcg DAILY MAURICIO Administration Docusate Sodium 250 - 500 mg 05/01/23 21:00 05/03/23 08:23 Docusate Sodium 250 Mg Capsule PO 250 mg DAILY MAURICIO Administration Escitalopram Oxalate 5 mg 05/02/23 09:00 05/03/23 08:23 Escitalopram 10 Mg Tablet PO 5 mg DAILY MAURICIO Administration Ferrous Gluconate 324 mg 05/03/23 12:00 05/03/23 11:29 Ferrous Gluconate 324 Mg Tablet PO 324 mg DAILYWM MAURICIO Administration Levothyroxine Sodium 50 mcg 05/01/23 07:00 05/03/23 07:01 Levothyroxine 25 Mcg Tablet PO 50 mcg QDAC MAURICIO Administration Mirtazapine 22.5 mg 05/02/23 21:00 05/02/23 21:00 Mirtazapine 15 Mg Tablet PO 22.5 mg HS MAURICIO Administration Multivitamins 1 tab 05/03/23 08:00 05/03/23 08:23 Multivitamin Tablet PO 1 tab DAILYWM MAURICIO Administration Pantoprazole Sodium 40 mg 05/02/23 21:00 05/03/23 08:24 Pantoprazole 40 Mg Tablet PO 40 mg BID MAURICIO Administration Polyethylene Glycol 17 gm 05/02/23 09:00 05/03/23 08:27 Polyethylene Glycol 3350 17 Gm Packet PO 17 gm DAILY MAURICIO Administration Senna 8.6 - 17.2 mg 05/02/23 09:00 05/03/23 08:23 Senna 8.6 Mg Tablet PO 8.6 mg DAILY MAURICIO Administration Sodium Chloride 10 ml 04/30/23 17:00 05/03/23 08:41 Sodium Chloride Flush 0.9% 10 Ml Syringe IVP 10 ml 0100,0900,1700 MAURICIO Administration Sodium Chloride 1 gm 05/02/23 17:00 05/03/23 08:23 Sodium Chloride 1 Gm Tablet PO 1 gm DAILY MAURICIO Administration Tamsulosin HCl 0.4 mg 04/30/23 21:00 05/02/23 20:59 Tamsulosin 0.4 Mg Capsule PO 0.4 mg HS MAURICIO Administration - Lab Result Fish Bone Diagrams: 05/01/23 05:10 05/03/23 05:04 - Additional Planning My Orders: My Active Orders 05/02/23 17:00 Sodium Chloride [Salt Tab] 1 gm PO DAILY 05/02/23 21:00 Amitriptyline [Elavil] 5 mg PO HS Mirtazapine [Remeron] 22.5 mg PO HS Pantoprazole [Protonix] 40 mg PO BID 05/03/23 Consult [Palliative Care Consult] [CONS] Routine 05/03/23 08:00 Multivitamin [Theragran] 1 tab PO DAILYWM 05/03/23 09:00 Calcium Carbonate [Tums] 500 mg PO DAILY Cholecalciferol [Vitamin D3] 50 mcg PO DAILY 05/03/23 12:00 Ferrous Gluconate [Fergon] 324 mg PO DAILYWM 05/03/23 17:00 Magnesium Oxide [Mag Ox] 400 mg PO BIDWM 05/04/23 05:00 BMP - BASIC METABOLIC PANEL [CHEM] DAILYLAB MAGNESIUM [CHEM] DAILYLAB 05/05/23 05:00 BMP - BASIC METABOLIC PANEL [CHEM] DAILYLAB MAGNESIUM [CHEM] DAILYLAB Objective Vital Signs: Vital Signs - 24 hr 05/02/23 05/02/23 05/02/23 16:00 21:00 23:42 Temperature 36.6 C 36.4 C L 36.5 C Heart Rate [ 56 L 64 76 Brachial] Respiratory 16 16 18 Rate Blood Pressure 143/79 H 144/76 H 152/88 H [Right Brachial artery] O2 Saturation 97 97 96 05/03/23 05/03/23 05/03/23 05:07 07:40 11:13 Temperature 36.6 C 36.5 C 36.3 C L Heart Rate [ 60 69 82 Brachial] Respiratory 18 18 18 Rate Blood Pressure 121/76 162/90 H 129/69 [Right Brachial artery] O2 Saturation 96 97 98 Oxygen O2 Source Room air I&O (Last 24 Hrs): Intake and Output Totals x24h 05/01/23 05/02/23 05/03/23 23:59 23:59 23:59 Intake Total 2049.327 2656.501 1146.663 Output Total 1575 1250 4530 Balance 544.602 1715.501 -3383.337 General: Alert, Other (Tall thin male, [place], slow to answer, poor memory) HEENT: Mucous membr. moist/pink, Other (Mslre pattern baldness, has several skin tears on top of head) Neck: Supple Neuro: Alert, Non Focal, Other ([place] and poor memory) Cardiovascular: No murmurs, Other (Irreg irreg) Respiratory: No respiratory distress, Breath sounds nml Abdomen: Soft, No tenderness Extremities: No clubbing, No edema, Other (Has bruises of extrem in various phases of healing) - Results Results: Laboratory Results WBC 6.5 x10^3/uL (4.8-10.8) 05/01/23 05:10 RBC 3.42 10^6/uL (4.70-6.10) L 05/01/23 05:10 Hgb 10.5 g/dL (14.0-18.0) L 05/01/23 05:10 Hct 30.7 % (42.0-52.0) L 05/01/23 05:10 MCV 89.8 fL (80.0-94.0) 05/01/23 05:10 MCH 30.7 pg (27.0-31.0) 05/01/23 05:10 MCHC 34.2 g/dL (32.0-36.0) 05/01/23 05:10 RDW 12.8 % (12.0-15.0) 05/01/23 05:10 Plt Count 169 10^3/uL (130-450) 05/01/23 05:10 MPV 9.3 fL (7.4-11.4) 05/01/23 05:10 Neut # (Auto) 4.5 10^3/uL (1.5-6.6) 05/01/23 05:10 Lymph # (Auto) 1.1 10^3/uL (1.5-3.5) L 05/01/23 05:10 [place] # (Auto) 0.7 10^3/uL (0.0-1.0) 05/01/23 05:10 Eos # (Auto) 0.1 10^3/uL (0.0-0.7) 05/01/23 05:10 Baso # (Auto) 0.0 10^3/uL (0.0-0.1) 05/01/23 05:10 Absolute Nucleated RBC 0.00 x10^3/uL 05/01/23 05:10 Nucleated RBC % 0.0 /100WBC 05/01/23 05:10 PT 15.8 secs (9.9-12.6) H 04/30/23 12:53 INR 1.5 (0.8-1.2) H 04/30/23 12:53 Sodium 129 mmol/L (135-145) L 05/03/23 05:04 Potassium 3.4 mmol/L (3.5-4.5) L 05/03/23 05:04 Chloride 95 mmol/L (101-111) L 05/03/23 05:04 Carbon Dioxide 30 mmol/L (21-32) 05/03/23 05:04 Anion Gap 4.0 (6-13) L 05/03/23 05:04 BUN 16 mg/dL (6-20) 05/03/23 05:04 Creatinine 0.8 mg/dL (0.6-1.3) 05/03/23 05:04 Estimated GFR (MDRD) 91 (>89) 05/03/23 05:04 Glucose 102 mg/dL (74-104) 05/03/23 05:04 POC Whole Bld Glucose 105 mg/dL (70 - 100) H 05/03/23 06:16 Lactic Acid 1.1 mmol/L (0.5-2.2) 04/30/23 12:53 Calcium 8.9 mg/dL (8.5-10.3) 05/03/23 05:04 Phosphorus 2.7 mg/dL (2.5-5.0) 05/03/23 05:04 Magnesium 1.5 mg/dL (1.7-2.3) L 05/03/23 05:04 Iron 46 ug/dL (50-212) L 05/03/23 05:04 TIBC 213 ug/dL (250-450) L 05/03/23 05:04 % Saturation 22 % (20-50) 05/03/23 05:04 Transferrin 152 mg/dL (203-362) L 05/03/23 05:04 Total Bilirubin 0.8 mg/dL (0.2-1.0) 04/30/23 12:53 AST 26 IU/L (10-42) 04/30/23 12:53 ALT 13 IU/L (10-60) 04/30/23 12:53 Alkaline Phosphatase 48 IU/L (42-121) 04/30/23 12:53 Troponin I High Sens 10.2 ng/L (2.3-19.7) 04/30/23 12:53 Total Protein 5.6 g/dL (6.4-8.9) L 04/30/23 12:53 Albumin 3.3 g/dL (3.2-5.5) 04/30/23 12:53 Globulin 2.3 g/dL (2.1-4.2) 04/30/23 12:53 Albumin/Globulin Ratio 1.4 (1.0-2.2) 04/30/23 12:53 Lipase 18 U/L (11-82) 04/30/23 12:53 Vitamin B12 673 pg/mL (180-914) 05/03/23 05:04 Folate 19.4 ng/mL (5.90 - >24.8) 05/03/23 05:04 TSH 1.19 uIU/mL (0.34-5.60) 05/03/23 05:04 Cortisol AM Sample 15.9 ug/dL 05/03/23 09:02 Urine Color YELLOW 04/30/23 15:44 Urine Clarity CLEAR (CLEAR) 04/30/23 15:44 Urine pH 6.0 PH (5.0-7.5) 04/30/23 15:44 Ur Specific [place] 1.015 (1.002-1.030) 04/30/23 15:44 Urine Protein NEGATIVE mg/dL (NEGATIVE) 04/30/23 15:44 Urine Glucose (UA) NEGATIVE mg/dL (NEGATIVE) 04/30/23 15:44 Urine Ketones NEGATIVE mg/dL (NEGATIVE) 04/30/23 15:44 Urine Occult Blood NEGATIVE (NEGATIVE) 04/30/23 15:44 Urine Nitrite NEGATIVE (NEGATIVE) 04/30/23 15:44 Urine Bilirubin NEGATIVE (NEGATIVE) 04/30/23 15:44 Urine Urobilinogen 1 (NORMAL) E.U./dL (NORMAL) 04/30/23 15:44 Ur Leukocyte Esterase NEGATIVE (NEGATIVE) 04/30/23 15:44 Ur Microscopic Review NOT INDICATED 04/30/23 15:44 Urine Culture Comments NOT INDICATED 04/30/23 15:44 Urine Sodium 67.3 mmol/L 04/30/23 15:44 Nasal Adenovirus (PCR) NOT DETECTED 04/30/23 13:15 Nasal B. parapertussis DNA (PCR) NOT DETECTED 04/30/23 13:15 Nasal Coronavir 229E PCR NOT DETECTED 04/30/23 13:15 Nasal Coronavir HKU1 PCR NOT DETECTED 04/30/23 13:15 Nasal Coronavir NL63 PCR NOT DETECTED 04/30/23 13:15 Nasal Coronavir OC43 PCR NOT DETECTED 04/30/23 13:15 Nasal Enterovir/Rhinovir PCR DETECTED A 04/30/23 13:15 Nasal Influenza B PCR NOT DETECTED 04/30/23 13:15 Nasal Influenza A PCR NOT DETECTED 04/30/23 13:15 Nasal Parainfluen 1 PCR NOT DETECTED 04/30/23 13:15 Nasal Parainfluen 2 PCR NOT DETECTED 04/30/23 13:15 Nasal Parainfluen 3 PCR NOT DETECTED 04/30/23 13:15 Nasal Parainfluen 4 PCR NOT DETECTED 04/30/23 13:15 Nasal RSV (PCR) NOT DETECTED 04/30/23 13:15 Nasal B.pertussis DNA PCR NOT DETECTED 04/30/23 13:15 Nasal C.pneumoniae (PCR) NOT DETECTED 04/30/23 13:15 Casey Human Metapneumo PCR NOT DETECTED 04/30/23 13:15 Nasal M.pneumoniae (PCR) NOT DETECTED 04/30/23 13:15 Nasal SARS-CoV-2 (PCR) NOT DETECTED 04/30/23 13:15 - Procedures Procedures: Procedures EXCISION OF DESCENDING COLON, ENDO, DIAGN (05/24/15) EXCISION OF DUODENUM, ENDO, DIAGN (05/24/15) EXCISION OF LOWER ESOPHAGUS, ENDO, DIAGN (05/24/15) EXCISION OF RIGHT SPERMATIC CORD, OPEN APPROACH (12/08/22) EXCISION OF SMALL INTESTINE, OPEN APPROACH (12/08/22) EXCISION OF STOMACH, ENDO, DIAGN (05/24/15) SUPPLEMENT R INGUINAL REGION WITH SYNTH SUB, OPEN APPROACH (12/08/22)
[2023-05-03] MEDS: MAGNESIUM OXIDE 400 MG TABLET PO SCH (17:08)
[2023-05-04 06:17] LABS: CREATININE 0.9 mg/dL (0.6-1.3); MAGNESIUM 1.6 mg/dL (1.7-2.3); POTASSIUM 3.7 mmol/L (3.5-4.5)
[2023-05-04] MEDS: guaiFENesin 600 MG TABLET PO PRN (21:22)
--- NOTE | 2023-05-04 23:24 | PROVIDER PROGRESS NOTE ---
Assessment/Plan - Problem List (1) Hyponatremia Assessment/Plan: Patient had hypovolemic hyponatremia. There is a history of him having poor oral intake but possibly with free water excess Na was 124 at adm>>125 after getting NS>> 129 today (all labs were reviewed). His a.m. Cortisol level came back WNL, ruling out [place]'s disease Etiology of hyponatremia is not clear but may be secondary to SIADH. Plan is to increase salt tablets to 1 g 3 times a day. Goal is serum sodium of [id number]. (2) Orthostatic hypotension Assessment/Plan: Cont new salt tablet daily Cont to monitor orthostatic vital signs (3) Rhinovirus Conclusion/Plan: I suspect this caused volume depletion to the point of being hypotensive. Probably added to generalized weakness as well Plan: Infectious isolation ordered Symptomatic support (4) Frequent falls Conclusion/Plan: In the fall 2022, he says that he fell about 8 times in those mos. With this presentation he describes falling 4-5 times in the past few days, and the fall today included bumping his head Plan: The patient has now exceeded the number of falls that are safe to continue using his anticoagulant therefore Xarelto will be stopped permanently Check orthostatic vital signs Place holding parameters on meds that can drop his blood pressure I am holding his Valsartan and Minipress, and Lunesta PT OT evaluations I spoke to pt about needing assistance at home every time he stands/walks and he said his son-in-law does that but son-in-law "is getting tired of helping". Therefore in home help or a NH were suggested and he said he would not go to a NH. I also then asked him about CPR and vent wishes and CODE BLUE status and he said he wants everything done. I will request a Palliative Care consult to help him and family make realistic choices and decisions. (5) Anticoagulant long-term use Conclusion/Plan: The patient has now exceeded the number of falls that are safe to continue using his anticoagulant therefore Xarelto will be stopped permanently (6) Paroxysmal A-fib Conclusion/Plan: The patient is on no heart rate-slowing medications. This is a sign of him having underlying conduction system disease specifically sick sinus syndrome. In fact he is in slow [employer], rates as low as 36, recovers to rate in 50's He took Xarelto at home I stopped the Xarelto now permanently because of his frequent falls and high risk of severe bleeding, especially intracerebral hemorrhage. I explained that to the pt Plan: Cont to monitor on telemetry. (7) Hypothyroidism Conclusion/Plan: His TSH came back in a good range Plan: Continue his thyroid medication (8) Iron deficiency anemia Conclusion/Plan: His hemoglobin is running 10.5. Probably somewhat hemodilutional because he is 3 L positive in fluid balance since admission, needing iv saline His Iron stores came back very low, his B12 and folate levels were adequate Plan: Start oral Iron suppl Check stool guaic (9) Hypomagnesemia Conclusion/Plan: Probably from poor oral intake Plan: Replace with po Mg Follow Mg daily - Current Meds Current Meds: Current Medications Generic Name Dose Route Start Last Admin Trade Name Enrrique PRN Reason Stop Dose Admin Acetaminophen 650 mg 04/30/23 16:59 05/04/23 21:22 Acetaminophen 325 Mg Tablet PO 650 mg Q4HR PRN Administration Pain 1 to 4, or Fever Amitriptyline HCl 5 mg 05/02/23 21:00 05/04/23 19:52 Amitriptyline 10 Mg Tablet PO 5 mg HS MAURICIO Administration Calcium Carbonate/Glycine 500 mg 05/03/23 09:00 05/04/23 09:06 Calcium Carbonate Chew 500 Mg Tablet PO 500 mg DAILY MAURICIO Administration Cholecalciferol 50 mcg 05/03/23 09:00 05/04/23 09:08 Cholecalciferol 25 Mcg Tablet PO 50 mcg DAILY MAURICIO Administration Docusate Sodium 250 - 500 mg 05/01/23 21:00 05/04/23 09:06 Docusate Sodium 250 Mg Capsule PO 500 mg DAILY MAURICIO Administration Escitalopram Oxalate 5 mg 05/02/23 09:00 05/04/23 09:07 Escitalopram 10 Mg Tablet PO 5 mg DAILY MAURICIO Administration Ferrous Gluconate 324 mg 05/03/23 12:00 05/04/23 09:06 Ferrous Gluconate 324 Mg Tablet PO 324 mg DAILYWM MAURICIO Administration Guaifenesin 600 mg 05/02/23 09:03 05/04/23 21:22 Guaifenesin 600 Mg Tablet PO 600 mg BID PRN Administration Cough Levothyroxine Sodium 50 mcg 05/01/23 07:00 05/04/23 06:50 Levothyroxine 25 Mcg Tablet PO 50 mcg QDAC MAURICIO Administration Magnesium Oxide 400 mg 05/03/23 17:00 05/04/23 17:13 Magnesium Oxide 400 Mg Tablet PO 400 mg BIDWM MAURICIO Administration Mirtazapine 22.5 mg 05/02/23 21:00 05/04/23 19:52 Mirtazapine 15 Mg Tablet PO 22.5 mg HS MAURICIO Administration Multivitamins 1 tab 05/03/23 08:00 05/04/23 09:07 Multivitamin Tablet PO 1 tab DAILYWM MAURICIO Administration Pantoprazole Sodium 40 mg 05/02/23 21:00 05/04/23 19:52 Pantoprazole 40 Mg Tablet PO 40 mg BID MAURICIO Administration Polyethylene Glycol 17 gm 05/02/23 09:00 05/04/23 09:08 Polyethylene Glycol 3350 17 Gm Packet PO Not Given DAILY MAURICIO Senna 8.6 - 17.2 mg 05/02/23 09:00 05/04/23 09:08 Senna 8.6 Mg Tablet PO Not Given DAILY MAURICIO Sodium Chloride 10 ml 04/30/23 17:00 05/04/23 17:13 Sodium Chloride Flush 0.9% 10 Ml Syringe IVP 10 ml 0100,0900,1700 MAURICIO Administration Sodium Chloride 1 gm 05/02/23 17:00 05/04/23 09:06 Sodium Chloride 1 Gm Tablet PO 1 gm DAILY MAURICIO Administration Tamsulosin HCl 0.4 mg 04/30/23 21:00 05/04/23 19:52 Tamsulosin 0.4 Mg Capsule PO 0.4 mg HS MAURICIO Administration - Lab Result Fish Bone Diagrams: 05/01/23 05:10 05/05/23 04:54 Subjective - Subjective Patient Reports: Other (Alert. No complaints at this time.) Objective Vital Signs: Vital Signs - 24 hr 05/04/23 05/04/23 05/04/23 01:00 05:00 08:15 Temperature 36.8 C 36.7 C 36.6 C Heart Rate [ 78 57 L 53 L Brachial] Heart Rate [ Sitting] Heart Rate [ Standing] Heart Rate [ Supine] Respiratory 16 16 18 Rate Blood Pressure 147/76 H 132/80 H 143/80 H [Right Brachial artery] Blood Pressure [Sitting] Blood Pressure [Standing] Blood Pressure [Supine] O2 Saturation 98 95 96 O2 Saturation [ Supine] 05/04/23 05/04/23 05/04/23 10:43 12:30 15:39 Temperature 36.3 C L 36.7 C Heart Rate [ 92 87 Brachial] Heart Rate [ 81 Sitting] Heart Rate [ 96 Standing] Heart Rate [ 70 Supine] Respiratory 18 16 Rate Blood Pressure 122/74 154/91 H [Right Brachial artery] Blood Pressure 124/64 [Sitting] Blood Pressure 107/54 L [Standing] Blood Pressure 116/69 [Supine] O2 Saturation 97 95 O2 Saturation [ 96 Supine] 05/04/23 20:12 Temperature 36.4 C L Heart Rate [ 73 Brachial] Heart Rate [ Sitting] Heart Rate [ Standing] Heart Rate [ Supine] Respiratory 24 Rate Blood Pressure 143/96 H [Right Brachial artery] Blood Pressure [Sitting] Blood Pressure [Standing] Blood Pressure [Supine] O2 Saturation 96 O2 Saturation [ Supine] Oxygen O2 Source Room air I&O (Last 24 Hrs): Intake and Output Totals x24h 05/02/23 05/03/23 05/04/23 23:59 23:59 23:59 Intake Total 2656.501 8028.161 2274 Output Total 1250 4780 1750 Balance 1406.501 -3223.337 41 General: Alert HEENT: PERRLA Neck: Supple, No JVD, No thyromegaly Neuro: Alert Cardiovascular: Other (Positive S1-S2 no extra heart sounds.) Respiratory: Other (Good air exchange in all lung carrasco no wheezing no crackles.) Abdomen: Normal bowel sounds, Soft, No tenderness Extremities: No cyanosis, No edema Skin: No rashes - Results Results: Laboratory Results WBC 6.5 x10^3/uL (4.8-10.8) 05/01/23 05:10 RBC 3.42 10^6/uL (4.70-6.10) L 05/01/23 05:10 Hgb 10.5 g/dL (14.0-18.0) L 05/01/23 05:10 Hct 30.7 % (42.0-52.0) L 05/01/23 05:10 MCV 89.8 fL (80.0-94.0) 05/01/23 05:10 MCH 30.7 pg (27.0-31.0) 05/01/23 05:10 MCHC 34.2 g/dL (32.0-36.0) 05/01/23 05:10 RDW 12.8 % (12.0-15.0) 05/01/23 05:10 Plt Count 169 10^3/uL (130-450) 05/01/23 05:10 MPV 9.3 fL (7.4-11.4) 05/01/23 05:10 Neut # (Auto) 4.5 10^3/uL (1.5-6.6) 05/01/23 05:10 Lymph # (Auto) 1.1 10^3/uL (1.5-3.5) L 05/01/23 05:10 [place] # (Auto) 0.7 10^3/uL (0.0-1.0) 05/01/23 05:10 Eos # (Auto) 0.1 10^3/uL (0.0-0.7) 05/01/23 05:10 Baso # (Auto) 0.0 10^3/uL (0.0-0.1) 05/01/23 05:10 Absolute Nucleated RBC 0.00 x10^3/uL 05/01/23 05:10 Nucleated RBC % 0.0 /100WBC 05/01/23 05:10 PT 15.8 secs (9.9-12.6) H 04/30/23 12:53 INR 1.5 (0.8-1.2) H 04/30/23 12:53 Sodium 129 mmol/L (135-145) L 05/04/23 05:47 Potassium 3.7 mmol/L (3.5-4.5) 05/04/23 05:47 Chloride 96 mmol/L (101-111) L 05/04/23 05:47 Carbon Dioxide 29 mmol/L (21-32) 05/04/23 05:47 Anion Gap 4.0 (6-13) L 05/04/23 05:47 BUN 18 mg/dL (6-20) 05/04/23 05:47 Creatinine 0.9 mg/dL (0.6-1.3) 05/04/23 05:47 Estimated GFR (MDRD) 80 (>89) L 05/04/23 05:47 Glucose 130 mg/dL (74-104) H 05/04/23 05:47 POC Whole Bld Glucose 105 mg/dL (70 - 100) H 05/03/23 06:16 Lactic Acid 1.1 mmol/L (0.5-2.2) 04/30/23 12:53 Calcium 9.0 mg/dL (8.5-10.3) 05/04/23 05:47 Phosphorus 2.7 mg/dL (2.5-5.0) 05/03/23 05:04 Magnesium 1.6 mg/dL (1.7-2.3) L 05/04/23 05:47 Iron 46 ug/dL (50-212) L 05/03/23 05:04 TIBC 213 ug/dL (250-450) L 05/03/23 05:04 % Saturation 22 % (20-50) 05/03/23 05:04 Transferrin 152 mg/dL (203-362) L 05/03/23 05:04 Total Bilirubin 0.8 mg/dL (0.2-1.0) 04/30/23 12:53 AST 26 IU/L (10-42) 04/30/23 12:53 ALT 13 IU/L (10-60) 04/30/23 12:53 Alkaline Phosphatase 48 IU/L (42-121) 04/30/23 12:53 Troponin I High Sens 10.2 ng/L (2.3-19.7) 04/30/23 12:53 Total Protein 5.6 g/dL (6.4-8.9) L 04/30/23 12:53 Albumin 3.3 g/dL (3.2-5.5) 04/30/23 12:53 Globulin 2.3 g/dL (2.1-4.2) 04/30/23 12:53 Albumin/Globulin Ratio 1.4 (1.0-2.2) 04/30/23 12:53 Lipase 18 U/L (11-82) 04/30/23 12:53 Vitamin B12 673 pg/mL (180-914) 05/03/23 05:04 Folate 19.4 ng/mL (5.90 - >24.8) 05/03/23 05:04 TSH 1.19 uIU/mL (0.34-5.60) 05/03/23 05:04 Cortisol AM Sample 15.9 ug/dL 05/03/23 09:02 Urine Color YELLOW 04/30/23 15:44 Urine Clarity CLEAR (CLEAR) 04/30/23 15:44 Urine pH 6.0 PH (5.0-7.5) 04/30/23 15:44 Ur Specific [place] 1.015 (1.002-1.030) 04/30/23 15:44 Urine Protein NEGATIVE mg/dL (NEGATIVE) 04/30/23 15:44 Urine Glucose (UA) NEGATIVE mg/dL (NEGATIVE) 04/30/23 15:44 Urine Ketones NEGATIVE mg/dL (NEGATIVE) 04/30/23 15:44 Urine Occult Blood NEGATIVE (NEGATIVE) 04/30/23 15:44 Urine Nitrite NEGATIVE (NEGATIVE) 04/30/23 15:44 Urine Bilirubin NEGATIVE (NEGATIVE) 04/30/23 15:44 Urine Urobilinogen 1 (NORMAL) E.U./dL (NORMAL) 04/30/23 15:44 Ur Leukocyte Esterase NEGATIVE (NEGATIVE) 04/30/23 15:44 Ur Microscopic Review NOT INDICATED 04/30/23 15:44 Urine Culture Comments NOT INDICATED 04/30/23 15:44 Urine Sodium 67.3 mmol/L 04/30/23 15:44 Nasal Adenovirus (PCR) NOT DETECTED 04/30/23 13:15 Nasal B. parapertussis DNA (PCR) NOT DETECTED 04/30/23 13:15 Nasal Coronavir 229E PCR NOT DETECTED 04/30/23 13:15 Nasal Coronavir HKU1 PCR NOT DETECTED 04/30/23 13:15 Nasal Coronavir NL63 PCR NOT DETECTED 04/30/23 13:15 Nasal Coronavir OC43 PCR NOT DETECTED 04/30/23 13:15 Nasal Enterovir/Rhinovir PCR DETECTED A 04/30/23 13:15 Nasal Influenza B PCR NOT DETECTED 04/30/23 13:15 Nasal Influenza A PCR NOT DETECTED 04/30/23 13:15 Nasal Parainfluen 1 PCR NOT DETECTED 04/30/23 13:15 Nasal Parainfluen 2 PCR NOT DETECTED 04/30/23 13:15 Nasal Parainfluen 3 PCR NOT DETECTED 04/30/23 13:15 Nasal Parainfluen 4 PCR NOT DETECTED 04/30/23 13:15 Nasal RSV (PCR) NOT DETECTED 04/30/23 13:15 Nasal B.pertussis DNA PCR NOT DETECTED 04/30/23 13:15 Nasal C.pneumoniae (PCR) NOT DETECTED 04/30/23 13:15 [place] Human Metapneumo PCR NOT DETECTED 04/30/23 13:15 Nasal M.pneumoniae (PCR) NOT DETECTED 04/30/23 13:15 Nasal SARS-CoV-2 (PCR) NOT DETECTED 04/30/23 13:15 - Procedures Procedures: Procedures EXCISION OF DESCENDING COLON, ENDO, DIAGN (05/24/15) EXCISION OF DUODENUM, ENDO, DIAGN (05/24/15) EXCISION OF LOWER ESOPHAGUS, ENDO, DIAGN (05/24/15) EXCISION OF RIGHT SPERMATIC CORD, OPEN APPROACH (12/08/22) EXCISION OF SMALL INTESTINE, OPEN APPROACH (12/08/22) EXCISION OF STOMACH, ENDO, DIAGN (05/24/15) SUPPLEMENT R INGUINAL REGION WITH SYNTH SUB, OPEN APPROACH (12/08/22) ABX Reporting Has patient been on IV antibiotics over the past 48 hours?: No Current Medications - Current Medications Current Medications: Active Medications Acetaminophen (Acetaminophen 325 Mg Tablet) 650 mg PO Q4HR PRN PRN Reason: Pain 1 to 4, or Fever Last Admin: 05/04/23 21:22 Dose: 650 mg Amitriptyline HCl (Amitriptyline 10 Mg Tablet) 5 mg PO HS [facility] Last Admin: 05/04/23 19:52 Dose: 5 mg Calcium Carbonate/Glycine (Calcium Carbonate Chew 500 Mg Tablet) 500 mg PO DAILY [facility] Last Admin: 05/04/23 09:06 Dose: 500 mg Cholecalciferol (Cholecalciferol 25 Mcg Tablet) 50 mcg PO DAILY [facility] Last Admin: 05/04/23 09:08 Dose: 50 mcg Docusate Sodium (Docusate Sodium 250 Mg Capsule) 250 - 500 mg PO DAILY [facility] Last Admin: 05/04/23 09:06 Dose: 500 mg Escitalopram Oxalate (Escitalopram 10 Mg Tablet) 5 mg PO DAILY [facility] Last Admin: 05/04/23 09:07 Dose: 5 mg Ferrous Gluconate (Ferrous Gluconate 324 Mg Tablet) 324 mg PO DAILYWM [facility] Last Admin: 05/04/23 09:06 Dose: 324 mg Guaifenesin (Guaifenesin 600 Mg Tablet) 600 mg PO BID PRN PRN Reason: Cough Last Admin: 05/04/23 21:22 Dose: 600 mg Levothyroxine Sodium (Levothyroxine 25 Mcg Tablet) 50 mcg PO QDAC [facility] Last Admin: 05/04/23 06:50 Dose: 50 mcg Magnesium Oxide (Magnesium Oxide 400 Mg Tablet) 400 mg PO BIDWM [facility] Last Admin: 05/04/23 17:13 Dose: 400 mg Mirtazapine (Mirtazapine 15 Mg Tablet) 22.5 mg PO [facility] Last Admin: 05/04/23 19:52 Dose: 22.5 mg Multivitamins (Multivitamin Tablet) 1 tab PO DAILYWM [facility] Last Admin: 05/04/23 09:07 Dose: 1 tab Ondansetron HCl (Ondansetron 4 Mg/2 Ml Vial) 4 mg IVP Q6HR PRN PRN Reason: Nausea / Vomiting Pantoprazole Sodium (Pantoprazole 40 Mg Tablet) 40 mg PO BID [facility] Last Admin: 05/04/23 19:52 Dose: 40 mg Polyethylene Glycol (Polyethylene Glycol 3350 17 Gm Packet) 17 gm PO DAILY [facility] Last Admin: 05/04/23 09:08 Dose: Not Given Polyethylene Glycol (Polyethylene Glycol 3350 17 Gm Packet) 8.5 gm PO DAILY PRN PRN Reason: Constipation Senna (Senna 8.6 Mg Tablet) 8.6 - 17.2 mg PO DAILY [facility] Last Admin: 05/04/23 09:08 Dose: Not Given Sodium Chloride (Sodium Chloride Flush 0.9% 10 Ml Syringe) 10 ml IVP PRN PRN PRN Reason: NEEDED PER PROVIDER ORDERS Sodium Chloride (Sodium Chloride Flush 0.9% 10 Ml Syringe) 10 ml IVP 0100,0900,1700 [facility] Last Admin: 05/04/23 17:13 Dose: 10 ml Sodium Chloride (Sodium Chloride 1 Gm Tablet) 1 gm PO DAILY [facility] Last Admin: 05/04/23 09:06 Dose: 1 gm Tamsulosin HCl (Tamsulosin 0.4 Mg Capsule) 0.4 mg PO [facility] Last Admin: 05/04/23 19:52 Dose: 0.4 mg Multivit-Min/Iron Fum/Folic AC [Pcdsr-[id number]-Jxuheteo Tablet] 1 tab PO DAILY 05/08/15 polyethylene glycoL 3350 [Miralax] 8.5 - 17 gm PO DAILY PRN 05/08/15 Tamsulosin HCl [Flomax] 0.4 mg PO 07/11/18 Levothyroxine Sodium [Synthroid] 50 mcg PO QDAC 01/22/19 Cimetidine 400 mg PO 12/08/22 Eszopiclone [Lunesta] 2 mg PO HS 12/08/22 Mirtazapine 22.5 mg PO HS 12/08/22 Omeprazole Magnesium 40 mg PO BID 12/08/22 Valsartan 160 mg PO QPM 12/08/22 Calcium Carbonate [Calcium] 600 mg PO DAILY 12/09/22 Cholecalciferol (Vitamin D3) [Vitamin D3] 2,000 unit PO DAILY 12/09/22 Simvastatin [Zocor] 80 mg PO HS 12/09/22 Escitalopram Oxalate 5 mg PO DAILY 05/02/23 Prazosin [Minipress] 1 mg PO DAILY 05/02/23
[2023-05-05 05:49] LABS: CALCIUM 9.6 mg/dL (8.5-10.3); CREATININE 0.9 mg/dL (0.6-1.3); MAGNESIUM 1.6 mg/dL (1.7-2.3)
[2023-05-05] MEDS: SODIUM CHLORIDE 1 GM TABLET PO SCH (11:38)
--- NOTE | 2023-05-05 18:03 | CONSULTATION NOTE ---
Palliative Care Follow Up - Referral Referring Provider: Dr. Latisha Riley Time of Visit: 15:15-15:45 pm Referral setting: Hospitalized patient Referral Reason: Goals of Care - Information Sources Records reviewed: Previous records reviewed History/Review of Systems obtained from: Patient, Nursing Exam limitations: Clinical condition - History of Present Illness Update Brief HPI Update: See 05/03 HPI . You do but there patient has improved over the last 48 hours, but still remains quite frail. He does have insight and that he is confused, though reports his confusion has been worse for several weeks to months. Patient is aware he is in a hospital, keeps calling himself as far as age and at 89, he thought it was 2024, but is easily engaged and can follow cues and have conversation. He does not know why he was in the hospital, reviewed again his fall, and he did remember because of his head, he does remember he has been getting weaker, and was more confused. He is able to acknowledge that things have been harder at home, and we did talk about the "procedure" was to [facility] the [facility] so he can get stronger. He does acknowledge he understands that he needs to get stronger before he can go home, that it is more difficult at home with him doing poorly. He does express feelings of s adness and does attribute this to just getting older. Social History - Living Situation Living arrangement: At home Living Situation: With spouse/s.o., With family Support System: Patient's daughter is caring for patient's who has dementia, she has been having difficulty for over 6 years. They moved in to be caregivers, Baylee and her , for both parents. Both have high care needs, particular with patient falling. Patient does have 2 other daughters,. Medications/Allergies - Medications Active Medication List: Active Medications Acetaminophen (Acetaminophen 325 Mg Tablet) 650 mg PO Q4HR PRN PRN Reason: Pain 1 to 4, or Fever Last Admin: 05/04/23 21:22 Dose: 650 mg Amitriptyline HCl (Amitriptyline 10 Mg Tablet) 5 mg PO HS ON LICENSE OF [facility] Last Admin: 05/04/23 19:52 Dose: 5 mg Calcium Carbonate/Glycine (Calcium Carbonate Chew 500 Mg Tablet) 500 mg PO DAILY [facility] Last Admin: 05/05/23 09:17 Dose: 500 mg Cholecalciferol (Cholecalciferol 25 Mcg Tablet) 50 mcg PO DAILY ON LICENSE OF [facility] Last Admin: 05/05/23 09:17 Dose: 50 mcg Docusate Sodium (Docusate Sodium 250 Mg Capsule) 250 - 500 mg PO DAILY ON LICENSE OF [facility] Last Admin: 05/05/23 09:19 Dose: Not Given Escitalopram Oxalate (Escitalopram 10 Mg Tablet) 5 mg PO DAILY ON LICENSE OF [facility] Last Admin: 05/05/23 09:17 Dose: 5 mg Ferrous Gluconate (Ferrous Gluconate 324 Mg Tablet) 324 mg PO DAILYWM ON LICENSE OF [facility] Last Admin: 05/05/23 09:17 Dose: 324 mg Guaifenesin (Guaifenesin 600 Mg Tablet) 600 mg PO BID PRN PRN Reason: Cough Last Admin: 05/04/23 21:22 Dose: 600 mg Levothyroxine Sodium (Levothyroxine 25 Mcg Tablet) 50 mcg PO QDAC ON LICENSE OF [facility] Last Admin: 05/05/23 06:05 Dose: 50 mcg Magnesium Oxide (Magnesium Oxide 400 Mg Tablet) 400 mg PO BIDWM ON LICENSE OF [facility] Last Admin: 05/05/23 15:37 Dose: 400 mg Mirtazapine (Mirtazapine 15 Mg Tablet) 22.5 mg PO [facility] Last Admin: 05/04/23 19:52 Dose: 22.5 mg Multivitamins/Minerals (Multivitamin W/Minerals Tablet) [facility] [place] Ondansetron HCl (Ondansetron Odt 4 Mg Tablet) 4 mg TL Q6HR PRN PRN Reason: Nausea / Vomiting Pantoprazole Sodium (Pantoprazole 40 Mg Tablet) 40 mg PO BID ON LICENSE OF [facility] Last Admin: 05/05/23 09:17 Dose: 40 mg Polyethylene Glycol (Polyethylene Glycol 3350 17 Gm Packet) 17 gm PO DAILY ON LICENSE OF [facility] Last Admin: 05/05/23 09:20 Dose: Not Given Polyethylene Glycol (Polyethylene Glycol 3350 17 Gm Packet) 8.5 gm PO DAILY PRN PRN Reason: Constipation Senna (Senna 8.6 Mg Tablet) 8.6 - 17.2 mg PO DAILY ON LICENSE OF [facility] Last Admin: 05/05/23 09:20 Dose: Not Given Sodium Chloride (Sodium Chloride 1 Gm Tablet) 1 gm PO [facility] Last Admin: 05/05/23 15:37 Dose: 1 gm Tamsulosin HCl (Tamsulosin 0.4 Mg Capsule) 0.4 mg PO [facility] Last Admin: 05/04/23 19:52 Dose: 0.4 mg Multivit-Min/Iron Fum/Folic AC [Fecye-Zurfknu-Ogjytnbs Tablet] 1 tab PO DAILY 05/08/15 polyethylene glycoL 3350 [Miralax] 8.5 - 17 gm PO DAILY PRN 05/08/15 Tamsulosin HCl [Flomax] 0.4 mg PO HS 07/11/18 Levothyroxine Sodium [Synthroid] 50 mcg PO QDAC 01/22/19 Cimetidine 400 mg PO HS 12/08/22 Eszopiclone [Lunesta] 2 mg PO HS 12/08/22 Mirtazapine 22.5 mg PO HS 12/08/22 Omeprazole Magnesium 40 mg PO BID 12/08/22 Valsartan 160 mg PO QPM 12/08/22 Calcium Carbonate [Calcium] 600 mg PO DAILY 12/09/22 Cholecalciferol (Vitamin D3) [Vitamin D3] 2,000 unit PO DAILY 12/09/22 Simvastatin [Zocor] 80 mg PO HS 12/09/22 Escitalopram Oxalate 5 mg PO DAILY 05/02/23 Prazosin [Minipress] 1 mg PO DAILY 05/02/23 - Allergies Allergies/Adverse Reactions: Allergies Allergy/AdvReac Type Severity Reaction Status Date / Time No Known Drug Allergies Allergy Verified 04/30/23 12:54 Review of Systems - Constitutional Constitutional: reports: Fatigue, Weakness - Ears, Nose & Throat Ears, Nose & Throat: reports: Hearing loss (needs hearing aids; has declined appointments) - Cardiovascular Cardiovascular: reports: Irregular heart rate, Lightheadedness, Decr. exercise tolerance. denies: Chest pain - Respiratory Respiratory: denies: SOB at rest - Gastrointestinal Gastrointestinal: reports: Constipation (alternated with diarrhea; daughter reports patient spends most of day in bathroom; very fixated has had hemmrhoids "fixed" twice.) - Genitourinary Genitourinary: reports: Frequency, Urgency, Incontinence - Musculoskeletal Musculoskeletal: reports: Back pain, Muscle weakness, Assistive devices (previous level of functioning;used walker) - Integumentary Integumentary: reports: Other (has healing scabs on head from fall) - Neurological Neurological: reports: General weakness, Dizziness, Memory problems - Psychiatric Psychiatric: reports: Depression, Anxiety - Endocrine Endocrine: reports: Diabetes type 2, Hypothyroidism - Hematologic/Lymphatic Hematologic/Lymph: reports: Anemia - All Other Systems All Other Systems: reports: Other (poor short term memory; difficult ROS) Physical Exam - Vital Signs Vital Signs: Vital Signs x48h Temp Pulse Resp BP Pulse Ox 05/05/23 15:27 37.1 C 64 14 137/77 H 96 05/05/23 12:49 37.0 C 72 20 121/66 91 L - Physical Exam General Appearance: positive: No acute distress ENT: positive: No signs of dehydration Neck: positive: No JVD, Trachea midline Cardiovascular: positive: Irregular Respiratory: positive: No respiratory distress Abdomen: positive: Soft Skin: positive: Pallor Neurologic/Psychiatric: positive: Disoriented to place, Disoriented to time, Weakness, Depressed mood/affect, Flat affect Palliative Care - POLST Patient has POLST: No Pain: No pain Feelings of wellbeing/Perceived Quality of Life: Poor, Worsening Performance Status: Patient remains quite weak, has been working with PT/OT, does follow cues and is interested in getting stronger. Patient is up in chair for evaluation today. - Palliative Care Discussion: Patient continues with very little insight into his current condition, but does recognize he is quite frail, and getting worse. He is hopeful to be able to regain some strength, and be able to return home. He does understand he is going to rehab, for "a few weeks". We discussed the goal of this would be able to be home so easier to take care of, does acknowledge she is needing increased care. Patient does perceive he is getting older, he says he does pretty well for 89, and does not expect to live forever. He reports he is not afraid of dying, and went on to tell me about his [employer] career. I did check in with Savannah his daughter, she had made contact with her 1 sister, who is in agreement for do not attempt resuscitation/DNI, Savannah has had a chance to think about this as well, was feeling that the decision was more urgent, is relieved to hear he is doing better, but we did discuss in the context of this we will be at this decision point again, and most likely in crisis. Particular if patient continues to fall. She is worried about patient being able to make progress at [facility], patient has had ongoing increased care needs and has been feeling somewhat overwhelmed, they may need to supplement their care at home. She is going to follow-up with the other sister wilson, regarding again looking at further follow-up for do not attempt resuscitation/DNI. Patient most likely will transition to [facility] where he has been accepted prior to completing this with daughter, but will ma il form as well as "hard choices for loving people" and palliative care information. Will request outpatient referral for ongoing palliative care support. She knows that he also wanted input from his son-in-law, who is supportive of what the daughters decide. Results - Lab Results Lab results reviewed: Yes Fish Bones: 05/01/23 05:10 05/05/23 04:54 Lab and Imaging Results: Lab Results x24hrs 05/05/23 Range/Units 04:54 Sodium 129 L (135-145) mmol/L Potassium 4.0 (3.5-4.5) mmol/L Chloride 93 L (101-111) mmol/L Carbon Dioxide 29 (21-32) mmol/L Anion Gap 7.0 (6-13) BUN 25 H (6-20) mg/dL Creatinine 0.9 (0.6-1.3) mg/dL Estimated GFR (MDRD) 80 L (>89) Glucose 143 H (74-104) mg/dL Calcium 9.6 (8.5-10.3) mg/dL Magnesium 1.6 L (1.7-2.3) mg/dL Impression and Recommendations - Palliative Care Impression: This is an 87-year-old gentleman with multiple comorbidities, with acute admission regarding acute illness, hyponatremia, and frequent and recurrent falls. Patient with little insight into his frailty, does have mild to moderate dementia, exacerbated by his hyponatremia. Palliative care providing support and initiating conversation regarding goals of care, patient does not have a DPOA, is with dementia, will default to the daughters. Recommendations/Counseling Done: 1. Dementia. Unclear if patient has neuropsychiatric behaviors, appears quite cooperative, with little insight to his current situation, and severe short-term memory deficits. Patient does have known PTSD. Have requested OT for cognitive eval, to be able to document ongoing cognitive decline. Patient does not present with decision-making capacity in the context of being able to weigh medical decisions and nuances, this is been explained to daughter, she is in agreement. Unfortunately they have not established DPOA prior to this, [place] would default to the 3 daughters, they all need to be in agreement. 2. Advance care planning. Patient does understand he is aging, he is "89" and does not expect to live forever. His goal is to get stronger, and return home. Counseling with daughter, on the phone secondary to her acute illness. Anticipatory guidance provided regarding frailty, advanced age, multiple comorbidities, and continued high risk for falls. Counseling provided regarding the POLST, CODE STATUS question, is in agreement on discharge from SNF for ongoing palliative care outpatient support. We will reach out to outpatient PCP. 30 minutes with review of chart, consultation with hospitalist, nursing staff, meeting with patient, for evaluation, counseling on phone with daughter regarding goals of care, POLST, and anticipatory guidance.
--- NOTE | 2023-05-05 19:02 | PROVIDER PROGRESS NOTE ---
Assessment/Plan - Problem List (1) Hyponatremia Assessment/Plan: Patient had hypovolemic hyponatremia. There is a history of him having poor oral intake but possibly with free water excess Na was 124 at adm>>125 after getting NS>> 129 today (all labs were reviewed). His a.m. Cortisol level came back WNL, ruling out Gustine's disease Etiology of hyponatremia is not clear but may be secondary to SIADH. Plan is to increase salt tablets to 1 g 3 times a day. Goal is serum sodium of 113410. (2) Orthostatic hypotension Assessment/Plan: Continue salt tablets daily Cont to monitor orthostatic vital signs (3) Rhinovirus Conclusion/Plan: I suspect this caused volume depletion to the point of being hypotensive. Proba maria antonia added to generalized weakness as well Plan: Infectious isolation ordered Symptomatic support (4) Frequent falls Conclusion/Plan: Plan: Xarelto discontinued due to frequent falls. Patient underwent a palliative care consult today. Patient is not competent to make his own healthcare decisions and decisions regarding his care will be deferred to his family. (5) Anticoagulant long-term use Conclusion/Plan: Discontinue Xarelto (6) Paroxysmal A-fib Conclusion/Plan: (7) Hypothyroidism Conclusion/Plan: Continue Synthroid. (8) Iron deficiency anemia Conclusion/Plan: Treatment initiated with iron tablets. (9) Hypomagnesemia Conclusion/Plan: Continue to monitor and replace as needed - Current Meds Current Meds: Current Medications Generic Name Dose Route Start Last Admin Trade Name Freq PRN Reason Stop Dose Admin Acetaminophen 650 mg 04/30/23 16:59 05/04/23 21:22 Acetaminophen 325 Mg Tablet PO 650 mg Q4HR PRN Administration Pain 1 to 4, or Fever Amitriptyline HCl 5 mg 05/02/23 21:00 05/04/23 19:52 Amitriptyline 10 Mg Tablet PO 5 mg HS MAURICIO Administration Calcium Carbonate/Glycine 500 mg 05/03/23 09:00 05/05/23 09:17 Calcium Carbonate Chew 500 Mg Tablet PO 500 mg DAILY MAURICIO Administration Cholecalciferol 50 mcg 05/03/23 09:00 05/05/23 09:17 Cholecalciferol 25 Mcg Tablet PO 50 mcg DAILY MAURICIO Administration Docusate Sodium 250 - 500 mg 05/01/23 21:00 05/05/23 09:19 Docusate Sodium 250 Mg Capsule PO Not Given DAILY MAURICIO Escitalopram Oxalate 5 mg 05/02/23 09:00 05/05/23 09:17 Escitalopram 10 Mg Tablet PO 5 mg DAILY MAURICIO Administration Ferrous Gluconate 324 mg 05/03/23 12:00 05/05/23 09:17 Ferrous Gluconate 324 Mg Tablet PO 324 mg DAILYWM MAURICIO Administration Guaifenesin 600 mg 05/02/23 09:03 05/04/23 21:22 Guaifenesin 600 Mg Tablet PO 600 mg BID PRN Administration Cough Levothyroxine Sodium 50 mcg 05/01/23 07:00 05/05/23 06:05 Levothyroxine 25 Mcg Tablet PO 50 mcg QDAC MAURICIO Administration Magnesium Oxide 400 mg 05/03/23 17:00 05/05/23 15:37 Magnesium Oxide 400 Mg Tablet PO 400 mg BIDWM MAURICIO Administration Mirtazapine 22.5 mg 05/02/23 21:00 05/04/23 19:52 Mirtazapine 15 Mg Tablet PO 22.5 mg HS MAURICIO Administration Pantoprazole Sodium 40 mg 05/02/23 21:00 05/05/23 09:17 Pantoprazole 40 Mg Tablet PO 40 mg BID MAURICIO Administration Polyethylene Glycol 17 gm 05/02/23 09:00 05/05/23 09:20 Polyethylene Glycol 3350 17 Gm Packet PO Not Given DAILY MAURICIO Senna 8.6 - 17.2 mg 05/02/23 09:00 05/05/23 09:20 Senna 8.6 Mg Tablet PO Not Given DAILY MAURICIO Sodium Chloride 1 gm 05/05/23 11:00 05/05/23 15:37 Sodium Chloride 1 Gm Tablet PO 1 gm AC MAURICIO Administration Tamsulosin HCl 0.4 mg 04/30/23 21:00 05/04/23 19:52 Tamsulosin 0.4 Mg Capsule PO 0.4 mg HS MAURICIO Administration - Lab Result Fish Bone Diagrams: 05/09/23 05:38 05/09/23 22:55 - Additional Planning My Orders: My Active Orders 05/05/23 11:00 Sodium Chloride [Salt Tab] 1 gm PO AC 05/06/23 08:00 Multivitamin W/Minerals [Theragran M] 1 tab PO DAILYWM Subjective - Subjective Patient Reports: Other (Alert. Oriented to person but not to time or place. Patient has no other complaints at this time) Objective Vital Signs: Vital Signs - 24 hr 05/04/23 05/04/23 05/05/23 20:12 23:47 03:25 Temperature 36.4 C L 36.5 C 36.8 C Heart Rate [ 73 87 104 H Brachial] Respiratory 24 18 20 Rate Blood Pressure 143/96 H 155/95 H 147/86 H [Right Brachial artery] O2 Saturation 96 97 92 05/05/23 05/05/23 05/05/23 08:02 12:49 15:27 Temperature 37.0 C 37.0 C 37.1 C Heart Rate [ 82 72 64 Brachial] Respiratory 20 20 14 Rate Blood Pressure 142/88 H 121/66 137/77 H [Right Brachial artery] O2 Saturation 92 91 L 96 Oxygen O2 Source Room air I&O (Last 24 Hrs): Intake and Output Totals x24h 05/03/23 05/04/23 05/05/23 23:59 23:59 23:59 Intake Total 4372.158 1674 540 Output Total 4780 1750 250 Balance -3223.337 41 290 General: Alert, No acute distress HEENT: PERRLA, Other (Anicteric sclera..) Neck: Supple, No JVD, No thyromegaly Neuro: Alert, Non Focal Cardiovascular: Other (Positive S1-S2 no extra heart sounds positive S1 is 2 no extra heart sounds) Respiratory: Other (Good air exchange in all lung [place] no wheezing no crackles) Abdomen: Normal bowel sounds, No tenderness, No hepatospenomegaly Extremities: No cyanosis, No edema Skin: No rashes - Results Results: Laboratory Results WBC 6.5 x10^3/uL (4.8-10.8) 05/01/23 05:10 RBC 3.42 10^6/uL (4.70-6.10) L 05/01/23 05:10 Hgb 10.5 g/dL (14.0-18.0) L 05/01/23 05:10 Hct 30.7 % (42.0-52.0) L 05/01/23 05:10 MCV 89.8 fL (80.0-94.0) 05/01/23 05:10 MCH 30.7 pg (27.0-31.0) 05/01/23 05:10 MCHC 34.2 g/dL (32.0-36.0) 05/01/23 05:10 RDW 12.8 % (12.0-15.0) 05/01/23 05:10 Plt Count 169 10^3/uL (130-450) 05/01/23 05:10 MPV 9.3 fL (7.4-11.4) 05/01/23 05:10 Neut # (Auto) 4.5 10^3/uL (1.5-6.6) 05/01/23 05:10 Lymph # (Auto) 1.1 10^3/uL (1.5-3.5) L 05/01/23 05:10 Hughes # (Auto) 0.7 10^3/uL (0.0-1.0) 05/01/23 05:10 Eos # (Auto) 0.1 10^3/uL (0.0-0.7) 05/01/23 05:10 Baso # (Auto) 0.0 10^3/uL (0.0-0.1) 05/01/23 05:10 Absolute Nucleated RBC 0.00 x10^3/uL 05/01/23 05:10 Nucleated RBC % 0.0 /100WBC 05/01/23 05:10 PT 15.8 secs (9.9-12.6) H 04/30/23 12:53 INR 1.5 (0.8-1.2) H 04/30/23 12:53 Sodium 129 mmol/L (135-145) L 05/05/23 04:54 Potassium 4.0 mmol/L (3.5-4.5) 05/05/23 04:54 Chloride 93 mmol/L (101-111) L 05/05/23 04:54 Carbon Dioxide 29 mmol/L (21-32) 05/05/23 04:54 Anion Gap 7.0 (6-13) 05/05/23 04:54 BUN 25 mg/dL (6-20) H 05/05/23 04:54 Creatinine 0.9 mg/dL (0.6-1.3) 05/05/23 04:54 Estimated GFR (MDRD) 80 (>89) L 05/05/23 04:54 Glucose 143 mg/dL (74-104) H 05/05/23 04:54 POC Whole Bld Glucose 105 mg/dL (70 - 100) H 05/03/23 06:16 Lactic Acid 1.1 mmol/L (0.5-2.2) 04/30/23 12:53 Calcium 9.6 mg/dL (8.5-10.3) 05/05/23 04:54 Phosphorus 2.7 mg/dL (2.5-5.0) 05/03/23 05:04 Magnesium 1.6 mg/dL (1.7-2.3) L 05/05/23 04:54 Iron 46 ug/dL (50-212) L 05/03/23 05:04 TIBC 213 ug/dL (250-450) L 05/03/23 05:04 % Saturation 22 % (20-50) 05/03/23 05:04 Transferrin 152 mg/dL (203-362) L 05/03/23 05:04 Total Bilirubin 0.8 mg/dL (0.2-1.0) 04/30/23 12:53 AST 26 IU/L (10-42) 04/30/23 12:53 ALT 13 IU/L (10-60) 04/30/23 12:53 Alkaline Phosphatase 48 IU/L (42-121) 04/30/23 12:53 Troponin I High Sens 10.2 ng/L (2.3-19.7) 04/30/23 12:53 Total Protein 5.6 g/dL (6.4-8.9) L 04/30/23 12:53 Albumin 3.3 g/dL (3.2-5.5) 04/30/23 12:53 Globulin 2.3 g/dL (2.1-4.2) 04/30/23 12:53 Albumin/Globulin Ratio 1.4 (1.0-2.2) 04/30/23 12:53 Lipase 18 U/L (11-82) 04/30/23 12:53 Vitamin B12 673 pg/mL (180-914) 05/03/23 05:04 Folate 19.4 ng/mL (5.90 - >24.8) 05/03/23 05:04 TSH 1.19 uIU/mL (0.34-5.60) 05/03/23 05:04 Cortisol AM Sample 15.9 ug/dL 05/03/23 09:02 Urine Color YELLOW 04/30/23 15:44 Urine Clarity CLEAR (CLEAR) 04/30/23 15:44 Urine pH 6.0 PH (5.0-7.5) 04/30/23 15:44 Ur Specific [place] 1.015 (1.002-1.030) 04/30/23 15:44 Urine Protein NEGATIVE mg/dL (NEGATIVE) 04/30/23 15:44 Urine Glucose (UA) NEGATIVE mg/dL (NEGATIVE) 04/30/23 15:44 Urine Ketones NEGATIVE mg/dL (NEGATIVE) 04/30/23 15:44 Urine Occult Blood NEGATIVE (NEGATIVE) 04/30/23 15:44 Urine Nitrite NEGATIVE (NEGATIVE) 04/30/23 15:44 Urine Bilirubin NEGATIVE (NEGATIVE) 04/30/23 15:44 Urine Urobilinogen 1 (NORMAL) E.U./dL (NORMAL) 04/30/23 15:44 Ur Leukocyte Esterase NEGATIVE (NEGATIVE) 04/30/23 15:44 Ur Microscopic Review NOT INDICATED 04/30/23 15:44 Urine Culture Comments NOT INDICATED 04/30/23 15:44 Urine Sodium 67.3 mmol/L 04/30/23 15:44 Nasal Adenovirus (PCR) NOT DETECTED 04/30/23 13:15 Nasal B. parapertussis DNA (PCR) NOT DETECTED 04/30/23 13:15 Nasal Coronavir 229E PCR NOT DETECTED 04/30/23 13:15 Nasal Coronavir HKU1 PCR NOT DETECTED 04/30/23 13:15 Nasal Coronavir NL63 PCR NOT DETECTED 04/30/23 13:15 Nasal Coronavir OC43 PCR NOT DETECTED 04/30/23 13:15 Nasal Enterovir/Rhinovir PCR DETECTED A 04/30/23 13:15 Nasal Influenza B PCR NOT DETECTED 04/30/23 13:15 Nasal Influenza A PCR NOT DETECTED 04/30/23 13:15 Nasal Parainfluen 1 PCR NOT DETECTED 04/30/23 13:15 Nasal Parainfluen 2 PCR NOT DETECTED 04/30/23 13:15 Nasal Parainfluen 3 PCR NOT DETECTED 04/30/23 13:15 Nasal Parainfluen 4 PCR NOT DETECTED 04/30/23 13:15 Nasal RSV (PCR) NOT DETECTED 04/30/23 13:15 Nasal B.pertussis DNA PCR NOT DETECTED 04/30/23 13:15 Nasal C.pneumoniae (PCR) NOT DETECTED 04/30/23 13:15 Casey Human Metapneumo PCR NOT DETECTED 04/30/23 13:15 Nasal M.pneumoniae (PCR) NOT DETECTED 04/30/23 13:15 Nasal SARS-CoV-2 (PCR) NOT DETECTED 04/30/23 13:15 - Procedures Procedures: Procedures EXCISION OF DESCENDING COLON, ENDO, DIAGN (05/24/15) EXCISION OF DUODENUM, ENDO, DIAGN (05/24/15) EXCISION OF LOWER ESOPHAGUS, ENDO, DIAGN (05/24/15) EXCISION OF RIGHT SPERMATIC CORD, OPEN APPROACH (12/08/22) EXCISION OF SMALL INTESTINE, OPEN APPROACH (12/08/22) EXCISION OF STOMACH, ENDO, DIAGN (05/24/15) SUPPLEMENT R INGUINAL REGION WITH SYNTH SUB, OPEN APPROACH (12/08/22) ABX Reporting Has patient been on IV antibiotics over the past 48 hours?: No Current Medications - Current Medications Current Medications: Active Medications Acetaminophen (Acetaminophen 325 Mg Tablet) 650 mg PO Q4HR PRN PRN Reason: Pain 1 to 4, or Fever Last Admin: 05/04/23 21:22 Dose: 650 mg Amitriptyline HCl (Amitriptyline 10 Mg Tablet) 5 mg PO HS [facility] Last Admin: 05/04/23 19:52 Dose: 5 mg Calcium Carbonate/Glycine (Calcium Carbonate Chew 500 Mg Tablet) 500 mg PO DAILY [facility] Last Admin: 05/05/23 09:17 Dose: 500 mg Cholecalciferol (Cholecalciferol 25 Mcg Tablet) 50 mcg PO DAILY [facility] Last Admin: 05/05/23 09:17 Dose: 50 mcg Docusate Sodium (Docusate Sodium 250 Mg Capsule) 250 - 500 mg PO DAILY [facility] Last Admin: 05/05/23 09:19 Dose: Not Given Escitalopram Oxalate (Escitalopram 10 Mg Tablet) 5 mg PO DAILY [facility] Last Admin: 05/05/23 09:17 Dose: 5 mg Ferrous Gluconate (Ferrous Gluconate 324 Mg Tablet) 324 mg PO DAILYWM [facility] Last Admin: 05/05/23 09:17 Dose: 324 mg Guaifenesin (Guaifenesin 600 Mg Tablet) 600 mg PO BID PRN PRN Reason: Cough Last Admin: 05/04/23 21:22 Dose: 600 mg Levothyroxine Sodium (Levothyroxine 25 Mcg Tablet) 50 mcg PO QDAC [facility] Last Admin: 05/05/23 06:05 Dose: 50 mcg Magnesium Oxide (Magnesium Oxide 400 Mg Tablet) 400 mg PO BIDWM [facility] Last Admin: 05/05/23 15:37 Dose: 400 mg Mirtazapine (Mirtazapine 15 Mg Tablet) 22.5 mg PO HS [facility] Last Admin: 05/04/23 19:52 Dose: 22.5 mg Multivitamins/Minerals (Multivitamin W/Minerals Tablet) 1 [facility] [place]dans[place]ron HCl (Ondansetron Odt 4 Mg Tablet) 4 mg TL Q6HR PRN PRN Reason: Nausea / Vomiting Pantoprazole Sodium (Pantoprazole 40 Mg Tablet) 40 mg PO BID [facility] Last Admin: 05/05/23 09:17 Dose: 40 mg Polyethylene Glycol (Polyethylene Glycol 3350 17 Gm Packet) 17 gm PO DAILY [facility] Last Admin: 05/05/23 09:20 Dose: Not Given Polyethylene Glycol (Polyethylene Glycol 3350 17 Gm Packet) 8.5 gm PO DAILY PRN PRN Reason: Constipation Senna (Senna 8.6 Mg Tablet) 8.6 - 17.2 mg PO DAILY [facility] Last Admin: 05/05/23 09:20 Dose: Not Given Sodium Chloride (Sodium Chloride 1 Gm Tablet) 1 gm PO AC [facility] Last Admin: 05/05/23 15:37 Dose: 1 gm Tamsulosin HCl (Tamsulosin 0.4 Mg Capsule) 0.4 mg PO [facility] Last Admin: 05/04/23 19:52 Dose: 0.4 mg Multivit-Min/Iron Fum/Folic AC [Noidy-Cupbnmx-Rgkbtgbw Tablet] 1 tab PO DAILY 05/08/15 polyethylene glycoL 3350 [Miralax] 8.5 - 17 gm PO DAILY PRN 05/08/15 Tamsulosin HCl [Flomax] 0.4 mg PO 07/11/18 Levothyroxine Sodium [Synthroid] 50 mcg PO QDAC 01/22/19 Cimetidine 400 mg PO HS 12/08/22 Eszopiclone [Lunesta] 2 mg PO HS 12/08/22 Mirtazapine 22.5 mg PO HS 12/08/22 Omeprazole Magnesium 40 mg PO BID 12/08/22 Valsartan 160 mg PO QPM 12/08/22 Calcium Carbonate [Calcium] 600 mg PO DAILY 12/09/22 Cholecalciferol (Vitamin D3) [Vitamin D3] 2,000 unit PO DAILY 12/09/22 Simvastatin [Zocor] 80 mg PO HS 12/09/22 Escitalopram Oxalate 5 mg PO DAILY 05/02/23 Prazosin [Minipress] 1 mg PO DAILY 05/02/23
[2023-05-06 05:47] LABS: CALCIUM 9.1 mg/dL (8.5-10.3); CREATININE 0.9 mg/dL (0.6-1.3); MAGNESIUM 1.6 mg/dL (1.7-2.3); PHOSPHORUS 2.8 mg/dL (2.5-5.0); POTASSIUM 3.5 mmol/L (3.5-4.5)
[2023-05-06] MEDS: MULTIVITAMIN W/MINERALS TABLET PO SCH (09:13)
--- NOTE | 2023-05-06 21:54 | PROVIDER PROGRESS NOTE ---
Assessment/Plan - Problem List (1) Hyponatremia Assessment/Plan: Patient had hypovolemic hyponatremia. There is a history of him having poor oral intake but possibly with free water excess Na was 124 at adm>>125 after getting NS>> 129 today (all labs were reviewed). His a.m. Cortisol level came back WNL, ruling out Hazard's disease Etiology of hyponatremia is not clear but may be secondary to SIADH. Plan is to increase salt tablets to 1 g 3 times a day. He continues to require hospitalization due to his hyponatremia (2) Orthostatic hypotension Assessment/Plan: Continue salt tablets daily Cont to monitor orthostatic vital signs (3) Rhinovirus Conclusion/Plan: I suspect this caused volume depletion to the point of being hypotensive. Probably added to generalized weakness as well Plan: Infectious isolation ordered Symptomatic support (4) Frequent falls Conclusion/Plan: Plan: Xarelto discontinued due to frequent falls. Patient underwent a palliative care consult today. Patient is not competent to make his own healthcare decisions and decisions regarding his care will be deferred to his family. (5) Anticoagulant long-term use Conclusion/Plan: Discontinue Xarelto (6) Paroxysmal A-fib Conclusion/Plan: (7) Hypothyroidism Conclusion/Plan: Continue Synthroid. (8) Iron deficiency anemia Conclusion/Plan: Treatment initiated with iron tablets. (9) Hypomagnesemia Conclusion/Plan: Continue to monitor and replace as needed - Current Meds Current Meds: Current Medications Generic Name Dose Route Start Last Admin Trade Name Freq PRN Reason Stop Dose Admin Acetaminophen 650 mg 04/30/23 16:59 05/06/23 00:54 Acetaminophen 325 Mg Tablet PO 650 mg Q4HR PRN Administration Pain 1 to 4, or Fever Amitriptyline HCl 5 mg 05/02/23 21:00 05/06/23 20:29 Amitriptyline 10 Mg Tablet PO 5 mg HS MAURICIO Administration Calcium Carbonate/Glycine 500 mg 05/03/23 09:00 05/06/23 09:13 Calcium Carbonate Chew 500 Mg Tablet PO 500 mg DAILY MAURICIO Administration Cholecalciferol 50 mcg 05/03/23 09:00 05/06/23 09:13 Cholecalciferol 25 Mcg Tablet PO 50 mcg DAILY MAURICIO Administration Docusate Sodium 250 - 500 mg 05/01/23 21:00 05/06/23 09:14 Docusate Sodium 250 Mg Capsule PO Not Given DAILY MAURICIO Escitalopram Oxalate 5 mg 05/02/23 09:00 05/06/23 09:14 Escitalopram 10 Mg Tablet PO 5 mg DAILY MAURICIO Administration Ferrous Gluconate 324 mg 05/03/23 12:00 05/06/23 09:14 Ferrous Gluconate 324 Mg Tablet PO 324 mg DAILYWM [facility]URICIO Administration Guaifenesin 600 mg 05/02/23 09:03 05/04/23 21:22 Guaifenesin 600 Mg Tablet PO 600 mg BID PRN Administration Cough Levothyroxine Sodium 50 mcg 05/01/23 07:00 05/06/23 07:13 Levothyroxine 25 Mcg Tablet PO 50 mcg QDAC MAURICIO Administration Magnesium Oxide 400 mg 05/03/23 17:00 05/06/23 16:32 Magnesium Oxide 400 Mg Tablet PO 400 mg BIDWM MAURICIO Administration Mirtazapine 22.5 mg 05/02/23 21:00 05/06/23 20:28 Mirtazapine 15 Mg Tablet PO 22.5 mg HS [facility] Administration Multivitamins/Minerals 1 tab 05/06/23 08:00 05/06/23 09:13 Multivitamin W/Minerals Tablet PO 1 tab DAILYWM [facility] Administration Pantoprazole Sodium 40 mg 05/02/23 21:00 05/06/23 20:29 Pantoprazole 40 Mg Tablet PO 40 mg BID MAURICIO Administration Polyethylene Glycol 17 gm 05/02/23 09:00 05/06/23 09:14 Polyethylene Glycol 3350 17 Gm Packet PO Not Given DAILY MAURICIO Senna 8.6 - 17.2 mg 05/02/23 09:00 05/06/23 09:14 Senna 8.6 Mg Tablet PO Not Given DAILY [facility] Sodium Chloride 1 gm 05/05/23 11:00 05/06/23 16:32 Sodium Chloride 1 Gm Tablet PO 1 gm AC [facility] Administration Tamsulosin HCl 0.4 mg 04/30/23 21:00 05/06/23 20:29 Tamsulosin 0.4 Mg Capsule PO 0.4 mg HS [facility] Administration - Lab Result Fish Bone Diagrams: 05/09/23 05:38 05/09/23 22:55 - Additional Planning My Orders: My Active Orders 05/06/23 08:00 Multivitamin W/Minerals [Theragran M] 1 tab PO DAILYWM 05/07/23 05:00 BMP - BASIC METABOLIC PANEL [CHEM] Routine Subjective - Subjective Patient Reports: Other (Alert. No complaints at this time.) Objective Vital Signs: Vital Signs - 24 hr 05/06/23 05/06/23 05/06/23 00:12 04:54 08:10 Temperature 36.4 C L 36.6 C 36.6 C Heart Rate [ 96 73 76 Brachial] Respiratory 18 18 18 Rate Blood Pressure 124/71 130/73 132/74 H [Right Brachial artery] O2 Saturation 94 95 96 05/06/23 05/06/23 05/06/23 13:00 15:41 20:34 Temperature 37.1 C 37.1 C 37.1 C Heart Rate [ 95 85 91 Brachial] Respiratory 20 20 16 Rate Blood Pressure 139/83 H 115/68 124/68 [Right Brachial artery] O2 Saturation 94 97 96 Oxygen O2 Source Room air I&O (Last 24 Hrs): Intake and Output Totals x24h 05/04/23 05/05/23 05/06/23 23:59 23:59 23:59 Intake Total 1791 590 620 Output Total 4301 443 0892 Balance 41 -60 -680 General: Alert, No acute distress HEENT: Atraumatic Neck: Supple, No JVD, No thyromegaly Neuro: Alert Cardiovascular: Other (Positive S1-S2 no EXTR heart sounds.) Respiratory: Other (Fair air exchange in all lung carrasco no wheezing no crackles) Abdomen: Normal bowel sounds, Soft, No tenderness Extremities: No cyanosis, No edema Skin: No rashes - Results Results: Laboratory Results WBC 6.5 x10^3/uL (4.8-10.8) 05/01/23 05:10 RBC 3.42 10^6/uL (4.70-6.10) L 05/01/23 05:10 Hgb 10.5 g/dL (14.0-18.0) L 05/01/23 05:10 Hct 30.7 % (42.0-52.0) L 05/01/23 05:10 MCV 89.8 fL (80.0-94.0) 05/01/23 05:10 MCH 30.7 pg (27.0-31.0) 05/01/23 05:10 MCHC 34.2 g/dL (32.0-36.0) 05/01/23 05:10 RDW 12.8 % (12.0-15.0) 05/01/23 05:10 Plt Count 169 10^3/uL (130-450) 05/01/23 05:10 MPV 9.3 fL (7.4-11.4) 05/01/23 05:10 Neut # (Auto) 4.5 10^3/uL (1.5-6.6) 05/01/23 05:10 Lymph # (Auto) 1.1 10^3/uL (1.5-3.5) L 05/01/23 05:10 Roane # (Auto) 0.7 10^3/uL (0.0-1.0) 05/01/23 05:10 Eos # (Auto) 0.1 10^3/uL (0.0-0.7) 05/01/23 05:10 Baso # (Auto) 0.0 10^3/uL (0.0-0.1) 05/01/23 05:10 Absolute Nucleated RBC 0.00 x10^3/uL 05/01/23 05:10 Nucleated RBC % 0.0 /100WBC 05/01/23 05:10 PT 15.8 secs (9.9-12.6) H 04/30/23 12:53 INR 1.5 (0.8-1.2) H 04/30/23 12:53 Sodium 130 mmol/L (135-145) L 05/06/23 05:20 Potassium 3.5 mmol/L (3.5-4.5) 05/06/23 05:20 Chloride 97 mmol/L (101-111) L 05/06/23 05:20 Carbon Dioxide 29 mmol/L (21-32) 05/06/23 05:20 Anion Gap 4.0 (6-13) L 05/06/23 05:20 BUN 24 mg/dL (6-20) H 05/06/23 05:20 Creatinine 0.9 mg/dL (0.6-1.3) 05/06/23 05:20 Estimated GFR (MDRD) 80 (>89) L 05/06/23 05:20 Glucose 118 mg/dL (74-104) H 05/06/23 05:20 POC Whole Bld Glucose 105 mg/dL (70 - 100) H 05/03/23 06:16 Lactic Acid 1.1 mmol/L (0.5-2.2) 04/30/23 12:53 Calcium 9.1 mg/dL (8.5-10.3) 05/06/23 05:20 Phosphorus 2.8 mg/dL (2.5-5.0) 05/06/23 05:20 Magnesium 1.6 mg/dL (1.7-2.3) L 05/06/23 05:20 Iron 46 ug/dL (50-212) L 05/03/23 05:04 TIBC 213 ug/dL (250-450) L 05/03/23 05:04 % Saturation 22 % (20-50) 05/03/23 05:04 Transferrin 152 mg/dL (203-362) L 05/03/23 05:04 Total Bilirubin 0.8 mg/dL (0.2-1.0) 04/30/23 12:53 AST 26 IU/L (10-42) 04/30/23 12:53 ALT 13 IU/L (10-60) 04/30/23 12:53 Alkaline Phosphatase 48 IU/L (42-121) 04/30/23 12:53 Troponin I High Sens 10.2 ng/L (2.3-19.7) 04/30/23 12:53 Total Protein 5.6 g/dL (6.4-8.9) L 04/30/23 12:53 Albumin 3.3 g/dL (3.2-5.5) 04/30/23 12:53 Globulin 2.3 g/dL (2.1-4.2) 04/30/23 12:53 Albumin/Globulin Ratio 1.4 (1.0-2.2) 04/30/23 12:53 Lipase 18 U/L (11-82) 04/30/23 12:53 Vitamin B12 673 pg/mL (180-914) 05/03/23 05:04 Folate 19.4 ng/mL (5.90 - >24.8) 05/03/23 05:04 TSH 1.19 uIU/mL (0.34-5.60) 05/03/23 05:04 Cortisol AM Sample 15.9 ug/dL 05/03/23 09:02 Urine Color YELLOW 04/30/23 15:44 Urine Clarity CLEAR (CLEAR) 04/30/23 15:44 Urine pH 6.0 PH (5.0-7.5) 04/30/23 15:44 Ur Specific Leon 1.015 (1.002-1.030) 04/30/23 15:44 Urine Protein NEGATIVE mg/dL (NEGATIVE) 04/30/23 15:44 Urine Glucose (UA) NEGATIVE mg/dL (NEGATIVE) 04/30/23 15:44 Urine Ketones NEGATIVE mg/dL (NEGATIVE) 04/30/23 15:44 Urine Occult Blood NEGATIVE (NEGATIVE) 04/30/23 15:44 Urine Nitrite NEGATIVE (NEGATIVE) 04/30/23 15:44 Urine Bilirubin NEGATIVE (NEGATIVE) 04/30/23 15:44 Urine Urobilinogen 1 (NORMAL) E.U./dL (NORMAL) 04/30/23 15:44 Ur Leukocyte Esterase NEGATIVE (NEGATIVE) 04/30/23 15:44 Ur Microscopic Review NOT INDICATED 04/30/23 15:44 Urine Culture Comments NOT INDICATED 04/30/23 15:44 Urine Sodium 67.3 mmol/L 04/30/23 15:44 Nasal Adenovirus (PCR) NOT DETECTED 04/30/23 13:15 Nasal B. parapertussis DNA (PCR) NOT DETECTED 04/30/23 13:15 Nasal Coronavir 229E PCR NOT DETECTED 04/30/23 13:15 Nasal Coronavir HKU1 PCR NOT DETECTED 04/30/23 13:15 Nasal Coronavir NL63 PCR NOT DETECTED 04/30/23 13:15 Nasal Coronavir OC43 PCR NOT DETECTED 04/30/23 13:15 Nasal Enterovir/Rhinovir PCR DETECTED A 04/30/23 13:15 Nasal Influenza B PCR NOT DETECTED 04/30/23 13:15 Nasal Influenza A PCR NOT DETECTED 04/30/23 13:15 Nasal Parainfluen 1 PCR NOT DETECTED 04/30/23 13:15 Nasal Parainfluen 2 PCR NOT DETECTED 04/30/23 13:15 Nasal Parainfluen 3 PCR NOT DETECTED 04/30/23 13:15 Nasal Parainfluen 4 PCR NOT DETECTED 04/30/23 13:15 Nasal RSV (PCR) NOT DETECTED 04/30/23 13:15 Nasal B.pertussis DNA PCR NOT DETECTED 04/30/23 13:15 Nasal C.pneumoniae (PCR) NOT DETECTED 04/30/23 13:15 Casey Human Metapneumo PCR NOT DETECTED 04/30/23 13:15 Nasal M.pneumoniae (PCR) NOT DETECTED 04/30/23 13:15 Nasal SARS-CoV-2 (PCR) NOT DETECTED 04/30/23 13:15 - Procedures Procedures: Procedures EXCISION OF DESCENDING COLON, ENDO, DIAGN (05/24/15) EXCISION OF DUODENUM, ENDO, DIAGN (05/24/15) EXCISION OF LOWER ESOPHAGUS, ENDO, DIAGN (05/24/15) EXCISION OF RIGHT SPERMATIC CORD, OPEN APPROACH (12/08/22) EXCISION OF SMALL INTESTINE, OPEN APPROACH (12/08/22) EXCISION OF STOMACH, ENDO, DIAGN (05/24/15) SUPPLEMENT R INGUINAL REGION WITH SYNTH SUB, OPEN APPROACH (12/08/22) Current Medications - Current Medications Current Medications: Active Medications Acetaminophen (Acetaminophen 325 Mg Tablet) 650 mg PO Q4HR PRN PRN Reason: Pain 1 to 4, or Fever Last Admin: 05/06/23 00:54 Dose: 650 mg Amitriptyline HCl (Amitriptyline 10 Mg Tablet) 5 mg PO [facility] Last Admin: 05/06/23 20:29 Dose: 5 mg Calcium Carbonate/Glycine (Calcium Carbonate Chew 500 Mg Tablet) 500 mg PO DAILY [facility] Last Admin: 05/06/23 09:13 Dose: 500 mg Cholecalciferol (Cholecalciferol 25 Mcg Tablet) 50 mcg PO DAILY [facility] Last Admin: 05/06/23 09:13 Dose: 50 mcg Docusate Sodium (Docusate Sodium 250 Mg Capsule) 250 - 500 mg PO DAILY [facility] Last Admin: 05/06/23 09:14 Dose: Not Given Escitalopram Oxalate (Escitalopram 10 Mg Tablet) 5 mg PO DAILY [facility] Last Admin: 05/06/23 09:14 Dose: 5 mg Ferrous Gluconate (Ferrous Gluconate 324 Mg Tablet) 324 mg PO DAILYWM [facility] Last Admin: 05/06/23 09:14 Dose: 324 mg Guaifenesin (Guaifenesin 600 Mg Tablet) 600 mg PO BID PRN PRN Reason: Cough Last Admin: 05/04/23 21:22 Dose: 600 mg Levothyroxine Sodium (Levothyroxine 25 Mcg Tablet) 50 mcg PO QDAC [facility] Last Admin: 05/06/23 07:13 Dose: 50 mcg Magnesium Oxide (Magnesium Oxide 400 Mg Tablet) 400 mg PO BIDWM [facility] Last Admin: 05/06/23 16:32 Dose: 400 mg Mirtazapine (Mirtazapine 15 Mg Tablet) 22.5 mg PO [facility] Last Admin: 05/06/23 20:28 Dose: 22.5 mg Multivitamins/Minerals (Multivitamin W/Minerals Tablet) 1 tab PO DAILYWM [facility] Last Admin: 05/06/23 09:13 Dose: 1 tab Ondansetron HCl (Ondansetron Odt 4 Mg Tablet) 4 mg TL Q6HR PRN PRN Reason: Nausea / Vomiting Pantoprazole Sodium (Pantoprazole 40 Mg Tablet) 40 mg PO BID [facility] Last Admin: 05/06/23 20:29 Dose: 40 mg Polyethylene Glycol (Polyethylene Glycol 3350 17 Gm Packet) 17 gm PO DAILY [facility] Last Admin: 05/06/23 09:14 Dose: Not Given Polyethylene Glycol (Polyethylene Glycol 3350 17 Gm Packet) 8.5 gm PO DAILY PRN PRN Reason: Constipation Senna (Senna 8.6 Mg Tablet) 8.6 - 17.2 mg PO DAILY [facility] Last Admin: 05/06/23 09:14 Dose: Not Given Sodium Chloride (Sodium Chloride 1 Gm Tablet) 1 gm PO AC [facility] Last Admin: 05/06/23 16:32 Dose: 1 gm Tamsulosin HCl (Tamsulosin 0.4 Mg Capsule) 0.4 mg PO [facility] Last Admin: 05/06/23 20:29 Dose: 0.4 mg Multivit-Min/Iron Fum/Folic AC [Chctf-Jsoojsc-Nuqlqyus Tablet] 1 tab PO DAILY 05/08/15 polyethylene glycoL 3350 [Miralax] 8.5 - 17 gm PO DAILY PRN 05/08/15 Tamsulosin HCl [Flomax] 0.4 mg PO HS 07/11/18 Levothyroxine Sodium [Synthroid] 50 mcg PO QDAC 01/22/19 Cimetidine 400 mg PO HS 12/08/22 Eszopiclone [Lunesta] 2 mg PO HS 12/08/22 Mirtazapine 22.5 mg PO HS 12/08/22 Omeprazole Magnesium 40 mg PO BID 12/08/22 Valsartan 160 mg PO QPM 12/08/22 Calcium Carbonate [Calcium] 600 mg PO DAILY 12/09/22 Cholecalciferol (Vitamin D3) [Vitamin D3] 2,000 unit PO DAILY 12/09/22 Simvastatin [Zocor] 80 mg PO HS 12/09/22 Escitalopram Oxalate 5 mg PO DAILY 05/02/23 Prazosin [Minipress] 1 mg PO DAILY 05/02/23
[2023-05-07 05:53] LABS: CREATININE 1.1 mg/dL (0.6-1.3); POTASSIUM 3.6 mmol/L (3.5-4.5)
[2023-05-07] MEDS: FUROSEMIDE 20 MG TABLET PO ONE (09:21)
[2023-05-07] MEDS: POTASSIUM CHLORIDE 20 MEQ/15 ML UDC PO ONE (09:21)
[2023-05-07] MEDS: MAGNESIUM OXIDE 400 MG TABLET PO SCH (10:27)
--- NOTE | 2023-05-07 22:39 | PROVIDER PROGRESS NOTE ---
Assessment/Plan - Problem List (1) Hyponatremia Assessment/Plan: Patient had hypovolemic hyponatremia. There is a history of him having poor oral intake but possibly with free water excess Na was 124 at adm>>125 after getting NS>> 129 today (all labs were reviewed). His a.m. Cortisol level came back WNL, ruling out Nodaway's disease Etiology of hyponatremia is not clear but may be secondary to SIADH. Plan is to increase salt tablets to 1 g 3 times a day. He continues to require hospitalization due to his hyponatremia Patient continues to not make significant progress with regards to his hypona tremia. (2) Orthostatic hypotension Assessment/Plan: Continue salt tablets daily Cont to monitor orthostatic vital signs (3) Rhinovirus Conclusion/Plan: I suspect this caused volume depletion to the point of being hypotensive. Probably added to generalized weakness as well Plan: Infectious isolation ordered Symptomatic support (4) Frequent falls Conclusion/Plan: Plan: Xarelto discontinued due to frequent falls. Patient underwent a palliative care consult today. Patient is not competent to make his own healthcare decisions and decisions regarding his care will be def erred to his family. (5) Anticoagulant long-term use Conclusion/Plan: Discontinue Xarelto (6) Paroxysmal A-fib Conclusion/Plan: (7) Hypothyroidism Conclusion/Plan: Continue Synthroid. (8) Iron deficiency anemia Conclusion/Plan: Treatment initiated with iron tablets. (9) Hypomagnesemia Conclusion/Plan: Continue to monitor and replace as needed - Current Meds Current Meds: Current Medications Generic Name Dose Route Start Last Admin Trade Name Freq PRN Reason Stop Dose Admin Acetaminophen 650 mg 04/30/23 16:59 05/07/23 06:17 Acetaminophen 325 Mg Tablet PO 650 mg Q4HR PRN Administration Pain 1 to 4, or Fever Amitriptyline HCl 5 mg 05/02/23 21:00 05/07/23 21:20 Amitriptyline 10 Mg Tablet PO 5 mg HS MAURICIO Administration Calcium Carbonate/Glycine 500 mg 05/03/23 09:00 05/07/23 08:09 Calcium Carbonate Chew 500 Mg Tablet PO 500 mg DAILY MAURICIO Administration Cholecalciferol 50 mcg 05/03/23 09:00 05/07/23 08:10 Cholecalciferol 25 Mcg Tablet PO 50 mcg DAILY MAURICIO Administration Docusate Sodium 250 - 500 mg 05/01/23 21:00 05/07/23 08:09 Docusate Sodium 250 Mg Capsule PO 250 mg DAILY MAURICIO Administration Escitalopram Oxalate 5 mg 05/02/23 09:00 05/07/23 08:10 Escitalopram 10 Mg Tablet PO 5 mg DAILY MAURICIO Administration Ferrous Gluconate 324 mg 05/03/23 12:00 05/07/23 08:09 Ferrous Gluconate 324 Mg Tablet PO 324 mg DAILYWM MAURICIO Administration Guaifenesin 600 mg 05/02/23 09:03 05/04/23 21:22 Guaifenesin 600 Mg Tablet PO 600 mg BID PRN Administration Cough Levothyroxine Sodium 50 mcg 05/01/23 07:00 05/07/23 06:19 Levothyroxine 25 Mcg Tablet PO 50 mcg QDAC MAURICIO Administration Magnesium Oxide 400 mg 05/07/23 09:00 05/07/23 10:27 Magnesium Oxide 400 Mg Tablet PO Not Given DAILYWM MAURICIO Mirtazapine 22.5 mg 05/02/23 21:00 05/07/23 21:21 Mirtazapine 15 Mg Tablet PO 22.5 mg HS MAURICIO Administration Multivitamins/Minerals 1 tab 05/06/23 08:00 05/07/23 08:09 Multivitamin W/Minerals Tablet PO 1 tab DAILYWM MAURICIO Administration Pantoprazole Sodium 40 mg 05/02/23 21:00 05/07/23 21:20 Pantoprazole 40 Mg Tablet PO 40 mg BID MAURICIO Administration Polyethylene Glycol 17 gm 05/02/23 09:00 05/07/23 08:09 Polyethylene Glycol 3350 17 Gm Packet PO 17 gm DAILY MAURICIO Administration Senna 8.6 - 17.2 mg 05/02/23 09:00 05/07/23 08:09 Senna 8.6 Mg Tablet PO 8.6 mg DAILY MAURICIO Administration Sodium Chloride 1 gm 05/05/23 11:00 05/07/23 17:16 Sodium Chloride 1 Gm Tablet PO 1 gm AC MAURICIO Administration Tamsulosin HCl 0.4 mg 04/30/23 21:00 05/07/23 21:21 Tamsulosin 0.4 Mg Capsule PO 0.4 mg HS MAURICIO Administration - Lab Result Fish Bone Diagrams: 05/09/23 05:38 05/09/23 22:55 - Additional Planning My Orders: My Active Orders 05/07/23 09:00 Magnesium Oxide [Mag Ox] 400 mg PO DAILYWM 05/08/23 05:00 BMP - BASIC METABOLIC PANEL [CHEM] ONCE MAGNESIUM [CHEM] ONCE PHOSPHORUS [CHEM] ONCE Subjective - Subjective Patient Reports: Other (Somewhat somnolent but awakens to voice. He has no other complaints at this time.) Objective Vital Signs: Vital Signs - 24 hr 05/06/23 05/07/23 05/07/23 23:52 05:00 08:05 Temperature 37.0 C 36.6 C 36.6 C Heart Rate [ 88 91 91 Brachial] Respiratory 16 18 22 Rate Blood Pressure 124/72 119/65 143/84 H [Right Brachial artery] O2 Saturation 95 96 96 05/07/23 05/07/23 05/07/23 12:58 15:51 21:00 Temperature 36.7 C 36.7 C 36.6 C Heart Rate [ 96 89 80 Brachial] Respiratory 20 18 16 Rate Blood Pressure 100/68 149/81 H 129/64 [Right Brachial artery] O2 Saturation 97 97 98 Oxygen O2 Source Room air I&O (Last 24 Hrs): Intake and Output Totals x24h 05/05/23 05/06/23 05/07/23 23:59 23:59 23:59 Intake Total 273 679 5899 Output Total 650 1425 5 Balance -60 -755 -435 General: Alert, Cooperative Neck: Supple, No JVD Neuro: Alert Cardiovascular: Regular rate, Normal S1, Normal S2, No murmurs Respiratory: Chest non-tender, No respiratory distress, Breath sounds nml Abdomen: Normal bowel sounds, Soft, No tenderness Extremities: No cyanosis, No edema Skin: No rashes - Results Results: Laboratory Results WBC 6.5 x10^3/uL (4.8-10.8) 05/01/23 05:10 RBC 3.42 10^6/uL (4.70-6.10) L 05/01/23 05:10 Hgb 10.5 g/dL (14.0-18.0) L 05/01/23 05:10 Hct 30.7 % (42.0-52.0) L 05/01/23 05:10 MCV 89.8 fL (80.0-94.0) 05/01/23 05:10 MCH 30.7 pg (27.0-31.0) 05/01/23 05:10 MCHC 34.2 g/dL (32.0-36.0) 05/01/23 05:10 RDW 12.8 % (12.0-15.0) 05/01/23 05:10 Plt Count 169 10^3/uL (130-450) 05/01/23 05:10 MPV 9.3 fL (7.4-11.4) 05/01/23 05:10 Neut # (Auto) 4.5 10^3/uL (1.5-6.6) 05/01/23 05:10 Lymph # (Auto) 1.1 10^3/uL (1.5-3.5) L 05/01/23 05:10 [place] # (Auto) 0.7 10^3/uL (0.0-1.0) 05/01/23 05:10 Eos # (Auto) 0.1 10^3/uL (0.0-0.7) 05/01/23 05:10 Baso # (Auto) 0.0 10^3/uL (0.0-0.1) 05/01/23 05:10 Absolute Nucleated RBC 0.00 x10^3/uL 05/01/23 05:10 Nucleated RBC % 0.0 /100WBC 05/01/23 05:10 PT 15.8 secs (9.9-12.6) H 04/30/23 12:53 INR 1.5 (0.8-1.2) H 04/30/23 12:53 Sodium 131 mmol/L (135-145) L 05/07/23 05:29 Potassium 3.6 mmol/L (3.5-4.5) 05/07/23 05:29 Chloride 97 mmol/L (101-111) L 05/07/23 05:29 Carbon Dioxide 30 mmol/L (21-32) 05/07/23 05:29 Anion Gap 4.0 (6-13) L 05/07/23 05:29 BUN 21 mg/dL (6-20) H 05/07/23 05:29 Creatinine 1.1 mg/dL (0.6-1.3) 05/07/23 05:29 Estimated GFR (MDRD) 63 (>89) L 05/07/23 05:29 Glucose 128 mg/dL (74-104) H 05/07/23 05:29 POC Whole Bld Glucose 105 mg/dL (70 - 100) H 05/03/23 06:16 Lactic Acid 1.1 mmol/L (0.5-2.2) 04/30/23 12:53 Calcium 9.0 mg/dL (8.5-10.3) 05/07/23 05:29 Phosphorus 2.8 mg/dL (2.5-5.0) 05/06/23 05:20 Magnesium 1.6 mg/dL (1.7-2.3) L 05/06/23 05:20 Iron 46 ug/dL (50-212) L 05/03/23 05:04 TIBC 213 ug/dL (250-450) L 05/03/23 05:04 % Saturation 22 % (20-50) 05/03/23 05:04 Transferrin 152 mg/dL (203-362) L 05/03/23 05:04 Total Bilirubin 0.8 mg/dL (0.2-1.0) 04/30/23 12:53 AST 26 IU/L (10-42) 04/30/23 12:53 ALT 13 IU/L (10-60) 04/30/23 12:53 Alkaline Phosphatase 48 IU/L (42-121) 04/30/23 12:53 Troponin I High Sens 10.2 ng/L (2.3-19.7) 04/30/23 12:53 Total Protein 5.6 g/dL (6.4-8.9) L 04/30/23 12:53 Albumin 3.3 g/dL (3.2-5.5) 04/30/23 12:53 Globulin 2.3 g/dL (2.1-4.2) 04/30/23 12:53 Albumin/Globulin Ratio 1.4 (1.0-2.2) 04/30/23 12:53 Lipase 18 U/L (11-82) 04/30/23 12:53 Vitamin B12 673 pg/mL (180-914) 05/03/23 05:04 Folate 19.4 ng/mL (5.90 - >24.8) 05/03/23 05:04 TSH 1.19 uIU/mL (0.34-5.60) 05/03/23 05:04 Cortisol AM Sample 15.9 ug/dL 05/03/23 09:02 Urine Color YELLOW 04/30/23 15:44 Urine Clarity CLEAR (CLEAR) 04/30/23 15:44 Urine pH 6.0 PH (5.0-7.5) 04/30/23 15:44 Ur Specific [place] 1.015 (1.002-1.030) 04/30/23 15:44 Urine Protein NEGATIVE mg/dL (NEGATIVE) 04/30/23 15:44 Urine Glucose (UA) NEGATIVE mg/dL (NEGATIVE) 04/30/23 15:44 Urine Ketones NEGATIVE mg/dL (NEGATIVE) 04/30/23 15:44 Urine Occult Blood NEGATIVE (NEGATIVE) 04/30/23 15:44 Urine Nitrite NEGATIVE (NEGATIVE) 04/30/23 15:44 Urine Bilirubin NEGATIVE (NEGATIVE) 04/30/23 15:44 Urine Urobilinogen 1 (NORMAL) E.U./dL (NORMAL) 04/30/23 15:44 Ur Leukocyte Esterase NEGATIVE (NEGATIVE) 04/30/23 15:44 Ur Microscopic Review NOT INDICATED 04/30/23 15:44 Urine Culture Comments NOT INDICATED 04/30/23 15:44 Urine Sodium 67.3 mmol/L 04/30/23 15:44 Nasal Adenovirus (PCR) NOT DETECTED 04/30/23 13:15 Nasal B. parapertussis DNA (PCR) NOT DETECTED 04/30/23 13:15 Nasal Coronavir 229E PCR NOT DETECTED 04/30/23 13:15 Nasal Coronavir HKU1 PCR NOT DETECTED 04/30/23 13:15 Nasal Coronavir NL63 PCR NOT DETECTED 04/30/23 13:15 Nasal Coronavir OC43 PCR NOT DETECTED 04/30/23 13:15 Nasal Enterovir/Rhinovir PCR DETECTED A 04/30/23 13:15 Nasal Influenza B PCR NOT DETECTED 04/30/23 13:15 Nasal Influenza A PCR NOT DETECTED 04/30/23 13:15 Nasal Parainfluen 1 PCR NOT DETECTED 04/30/23 13:15 Nasal Parainfluen 2 PCR NOT DETECTED 04/30/23 13:15 Nasal Parainfluen 3 PCR NOT DETECTED 04/30/23 13:15 Nasal Parainfluen 4 PCR NOT DETECTED 04/30/23 13:15 Nasal RSV (PCR) NOT DETECTED 04/30/23 13:15 Nasal B.pertussis DNA PCR NOT DETECTED 04/30/23 13:15 Nasal C.pneumoniae (PCR) NOT DETECTED 04/30/23 13:15 Casey Human Metapneumo PCR NOT DETECTED 04/30/23 13:15 Nasal M.pneumoniae (PCR) NOT DETECTED 04/30/23 13:15 Nasal SARS-CoV-2 (PCR) NOT DETECTED 04/30/23 13:15 - Procedures Procedures: Procedures EXCISION OF DESCENDING COLON, ENDO, DIAGN (05/24/15) EXCISION OF DUODENUM, ENDO, DIAGN (05/24/15) EXCISION OF LOWER ESOPHAGUS, ENDO, DIAGN (05/24/15) EXCISION OF RIGHT SPERMATIC CORD, OPEN APPROACH (12/08/22) EXCISION OF SMALL INTESTINE, OPEN APPROACH (12/08/22) EXCISION OF STOMACH, ENDO, DIAGN (05/24/15) SUPPLEMENT R INGUINAL REGION WITH SYNTH SUB, OPEN APPROACH (12/08/22) Current Medications - Current Medications Current Medications: Active Medications Acetaminophen (Acetaminophen 325 Mg Tablet) 650 mg PO Q4HR PRN PRN Reason: Pain 1 to 4, or Fever Last Admin: 05/07/23 06:17 Dose: 650 mg Amitriptyline HCl (Amitriptyline 10 Mg Tablet) 5 mg PO HS [facility] Last Admin: 05/07/23 21:20 Dose: 5 mg Calcium Carbonate/Glycine (Calcium Carbonate Chew 500 Mg Tablet) 500 mg PO DAILY [facility] Last Admin: 05/07/23 08:09 Dose: 500 mg Cholecalciferol (Cholecalciferol 25 Mcg Tablet) 50 mcg PO DAILY [facility] Last Admin: 05/07/23 08:10 Dose: 50 mcg Docusate Sodium (Docusate Sodium 250 Mg Capsule) 250 - 500 mg PO DAILY [facility] Last Admin: 05/07/23 08:09 Dose: 250 mg Escitalopram Oxalate (Escitalopram 10 Mg Tablet) 5 mg PO DAILY [facility] Last Admin: 05/07/23 08:10 Dose: 5 mg Ferrous Gluconate (Ferrous Gluconate 324 Mg Tablet) 324 mg PO DAILYWM [facility] Last Admin: 05/07/23 08:09 Dose: 324 mg Guaifenesin (Guaifenesin 600 Mg Tablet) 600 mg PO BID PRN PRN Reason: Cough Last Admin: 05/04/23 21:22 Dose: 600 mg Levothyroxine Sodium (Levothyroxine 25 Mcg Tablet) 50 mcg PO QDAC [facility] Last Admin: 05/07/23 06:19 Dose: 50 mcg Magnesium Oxide (Magnesium Oxide 400 Mg Tablet) 400 mg PO DAILYWM [facility] Last Admin: 05/07/23 10:27 Dose: Not Given Mirtazapine (Mirtazapine 15 Mg Tablet) 22.5 mg PO [facility] Last Admin: 05/07/23 21:21 Dose: 22.5 mg Multivitamins/Minerals (Multivitamin W/Minerals Tablet) 1 tab PO DAILYWM [facility] Last Admin: 05/07/23 08:09 Dose: 1 tab Ondansetron HCl (Ondansetron Odt 4 Mg Tablet) 4 mg TL Q6HR PRN PRN Reason: Nausea / Vomiting Pantoprazole Sodium (Pantoprazole 40 Mg Tablet) 40 mg PO BID [facility] Last Admin: 05/07/23 21:20 Dose: 40 mg Polyethylene Glycol (Polyethylene Glycol 3350 17 Gm Packet) 17 gm PO DAILY [facility] Last Admin: 05/07/23 08:09 Dose: 17 gm Polyethylene Glycol (Polyethylene Glycol 3350 17 Gm Packet) 8.5 gm PO DAILY PRN PRN Reason: Constipation Senna (Senna 8.6 Mg Tablet) 8.6 - 17.2 mg PO DAILY [facility] Last Admin: 05/07/23 08:09 Dose: 8.6 mg Sodium Chloride (Sodium Chloride 1 Gm Tablet) 1 gm PO AC [facility] Last Admin: 05/07/23 17:16 Dose: 1 gm Tamsulosin HCl (Tamsulosin 0.4 Mg Capsule) 0.4 mg PO [facility] Last Admin: 05/07/23 21:21 Dose: 0.4 mg Multivit-Min/Iron Fum/Folic AC [Yxkop-Audasua-Ydsoezec Tablet] 1 tab PO DAILY 05/08/15 polyethylene glycoL 3350 [Miralax] 8.5 - 17 gm PO DAILY PRN 05/08/15 Tamsulosin HCl [Flomax] 0.4 mg PO HS 07/11/18 Levothyroxine Sodium [Synthroid] 50 mcg PO QDAC 01/22/19 Cimetidine 400 mg PO 12/08/22 Eszopiclone [Lunesta] 2 mg PO HS 12/08/22 Mirtazapine 22.5 mg PO HS 12/08/22 Omeprazole Magnesium 40 mg PO BID 12/08/22 Valsartan 160 mg PO QPM 12/08/22 Calcium Carbonate [Calcium] 600 mg PO DAILY 12/09/22 Cholecalciferol (Vitamin D3) [Vitamin D3] 2,000 unit PO DAILY 12/09/22 Simvastatin [Zocor] 80 mg PO HS 12/09/22 Escitalopram Oxalate 5 mg PO DAILY 05/02/23 Prazosin [Minipress] 1 mg PO DAILY 05/02/23
[2023-05-08 07:05] LABS: CALCIUM 9.4 mg/dL (8.5-10.3); MAGNESIUM 1.4 mg/dL (1.7-2.3); PHOSPHORUS 3.2 mg/dL (2.5-5.0); POTASSIUM 3.5 mmol/L (3.5-4.5)
[2023-05-08] MEDS: ONDANSETRON ODT 4 MG TABLET TL PRN (10:47)
--- NOTE | 2023-05-08 22:20 | PROVIDER PROGRESS NOTE ---
Assessment/Plan - Problem List (1) Hyponatremia Assessment/Plan: Patient had hypovolemic hyponatremia. There is a history of him having poor oral intake but possibly with free water excess Na was 124 at adm>>125 after getting NS>> 129 today (all labs were reviewed). His a.m. Cortisol level came back WNL, ruling out Piseco's disease Etiology of hyponatremia is not clear but may be secondary to SIADH. Plan is to increase salt tablets to 1 g 3 times a day. He continues to require hospitalization due to his hyponatremia He was given a diuretic with significant increase in his serum sodium.Serum sodium is currently 136. (2) Orthostatic hypotension Assessment/Plan: Continue salt tablets daily Cont to monitor orthostatic vital signs (3) Rhinovirus Conclusion/Plan: Plan: Infectious isolation ordered Symptomatic support (4) Frequent falls Conclusion/Plan: Plan: Xarelto discontinued due to frequent falls. Patient underwent a palliative care consult 05/03/2022 Patient is not competent to make his own healthcare decisions and decisions regarding his care will be deferred to his family. (5) Anticoagulant long-term use Conclusion/Plan: Discontinue Xarelto (6) Paroxysmal A-fib Conclusion/Plan: (7) Hypothyroidism Conclusion/Plan: Continue Synthroid. (8) Iron deficiency anemia Conclusion/Plan: Treatment initiated with iron tablets. (9) Hypomagnesemia Conclusion/Plan: Continue to monitor and replace as needed - Current Meds Current Meds: Current Medications Generic Name Dose Route Start Last Admin Trade Name Freq PRN Reason Stop Dose Admin Acetaminophen 650 mg 04/30/23 16:59 05/08/23 20:29 Acetaminophen 325 Mg Tablet PO 650 mg Q4HR PRN Administration Pain 1 to 4, or Fever Amitriptyline HCl 5 mg 05/02/23 21:00 05/08/23 20:31 Amitriptyline 10 Mg Tablet PO 5 mg HS MAURICIO Administration Calcium Carbonate/Glycine 500 mg 05/03/23 09:00 05/08/23 08:03 Calcium Carbonate Chew 500 Mg Tablet PO 500 mg DAILY [facility] Administration Cholecalciferol 50 mcg 05/03/23 09:00 05/08/23 08:04 Cholecalciferol 25 Mcg Tablet PO 50 mcg DAILY [facility] Administration Docusate Sodium 250 - 500 mg 05/01/23 21:00 05/08/23 08:03 Docusate Sodium 250 Mg Capsule PO 250 mg DAILY [facility] Administration Escitalopram Oxalate 5 mg 05/02/23 09:00 05/08/23 08:04 Escitalopram 10 Mg Tablet PO 5 mg DAILY [facility] Administration Ferrous Gluconate 324 mg 05/03/23 12:00 05/08/23 08:05 Ferrous Gluconate 324 Mg Tablet PO 324 mg DAILYWM [facility]IC[facility] Administration Guaifenesin 600 mg 05/02/23 09:03 05/04/23 21:22 Guaifenesin 600 Mg Tablet PO 600 mg BID PRN Administration Cough Levothyroxine Sodium 50 mcg 05/01/23 07:00 05/08/23 06:56 Levothyroxine 25 Mcg Tablet PO 50 mcg QDAC MA[facility]ICIO Administration Magnesium Oxide 400 mg 05/07/23 09:00 05/08/23 08:05 Magnesium Oxide 400 Mg Tablet PO 400 mg DAILYWM [facility]ICIO Administration Mirtazapine 22.5 mg 05/02/23 21:00 05/08/23 20:31 Mirtazapine 15 Mg Tablet PO 22.5 mg HS [facility] Administration Multivitamins/Minerals 1 tab 05/06/23 08:00 05/08/23 08:05 Multivitamin W/Minerals Tablet PO 1 tab DAILYWM [facility] Administration Ondansetron HCl 4 mg 05/05/23 13:58 05/08/23 19:58 Ondansetron Odt 4 Mg Tablet TL 4 mg Q6HR PRN Administration Nausea / Vomiting Pantoprazole Sodium 40 mg 05/02/23 21:00 05/08/23 20:30 Pantoprazole 40 Mg Tablet PO 40 mg BID MA[facility]ICIO Administration Polyethylene Glycol 17 gm 05/02/23 09:00 05/08/23 08:05 Polyethylene Glycol 3350 17 Gm Packet PO 17 gm DAILY [facility] Administration Senna 8.6 - 17.2 mg 05/02/23 09:00 05/08/23 08:04 Senna 8.6 Mg Tablet PO 8.6 mg DAILY [facility] Administration Sodium Chloride 1 gm 05/05/23 11:00 05/08/23 15:56 Sodium Chloride 1 Gm Tablet PO 1 gm AC MA[facility]ICIO Administration Tamsulosin HCl 0.4 mg 04/30/23 21:00 05/08/23 20:23 Tamsulosin 0.4 Mg Capsule PO 0.4 mg HS [facility] Administration - Lab Result Fish Bone Diagrams: 05/09/23 05:38 05/09/23 22:55 - Additional Planning My Orders: My Active Orders 05/09/23 05:00 BMP - BASIC METABOLIC PANEL [CHEM] DAILYLAB CBC [CBC - COMP BLD CT W/AUTO DIFF] [HEME] DAILYLAB MAGNESIUM [CHEM] Routine PHOSPHORUS [CHEM] Routine Subjective - Subjective Patient Reports: Other (Alert. No other complaints at this time.) Objective Vital Signs: Vital Signs - 24 hr 05/08/23 05/08/23 05/08/23 00:09 04:29 08:41 Temperature 36.9 C 36.7 C 37 C Heart Rate [ 93 Brachial] Heart Rate [ 83 92 Monitoring electrodes] Respiratory 18 21 18 Rate Blood Pressure 139/81 H 153/94 H 131/71 H [Right Brachial artery] O2 Saturation 97 96 95 05/08/23 05/08/23 05/08/23 13:00 15:36 20:26 Temperature 37 C 36.8 C 36.3 C L Heart Rate [ 98 80 87 Brachial] Heart Rate [ Monitoring electrodes] Respiratory 16 16 16 Rate Blood Pressure 126/74 128/68 121/72 [Right Brachial artery] O2 Saturation 95 97 96 Oxygen O2 Source Room air I&O (Last 24 Hrs): Intake and Output Totals x24h 05/06/23 05/07/23 05/08/23 23:59 23:59 23:59 Intake Total 670 1590 830 Output Total 1425 2025 775 Balance -755 -435 55 General: Alert, No acute distress HEENT: Atraumatic, EOMI Neck: Supple, No JVD, No thyromegaly Neuro: Alert, Non Focal Cardiovascular: Other (Positive S1-S2 no extra heart sounds) Respiratory: Other (Fair air exchange in all lung [place] no wheezing no crackles) Abdomen: Normal bowel sounds, No tenderness Extremities: No cyanosis, No edema Skin: No rashes - Results Results: Laboratory Results WBC 6.5 x10^3/uL (4.8-10.8) 05/01/23 05:10 RBC 3.42 10^6/uL (4.70-6.10) L 05/01/23 05:10 Hgb 10.5 g/dL (14.0-18.0) L 05/01/23 05:10 Hct 30.7 % (42.0-52.0) L 05/01/23 05:10 MCV 89.8 fL (80.0-94.0) 05/01/23 05:10 MCH 30.7 pg (27.0-31.0) 05/01/23 05:10 MCHC 34.2 g/dL (32.0-36.0) 05/01/23 05:10 RDW 12.8 % (12.0-15.0) 05/01/23 05:10 Plt Count 169 10^3/uL (130-450) 05/01/23 05:10 MPV 9.3 fL (7.4-11.4) 05/01/23 05:10 Neut # (Auto) 4.5 10^3/uL (1.5-6.6) 05/01/23 05:10 Lymph # (Auto) 1.1 10^3/uL (1.5-3.5) L 05/01/23 05:10 [place] # (Auto) 0.7 10^3/uL (0.0-1.0) 05/01/23 05:10 Eos # (Auto) 0.1 10^3/uL (0.0-0.7) 05/01/23 05:10 Baso # (Auto) 0.0 10^3/uL (0.0-0.1) 05/01/23 05:10 Absolute Nucleated RBC 0.00 x10^3/uL 05/01/23 05:10 Nucleated RBC % 0.0 /100WBC 05/01/23 05:10 PT 15.8 secs (9.9-12.6) H 04/30/23 12:53 INR 1.5 (0.8-1.2) H 04/30/23 12:53 Sodium 136 mmol/L (135-145) 05/08/23 05:32 Potassium 3.5 mmol/L (3.5-4.5) 05/08/23 05:32 Chloride 99 mmol/L (101-111) L 05/08/23 05:32 Carbon Dioxide 32 mmol/L (21-32) 05/08/23 05:32 Anion Gap 5.0 (6-13) L 05/08/23 05:32 BUN 22 mg/dL (6-20) H 05/08/23 05:32 Creatinine 1.0 mg/dL (0.6-1.3) 05/08/23 05:32 Estimated GFR (MDRD) 71 (>89) L 05/08/23 05:32 Glucose 125 mg/dL (74-104) H 05/08/23 05:32 POC Whole Bld Glucose 105 mg/dL (70 - 100) H 05/03/23 06:16 Lactic Acid 1.1 mmol/L (0.5-2.2) 04/30/23 12:53 Calcium 9.4 mg/dL (8.5-10.3) 05/08/23 05:32 Phosphorus 3.2 mg/dL (2.5-5.0) 05/08/23 05:32 Magnesium 1.4 mg/dL (1.7-2.3) L 05/08/23 05:32 Iron 46 ug/dL (50-212) L 05/03/23 05:04 TIBC 213 ug/dL (250-450) L 05/03/23 05:04 % Saturation 22 % (20-50) 05/03/23 05:04 Transferrin 152 mg/dL (203-362) L 05/03/23 05:04 Total Bilirubin 0.8 mg/dL (0.2-1.0) 04/30/23 12:53 AST 26 IU/L (10-42) 04/30/23 12:53 ALT 13 IU/L (10-60) 04/30/23 12:53 Alkaline Phosphatase 48 IU/L (42-121) 04/30/23 12:53 Troponin I High Sens 10.2 ng/L (2.3-19.7) 04/30/23 12:53 Total Protein 5.6 g/dL (6.4-8.9) L 04/30/23 12:53 Albumin 3.3 g/dL (3.2-5.5) 04/30/23 12:53 Globulin 2.3 g/dL (2.1-4.2) 04/30/23 12:53 Albumin/Globulin Ratio 1.4 (1.0-2.2) 04/30/23 12:53 Lipase 18 U/L (11-82) 04/30/23 12:53 Vitamin B12 673 pg/mL (180-914) 05/03/23 05:04 Folate 19.4 ng/mL (5.90 - >24.8) 05/03/23 05:04 TSH 1.19 uIU/mL (0.34-5.60) 05/03/23 05:04 Cortisol AM Sample 15.9 ug/dL 05/03/23 09:02 Urine Color YELLOW 04/30/23 15:44 Urine Clarity CLEAR (CLEAR) 04/30/23 15:44 Urine pH 6.0 PH (5.0-7.5) 04/30/23 15:44 Ur Specific [place] 1.015 (1.002-1.030) 04/30/23 15:44 Urine Protein NEGATIVE mg/dL (NEGATIVE) 04/30/23 15:44 Urine Glucose (UA) NEGATIVE mg/dL (NEGATIVE) 04/30/23 15:44 Urine Ketones NEGATIVE mg/dL (NEGATIVE) 04/30/23 15:44 Urine Occult Blood NEGATIVE (NEGATIVE) 04/30/23 15:44 Urine Nitrite NEGATIVE (NEGATIVE) 04/30/23 15:44 Urine Bilirubin NEGATIVE (NEGATIVE) 04/30/23 15:44 Urine Urobilinogen 1 (NORMAL) E.U./dL (NORMAL) 04/30/23 15:44 Ur Leukocyte Esterase NEGATIVE (NEGATIVE) 04/30/23 15:44 Ur Microscopic Review NOT INDICATED 04/30/23 15:44 Urine Culture Comments NOT INDICATED 04/30/23 15:44 Urine Sodium 67.3 mmol/L 04/30/23 15:44 Nasal Adenovirus (PCR) NOT DETECTED 04/30/23 13:15 Nasal B. parapertussis DNA (PCR) NOT DETECTED 04/30/23 13:15 Nasal Coronavir 229E PCR NOT DETECTED 04/30/23 13:15 Nasal Coronavir HKU1 PCR NOT DETECTED 04/30/23 13:15 Nasal Coronavir NL63 PCR NOT DETECTED 04/30/23 13:15 Nasal Coronavir OC43 PCR NOT DETECTED 04/30/23 13:15 Nasal Enterovir/Rhinovir PCR DETECTED A 04/30/23 13:15 Nasal Influenza B PCR NOT DETECTED 04/30/23 13:15 Nasal Influenza A PCR NOT DETECTED 04/30/23 13:15 Nasal Parainfluen 1 PCR NOT DETECTED 04/30/23 13:15 Nasal Parainfluen 2 PCR NOT DETECTED 04/30/23 13:15 Nasal Parainfluen 3 PCR NOT DETECTED 04/30/23 13:15 Nasal Parainfluen 4 PCR NOT DETECTED 04/30/23 13:15 Nasal RSV (PCR) NOT DETECTED 04/30/23 13:15 Nasal B.pertussis DNA PCR NOT DETECTED 04/30/23 13:15 Nasal C.pneumoniae (PCR) NOT DETECTED 04/30/23 13:15 [place] Human Metapneumo PCR NOT DETECTED 04/30/23 13:15 Nasal M.pneumoniae (PCR) NOT DETECTED 04/30/23 13:15 Nasal SARS-CoV-2 (PCR) NOT DETECTED 04/30/23 13:15 - Procedures Procedures: Procedures EXCISION OF DESCENDING COLON, ENDO, DIAGN (05/24/15) EXCISION OF DUODENUM, ENDO, DIAGN (05/24/15) EXCISION OF LOWER ESOPHAGUS, ENDO, DIAGN (05/24/15) EXCISION OF RIGHT SPERMATIC CORD, OPEN APPROACH (12/08/22) EXCISION OF SMALL INTESTINE, OPEN APPROACH (12/08/22) EXCISION OF STOMACH, ENDO, DIAGN (05/24/15) SUPPLEMENT R INGUINAL REGION WITH SYNTH SUB, OPEN APPROACH (12/08/22) ABX Reporting Has patient been on IV antibiotics over the past 48 hours?: No Current Medications - Current Medications Current Medications: Active Medications Acetaminophen (Acetaminophen 325 Mg Tablet) 650 mg PO Q4HR PRN PRN Reason: Pain 1 to 4, or Fever Last Admin: 05/08/23 20:29 Dose: 650 mg Amitriptyline HCl (Amitriptyline 10 Mg Tablet) 5 mg PO HS [facility] Last Admin: 05/08/23 20:31 Dose: 5 mg Calcium Carbonate/Glycine (Calcium Carbonate Chew 500 Mg Tablet) 500 mg PO DAILY [facility] Last Admin: 05/08/23 08:03 Dose: 500 mg Cholecalciferol (Cholecalciferol 25 Mcg Tablet) 50 mcg PO DAILY [facility] Last Admin: 05/08/23 08:04 Dose: 50 mcg Docusate Sodium (Docusate Sodium 250 Mg Capsule) 250 - 500 mg PO DAILY [facility] Last Admin: 05/08/23 08:03 Dose: 250 mg Escitalopram Oxalate (Escitalopram 10 Mg Tablet) 5 mg PO DAILY [facility] Last Admin: 05/08/23 08:04 Dose: 5 mg Ferrous Gluconate (Ferrous Gluconate 324 Mg Tablet) [facility] [place] Admin: 02/03/24 08:05 Dose: 324 mg Guaifenesin (Guaifenesin 600 Mg Tablet) 600 mg PO BID PRN PRN Reason: Cough Last Admin: 05/04/23 21:22 Dose: 600 mg Levothyroxine Sodium (Levothyroxine 25 Mcg Tablet) 50 mcg PO QDAC [facility] Last Admin: 05/08/23 06:56 Dose: 50 mcg Magnesium Oxide (Magnesium Oxide 400 Mg Tablet) 400 mg PO DAILYWM [facility] Last Admin: 05/08/23 08:05 Dose: 400 mg Mirtazapine (Mirtazapine 15 Mg Tablet) 22.5 mg PO [facility] Last Admin: 05/08/23 20:31 Dose: 22.5 mg Multivitamins/Minerals (Multivitamin W/Minerals Tablet) [facility] [place] Admin: 05/08/23 08:05 Dose: 1 tab Ondansetron HCl (Ondansetron Odt 4 Mg Tablet) 4 mg TL Q6HR PRN PRN Reason: Nausea / Vomiting Last Admin: 05/08/23 19:58 Dose: 4 mg Pantoprazole Sodium (Pantoprazole 40 Mg Tablet) 40 mg PO BID [facility] Last Admin: 05/08/23 20:30 Dose: 40 mg Polyethylene Glycol (Polyethylene Glycol 3350 17 Gm Packet) 17 gm PO DAILY [facility] Last Admin: 05/08/23 08:05 Dose: 17 gm Polyethylene Glycol (Polyethylene Glycol 3350 17 Gm Packet) 8.5 gm PO DAILY PRN PRN Reason: Constipation Senna (Senna 8.6 Mg Tablet) 8.6 - 17.2 mg PO DAILY [facility] Last Admin: 05/08/23 08:04 Dose: 8.6 mg Sodium Chloride (Sodium Chloride 1 Gm Tablet) 1 gm PO AC [facility] Last Admin: 05/08/23 15:56 Dose: 1 gm Tamsulosin HCl (Tamsulosin 0.4 Mg Capsule) 0.4 mg PO [facility] Last Admin: 05/08/23 20:23 Dose: 0.4 mg Multivit-Min/Iron Fum/Folic AC [Mlttv-[id number]-[id number] Tablet] 1 tab PO DAILY 05/08/15 polyethylene glycoL 3350 [Miralax] 8.5 - 17 gm PO DAILY PRN 05/08/15 Tamsulosin HCl [Flomax] 0.4 mg PO 07/11/18 Levothyroxine Sodium [Synthroid] 50 mcg PO QDAC 01/22/19 Cimetidine 400 mg PO HS 12/08/22 Eszopiclone [Lunesta] 2 mg PO HS 12/08/22 Mirtazapine 22.5 mg PO HS 12/08/22 Omeprazole Magnesium 40 mg PO BID 12/08/22 Valsartan 160 mg PO QPM 12/08/22 Calcium Carbonate [Calcium] 600 mg PO DAILY 12/09/22 Cholecalciferol (Vitamin D3) [Vitamin D3] 2,000 unit PO DAILY 12/09/22 Simvastatin [Zocor] 80 mg PO HS 12/09/22 Escitalopram Oxalate 5 mg PO DAILY 05/02/23 Prazosin [Minipress] 1 mg PO DAILY 05/02/23
[2023-05-09 06:07] LABS: BASOPHILS % (AUTO) 0.5 %; EOSINOPHILS # (AUTO) 0.3 10^3/uL (0.0-0.7); EOSINOPHILS % (AUTO) 4.5 %; HCT - HEMATOCRIT 33.8 % (42.0-52.0); HGB - HEMOGLOBIN 10.9 g/dL (14.0-18.0); LYMPHOCYTES # (AUTO) 1.5 10^3/uL (1.5-3.5); LYMPHOCYTES % (AUTO) 23.4 %; MEAN CORPUSCULAR HEMOGLOBIN 30.7 pg (27.0-31.0); MEAN CORPUSCULAR HGB CONC 32.2 g/dL (32.0-36.0); MEAN CORPUSCULAR VOLUME 95.2 fL (80.0-94.0); MEAN PLATELET VOLUME 8.9 fL (7.4-11.4); MONOCYTES # (AUTO) 0.8 10^3/uL (0.0-1.0); MONOCYTES % (AUTO) 12.1 %; NEUTROPHILS # (AUTO) 3.8 10^3/uL (1.5-6.6); PLT - PLATELET COUNT 211 10^3/uL (130-450); RED BLOOD COUNT 3.55 10^6/uL (4.70-6.10); RED CELL DISTRIBUTION WIDTH 13.1 % (12.0-15.0); WHITE BLOOD COUNT 6.4 x10^3/uL (4.8-10.8)
[2023-05-09 06:47] LABS: CALCIUM 9.3 mg/dL (8.5-10.3); MAGNESIUM 1.5 mg/dL (1.7-2.3); PHOSPHORUS 3.4 mg/dL (2.5-5.0); POTASSIUM 4.2 mmol/L (3.5-4.5)
--- NOTE | 2023-05-09 22:41 | PROVIDER PROGRESS NOTE ---
Assessment/Plan - Problem List (1) Hyponatremia Assessment/Plan: Patient had hypovolemic hyponatremia. There is a history of him having poor oral intake but possibly with free water excess Na was 124 at adm>>125 after getting NS>> 129 today (all labs were reviewed). His a.m. Cortisol level came back WNL, ruling out [place]'s disease Etiology of hyponatremia is not clear but most likely secondary to SIADH. Plan is to increase salt tablets to 1 g 3 times a day. He continues to require hospitalization due to his hyponatremia Patient is not competent to make his own decisions. He has poor insight into his problems and consistently is not able to tell me the correct date and time.Goals of care were discussed with patient's daughter, Savannah and her . After some discussion, family wishes to focus on comfort and patient will be transferred to a [place] [facility] facility for further care.CODE STATUS has been changed to DO NOT RESUSCITATE. (2) Orthostatic hypotension Assessment/Plan: Continue salt tablets daily Cont to monitor orthostatic vital signs (3) Rhinovirus Conclusion/Plan: Plan: Infectious isolation ordered Symptomatic support (4) Frequent falls Conclusion/Plan: Plan: Xarelto discontinued due to frequent falls. Patient underwent a palliative care consult 05/03/2022 Patient is not competent to make his own healthcare decisions and decisions regarding his care will be deferred to his family. (5) Anticoagulant long-term use Conclusion/Plan: Discontinue Xarelto (6) Paroxysmal A-fib Conclusion/Plan: (7) Hypothyroidism Conclusion/Plan: Continue Synthroid. (8) Iron deficiency anemia Conclusion/Plan: Treatment initiated with iron tablets. (9) Hypomagnesemia Conclusion/Plan: Continue to monitor and replace as needed - Current Meds Current Meds: Current Medications Generic Name Dose Route Start Last Admin Trade Name Freq PRN Reason Stop Dose Admin Acetaminophen 650 mg 04/30/23 16:59 05/09/23 21:24 Acetaminophen 325 Mg Tablet PO 650 mg Q4HR PRN Administration Pain 1 to 4, or Fever Amitriptyline HCl 5 mg 05/02/23 21:00 05/09/23 21:26 Amitriptyline 10 Mg Tablet PO 5 mg HS MAURICIO Administration Calcium Carbonate/Glycine 500 mg 05/03/23 09:00 05/09/23 08:16 Calcium Carbonate Chew 500 Mg Tablet PO 500 mg DAILY MAURICIO Administration Cholecalciferol 50 mcg 05/03/23 09:00 05/09/23 08:18 Cholecalciferol 25 Mcg Tablet PO 50 mcg DAILY MAURICIO Administration Docusate Sodium 250 - 500 mg 05/01/23 21:00 05/09/23 08:15 Docusate Sodium 250 Mg Capsule PO 250 mg DAILY MAURICIO Administration Escitalopram Oxalate 5 mg 05/02/23 09:00 05/09/23 08:16 Escitalopram 10 Mg Tablet PO 5 mg DAILY MAURICIO Administration Ferrous Gluconate 324 mg 05/03/23 12:00 05/09/23 08:16 Ferrous Gluconate 324 Mg Tablet PO 324 mg DAILYWM MAURICIO Administration Guaifenesin 600 mg 05/02/23 09:03 05/04/23 21:22 Guaifenesin 600 Mg Tablet PO 600 mg BID PRN Administration Cough Levothyroxine Sodium 50 mcg 05/01/23 07:00 05/09/23 05:57 Levothyroxine 25 Mcg Tablet PO 50 mcg QDAC MAURICIO Administration Magnesium Oxide 400 mg 05/07/23 09:00 05/09/23 08:17 Magnesium Oxide 400 Mg Tablet PO 400 mg DAILYWM MAURICIO Administration Mirtazapine 22.5 mg 05/02/23 21:00 05/09/23 21:25 Mirtazapine 15 Mg Tablet PO 22.5 mg HS [facility] Administration Multivitamins/Minerals 1 tab 05/06/23 08:00 05/09/23 08:17 Multivitamin W/Minerals Tablet PO 1 tab DAILYWM MAURICIO Administration Ondansetron HCl 4 mg 05/05/23 13:58 05/09/23 18:26 Ondansetron Odt 4 Mg Tablet TL 4 mg Q6HR PRN Administration Nausea / Vomiting Pantoprazole Sodium 40 mg 05/02/23 21:00 05/09/23 21:25 Pantoprazole 40 Mg Tablet PO 40 mg BID MAURICIO Administration Polyethylene Glycol 17 gm 05/02/23 09:00 05/09/23 08:15 Polyethylene Glycol 3350 17 Gm Packet PO 17 gm DAILY MAURICIO Administration Senna 8.6 - 17.2 mg 05/02/23 09:00 05/09/23 08:15 Senna 8.6 Mg Tablet PO 8.6 mg DAILY MAURICIO Administration Sodium Chloride 1 gm 05/05/23 11:00 05/09/23 16:23 Sodium Chloride 1 Gm Tablet PO 1 gm AC MAURICIO Administration Tamsulosin HCl 0.4 mg 04/30/23 21:00 05/09/23 21:25 Tamsulosin 0.4 Mg Capsule PO 0.4 mg HS MAURICIO Administration - Lab Result Fish Bone Diagrams: 05/09/23 05:38 05/09/23 22:55 Subjective - Subjective Patient Reports: Other (Patient in bed sleeping. He arouses to voice. He continues to not be oriented to place and time. He has no other complaints at this time.) Objective Vital Signs: Vital Signs - 24 hr 05/09/23 05/09/23 05/09/23 00:56 04:08 09:00 Temperature 37.1 C 36.7 C 36.5 C Heart Rate [ 79 87 Brachial] Heart Rate [ 80 Monitoring electrodes] Respiratory 18 20 16 Rate Blood Pressure 126/92 H 124/75 100/73 [Right Brachial artery] O2 Saturation 96 96 96 05/09/23 05/09/23 05/09/23 13:00 15:33 20:04 Temperature 36.5 C 36.5 C 37.0 C Heart Rate [ 97 72 105 H Brachial] Heart Rate [ Monitoring electrodes] Respiratory 18 16 16 Rate Blood Pressure 92/59 L 126/78 122/75 [Right Brachial artery] O2 Saturation 97 96 95 Oxygen O2 Source Room air I&O (Last 24 Hrs): Intake and Output Totals x24h 05/07/23 05/08/23 05/09/23 23:59 23:59 23:59 Intake Total 1590 830 840 Output Total 2025 775 945 Balance -435 55 -105 General: Alert Neck: Supple, No JVD, No thyromegaly Neuro: Alert, Non Focal Cardiovascular: Regular rate, Normal S1, Normal S2, No murmurs Abdomen: Normal bowel sounds, Soft, No tenderness Extremities: No cyanosis, No edema Skin: No rashes - Results Results: Laboratory Results WBC 6.4 x10^3/uL (4.8-10.8) 05/09/23 05:38 RBC 3.55 10^6/uL (4.70-6.10) L 05/09/23 05:38 Hgb 10.9 g/dL (14.0-18.0) L 05/09/23 05:38 Hct 33.8 % (42.0-52.0) L 05/09/23 05:38 MCV 95.2 fL (80.0-94.0) H 05/09/23 05:38 MCH 30.7 pg (27.0-31.0) 05/09/23 05:38 MCHC 32.2 g/dL (32.0-36.0) 05/09/23 05:38 RDW 13.1 % (12.0-15.0) 05/09/23 05:38 Plt Count 211 10^3/uL (130-450) 05/09/23 05:38 MPV 8.9 fL (7.4-11.4) 05/09/23 05:38 Neut # (Auto) 3.8 10^3/uL (1.5-6.6) 05/09/23 05:38 Lymph # (Auto) 1.5 10^3/uL (1.5-3.5) 05/09/23 05:38 [place] # (Auto) 0.8 10^3/uL (0.0-1.0) 05/09/23 05:38 Eos # (Auto) 0.3 10^3/uL (0.0-0.7) 05/09/23 05:38 Baso # (Auto) 0.0 10^3/uL (0.0-0.1) 05/09/23 05:38 Absolute Nucleated RBC 0.00 x10^3/uL 05/09/23 05:38 Nucleated RBC % 0.0 /100WBC 05/09/23 05:38 PT 15.8 secs (9.9-12.6) H 04/30/23 12:53 INR 1.5 (0.8-1.2) H 04/30/23 12:53 Sodium 134 mmol/L (135-145) L 05/09/23 05:38 Potassium 4.2 mmol/L (3.5-4.5) 05/09/23 05:38 Chloride 97 mmol/L (101-111) L 05/09/23 05:38 Carbon Dioxide 33 mmol/L (21-32) H 05/09/23 05:38 Anion Gap 4.0 (6-13) L 05/09/23 05:38 BUN 29 mg/dL (6-20) H 05/09/23 05:38 Creatinine 1.0 mg/dL (0.6-1.3) 05/09/23 05:38 Estimated GFR (MDRD) 71 (>89) L 05/09/23 05:38 Glucose 125 mg/dL (74-104) H 05/09/23 05:38 POC Whole Bld Glucose 105 mg/dL (70 - 100) H 05/03/23 06:16 Lactic Acid 1.1 mmol/L (0.5-2.2) 04/30/23 12:53 Calcium 9.3 mg/dL (8.5-10.3) 05/09/23 05:38 Phosphorus 3.4 mg/dL (2.5-5.0) 05/09/23 05:38 Magnesium 1.5 mg/dL (1.7-2.3) L 05/09/23 05:38 Iron 46 ug/dL (50-212) L 05/03/23 05:04 TIBC 213 ug/dL (250-450) L 05/03/23 05:04 % Saturation 22 % (20-50) 05/03/23 05:04 Transferrin 152 mg/dL (203-362) L 05/03/23 05:04 Total Bilirubin 0.8 mg/dL (0.2-1.0) 04/30/23 12:53 AST 26 IU/L (10-42) 04/30/23 12:53 ALT 13 IU/L (10-60) 04/30/23 12:53 Alkaline Phosphatase 48 IU/L (42-121) 04/30/23 12:53 Troponin I High Sens 10.2 ng/L (2.3-19.7) 04/30/23 12:53 Total Protein 5.6 g/dL (6.4-8.9) L 04/30/23 12:53 Albumin 3.3 g/dL (3.2-5.5) 04/30/23 12:53 Globulin 2.3 g/dL (2.1-4.2) 04/30/23 12:53 Albumin/Globulin Ratio 1.4 (1.0-2.2) 04/30/23 12:53 Lipase 18 U/L (11-82) 04/30/23 12:53 Vitamin B12 673 pg/mL (180-914) 05/03/23 05:04 Folate 19.4 ng/mL (5.90 - >24.8) 05/03/23 05:04 TSH 1.19 uIU/mL (0.34-5.60) 05/03/23 05:04 Cortisol AM Sample 15.9 ug/dL 05/03/23 09:02 Urine Color YELLOW 04/30/23 15:44 Urine Clarity CLEAR (CLEAR) 04/30/23 15:44 Urine pH 6.0 PH (5.0-7.5) 04/30/23 15:44 Ur Specific [place] 1.015 (1.002-1.030) 04/30/23 15:44 Urine Protein NEGATIVE mg/dL (NEGATIVE) 04/30/23 15:44 Urine Glucose (UA) NEGATIVE mg/dL (NEGATIVE) 04/30/23 15:44 Urine Ketones NEGATIVE mg/dL (NEGATIVE) 04/30/23 15:44 Urine Occult Blood NEGATIVE (NEGATIVE) 04/30/23 15:44 Urine Nitrite NEGATIVE (NEGATIVE) 04/30/23 15:44 Urine Bilirubin NEGATIVE (NEGATIVE) 04/30/23 15:44 Urine Urobilinogen 1 (NORMAL) E.U./dL (NORMAL) 04/30/23 15:44 Ur Leukocyte Esterase NEGATIVE (NEGATIVE) 04/30/23 15:44 Ur Microscopic Review NOT INDICATED 04/30/23 15:44 Urine Culture Comments NOT INDICATED 04/30/23 15:44 Urine Sodium 67.3 mmol/L 04/30/23 15:44 Nasal Adenovirus (PCR) NOT DETECTED 04/30/23 13:15 Nasal B. parapertussis DNA (PCR) NOT DETECTED 04/30/23 13:15 Nasal Coronavir 229E PCR NOT DETECTED 04/30/23 13:15 Nasal Coronavir HKU1 PCR NOT DETECTED 04/30/23 13:15 Nasal Coronavir NL63 PCR NOT DETECTED 04/30/23 13:15 Nasal Coronavir OC43 PCR NOT DETECTED 04/30/23 13:15 Nasal Enterovir/Rhinovir PCR DETECTED A 04/30/23 13:15 Nasal Influenza B PCR NOT DETECTED 04/30/23 13:15 Nasal Influenza A PCR NOT DETECTED 04/30/23 13:15 Nasal Parainfluen 1 PCR NOT DETECTED 04/30/23 13:15 Nasal Parainfluen 2 PCR NOT DETECTED 04/30/23 13:15 Nasal Parainfluen 3 PCR NOT DETECTED 04/30/23 13:15 Nasal Parainfluen 4 PCR NOT DETECTED 04/30/23 13:15 Nasal RSV (PCR) NOT DETECTED 04/30/23 13:15 Nasal B.pertussis DNA PCR NOT DETECTED 04/30/23 13:15 Nasal C.pneumoniae (PCR) NOT DETECTED 04/30/23 13:15 Casey Human Metapneumo PCR NOT DETECTED 04/30/23 13:15 Nasal M.pneumoniae (PCR) NOT DETECTED 04/30/23 13:15 Nasal SARS-CoV-2 (PCR) NOT DETECTED 04/30/23 13:15 - Procedures Procedures: Procedures EXCISION OF DESCENDING COLON, ENDO, DIAGN (05/24/15) EXCISION OF DUODENUM, ENDO, DIAGN (05/24/15) EXCISION OF LOWER ESOPHAGUS, ENDO, DIAGN (05/24/15) EXCISION OF RIGHT SPERMATIC CORD, OPEN APPROACH (12/08/22) EXCISION OF SMALL INTESTINE, OPEN APPROACH (12/08/22) EXCISION OF STOMACH, ENDO, DIAGN (05/24/15) SUPPLEMENT R INGUINAL REGION WITH SYNTH SUB, OPEN APPROACH (12/08/22) Current Medications - Current Medications Current Medications: Active Medications Acetaminophen (Acetaminophen 325 Mg Tablet) 650 mg PO Q4HR PRN PRN Reason: Pain 1 to 4, or Fever Last Admin: 05/09/23 21:24 Dose: 650 mg Amitriptyline HCl (Amitriptyline 10 Mg Tablet) 5 mg PO HS [facility] Last Admin: 05/09/23 21:26 Dose: 5 mg Calcium Carbonate/Glycine (Calcium Carbonate Chew 500 Mg Tablet) 500 mg PO DAILY [facility] Last Admin: 05/09/23 08:16 Dose: 500 mg Cholecalciferol (Cholecalciferol 25 Mcg Tablet) 50 mcg PO DAILY [facility] Last Admin: 05/09/23 08:18 Dose: 50 mcg Docusate Sodium (Docusate Sodium 250 Mg Capsule) 250 - 500 mg PO DAILY [facility] Last Admin: 05/09/23 08:15 Dose: 250 mg Escitalopram Oxalate (Escitalopram 10 Mg Tablet) 5 mg PO DAILY [facility] Last Admin: 05/09/23 08:16 Dose: 5 mg Ferrous Gluconate (Ferrous Gluconate 324 Mg Tablet) [facility] Admin: 05/09/23 08:16 Dose: 324 mg Guaifenesin (Guaifenesin 600 Mg Tablet) 600 mg PO BID PRN PRN Reason: Cough Last Admin: 05/04/23 21:22 Dose: 600 mg Levothyroxine Sodium (Levothyroxine 25 Mcg Tablet) 50 mcg PO QDAC [facility] Last Admin: 05/09/23 05:57 Dose: 50 mcg Magnesium Oxide (Magnesium Oxide 400 Mg Tablet) 400 mg PO DAILYWM [facility] Last Admin: 05/09/23 08:17 Dose: 400 mg Mirtazapine (Mirtazapine 15 Mg Tablet) 22.5 mg PO [facility] Last Admin: 05/09/23 21:25 Dose: 22.5 mg Multivitamins/Minerals (Multivitamin W/Minerals Tablet) [facility] [place] Admin: 05/09/23 08:17 Dose: 1 tab Ondansetron HCl (Ondansetron Odt 4 Mg Tablet) 4 mg TL Q6HR PRN PRN Reason: Nausea / Vomiting Last Admin: 05/09/23 18:26 Dose: 4 mg Pantoprazole Sodium (Pantoprazole 40 Mg Tablet) 40 mg PO BID [facility] Last Admin: 05/09/23 21:25 Dose: 40 mg Polyethylene Glycol (Polyethylene Glycol 3350 17 Gm Packet) 17 gm PO DAILY [facility] Last Admin: 05/09/23 08:15 Dose: 17 gm Polyethylene Glycol (Polyethylene Glycol 3350 17 Gm Packet) 8.5 gm PO DAILY PRN PRN Reason: Constipation Senna (Senna 8.6 Mg Tablet) 8.6 - 17.2 mg PO DAILY [facility] Last Admin: 05/09/23 08:15 Dose: 8.6 mg Sodium Chloride (Sodium Chloride 1 Gm Tablet) 1 gm PO AC [facility] Last Admin: 05/09/23 16:23 Dose: 1 gm Tamsulosin HCl (Tamsulosin 0.4 Mg Capsule) 0.4 mg PO [facility] Last Admin: 05/09/23 21:25 Dose: 0.4 mg Multivit-Min/Iron Fum/Folic AC [Funwi-Gcrlyhs-Qzwkeyxi Tablet] 1 tab PO DAILY 05/08/15 polyethylene glycoL 3350 [Miralax] 8.5 - 17 gm PO DAILY PRN 05/08/15 Tamsulosin HCl [Flomax] 0.4 mg PO 07/11/18 Levothyroxine Sodium [Synthroid] 50 mcg PO QDAC 01/22/19 Cimetidine 400 mg PO HS 12/08/22 Eszopiclone [Lunesta] 2 mg PO HS 12/08/22 Mirtazapine 22.5 mg PO HS 12/08/22 Omeprazole Magnesium 40 mg PO BID 12/08/22 Valsartan 160 mg PO QPM 12/08/22 Calcium Carbonate [Calcium] 600 mg PO DAILY 12/09/22 Cholecalciferol (Vitamin D3) [Vitamin D3] 2,000 unit PO DAILY 12/09/22 Simvastatin [Zocor] 80 mg PO HS 12/09/22 Escitalopram Oxalate 5 mg PO DAILY 05/02/23 Prazosin [Minipress] 1 mg PO DAILY 05/02/23
--- NOTE | 2023-05-10 06:35 | Discharge Plan ---
"Discharge Plan for SNF / [facility] - Discharge Plan And Transition Orders Problem Reviewed?: Yes Disposition: 03 SNF DC/Xfer Condition: Stable Allergies and Adverse Reactions: Allergies Allergy/AdvReac Type Severity Reaction Status Date / Time No Known Drug Allergies Allergy Verified 04/30/23 12:54 Health Concerns: Sy Holt is an 87-year-old man admitted on April 30, 2023 after a fall at home. He has a past medical history significant for diabetes mellitus, atrial fibrillation, coronary artery disease, chronic anemia, hypothyroidism, chronic kidney disease and prostate cancer. Patient has a history of frequent falls. Initial serum sodium was 124. Treatment was intiated with salt tablets and fluid restriction with goal of increasing his serum sodium. Serum sodium was very difficult to correct and currently patient is taking 3 g of salt a day in addition to the fluid restriction. The patient remains very frail and is not significantly improving. He is not competent to make his own decisions because of his underlying dementia. Goals of care were discussed with patient's daughter, Savannah Poole and the decision has been made to transition to comfort care. Plan is for patient to transfer to a long-term facility to initiate comfort care measures. CODE STATUS is DO NOT RESUSCITATE Plan of Treatment: Plan is to stop all active treatments and transition to comfort care measures. Care Goals: Goal of care is comfort. Assessment: Mr. Holt is an 87-year-old man admitted to the hospital 10 days ago. Patient has made very little progress since admission and continues to require high doses of sodium to maintain an adequate serum sodium level. After discussion with patient's family, plan is to transition him to comfort care measures. - SNF / [facility] Transition Orders Admit to (Facility): [facility] Discharge Diagnosis: (1) Hyponatremia (2) Orthostatic hypotension (3) Rhinovirus-Resolved (4) Frequent falls (5) Anticoagulant long-term use (discontinued (6) Paroxysmal A-fib (7) Hypothyroidism (8) Iron deficiency anemia (9) Hypomagnesemia Medicare Certification Statement: Notify PCP of admission and forward orders to primary provider for signature. Other Notification Orders: Call PCP immediately if patient develops dyspnea, chest pain/tightness or edema. House Bowel Program: Yes Additional Bowel Program Orders: If no BM after 2 days, nurse may give M.O.M. 30ml PO PRN and/or ducolax Supp 1 AL and/or ASHLY 250mg P.O., and/or senna 1-2 tabs PO. On day 3 nurse may give repeat above order until residents constipation is resolved. Annual Influenza Vaccine (between Dec 04 and July 03): Yes Two-step PPD per [facility] [phone] or approved exception documents: Yes Medication Orders: PLEASE REFER TO THE DISCHARGE MEDICATION LIST. Insulin Orders?: No - Diet Type: Geriatric Texture: Mech soft May have monthly special meal: Yes - Therapies | Activity Weight Bearing: Full Weight Follow Up: Follow-up as needed with Clint Johansen MD"
--- NOTE | 2023-05-10 06:36 | DISCHARGE SUMMARY ---
Discharge Summary Condition at Discharge: Poor Discharge Disposition: 03 [facility] DC/Xfer - ALLERGIES Allergies/Adverse Reactions: Allergies Allergy/AdvReac Type Severity Reaction Status Date / Time No Known Drug Allergies Allergy Verified 04/30/23 12:54 - MEDICATIONS Home Medications: Ambulatory Orders Medication Instructions Recorded Confirmed polyethylene glycoL 3350 [Miralax] 8.5 - 17 gm PO DAILY PRN 05/08/15 05/01/23 Tamsulosin HCl [Flomax] 0.4 mg PO HS 07/11/18 05/01/23 Levothyroxine Sodium [Synthroid] 50 mcg PO QDAC 01/22/19 05/01/23 Mirtazapine 22.5 mg PO HS 12/08/22 05/01/23 Omeprazole Magnesium 40 mg PO BID 12/08/22 05/01/23 Amitriptyline [Elavil] 10 mg PO HS #60 tablet 03/04/23 05/01/23 Escitalopram Oxalate 5 mg PO DAILY 05/02/23 05/02/23 Sodium Chloride [Salt Tab] 1 gm PO DAILY #30 tab 05/11/23 guaiFENesin [Mucinex] 600 mg PO BID PRN #10 tab 05/11/23 traZODone [Desyrel] 50 mg PO QPM PRN #30 tab 05/11/23 - LABS Result Diagrams: 05/09/23 05:38 05/09/23 22:55
--- NOTE | 2023-05-10 10:45 | CONSULTATION NOTE ---
Palliative Care Consultation - Referral Referring Provider: Dr. Latisha Alfred Time of Visit: [id number] Referral setting: Hospitalized patient Referral Reason: Goals of Care - Information Sources Records reviewed: RN notes reviewed, Previous records reviewed History/Review of Systems obtained from: Patient (limited r/t STM deficits/mild confusion), Family (daughter Savannah-participated by speaker phone r/t acute illness), Nursing Exam limitations: Clinical condition (Patient orientated to self only; not place or time) - History of Present Illness Brief History of Present Illness: This is an 87-year-old gentleman with multiple comorbidities, who is having increased confusion, cognitive difficulties, and was being worked up by his PCP with recent CT scan, concern for worsening depression, and PTSD. Patient has had multiple falls over the last several days, but also worsening deconditioning and decline in his health overall over the last several months. He has had 6 ED visits in the last 12 months, most seriously in was found in December to have incarcerated inguinal hernia resulted in surgery, and complicating factors of small bowel/ileus postop and developed pneumonia. Patient was admitted here 04/30 after a fall with head injury, no acute findings on CT scan, but was found to have hyponatremia, orthostatic hypotension, and positive for rhinovirus. Because of multiple falls and recent head injury, Xarelto was to be stopped permanently. He also presents with paroxysmal resolved atrial fibs, with recommendation for permanent pacemaker per hospitalist, can be done as an outpatient procedure. Patient has multiple other comorbidities including borderline diabetes, atrial fibs, CAD, chronic anemia, and has had a history of hyponatremia previous to this stay. He also has a history of prostate cancer with seed implant. He has known PTSD, he was in the [employer] for 41 years, and a [place] vet. Posthospitalization for his inguinal hernia surgery, he did get home health PT and OT, but per his daughter has had ongoing functional decline, needing increased help with his ADLs, poor activity tolerance, and has had worsening memory issues. Patient himself does have insight into this, reports he has been having memory problems, is aware he is confused currently. He perceives easily" the dispensary" which would make sense given his background, does not recall how he ended up in the hospital, and remembers various different facts regarding his review of systems, but not in a coherent thought pattern. Patient does recognize he is weak, nursing personnel report he has been cooperative with PT/OT, is pleasant and interactive. It has been recommended he proceed onto SNF, this would be supported by his daughter's wishes as well, given his increased care needs, and deconditioning with fall risk. He did express agreement during our visit, if this was part of the core plan. Palliative care has been asked to meet with patient, and identified decision maker, as patient has been intermittently confused, does not present with insight into the current seriousness of his illness, nor appears to be able to weigh in the context of medical decision making the nuances particularly related to CODE STATUS. Patient does not have a DPOA, his has dementia, his daughter Savannah is his main caregiver, but he does have 2 other daughters.The questions on the table appear to be CODE STATUS, SNF placement, and decisions about pacemaker. Medical/Surgical History - Past Medical History Cardiovascular: reports: Congestive heart failure, Hypertension, SD, Atrial fibrillation Respiratory: reports: None Neuro: Tremors, Other ([facility]) Endocrine/Autoimmune: reports: Type 2 diabetes GI: reports: Hiatal hernia, Chronic diarrhea, Chronic constipation : reports: Kidney stones, Other (prostate cancer with seed implants) HEENT: reports: Chronic hearing loss Psych: reports: Depression, Post traumatic stress disorder Musculoskeletal: reports: Osteoarthritis Derm: reports: None MRSA Hx?: No - Past Surgical History General: reports: Bowel surgery, Hiatal hernia repair Ortho: reports: Knee replacement Cardiovascular: reports: Coronary stent HEENT: reports: Cataracts, Tonsil/Adenoidectomy Social History - Living Situation Living arrangement: At home Living Situation: With spouse/s.o., With family Support System: Patient's daughter is caring for patient's who has dementia, she has been having difficulty for over 6 years. They moved in to be caregivers, Baylee and her , for both parents. Both have high care needs, particular with patient falling. Patient does have 2 other daughters,. Family History - Family History Family History: Mother: , Father: Medications/Allergies - Medications Active Medication List: Active Medications Acetaminophen (Acetaminophen 325 Mg Tablet) 650 mg PO Q4HR PRN PRN Reason: Pain 1 to 4, or Fever Last Admin: 05/03/23 17:08 Dose: 650 mg Amitriptyline HCl (Amitriptyline 10 Mg Tablet) 5 mg PO [facility] Last Admin: 05/02/23 20:59 Dose: 5 mg Calcium Carbonate/Glycine (Calcium Carbonate Chew 500 Mg Tablet) 500 mg PO DAILY [facility] Last Admin: 05/03/23 08:22 Dose: 500 mg Cholecalciferol (Cholecalciferol 25 Mcg Tablet) 50 mcg PO DAILY [facility] Last Admin: 05/03/23 08:23 Dose: 50 mcg Docusate Sodium (Docusate Sodium 250 Mg Capsule) 250 - 500 mg PO DAILY [facility] Last Admin: 05/03/23 08:23 Dose: 250 mg Escitalopram Oxalate (Escitalopram 10 Mg Tablet) 5 mg PO DAILY [facility] Last Admin: 05/03/23 08:23 Dose: 5 mg Ferrous Gluconate (Ferrous Gluconate 324 Mg Tablet) [facility] [place] Last Admin: 05/03/23 11:29 Dose: 324 mg Guaifenesin (Guaifenesin 600 Mg Tablet) 600 mg PO BID PRN PRN Reason: Cough Levothyroxine Sodium (Levothyroxine 25 Mcg Tablet) 50 mcg PO QDAC [facility] Last Admin: 05/03/23 07:01 Dose: 50 mcg Magnesium Oxide (Magnesium Oxide 400 Mg Tablet) 400 mg PO BIDWM [facility] Last Admin: 05/03/23 17:08 Dose: 400 mg Mirtazapine (Mirtazapine 15 Mg Tablet) 22.5 mg PO [facility] Last Admin: 05/02/23 21:00 Dose: 22.5 mg Multivitamins (Multivitamin Tablet) 1 tab [facility] [place] Last Admin: 05/03/23 08:23 Dose: 1 tab Ondansetron HCl (Ondansetron 4 Mg/2 Ml Vial) 4 mg IVP Q6HR PRN PRN Reason: Nausea / Vomiting Pantoprazole Sodium (Pantoprazole 40 Mg Tablet) 40 mg PO BID [facility] Last Admin: 05/03/23 08:24 Dose: 40 mg Polyethylene Glycol (Polyethylene Glycol 3350 17 Gm Packet) 17 gm PO DAILY [facility] Last Admin: 05/03/23 08:27 Dose: 17 gm Polyethylene Glycol (Polyethylene Glycol 3350 17 Gm Packet) 8.5 gm PO DAILY PRN PRN Reason: Constipation Senna (Senna 8.6 Mg Tablet) 8.6 - 17.2 mg PO DAILY [facility] Last Admin: 05/03/23 08:23 Dose: 8.6 mg Sodium Chloride (Sodium Chloride Flush 0.9% 10 Ml Syringe) 10 ml IVP PRN PRN PRN Reason: NEEDED PER PROVIDER ORDERS Sodium Chloride (Sodium Chloride Flush 0.9% 10 Ml Syringe) 10 ml IVP 0100,0900,1700 [facility] Last Admin: 05/03/23 16:47 Dose: 10 ml Sodium Chloride (Sodium Chloride 1 Gm Tablet) 1 gm PO DAILY [facility] Last Admin: 05/03/23 08:23 Dose: 1 gm Tamsulosin HCl (Tamsulosin 0.4 Mg Capsule) 0.4 mg PO [facility] Last Admin: 05/02/23 20:59 Dose: 0.4 mg Multivit-Min/Iron Fum/Folic AC [Meons-Wlrzcro-Oihujktt Tablet] 1 tab PO DAILY 05/08/15 polyethylene glycoL 3350 [Miralax] 8.5 - 17 gm PO DAILY PRN 05/08/15 Tamsulosin HCl [Flomax] 0.4 mg PO 07/11/18 Levothyroxine Sodium [Synthroid] 50 mcg PO QDAC 01/22/19 Cimetidine 400 mg PO 12/08/22 Eszopiclone [Lunesta] 2 mg PO HS 12/08/22 Mirtazapine 22.5 mg PO HS 12/08/22 Omeprazole Magnesium 40 mg PO BID 12/08/22 Valsartan 160 mg PO QPM 12/08/22 Calcium Carbonate [Calcium] 600 mg PO DAILY 12/09/22 Cholecalciferol (Vitamin D3) [Vitamin D3] 2,000 unit PO DAILY 12/09/22 Simvastatin [Zocor] 80 mg PO HS 12/09/22 Escitalopram Oxalate 5 mg PO DAILY 05/02/23 Prazosin [Minipress] 1 mg PO DAILY 05/02/23 - Allergies Allergies/Adverse Reactions: Allergies Allergy/AdvReac Type Severity Reaction Status Date / Time No Known Drug Allergies Allergy Verified 04/30/23 12:54 Review of Systems - Constitutional Constitutional: reports: Fatigue, Weakness - Ears, Nose & Throat Ears, Nose & Throat: reports: Hearing loss (needs hearing aids; has declined appointments) - Cardiovascular Cardiovascular: reports: Irregular heart rate, Lightheadedness, Decr. exercise tolerance. denies: Chest pain - Respiratory Respiratory: denies: SOB at rest - Gastrointestinal Gastrointestinal: reports: Constipation (alternated with diarrhea; daughter reports patient spends most of day in bathroom; very fixated has had hemmrhoids "fixed" twice.) - Genitourinary Genitourinary: reports: Incontinence - Musculoskeletal Musculoskeletal: reports: Back pain, Muscle weakness, Assistive devices (previous level of functioning;used walker) - Neurological Neurological: reports: General weakness, Dizziness, Memory problems - Psychiatric Psychiatric: reports: Depression, Anxiety - Endocrine Endocrine: reports: Diabetes type 2, Hypothyroidism - Hematologic/Lymphatic Hematologic/Lymph: reports: Anemia - All Other Systems All Other Systems: reports: Other (minimally able to participate; some answers solicited from daughter) Physical Exam - Vital Signs Vital Signs: Vital Signs x48h Temp Pulse Resp BP Pulse Ox 05/03/23 16:58 36.7 C 67 16 148/94 H 96 05/03/23 11:13 36.3 C L 82 18 129/69 98 - Physical Exam General Appearance: positive: No acute distress Neck: positive: No JVD, Trachea midline Cardiovascular: positive: Irregular Respiratory: positive: No respiratory distress Abdomen: positive: Soft Skin: positive: Pallor Neurologic/Psychiatric: positive: Disoriented to place, Disoriented to time, Depressed mood/affect, Flat affect Palliative Care - POLST Patient has POLST: No Performance Status: Patient has had declining functional status most acutely over the last 6 months, and worsening over the last several weeks with several falls, including 1 prior to admit with head injury. Patient is quite weak, unsteady with dizziness when up, does have a walker at home, and I believe a lift chair but has spent more time sitting only ambulating short distances in the home. 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 - Palliative Care Discussion: Met with patient, daughter on speaker phone secondary to her acute illness. Exp lored patient's understanding of his current situation, he is disoriented to place and time, does believe he is in the dispensary. Does admit to confusion, having increased difficulty figuring things out, this is somewhat distressing to him. He he repeatedly says he is 89 years old, does feel like his health has been failing, he wanted to get up and walk around, we discussed in the context of this he is quite weak and dizzy, does not recall why he is here in the hospital. Reports things have been getting harder, does report he has had 14 falls, when asked how he thought he was doing, he does perceive himself as doing poorly. Patient was in the [employer] for 41 years, does refer to his time in [place], and somewhat distressed with his time in [place]. Do know he is being treated for PTSD through his primary care with recent addition of prazosin 1 mg at bedtime. When asked if patient was afraid of dying, he reports he is not, does understand things are changing. Did not specifically asked them to weigh in regarding weighing for CODE STATUS, but does want a peaceful . Did address given he does not have a DPOA, who he would trust if he was unable to making decisions, he said his son-in-law and daughter. He does seem to have some affinity for his son-in-law, daughter attributes this to her has PTSD and is a full-time caregiver for them as well. Discussed at length with Savannah, given no specific DPOA paperwork, though patient does express wishes for his daughter and son-in-law to make decisions, by default it falls to the 3 daughters who must be in agreement. Patient's is demented and does not present is decisional making capacity. Patient at this point does not either, suspect this is been the case for several months now, with worsening cognitive changes poor recall, and intermittent confusion.Discussed with Savannah my concern regarding patient's fragile status, even if not this hospital admission, transition to SNF and into the community, may want to consider formalizing or exploring further DNR/DNI. Counseled given his fragile status, even if were successful, most likely would not have any quality of life or further deficits if attempted and CPR successful most likely not back to previous level of functioning. Reviewed that DNR does not mean do not treat, would continue with current treatments and support for patient. Patient seems willing at this point to go to SNF, would consider to continue to frame that and this is the next part of the procedure. Daughter feels this would be of benefit to, though did review most likely would be in a similar position with next acute healthcare crisis, may want to step back and look at the bigger picture support and goals for her father as well. Also brought up the case of pacemaker for outpatient, this may be actually appropriate in the context of decreasing his fall risk. But can discuss this further with PCP if want to pursue. Results - Lab Results Lab results reviewed: Yes Fish Bones: 05/09/23 05:38 05/09/23 22:55 Lab and Imaging Results: Lab Results x24hrs 05/03/23 05/03/23 05/03/23 Range/Units 09:02 06:16 05:04 Sodium 129 L (135-145) mmol/L Potassium 3.4 L (3.5-4.5) mmol/L Chloride 95 L (101-111) mmol/L Carbon Dioxide 30 (21-32) mmol/L Anion Gap 4.0 L (6-13) BUN 16 (6-20) mg/dL Creatinine 0.8 (0.6-1.3) mg/dL Estimated GFR (MDRD) 91 (>89) Glucose 102 (74-104) mg/dL POC Whole Bld Glucose 105 H (70 - 100) mg/dL Calcium 8.9 (8.5-10.3) mg/dL Phosphorus 2.7 (2.5-5.0) mg/dL Magnesium 1.5 L (1.7-2.3) mg/dL Iron 46 L (50-212) ug/dL TIBC 213 L (250-450) ug/dL % Saturation 22 (20-50) % Transferrin 152 L (203-362) mg/dL Vitamin B12 673 (180-914) pg/mL Folate 19.4 (5.90 - >24.8) ng/mL TSH 1.19 (0.34-5.60) uIU/mL Cortisol AM Sample 15.9 ug/dL Impression and Recommendations - Palliative Care Impression: This is an 87-year-old gentleman with multiple comorbidities, declining functional status, worsening cognitive deficits, both acute and noted chronic, hospitalized for hyponatremia, orthostatic hypotension, rhinovirus and multiple falls. Palliative care asked to meet with patient, patient though interactive, does not at this point in time present with decision making capacity. Patient is quite fragile, and high risk for further decline. Patient would benefit from transition to hospital to SNF for focus on further strengthening and addressing increased care needs at this time. Goals remain somewhat ambivalent, family meeting with daughter on phone today, will follow-up for ongoing definition of goals of care. Recommendations/Counseling Done: 1. Deconditioning. This is multifactorial, will has been ongoing functional decline for the last 6 months, has had acute hospitalizations and complications, does continue to have decrease in activity tolerance and status. Would recommend transition to SNF, for support for more intensive PT/OT. 2. Cognitive decline. Would recommend occupational therapy do a formal cognitive eval to document patient's current cognitive status. 3. Advance care planning. Patient without any identified DPOA, would default to daughters, Savannah is going to reach out to her other 2 sisters, regarding current condition, and pending decisions particularly regarding CODE STATUS. Patient does present in the context of failure to thrive with cognitive, functional decline, increasing symptom burden, and increased care needs with resulting in caregiver distress. Patient on the Rafael index which looks at hospitalized adults 70 and older and outcome of all cause 1 year mortality presents to the score of 5. Risk of 1 year mortality is at 34%. Risk calculators cannot predict the future for any 1 individual but gives an estimate of many people with similar risk factorswill live and but cannot identify who will live and who will . 90 minutes with review of chart, PCP chart, counseling with daughter, c oordination of care with hospitalist team, evaluation of patient, and anticipatory guidance provided to daughter.
[2023-05-10] MEDS: BISACODYL 10 MG SUPP PR ONE (22:48)
--- NOTE | 2023-05-10 22:57 | PROVIDER PROGRESS NOTE ---
Assessment/Plan - Problem List (1) Hyponatremia Assessment/Plan: Patient had hypovolemic hyponatremia. There is a history of him having poor oral intake but possibly with free water excess Na was 124 at adm>>125 after getting NS>> 129 today (all labs were reviewed). His a.m. Cortisol level came back WNL, ruling out [place]'s disease Etiology of hyponatremia is not clear but most likely secondary to SIADH. Plan is to increase salt tablets to 1 g 3 times a day. He continues to require hospitalization due to his hyponatremia Patient is not competent to make his own decisions. He has poor insight into his problems and consistently is not able to tell me the correct date and time.Goals of care were discussed with patient's daughter, Savannah and her . After some discussion, family wishes to focus on comfort and patient will be transferred to a [place] [facility] care facility for further care.CODE STATUS has been changed to DO NOT RESUSCITATE. Patient was not able to transfer to nursing facility today and plan is to arrange for transport on May 11, 2023 (2) Orthostatic hypotension Assessment/Plan: Continue salt tablets daily Cont to monitor orthostatic vital signs (3) Rhinovirus Conclusion/Plan: Plan: Infectious isolation ordered Symptomatic support (4) Frequent falls Conclusion/Plan: Plan: Xarelto discontinued due to frequent falls. Patient underwent a palliative care consult 05/03/2022 Patient is not competent to make his own healthcare decisions and decisions regarding his care will be deferred to his family. (5) Anticoagulant long-term use Conclusion/Plan: Discontinue Xarelto (6) Paroxysmal A-fib Conclusion/Plan: (7) Hypothyroidism Conclusion/Plan: Continue Synthroid. (8) Iron deficiency anemia Conclusion/Plan: Treatment initiated with iron tablets. (9) Hypomagnesemia Conclusion/Plan: Continue to monitor and replace as needed - Current Meds Current Meds: Current Medications Generic Name Dose Route Start Last Admin Trade Name Freq PRN Reason Stop Dose Admin Acetaminophen 650 mg 04/30/23 16:59 05/10/23 22:47 Acetaminophen 325 Mg Tablet PO 650 mg Q4HR PRN Administration Pain 1 to 4, or Fever Amitriptyline HCl 5 mg 05/02/23 21:00 05/10/23 20:40 Amitriptyline 10 Mg Tablet PO 5 mg HS MAURICIO Administration Calcium Carbonate/Glycine 500 mg 05/03/23 09:00 05/10/23 08:28 Calcium Carbonate Chew 500 Mg Tablet PO 500 mg DAILY MAURICIO Administration Docusate Sodium 250 - 500 mg 05/01/23 21:00 05/10/23 08:28 Docusate Sodium 250 Mg Capsule PO 250 mg DAILY MAURICIO Administration Escitalopram Oxalate 5 mg 05/02/23 09:00 05/10/23 08:27 Escitalopram 10 Mg Tablet PO 5 mg DAILY MAURICIO Administration Ferrous Gluconate 324 mg 05/03/23 12:00 05/10/23 08:27 Ferrous Gluconate 324 Mg Tablet PO 324 mg DAILYWM MAURICIO Administration Guaifenesin 600 mg 05/02/23 09:03 05/04/23 21:22 Guaifenesin 600 Mg Tablet PO 600 mg BID PRN Administration Cough Levothyroxine Sodium 50 mcg 05/01/23 07:00 05/10/23 06:58 Levothyroxine 25 Mcg Tablet PO 50 mcg QDAC MAURICIO Administration Magnesium Oxide 400 mg 05/07/23 09:00 05/10/23 08:27 Magnesium Oxide 400 Mg Tablet PO 400 mg DAILYWM MAURICIO Administration Mirtazapine 22.5 mg 05/02/23 21:00 05/10/23 20:40 Mirtazapine 15 Mg Tablet PO 22.5 mg HS [facility] Administration Multivitamins/Minerals 1 tab 05/06/23 08:00 05/10/23 08:28 Multivitamin W/Minerals Tablet PO 1 tab DAILYWM MAURICIO Administration Ondansetron HCl 4 mg 05/05/23 13:58 05/09/23 18:26 Ondansetron Odt 4 Mg Tablet TL 4 mg Q6HR PRN Administration Nausea / Vomiting Pantoprazole Sodium 40 mg 05/02/23 21:00 05/10/23 20:40 Pantoprazole 40 Mg Tablet PO 40 mg BID MAURICIO Administration Polyethylene Glycol 17 gm 05/02/23 09:00 05/10/23 08:28 Polyethylene Glycol 3350 17 Gm Packet PO 17 gm DAILY MAURICIO Administration Senna 8.6 - 17.2 mg 05/02/23 09:00 05/10/23 08:28 Senna 8.6 Mg Tablet PO 8.6 mg DAILY MAURICIO Administration Tamsulosin HCl 0.4 mg 04/30/23 21:00 05/10/23 20:40 Tamsulosin 0.4 Mg Capsule PO 0.4 mg HS MAURICIO Administration - Lab Result Fish Bone Diagrams: 05/09/23 05:38 05/09/23 22:55 - Additional Planning My Orders: My Active Orders 05/10/23 14:49 Hospice Referral (Coordinate Admission by Hospice Office Staff) [CONS] Routine 05/11/23 09:00 Sodium Chloride [Salt Tab] 1 gm PO DAILY Objective Vital Signs: Vital Signs - 24 hr 05/10/23 05/10/23 05/10/23 01:00 05:00 09:00 Temperature 36.6 C 37.0 C 37.0 C Heart Rate [ 62 69 91 Brachial] Respiratory 16 16 17 Rate Blood Pressure 121/79 123/74 107/52 L [Right Brachial artery] O2 Saturation 96 94 95 05/10/23 12:38 Temperature 37.1 C Heart Rate [ 93 Brachial] Respiratory 17 Rate Blood Pressure 133/69 H [Right Brachial artery] O2 Saturation 93 Oxygen O2 Source Room air I&O (Last 24 Hrs): Intake and Output Totals x24h 05/08/23 05/09/23 05/10/23 23:59 23:59 23:59 Intake Total 830 1080 1070 Output Total 901 158 2058 Balance 55 135 -30 General: Alert, No acute distress Neck: Supple, No JVD, No thyromegaly Neuro: Alert, Non Focal Cardiovascular: Regular rate, Normal S1, Normal S2, No murmurs Respiratory: Other (Good air exchange in all lung carrasco no wheezing no crackles.) Abdomen: Normal bowel sounds, Soft, No tenderness Extremities: No clubbing, No cyanosis, No edema Skin: No rashes - Results Results: Laboratory Results WBC 6.4 x10^3/uL (4.8-10.8) 05/09/23 05:38 RBC 3.55 10^6/uL (4.70-6.10) L 05/09/23 05:38 Hgb 10.9 g/dL (14.0-18.0) L 05/09/23 05:38 Hct 33.8 % (42.0-52.0) L 05/09/23 05:38 MCV 95.2 fL (80.0-94.0) H 05/09/23 05:38 MCH 30.7 pg (27.0-31.0) 05/09/23 05:38 MCHC 32.2 g/dL (32.0-36.0) 05/09/23 05:38 RDW 13.1 % (12.0-15.0) 05/09/23 05:38 Plt Count 211 10^3/uL (130-450) 05/09/23 05:38 MPV 8.9 fL (7.4-11.4) 05/09/23 05:38 Neut # (Auto) 3.8 10^3/uL (1.5-6.6) 05/09/23 05:38 Lymph # (Auto) 1.5 10^3/uL (1.5-3.5) 05/09/23 05:38 Pratt # (Auto) 0.8 10^3/uL (0.0-1.0) 05/09/23 05:38 Eos # (Auto) 0.3 10^3/uL (0.0-0.7) 05/09/23 05:38 Baso # (Auto) 0.0 10^3/uL (0.0-0.1) 05/09/23 05:38 Absolute Nucleated RBC 0.00 x10^3/uL 05/09/23 05:38 Nucleated RBC % 0.0 /100WBC 05/09/23 05:38 PT 15.8 secs (9.9-12.6) H 04/30/23 12:53 INR 1.5 (0.8-1.2) H 04/30/23 12:53 Sodium 134 mmol/L (135-145) L 05/09/23 22:55 Potassium 4.2 mmol/L (3.5-4.5) 05/09/23 05:38 Chloride 97 mmol/L (101-111) L 05/09/23 05:38 Carbon Dioxide 33 mmol/L (21-32) H 05/09/23 05:38 Anion Gap 4.0 (6-13) L 05/09/23 05:38 BUN 29 mg/dL (6-20) H 05/09/23 05:38 Creatinine 1.0 mg/dL (0.6-1.3) 05/09/23 05:38 Estimated GFR (MDRD) 71 (>89) L 05/09/23 05:38 Glucose 125 mg/dL (74-104) H 05/09/23 05:38 POC Whole Bld Glucose 105 mg/dL (70 - 100) H 05/03/23 06:16 Lactic Acid 1.1 mmol/L (0.5-2.2) 04/30/23 12:53 Calcium 9.3 mg/dL (8.5-10.3) 05/09/23 05:38 Phosphorus 3.4 mg/dL (2.5-5.0) 05/09/23 05:38 Magnesium 1.5 mg/dL (1.7-2.3) L 05/09/23 05:38 Iron 46 ug/dL (50-212) L 05/03/23 05:04 TIBC 213 ug/dL (250-450) L 05/03/23 05:04 % Saturation 22 % (20-50) 05/03/23 05:04 Transferrin 152 mg/dL (203-362) L 05/03/23 05:04 Total Bilirubin 0.8 mg/dL (0.2-1.0) 04/30/23 12:53 AST 26 IU/L (10-42) 04/30/23 12:53 ALT 13 IU/L (10-60) 04/30/23 12:53 Alkaline Phosphatase 48 IU/L (42-121) 04/30/23 12:53 Troponin I High Sens 10.2 ng/L (2.3-19.7) 04/30/23 12:53 Total Protein 5.6 g/dL (6.4-8.9) L 04/30/23 12:53 Albumin 3.3 g/dL (3.2-5.5) 04/30/23 12:53 Globulin 2.3 g/dL (2.1-4.2) 04/30/23 12:53 Albumin/Globulin Ratio 1.4 (1.0-2.2) 04/30/23 12:53 Lipase 18 U/L (11-82) 04/30/23 12:53 Vitamin B12 673 pg/mL (180-914) 05/03/23 05:04 Folate 19.4 ng/mL (5.90 - >24.8) 05/03/23 05:04 TSH 1.19 uIU/mL (0.34-5.60) 05/03/23 05:04 Cortisol AM Sample 15.9 ug/dL 05/03/23 09:02 Urine Color YELLOW 04/30/23 15:44 Urine Clarity CLEAR (CLEAR) 04/30/23 15:44 Urine pH 6.0 PH (5.0-7.5) 04/30/23 15:44 Ur Specific Reeder 1.015 (1.002-1.030) 04/30/23 15:44 Urine Protein NEGATIVE mg/dL (NEGATIVE) 04/30/23 15:44 Urine Glucose (UA) NEGATIVE mg/dL (NEGATIVE) 04/30/23 15:44 Urine Ketones NEGATIVE mg/dL (NEGATIVE) 04/30/23 15:44 Urine Occult Blood NEGATIVE (NEGATIVE) 04/30/23 15:44 Urine Nitrite NEGATIVE (NEGATIVE) 04/30/23 15:44 Urine Bilirubin NEGATIVE (NEGATIVE) 04/30/23 15:44 Urine Urobilinogen 1 (NORMAL) E.U./dL (NORMAL) 04/30/23 15:44 Ur Leukocyte Esterase NEGATIVE (NEGATIVE) 04/30/23 15:44 Ur Microscopic Review NOT INDICATED 04/30/23 15:44 Urine Culture Comments NOT INDICATED 04/30/23 15:44 Urine Sodium 67.3 mmol/L 04/30/23 15:44 Nasal Adenovirus (PCR) NOT DETECTED 04/30/23 13:15 Nasal B. parapertussis DNA (PCR) NOT DETECTED 04/30/23 13:15 Nasal Coronavir 229E PCR NOT DETECTED 04/30/23 13:15 Nasal Coronavir HKU1 PCR NOT DETECTED 04/30/23 13:15 Nasal Coronavir NL63 PCR NOT DETECTED 04/30/23 13:15 Nasal Coronavir OC43 PCR NOT DETECTED 04/30/23 13:15 Nasal Enterovir/Rhinovir PCR DETECTED A 04/30/23 13:15 Nasal Influenza B PCR NOT DETECTED 04/30/23 13:15 Nasal Influenza A PCR NOT DETECTED 04/30/23 13:15 Nasal Parainfluen 1 PCR NOT DETECTED 04/30/23 13:15 Nasal Parainfluen 2 PCR NOT DETECTED 04/30/23 13:15 Nasal Parainfluen 3 PCR NOT DETECTED 04/30/23 13:15 Nasal Parainfluen 4 PCR NOT DETECTED 04/30/23 13:15 Nasal RSV (PCR) NOT DETECTED 04/30/23 13:15 Nasal B.pertussis DNA PCR NOT DETECTED 04/30/23 13:15 Nasal C.pneumoniae (PCR) NOT DETECTED 04/30/23 13:15 Casey Human Metapneumo PCR NOT DETECTED 04/30/23 13:15 Nasal M.pneumoniae (PCR) NOT DETECTED 04/30/23 13:15 Nasal SARS-CoV-2 (PCR) NOT DETECTED 04/30/23 13:15 - Procedures Procedures: Procedures EXCISION OF DESCENDING COLON, ENDO, DIAGN (05/24/15) EXCISION OF DUODENUM, ENDO, DIAGN (05/24/15) EXCISION OF LOWER ESOPHAGUS, ENDO, DIAGN (05/24/15) EXCISION OF RIGHT SPERMATIC CORD, OPEN APPROACH (12/08/22) EXCISION OF SMALL INTESTINE, OPEN APPROACH (12/08/22) EXCISION OF STOMACH, ENDO, DIAGN (05/24/15) SUPPLEMENT R INGUINAL REGION WITH SYNTH SUB, OPEN APPROACH (12/08/22) Current Medications - Current Medications Current Medications: Active Medications Acetaminophen (Acetaminophen 325 Mg Tablet) 650 mg PO Q4HR PRN PRN Reason: Pain 1 to 4, or Fever Last Admin: 05/10/23 22:47 Dose: 650 mg Amitriptyline HCl (Amitriptyline 10 Mg Tablet) 5 mg PO HS [facility] Last Admin: 05/10/23 20:40 Dose: 5 mg Calcium Carbonate/Glycine (Calcium Carbonate Chew 500 Mg Tablet) 500 mg PO DAILY [facility] Last Admin: 05/10/23 08:28 Dose: 500 mg Docusate Sodium (Docusate Sodium 250 Mg Capsule) 250 - 500 mg PO DAILY [facility] Last Admin: 05/10/23 08:28 Dose: 250 mg Escitalopram Oxalate (Escitalopram 10 Mg Tablet) 5 mg PO DAILY [facility] Last Admin: 05/10/23 08:27 Dose: 5 mg Ferrous Gluconate (Ferrous Gluconate 324 Mg Tablet) 324 mg PO DAILYWM [facility] Last Admin: 05/10/23 08:27 Dose: 324 mg Guaifenesin (Guaifenesin 600 Mg Tablet) 600 mg PO BID PRN PRN Reason: Cough Last Admin: 05/04/23 21:22 Dose: 600 mg Levothyroxine Sodium (Levothyroxine 25 Mcg Tablet) 50 mcg PO QDAC [facility] Last Admin: 05/10/23 06:58 Dose: 50 mcg Magnesium Oxide (Magnesium Oxide 400 Mg Tablet) 400 mg PO DAILYWM [facility] Last Admin: 05/10/23 08:27 Dose: 400 mg Mirtazapine (Mirtazapine 15 Mg Tablet) 22.5 mg PO HS [facility] Last Admin: 05/10/23 20:40 Dose: 22.5 mg Multivitamins/Minerals (Multivitamin W/Minerals Tablet) [facility] Last Admin: 05/10/23 08:28 Dose: 1 tab Ondansetron HCl (Ondansetron Odt 4 Mg Tablet) 4 mg TL Q6HR PRN PRN Reason: Nausea / Vomiting Last Admin: 05/09/23 18:26 Dose: 4 mg Pantoprazole Sodium (Pantoprazole 40 Mg Tablet) 40 mg PO BID [facility] Last Admin: 05/10/23 20:40 Dose: 40 mg Polyethylene Glycol (Polyethylene Glycol 3350 17 Gm Packet) 17 gm PO DAILY [facility] Last Admin: 05/10/23 08:28 Dose: 17 gm Polyethylene Glycol (Polyethylene Glycol 3350 17 Gm Packet) 8.5 gm PO DAILY PRN PRN Reason: Constipation Senna (Senna 8.6 Mg Tablet) 8.6 - 17.2 mg PO DAILY [facility] Last Admin: 05/10/23 08:28 Dose: 8.6 mg Sodium Chloride (Sodium Chloride 1 Gm Tablet) 1 gm PO DAILY [facility] Tamsulosin HCl (Tamsulosin 0.4 Mg Capsule) 0.4 mg PO [facility] Last Admin: 05/10/23 20:40 Dose: 0.4 mg Multivit-Min/Iron Fum/Folic AC [Prdkt-Sbdviwj-Rgfmngia Tablet] 1 tab PO DAILY 05/08/15 polyethylene glycoL 3350 [Miralax] 8.5 - 17 gm PO DAILY PRN 05/08/15 Tamsulosin HCl [Flomax] 0.4 mg PO HS 07/11/18 Levothyroxine Sodium [Synthroid] 50 mcg PO QDAC 01/22/19 Cimetidine 400 mg PO HS 12/08/22 Eszopiclone [Lunesta] 2 mg PO HS 12/08/22 Mirtazapine 22.5 mg PO HS 12/08/22 Omeprazole Magnesium 40 mg PO BID 12/08/22 Valsartan 160 mg PO QPM 12/08/22 Calcium Carbonate [Calcium] 600 mg PO DAILY 12/09/22 Cholecalciferol (Vitamin D3) [Vitamin D3] 2,000 unit PO DAILY 12/09/22 Simvastatin [Zocor] 80 mg PO HS 12/09/22 Escitalopram Oxalate 5 mg PO DAILY 05/02/23 Prazosin [Minipress] 1 mg PO DAILY 05/02/23
[2023-05-11] MEDS: traZODone 50 MG TABLET PO PRN (00:27)
[2023-05-11 07:44] VITALS: BP 142/89; O2SAT 95
[2023-05-11] MEDS: SODIUM CHLORIDE 1 GM TABLET PO SCH (08:51)
--- NOTE | 2023-05-11 13:29 | Discharge Plan ---
"Discharge Plan for SNF / JACQUELINE - Discharge Plan And Transition Orders Problem Reviewed?: Yes Disposition: 03 SNF DC/Xfer Condition: Poor Allergies and Adverse Reactions: Allergies Allergy/AdvReac Type Severity Reaction Status Date / Time No Known Drug Allergies Allergy Verified 04/30/23 12:54 Health Concerns: Sy Holt is an 87-year-old man admitted on April 30, 2023 after a fall at home. He has a past medical history significant for freq falls, diabetes mellitus, atrial fibrillation previously on Eliquis, coronary artery disease, chronic anemia, hypothyroidism, chronic kidney disease, prostate cancer, and dementia. Treatment included salt tablets and fluid restriction to treat Hyponatremia. Serum sodium was very difficult to correct and currently patient is taking salt tablet daily in addition to following a fluid restriction. The patient remains very frail and is not significantly improving. His orthostasis has improved however. He is not competent to make his own decisions because of his underlying dementia. Goals of care were discussed with patient's daughter, Savannah Poole and the decision has been made to transition to comfort care. Plan is for patient to transfer to a care home facility to initiate comfort care measures and to be accepted by Hospice. CODE STATUS is DO NOT RESUSCITATE Plan of Treatment: Plan is to stop all active treatments and transition to comfort care measures. Care Goals: Goal of care is comfort. Assessment: The patient's family wishes to transition him to Hospice and comfort care measures. 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 Other Notification Orders: Call PCP immediately if patient develops dyspnea, chest pain/tightness or edema. House Bowel Program: Yes Additional Bowel Program Orders: If no BM after 2 days, nurse may give M.O.M. 30ml PO PRN and/or ducolax Supp 1 ID and/or ASHLY 250mg P.O., and/or senna 1-2 tabs PO. On day 3 nurse may give repeat above order until residents constipation is resolved. Annual Influenza Vaccine (between Dec 04 and July 03): Yes Two-step PPD per [facility] [phone] or approved exception documents: Yes Medication Orders: PLEASE REFER TO THE DISCHARGE MEDICATION LIST. Insulin Orders?: No - Medications New Prescriptions: traZODone [Desyrel] 50 mg PO QPM PRN #30 tab PRN Reason: Insomnia guaiFENesin [Mucinex] 600 mg PO BID PRN #10 tab PRN Reason: Cough Sodium Chloride [Salt Tab] 1 gm PO DAILY #30 tab - Diet Type: Geriatric (Mechanical soft diet) Texture: Mech soft Liquids: Thin (1800 cc/day fluid restriction) May have monthly special meal: Yes - Therapies | Activity Activity: Wt Bearing as Tolerated Assistance Devices: Wheelchair, Walker Follow Up: Transitioning to Hospice care while at [facility]"
--- NOTE | 2023-05-13 08:27 | DISCHARGE SUMMARY ---
Discharge Summary Admit Date: 04/30/23 Discharge Date: 05/11/23 Discharging Provider: Dr Latisha Barth Primary Care Provider: Dr Clint Johansen and soon under Hospice care Code Status: Do Not Attempt Resuscitation Condition at Discharge: Poor Discharge Disposition: 03 SNF DC/Xfer - HPI History of Present Illness: This is an 87-year-old male who lives at home with family. He has a history of borderline DM, Afib, CAD, chronic anemia, Hypothyroidism, CKD and prostate cancer. He was admitted here to treat an incarcerated hernia in December 2022 that required surgery. Following that he had an admission in Jan 2023 for small bowel obstruction or ileus which was felt to be a postop complication and he had a pneumonia. The patient also has a history of hyponatremia and frequent falls and has had orthostatic hypotension documented. With history of A-fib and takes Xarelto. He was seen in the ER this month for recurrent falls. He was dehydrated, stabilized and advised to have closer management by his PCP. Today he presented after ambulance was called to the house. He uis a poor historian but described feeling weak for the past several days and having 4-5 falls in the last 2 days. Today he fell and did bump his head during the fall. He complained of chest congestion. EMS found him to have a blood pressure of 60 systolic. He could not stand up independently. He was given IV fluids en route and presented to the ER with a systolic BP of 80. Exam showed no neurodeficit. Labs showed a sodium of 124, normal troponin and CT head and other imaging showed no evidence of trauma or bleeding. He continued to get fluids in the ER and blood pressure improved to 120 systolic. His respiratory PCR showed he has positive for Rhinovirus. Chest x-ray was read as having CHF, however this was after the fluid administration by EMS and in the ER. The ED provider spoke to me about this patient. He will be hospitalized for management of his hyponatremia, frequent falls with documented hypotension and known history of orthostasis, and for treating probable dehydration from having a Rhinovirus infection. I spoke to him about his CODE BLUE wishes and he said he wants to be a Full Code (however, it appears he does not understand the details of this discussion). - HOSPITAL COURSE Hospital Course: (1) Hyponatremia Resolved very slowly with free water restriction and starting salt tabs (2) SIADH He has SIADH per work-up (3) Orthostatic hypotension Resolved with use of Midodrine (4) Frequent falls As per Hx (5) Anticoagulant long-term use Eliquis has been stopped because of his recurrent falls. The risks of continuing anticoagulant now outweigh the benefits. (6) Paroxysmal A-fib He has slow Afib, despite being on no heart-rate slowing meds and would need a pacemaker, but is not a candidate (7) Dementia without behavioral disturbance Stable, but he is only oriented to self. The children had a meeting with Palliative consultant internship and he is now a DNR/DNI. He is going into LTC and will be under Hospice care. (8) Hypothyroidism Stable on meds (9) Iron deficiency anemia On treatment (10) Hypomagnesemia On treatment (11) Rhinovirus Improved and off isolation orders. - ALLERGIES Allergies/Adverse Reactions: Allergies Allergy/AdvReac Type Severity Reaction Status Date / Time No Known Drug Allergies Allergy Verified 04/30/23 12:54 - MEDICATIONS Home Medications: Ambulatory Orders Medication Instructions Recorded Confirmed polyethylene glycoL 3350 [Miralax] 8.5 - 17 gm PO DAILY PRN 05/08/15 05/01/23 Tamsulosin HCl [Flomax] 0.4 mg PO HS 07/11/18 05/01/23 Levothyroxine Sodium [Synthroid] 50 mcg PO QDAC 01/22/19 05/01/23 Mirtazapine 22.5 mg PO HS 12/08/22 05/01/23 Omeprazole Magnesium 40 mg PO BID 12/08/22 05/01/23 Amitriptyline [Elavil] 10 mg PO HS #60 tablet 03/04/23 05/01/23 Escitalopram Oxalate 5 mg PO DAILY 05/02/23 05/02/23 Sodium Chloride [Salt Tab] 1 gm PO DAILY #30 tab 05/11/23 guaiFENesin [Mucinex] 600 mg PO BID PRN #10 tab 05/11/23 traZODone [Desyrel] 50 mg PO QPM PRN #30 tab 05/11/23 - PHYSICAL EXAM AT DISCHARGE General Appearance: positive: No acute distress, Alert, Other (Tall, frail, weak appearing, elderly white male) Eyes Bilateral: positive: Normal inspection, EOMI ENT: positive: ENT inspection nml, No signs of dehydration, Other (Sunken eyes. Sunken cheeks) Neck: positive: Nml inspection, No JVD Respiratory: positive: No respiratory distress, Breath sounds nml Cardiovascular: positive: No murmur, Irregularly irregular Abdomen: positive: Non-tender, No distention Skin: positive: Warm, Dry Extremities: positive: Non-tender, No pedal edema, Other (Multiple bruises of arms and legs) Neurologic/Psychiatric: positive: CN's nml (2-12), Disoriented to place, Disoriented to time, Other (Poor balance and shuffling gait. ALTURAS. Is slow to answer.) - LABS Result Diagrams: 05/09/23 05:38 05/09/23 22:55 - DIAGNOSTIC IMAGING Diagnostic Imaging Results: Final report reviewed - TIME SPENT Time Spent in Discharge (Minutes): 45
== END 2023-05-11 15:30 | DRG 645 ==
LOC: EDUNIT# → ED 12:40 → MS2 17:22 → OBSVTOIN 05-01 11:40
PROVIDERS: ADMIT Internal Medicine; ATTEND Internal Medicine
DX: E87.1 Hypo-osmolality and hyponatremia (principal); I95.9 Hypotension, unspecified; E22.2 Syndrome of inappropriate secretion of antidiuretic hormone; E86.0 Dehydration; I95.1 Orthostatic hypotension; S00.81XA Abrasion of other part of head, initial encounter; W19.XXXA Unspecified fall, initial encounter; Z91.81 History of falling; I48.0 Paroxysmal atrial fibrillation; Z79.01 Long term (current) use of anticoagulants; E11.22 Type 2 diabetes mellitus with diabetic chronic kidney disease; F03.90 Unspecified dementia, unspecified severity, without behavioral disturbance, psychotic disturbance, mood disturbance, and anxiety; E03.9 Hypothyroidism, unspecified; D50.9 Iron deficiency anemia, unspecified; E83.42 Hypomagnesemia; B34.8 Other viral infections of unspecified site; Z95.5 Presence of coronary angioplasty implant and graft; Z87.891 Personal history of nicotine dependence; R73.03 Prediabetes; I25.10 Atherosclerotic heart disease of native coronary artery without angina pectoris; N18.9 Chronic kidney disease, unspecified; Z85.46 Personal history of malignant neoplasm of prostate; E86.1 Hypovolemia; F32.A Depression, unspecified; F41.9 Anxiety disorder, unspecified; Z66 Do not resuscitate; F43.10 Post-traumatic stress disorder, unspecified; R53.1 Weakness
CPT/HCPCS: 36415; 70450; 71045; 72125; 73080; 80048; 80053; 81003; 82533; 82607; 82746; 83540; 83605; 83690; 83735; 84100; 84295; 84300; 84443; 84466; 84484; 85025; 85610; 87040; 87633; 90471; 90715; 93005; 96361; 96365; 97116; 97162; 97166; 97530; 99284; 99285; A9270; G0378; Q0162; 81001; 87086

== ENCOUNTER 2023-05-11 15:39 | Outpatient (CLI) | payer MEDICARE, OTHER | END 2023-05-11 15:40 | LOC: EMS 15:39 | PROVIDERS: ATTEND Internal Medicine | DX: Z51.5 Encounter for palliative care (principal); R53.1 Weakness; F03.90 Unspecified dementia, unspecified severity, without behavioral disturbance, psychotic disturbance, mood disturbance, and anxiety | CPT/HCPCS: A0425; A0428 ==